=== PATIENT | male | born 1960 | race Caucasian/White ===

== ENCOUNTER → 2018-04-29 | Outpatient (CLI) | payer OTHER ==
[2018-04-29 10:00] LABS: ALT 51 U/L (21-72); AST 28 U/L (17-59); Cholesterol 152 mg/dL (<200); HDL Cholesterol 47 mg/dL (40-60); LDL Cholesterol,Calculated 84 mg/dL (0-99); Triglycerides 106 mg/dL (<150)
== END | disposition home or self-care (01) ==
LOC: LABWHC1 09:05
PROVIDERS: ATTEND Internal Medicine Interventional Cardiology
DX: E78.2 Mixed hyperlipidemia (principal)
CPT/HCPCS: 36415; 80061; 84450; 84460

== ENCOUNTER 2018-06-18 09:13 | Observation (INO) | payer OTHER ==
[2018-06-18] MEDS ORDERED: ASPIRIN 81 MG PO STA (09:27)
[2018-06-18] MEDS ORDERED: SODIUM CHLORIDE 0.9% 1,000 ML IV STA (09:27)
[2018-06-18] MEDS ORDERED: KETOROLAC 30 MG/ML 1 ML VIAL IVP STA (09:27)
--- NOTE | 2018-06-18 09:33 | ED ---
General Adult HPI - General Chief complaint: Chest Pain Stated complaint: Abnormal EKG Source: patient, EMS Mode of arrival: EMS Limitations: no limitations - History of Present Illness Initial comments: Dictation was produced using [employer] dictation software. please excuse any grammatical, word or spelling errors. Chief Complaint: 57-year-old male past medical history of coronary artery disease, status post CABG, myocardial infarction presents with EKG changes and URI symptoms. History of Present Illness: That he's been having these symptoms for approximately 3-4 days. Patient has been feeling unwell with symptoms of coughing, intermittent chest pain and diaphoresis. He went into his primary care physician's office today were EKG was performed showing some nonspecific EKG changes. Given that patient has extensive cardiac history he was dispositioned to emergency department for cardiac workup. Patient states he feels unwell. He has episodes of intermittent diaphoresis. He reports having had feeling of chest burning. He does have some pain that started today of the left inferior chest anteriorly. States that his symptoms today do not mind above when he was diagnosed with myocardial infarction. The ROS documented in this emergency department record has been reviewed and confirmed by me. Those systems with pertinent positive or negative responses have been documented in the HPI. All other systems are other negative and/or noncontributory. - Related Data Home Medications Medication Instructions Recorded Confirmed Hydrochlorothiazide [Hydrodiuril] 25 mg PO DAILY 12/15/14 06/18/18 amLODIPine BESYLATE [Norvasc] 5 mg PO DAILY 12/15/14 06/18/18 Aspirin EC [Ecotrin Low Dose] 81 mg PO HS 06/18/18 06/18/18 Cholecalciferol (Vitamin D3) 2,000 unit PO BID 06/18/18 06/18/18 [Vitamin D3] Famotidine [Pepcid AC] 10 mg PO HS 06/18/18 06/18/18 Lisinopril [Zestril] 20 mg PO BID 06/18/18 06/18/18 Loratadine [Claritin] 10 mg PO HS 06/18/18 06/18/18 [place]-3 Fatty Acids/Fish Oil [Fish 1 cap PO HS 06/18/18 06/18/18 Oil 1,000 mg Softgel] Psyllium Husk [Metamucil] 0.4 mg PO BID 06/18/18 06/18/18 Valerian Root 530mg 1 - 4 tab PO HS PRN 06/18/18 06/18/18 Vitamin K-2 100mg 100 mg PO DAILY 06/18/18 06/18/18 diphenhydrAMINE [Benadryl] 50 mg PO HS PRN 06/18/18 06/18/18 Previous Rx's Medication Instructions Recorded Atorvastatin [Lipitor] 40 mg PO HS #30 tablet 05/28/14 Metoprolol Tartrate [Lopressor] 25 mg PO BID #60 tab 05/28/14 Allergies Allergy/AdvReac Type Severity Reaction Status Date / Time adhesive Allergy Rash/Hives Verified 06/18/18 09:41 Review of Systems ROS Statement: Those systems with pertinent positive or pertinent negative responses have been documented in the HPI. ROS Other: All systems not noted in ROS Statement are negative. Past Medical History Past Medical History: Chest Pain / Angina, GERD/Reflux, Hyperlipidemia, Hypertension, Myocardial Infarction ([place]) Additional Past Medical History / Comment(s): arrthymia, palpitations, occ chest pain Last Myocardial Infarction Date:: 2007 History of Any Multi-Drug Resistant Organisms: None Reported Past Surgical History: Appendectomy, Coronary Bypass/CABG, Heart Catheterization , Heart Catheterization With Stent Additional Past Surgical History / Comment(s): surgeries on both legs from trauma age 6, heart cath 05-19-14 Past Anesthesia/Blood Transfusion Reactions: No Reported Reaction Date of Last Stent Placement:: 03/2008 Past Psychological History: No Psychological Hx Reported Smoking Status: Former smoker Past Alcohol Use History: Occasional Past Drug Use History: None Reported - Past Family History Mother Family Medical History: Cancer General Exam - General Exam Comments Initial Comments: PHYSICAL EXAM: General Impression: Alert and oriented x3, not in acute distress HEENT: Normocephalic atraumatic, extra-ocular movements intact, pupils equal and reactive to light bilaterally, mucous membranes moist. Cardiovascular: Heart regular rate and rhythm, S1&S2 audible, no murmurs, rubs or gallops Chest: Mild lung crackling at the left posterior lung base Abdomen: Bowel sounds present, abdomen soft, non-tender, non-distended, no organomegaly Musculoskeletal: Pulses present and equal in all extremities, no peripheral edema Motor: Power 5/5 bilaterally, no focal deficits noted Neurological: CN II-XII grossly intact, no focal motor or sensory deficits noted Skin: Intact with no visualized rashes Psych: Normal affect and mood Limitations: no limitations Course Vital Signs 06/18/18 06/18/18 06/18/18 09:15 09:35 10:10 Temperature 97.8 F Pulse Rate 76 79 72 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 Vital signs upon arrival are within acceptable limits. Physical examination is suspicious for left lower lobe findings. EKG performed at our institution and showed no signs to suggest ischemia or ID. EKG reviewed from primary care physician's office showing nonspecific T-wave inversion in aVL. Clinical picture is more consistent with pulmonary infection however given cardiac history we'll perform cardiac workup. Second EKG showed some narrowing changes however not persistent. There was one beat that showed ST segment elevation with concerning ST morphology in V 4 through V6. 3rd EKG performed 15 minutes after the second EKG showed no dynamic changes however did show persistent T-wave inversion in aVL discussed patient case in detail with Dr. Sevilla who will review EKG. High Scaler on-call states that he believes he is not concerned about this EKG at this time. Given that patient has history of diaphoresis, chest pain and cardiac history we will treat patient has unstable angina. Laboratory evaluation obtained. CBC is unremarkable. Coag panel is negative. Chem panel shows glucose of 118. First troponin is negative at 0.012. Chest x- ray shows no acute processes. Patient started on heparin. We have have patient admitted for serial troponins and cardiology consult. Patient understandable and agreeable to this plan. We gave him one tablet of aspirin. Patient was evaluated at bedside by cardiologists. Cardiology recommends serial troponins and admission to observation for medical monitoring. Did not recommend heparin at this time. EKG Interpretation: A 12 lead EKG was obtained. It was interpreted by myself and attending physician. There is a P wave before every QRS complex. Rate is 80. Rhythm is normal sinus rhythm, IN interval 180, QRS 106, QTC 412. QT is not prolonged. No ST segment depression or elevation. . Overall, this EKG is unremarkable - Lab Data Result diagrams: 06/18/18 09:26 06/18/18 09:26 Lab Results 06/18/18 06/18/18 06/18/18 Range/Units 09:26 09:26 09:26 WBC 10.4 (3.8-10.6) k/uL RBC 5.43 (4.30-5.90) m/uL Hgb 16.8 (13.0-17.5) gm/dL Hct 48.6 (39.0-53.0) % MCV 89.5 (80.0-100.0) fL MCH 31.0 (25.0-35.0) pg MCHC 34.7 (31.0-37.0) g/dL RDW 12.6 (11.5-15.5) % Plt Count 240 (150-450) k/uL Neutrophils % 71 % Lymphocytes % 19 % Monocytes % 6 % Eosinophils % 2 % Basophils % 1 % Neutrophils # 7.4 (1.3-7.7) k/uL Lymphocytes # 2.0 (1.0-4.8) k/uL Monocytes # 0.6 (0-1.0) k/uL Eosinophils # 0.2 (0-0.7) k/uL Basophils # 0.1 (0-0.2) k/uL PT (9.0-12.0) sec INR (<1.2) APTT (22.0-30.0) sec Sodium 141 (137-145) mmol/L Potassium 4.2 (3.5-5.1) mmol/L Chloride 105 (98-107) mmol/L Carbon Dioxide 25 (22-30) mmol/L Anion Gap 11 mmol/L BUN 12 (9-20) mg/dL Creatinine 0.70 (0.66-1.25) mg/dL Est GFR (CKD-EPI)AfAm >90 (>60 ml/min/1.73 sqM) Est GFR (CKD-EPI)NonAf >90 (>60 ml/min/1.73 sqM) Glucose 118 H (74-99) mg/dL Calcium 9.9 (8.4-10.2) mg/dL Magnesium 2.0 (1.6-2.3) mg/dL Total Bilirubin 0.7 (0.2-1.3) mg/dL AST 32 (17-59) U/L ALT 46 (21-72) U/L Alkaline Phosphatase 66 (38-126) U/L Total Creatine Kinase 78 (55-170) U/L CK-MB (CK-2) 0.6 (0.0-2.4) ng/mL CK-MB (CK-2) Rel Index 0.8 Troponin I <0.012 (0.000-0.034) ng/mL Total Protein 7.6 (6.3-8.2) g/dL Albumin 4.6 (3.5-5.0) g/dL Lipase 248 (23-300) U/L 06/18/18 Range/Units 09:26 WBC (3.8-10.6) k/uL RBC (4.30-5.90) m/uL Hgb (13.0-17.5) gm/dL Hct (39.0-53.0) % MCV (80.0-100.0) fL MCH (25.0-35.0) pg MCHC (31.0-37.0) g/dL RDW (11.5-15.5) % Plt Count (150-450) k/uL Neutrophils % % Lymphocytes % % Monocytes % % Eosinophils % % Basophils % % Neutrophils # (1.3-7.7) k/uL Lymphocytes # (1.0-4.8) k/uL Monocytes # (0-1.0) k/uL Eosinophils # (0-0.7) k/uL Basophils # (0-0.2) k/uL PT 9.8 (9.0-12.0) sec INR 1.0 (<1.2) APTT 22.0 (22.0-30.0) sec Sodium (137-145) mmol/L Potassium (3.5-5.1) mmol/L Chloride (98-107) mmol/L Carbon Dioxide (22-30) mmol/L Anion Gap mmol/L BUN (9-20) mg/dL Creatinine (0.66-1.25) mg/dL Est GFR (CKD-EPI)AfAm (>60 ml/min/1.73 sqM) Est GFR (CKD-EPI)NonAf (>60 ml/min/1.73 sqM) Glucose (74-99) mg/dL Calcium (8.4-10.2) mg/dL Magnesium (1.6-2.3) mg/dL Total Bilirubin (0.2-1.3) mg/dL AST (17-59) U/L ALT (21-72) U/L Alkaline Phosphatase (38-126) U/L Total Creatine Kinase (55-170) U/L CK-MB (CK-2) (0.0-2.4) ng/mL CK-MB (CK-2) Rel Index Troponin I (0.000-0.034) ng/mL Total Protein (6.3-8.2) g/dL Albumin (3.5-5.0) g/dL Lipase (23-300) U/L Disposition Clinical Impression: Chest pain Disposition: ADMITTED IP TO THIS HOSP Referrals: Musa Rosales MD [Primary Care Provider] - 1-2 days Decision Time: 11:08
[2018-06-18 09:52] LABS: Basophils # (A) 0.1 k/uL (0-0.2); Basophils % (A) 1 %; Eosinophils # (A) 0.2 k/uL (0-0.7); Eosinophils % (A) 2 %; HCT 48.6 % (39.0-53.0); HGB 16.8 gm/dL (13.0-17.5); Lymphocytes % (A) 19 %; MCHC 34.7 g/dL (31.0-37.0); MCV 89.5 fL (80.0-100.0); Mean Platelet Volume 7.8; Monocytes # (A) 0.6 k/uL (0-1.0); Monocytes % (A) 6 %; Neutrophils # (A) 7.4 k/uL (1.3-7.7); Neutrophils % (A) 71 %; Platelet Count 240 k/uL (150-450); RBC 5.43 m/uL (4.30-5.90); RDW 12.6 % (11.5-15.5); WBC 10.4 k/uL (3.8-10.6)
[2018-06-18 10:00] LABS: ALT 46 U/L (21-72); AST 32 U/L (17-59); Albumin 4.6 g/dL (3.5-5.0); Alkaline Phosphatase 66 U/L (38-126); Anion Gap 11 mmol/L; Blood Urea Nitrogen 12 mg/dL (9-20); Calcium 9.9 mg/dL (8.4-10.2); Carbon Dioxide 25 mmol/L (22-30); Chloride 105 mmol/L (98-107); Glucose 118 mg/dL (74-99); Lipase 248 U/L (23-300); Potassium 4.2 mmol/L (3.5-5.1); Sodium 141 mmol/L (137-145); Total Bilirubin 0.7 mg/dL (0.2-1.3); Total Protein 7.6 g/dL (6.3-8.2)
[2018-06-18 10:11] LABS: Prothrombin Time 9.8 sec (9.0-12.0)
[2018-06-18 10:17] LABS: Creatine Kinase 78 U/L (55-170)
--- NOTE | 2018-06-18 10:22 | XR ---
EXAMINATION TYPE: XR chest 2V DATE OF EXAM: 06/18/2018 COMPARISON: May 28, 2014 HISTORY: Shortness of breath TECHNIQUE: Frontal and lateral views of the chest are obtained. FINDINGS: Scattered senescent parenchymal changes noted. Hyperinflation compatible with COPD. No evidence for infiltrate. No evidence for atelectasis. Heart size is stable. Mediastinal structures are stable and grossly unremarkable. No evidence for hilar prominence. Degenerative changes dorsal spine. IMPRESSION: 1. No evidence for acute pulmonary disease.
[2018-06-18 10:28] LABS: Creatine Kinase MB 0.6 ng/mL (0.0-2.4); Troponin I <0.012 ng/mL (0.000-0.034)
[2018-06-18] MEDS ORDERED: HEPARIN SODIUM,PORCINE 5,000 UNIT/ML 1 ML VIAL IV PRN (10:30)
[2018-06-18] MEDS ORDERED: HEPARIN SODIUM,PORCINE 5,000 UNIT/ML 1 ML VIAL IV ONE (10:30)
[2018-06-18] MEDS ORDERED: HEPARIN SOD,PORK IN 0.45% NACL 25,000 UNIT in 0.45% NACL 1 500ML.BAG IV SCH (10:30)
--- NOTE | 2018-06-18 11:03 | P.CRDCN ---
History of Present Illness Consult date: 06/18/18 History of present illness: This is a 57-year-old gentleman with history of hypertension and hypercholesterolemia with history of a previous bypass surgery was been suffering from cold like symptoms and cough for the last week. As symptoms are not resolving. Patient went to see his primary care physician. Apparently was complaining of some atypical chest pain in the left side. His blood pressure was high. Dr. Rosales did an EKG in his office which showed some nonspecific T- wave changes. Patient was sent to the emergency room for further evaluation. EKGs done here showed nonspecific T-wave inversions in aVL without any other significant ST-T changes. Patient's pain in the left side is increased with coughing. Doesn't complain of any significant shortness of breath. His first troponin is normal. His symptoms are mostly related to his pulmonary infection. Patient was seen by Dr. Carrasco recently. Apparently had a stress test which was normal. He had a OROZCO graft to the LAD, vein graft to the OM 2 and vein graft to diagonal. The surgery was done in 2013. At this point his symptoms are noncardiac. EKGs are not suggestive of an acute event. His cardiac enzymes studies will be followed. If that is negative no further cardiac workup is necessary Review of Systems As per HPI Past Medical History Past Medical History: Chest Pain / Angina, GERD/Reflux, Hyperlipidemia, Hypertension, Myocardial Infarction ([place]) Additional Past Medical History / Comment(s): arrthymia, palpitations, occ chest pain Last Myocardial Infarction Date:: 2007 History of Any Multi-Drug Resistant Organisms: None Reported Past Surgical History: Appendectomy, Coronary Bypass/CABG, Heart Catheterization , Heart Catheterization With Stent Additional Past Surgical History / Comment(s): surgeries on both legs from trauma age 6, heart cath 05-19-14 Past Anesthesia/Blood Transfusion Reactions: No Reported Reaction Date of Last Stent Placement:: 03/2008 Past Psychological History: No Psychological Hx Reported Smoking Status: Former smoker Past Alcohol Use History: Occasional Past Drug Use History: None Reported - Past Family History Mother Family Medical History: Cancer Medications and Allergies Home Medications Medication Instructions Recorded Confirmed Type Atorvastatin [Lipitor] 40 mg PO HS #30 tablet 05/28/14 06/18/18 Rx Metoprolol Tartrate [Lopressor] 25 mg PO BID #60 tab 05/28/14 06/18/18 Rx Hydrochlorothiazide [Hydrodiuril] 25 mg PO DAILY 12/15/14 06/18/18 History amLODIPine BESYLATE [Norvasc] 5 mg PO DAILY 12/15/14 06/18/18 History Aspirin EC [Ecotrin Low Dose] 81 mg PO HS 06/18/18 06/18/18 History Cholecalciferol (Vitamin D3) 2,000 unit PO BID 06/18/18 06/18/18 History [Vitamin D3] Famotidine [Pepcid AC] 10 mg PO HS 06/18/18 06/18/18 History Lisinopril [Zestril] 20 mg PO BID 06/18/18 06/18/18 History Loratadine [Claritin] 10 mg PO HS 06/18/18 06/18/18 History [place]-3 Fatty Acids/Fish Oil [Fish 1 cap PO HS 06/18/18 06/18/18 History Oil 1,000 mg Softgel] Psyllium Husk [Metamucil] 0.4 mg PO BID 06/18/18 06/18/18 History Valerian Root 530mg 1 - 4 tab PO HS PRN 06/18/18 06/18/18 History Vitamin K-2 100mg 100 mg PO DAILY 06/18/18 06/18/18 History diphenhydrAMINE [Benadryl] 50 mg PO HS PRN 06/18/18 06/18/18 History Allergies Allergy/AdvReac Type Severity Reaction Status Date / Time adhesive Allergy Rash/Hives Verified 06/18/18 09:41 Physical Exam Vitals: Vital Signs Temp Pulse Pulse Resp BP Pulse Ox 06/18/18 10:49 74 18 139/86 97 06/18/18 10:10 72 18 143/89 97 06/18/18 09:35 79 79 18 98 06/18/18 09:15 97.8 F 76 18 179/101 97 Intake and Output 06/17/18 06/18/18 06/18/18 22:59 06:59 14:59 Other: Weight 104.326 kg GENERAL EXAM: Patient is alert and oriented and doesn't appear to be in any acute distress HEENT: Normocephalic. Normal reaction of pupils, equal size, normal range of extraocular motion. No erythema or exudates in the throat. NECK: No masses, no nuchal rigidity. CHEST: No chest wall deformity. LUNGS: Equal air entry with no crackles or wheeze. HEART: S1 and S2 normal with no audible mumurs or gallops. Regular rhythm, femorals equal on both sides.. ABDOMEN: No hepatosplenomegaly, normal bowel sounds, no guarding or rigidity. SKIN: No rashes CENTRAL NERVOUS SYSTEM: No focal deficits. EXTREMITIES: No cyanosis, clubbing or edema. Results 06/18/18 09:26 06/18/18 09:26 Cardiac Enzymes 06/18/18 06/18/18 Range/Units 09:26 09:26 AST 32 (17-59) U/L CK-MB (CK-2) 0.6 (0.0-2.4) ng/mL Troponin I <0.012 (0.000-0.034) ng/mL Coagulation 06/18/18 Range/Units 09:26 PT 9.8 (9.0-12.0) sec APTT 22.0 (22.0-30.0) sec CBC 06/18/18 Range/Units 09:26 WBC 10.4 (3.8-10.6) k/uL RBC 5.43 (4.30-5.90) m/uL Hgb 16.8 (13.0-17.5) gm/dL Hct 48.6 (39.0-53.0) % Plt Count 240 (150-450) k/uL Comprehensive Metabolic Panel 06/18/18 Range/Units 09:26 Sodium 141 (137-145) mmol/L Potassium 4.2 (3.5-5.1) mmol/L Chloride 105 (98-107) mmol/L Carbon Dioxide 25 (22-30) mmol/L BUN 12 (9-20) mg/dL Creatinine 0.70 (0.66-1.25) mg/dL Glucose 118 H (74-99) mg/dL Calcium 9.9 (8.4-10.2) mg/dL AST 32 (17-59) U/L ALT 46 (21-72) U/L Alkaline Phosphatase 66 (38-126) U/L Total Protein 7.6 (6.3-8.2) g/dL Albumin 4.6 (3.5-5.0) g/dL Current Medications Generic Name Dose Route Start Last Admin Trade Name Freq PRN Reason Stop Dose Admin Heparin Sodium (Porcine) 0 unit 06/18/18 10:30 Heparin IV PER PROTOCOL PRN Low PTT Protocol Heparin Sodium/Sodium Chloride 500 mls @ 20 mls/hr 06/18/18 10:30 06/18/18 10 :44 25,000 unit/ Sodium Chloride IV 9.59 units/kg/hr .Q24H SILVANO 20 mls/hr Administration Protocol 9.59 UNITS/KG/HR Intake and Output 06/17/18 06/18/18 06/18/18 22:59 06:59 14:59 Other: Weight 104.326 kg Patient Weight 06/19/18 06:59 Weight 104.326 kg 06/18/18 09:26 06/18/18 09:26 EKG Interpretations (text) Sinus rhythm with nonspecific T-wave changes in aVL Assessment and Plan (1) Upper respiratory infection Current Visit: Yes Status: Acute Code(s): J06.9 - ACUTE UPPER RESPIRATORY INFECTION, UNSPECIFIED SNOMED Code(s): 27129109 (2) Hyperlipemia Current Visit: No Status: Acute Code(s): E78.5 - HYPERLIPIDEMIA, UNSPECIFIED SNOMED Code(s): 38246661 (3) S/P CABG x 1 Current Visit: No Status: Acute Code(s): Z95.1 - PRESENCE OF AORTOCORONARY BYPASS GRAFT SNOMED Code(s): 205220523 (4) CAD (coronary artery disease), [place] coronary artery Current Visit: No Status: Chronic Code(s): I25.10 - ATHSCL HEART DISEASE OF [place] CORONARY ARTERY W/O ANG PCTRS SNOMED Code(s): 9926155930401 (5) Chest pain Current Visit: Yes Status: Acute Code(s): R07.9 - CHEST PAIN, UNSPECIFIED SNOMED Code(s): 76870887 Plan: Patient's chest pains are atypical. EKG changes are nonspecific. Patient does have history of ischemic heart disease with previous bypass surgery. We'll follow his cardiac enzymes. We'll continue medication for blood pressure control. He may be treated for upper respiratory infection. Further recommendation will depend upon the clinical course
[2018-06-18] MEDS ORDERED: NITROGLYCERIN SL TABS 0.4 MG TAB SUBLINGUAL PRN (11:05)
--- NOTE | 2018-06-18 13:36 | P.HPIM ---
History of Present Illness Patient is a pleasant 57-year-old gentleman came in with the chest pain on the left side nonpruritic in nature not associated with food was having cough for about a week about 5 stress 10 in severity nonradiating and he believes because of his coughing has this chest pain. EKG did not show any acute ST-T wave changes had did show some nonspecific T-wave inversions in the inferior leads. Patient does have pharyngitis improved. She appears to be secondary to ALLERGIES patient was also comparing of chest congestion coughing bringing up clear phlegm. Patient was already evaluated by cardiology. Chest x-ray did not show any pneumonic process. Review of Systems REVIEW OF SYSTEMS: CONSTITUTIONAL: No fever, no malaise, no fatigue. HEENT: No recent visual problems or hearing problems. Denied any sore throat. CARDIOVASCULAR: No orthopnea, PND, no palpitations, no syncope. PULMONARY: No shortness of breath, no cough, no hemoptysis. GASTROINTESTINAL: No diarrhea, no nausea, no vomiting, no abdominal pain. Normoactive bowel sounds. NEUROLOGICAL: No headaches, no weakness, no numbness. HEMATOLOGICAL: Denies any bleeding or petechiae. GENITOURINARY: Denies any burning micturition, frequency, or urgency. MUSCULOSKELETAL/RHEUMATOLOGICAL: Denies any joint pain, swelling, or any muscle pain. ENDOCRINE: Denies any polyuria or polydipsia. The rest of the 14-point review of systems is negative. Past Medical History Past Medical History: Coronary Artery Disease (CAD), Chest Pain / Angina, GERD/ Reflux, Hyperlipidemia, Hypertension, Myocardial Infarction ([place]), Pneumonia Additional Past Medical History / Comment(s): Recent palpitations, past bronchitis, bilateral leg injury as a 6 yr old child with multiple surgeries. Last Myocardial Infarction Date:: 2007 History of Any Multi-Drug Resistant Organisms: None Reported Past Surgical History: Appendectomy, Coronary Bypass/CABG, Heart Catheterization , Heart Catheterization With Stent Additional Past Surgical History / Comment(s): 2007 PCI with stent, 2013 cardiac cath, 2013 CABG 3 vessel, multiple surgeries on both legs from trauma age 6yrs, L knee ACL repair. Past Anesthesia/Blood Transfusion Reactions: No Reported Reaction Additional Past Anesthesia/Blood Transfusion Reaction / Comment(s): Pt is unsure if he has ever received blood. Date of Last Stent Placement:: 03/2008 Smoking Status: Former smoker - Past Family History Mother Family Medical History: Cancer Additional Family Medical History / Comment(s): Mother is 76yrs old. She had breast cancer and palpitations. There was alot of CAD on her side of the family. Father Family Medical History: Myocardial Infarction ([place]) Additional Family Medical History / Comment(s): Father of a MD in his 60' s. CAD runs strongley in father's side of family. Medications and Allergies Home Medications Medication Instructions Recorded Confirmed Type Atorvastatin [Lipitor] 40 mg PO HS #30 tablet 05/28/14 06/18/18 Rx Metoprolol Tartrate [Lopressor] 25 mg PO BID #60 tab 05/28/14 06/18/18 Rx Hydrochlorothiazide [Hydrodiuril] 25 mg PO DAILY 12/15/14 06/18/18 History amLODIPine BESYLATE [Norvasc] 5 mg PO DAILY 12/15/14 06/18/18 History Aspirin EC [Ecotrin Low Dose] 81 mg PO HS 06/18/18 06/18/18 History Cholecalciferol (Vitamin D3) 2,000 unit PO BID 06/18/18 06/18/18 History [Vitamin D3] Famotidine [Pepcid AC] 10 mg PO HS 06/18/18 06/18/18 History Lisinopril [Zestril] 20 mg PO BID 06/18/18 06/18/18 History Loratadine [Claritin] 10 mg PO HS 06/18/18 06/18/18 History [place]-3 Fatty Acids/Fish Oil [Fish 1 cap PO HS 06/18/18 06/18/18 History Oil 1,000 mg Softgel] Psyllium Husk [Metamucil] 0.4 mg PO BID 06/18/18 06/18/18 History Valerian Root 530mg 1 - 4 tab PO HS PRN 06/18/18 06/18/18 History Vitamin K-2 100mg 100 mg PO DAILY 06/18/18 06/18/18 History diphenhydrAMINE [Benadryl] 50 mg PO HS PRN 06/18/18 06/18/18 History Allergies Allergy/AdvReac Type Severity Reaction Status Date / Time adhesive Allergy Rash/Hives Verified 06/18/18 09:41 Physical Exam Vitals: Vital Signs Temp Pulse Pulse Pulse Resp BP BP 06/18/18 11:40 98.0 F 75 18 134/78 06/18/18 11:27 98.2 F 06/18/18 10:49 74 18 139/86 06/18/18 10:10 72 18 143/89 06/18/18 09:35 79 79 18 06/18/18 09:15 97.8 F 76 18 179/101 Pulse Ox 06/18/18 11:40 96 06/18/18 11:27 06/18/18 10:49 97 06/18/18 10:10 97 06/18/18 09:35 98 06/18/18 09:15 97 Intake and Output 06/17/18 06/18/18 06/18/18 22:59 06:59 14:59 Other: Weight 105.8 kg PHYSICAL EXAMINATION: GENERAL: The patient is alert and oriented x3, not in any acute distress. Well developed, well nourished. HEENT: Pupils are round and equally reacting to light. EOMI. No scleral icterus. No conjunctival pallor. Normocephalic, atraumatic. Patient does have minimal pharyngeal erythema. No thyromegaly. CARDIOVASCULAR: S1 and S2 present. No murmurs, rubs, or gallops. PULMONARY: Chest is clear to auscultation, no wheezing or crackles. ABDOMEN: Soft, nontender, nondistended, normoactive bowel sounds. No palpable organomegaly. MUSCULOSKELETAL: No joint swelling or deformity. EXTREMITIES: No cyanosis, clubbing, or pedal edema. NEUROLOGICAL: Gross neurological examination did not reveal any focal deficits. SKIN: No rashes. Results CBC & Chem 7: 06/18/18 09:26 06/18/18 09:26 Labs: Abnormal Lab Results - Last 24 Hours (Table) 06/18/18 Range/Units 09:26 Glucose 118 H (74-99) mg/dL Thrombosis Risk Factor Assmnt - Choose All That Apply Any of the Below Risk Factors Present?: Yes Each Factor Represents 1 point: Age 41-60 years, Obesity (BMI >25) Other Risk Factors: No Other congenital or acquired thrombophilia - If yes, enter type in comment: No Thrombosis Risk Factor Assessment Total Risk Factor Score: 2 Thrombosis Risk Factor Assessment Level: Low Risk Assessment and Plan Plan: Chest pain: Musculoskeletal nature secondary to coughing from ALLERGIC bronchitis and ALLERGIC pharyngitis. Plan is to rule out acute coronary syndromes, IVD further recommendations regarding further cardiac workup from cardiology. -Pharyngitis: ALLERGIC in nature will not require any antibiotics -Hyperlipidemia -Coronary artery disease history of stents in the past.
[2018-06-18 15:57] LABS: Creatine Kinase 56 U/L (55-170)
[2018-06-18 16:09] LABS: Creatine Kinase MB 0.3 ng/mL (0.0-2.4); Troponin I <0.012 ng/mL (0.000-0.034)
[2018-06-18] MEDS: CHOLECALCIFEROL 1,000 UNIT TAB PO SCH (19:46)
[2018-06-18] MEDS: LORATADINE 10 MG TAB PO SCH ×2 (19:46→19:49)
[2018-06-18] MEDS: METOPROLOL TARTRATE 25 MG TAB PO SCH (19:46)
[2018-06-18] MEDS: LISINOPRIL 20 MG TAB PO SCH (19:46)
[2018-06-18] MEDS: FAMOTIDINE 20 MG TAB PO SCH ×2 (19:46→19:48)
[2018-06-18] MEDS ORDERED: NON-FORMULARY DRUG (Omega-3 Fatty Acids/Fish Oil [Fish Oil 1,000 Mg Softgel] 1 CAP) PO SCH (21:00)
[2018-06-18] MEDS ORDERED: ATORVASTATIN 40 MG TAB PO SCH (21:00)
[2018-06-18] MEDS ORDERED: ASPIRIN 81 MG PO SCH (21:00)
[2018-06-18 21:52] LABS: Creatine Kinase 50 U/L (55-170)
[2018-06-18 21:56] LABS: Cholesterol 143 mg/dL (<200); HDL Cholesterol 43 mg/dL (40-60); LDL Cholesterol,Calculated 76 mg/dL (0-99); Triglycerides 119 mg/dL (<150)
[2018-06-18 22:05] LABS: Creatine Kinase MB 0.3 ng/mL (0.0-2.4); Troponin I <0.012 ng/mL (0.000-0.034)
[2018-06-19 04:30] VITALS: RESP 16
[2018-06-19] MEDS ORDERED: HYDROCHLOROTHIAZIDE 25 MG TAB PO SCH (09:00)
[2018-06-19] MEDS ORDERED: ASPIRIN 325 MG TAB PO SCH (09:00)
[2018-06-19] MEDS ORDERED: amLODIPine 5 MG TAB PO SCH (09:00)
[2018-06-19] MEDS: CHOLECALCIFEROL 1,000 UNIT TAB PO SCH (11:42)
[2018-06-19] MEDS: METOPROLOL TARTRATE 25 MG TAB PO SCH (11:42)
[2018-06-19] MEDS: LISINOPRIL 20 MG TAB PO SCH (11:42)
[2018-06-19 12:14] VITALS: BP 137/83; TEMP 97.5
[2018-06-19 13:06] VITALS: PULSE 79
--- NOTE | 2018-06-19 15:39 | P.DS ---
Providers Date of admission: 06/18/18 11:05 Attending physician: Daryl Garcia Consults: 06/18/18 11:05 Consult Physician Urgent Consulting Provider: Grant Sevilla Consult Reason/Comments: chest pain Do you want consulting provider notified?: Already Contacted Primary care physician: [facility] Course: 57-year-old the male admitted for chest pain rule out acute consent was cleared by cardiology patient chest pain is musculoskeletal in nature. Patient is being discharged today. Please refer to my dictation of H&P from yesterday for further details. No changes in medications are being made at this time. Patient appears to have ALLERGIC upper respiratory illness. PHYSICAL EXAMINATION: GENERAL: The patient is alert and oriented x3, not in any acute distress. Well developed, well nourished. HEENT: Pupils are round and equally reacting to light. EOMI. No scleral icterus. No conjunctival pallor. Normocephalic, atraumatic. No pharyngeal erythema. No thyromegaly. CARDIOVASCULAR: S1 and S2 present. No murmurs, rubs, or gallops. PULMONARY: Chest is clear to auscultation, no wheezing or crackles. ABDOMEN: Soft, nontender, nondistended, normoactive bowel sounds. No palpable organomegaly. MUSCULOSKELETAL: No joint swelling or deformity. EXTREMITIES: No cyanosis, clubbing, or pedal edema. NEUROLOGICAL: Gross neurological examination did not reveal any focal deficits. SKIN: No rashes. Plan - Discharge Summary Discharge Rx Participant: No New Discharge Prescriptions: No Action Atorvastatin [Lipitor] 40 mg PO HS #30 tablet Metoprolol Tartrate [Lopressor] 25 mg PO BID #60 tab amLODIPine BESYLATE [Norvasc] 5 mg PO DAILY Hydrochlorothiazide [Hydrodiuril] 25 mg PO DAILY Vitamin K-2 100mg 100 mg PO DAILY Psyllium Husk [Metamucil] 0.4 mg PO BID Lisinopril [Zestril] 20 mg PO BID diphenhydrAMINE [Benadryl] 50 mg PO HS PRN PRN Reason: Insomnia Valerian Root 530mg 1 - 4 tab PO HS PRN PRN Reason: Insomnia [place]-3 Fatty Acids/Fish Oil [Fish Oil 1,000 mg Softgel] 1 cap PO HS Loratadine [Claritin] 10 mg PO HS Famotidine [Pepcid AC] 10 mg PO HS Cholecalciferol (Vitamin D3) [Vitamin D3] 2,000 unit PO BID Aspirin EC [Ecotrin Low Dose] 81 mg PO HS Discharge Medication List Atorvastatin [Lipitor] 40 mg PO HS #30 tablet 05/28/14 [Rx] Metoprolol Tartrate [Lopressor] 25 mg PO BID #60 tab 05/28/14 [Rx] Hydrochlorothiazide [Hydrodiuril] 25 mg PO DAILY 12/15/14 [History] amLODIPine BESYLATE [Norvasc] 5 mg PO DAILY 12/15/14 [History] Aspirin EC [Ecotrin Low Dose] 81 mg PO HS 06/18/18 [History] Cholecalciferol (Vitamin D3) [Vitamin D3] 2,000 unit PO BID 06/18/18 [History] Famotidine [Pepcid AC] 10 mg PO HS 06/18/18 [History] Lisinopril [Zestril] 20 mg PO BID 06/18/18 [History] Loratadine [Claritin] 10 mg PO HS 06/18/18 [History] [place]-3 Fatty Acids/Fish Oil [Fish Oil 1,000 mg Softgel] 1 cap PO HS 06/18/18 [ History] Psyllium Husk [Metamucil] 0.4 mg PO BID 06/18/18 [History] Valerian Root 530mg 1 - 4 tab PO HS PRN 06/18/18 [History] Vitamin K-2 100mg 100 mg PO DAILY 06/18/18 [History] diphenhydrAMINE [Benadryl] 50 mg PO HS PRN 06/18/18 [History] Follow up Appointment(s)/Referral(s): Musa Rosales MD [Primary Care Provider] - 3 Days Discharge Disposition: HOME SELF-CARE
== END 2018-06-19 15:41 | disposition home or self-care (01) ==
LOC: EC 09:13 → 3OBS 11:05
PROVIDERS: ADMIT Internal Medicine; ATTEND Internal Medicine
DX: R07.89 Other chest pain (principal); J45.909 Unspecified asthma, uncomplicated; J02.9 Acute pharyngitis, unspecified; J06.9 Acute upper respiratory infection, unspecified; I25.10 Atherosclerotic heart disease of native coronary artery without angina pectoris; Z95.1 Presence of aortocoronary bypass graft; R94.31 Abnormal electrocardiogram [ECG] [EKG]; I25.2 Old myocardial infarction; R61 Generalized hyperhidrosis; I10 Essential (primary) hypertension; Z79.899 Other long term (current) drug therapy; Z79.82 Long term (current) use of aspirin; Z91.048 Other nonmedicinal substance allergy status; K21.9 Gastro-esophageal reflux disease without esophagitis; E78.5 Hyperlipidemia, unspecified; R00.2 Palpitations; I49.9 Cardiac arrhythmia, unspecified; Z95.5 Presence of coronary angioplasty implant and graft; Z87.891 Personal history of nicotine dependence; Z80.9 Family history of malignant neoplasm, unspecified; Z80.3 Family history of malignant neoplasm of breast; E66.9 Obesity, unspecified; Z68.33 Body mass index [BMI] 33.0-33.9, adult
CPT/HCPCS: 36415; 71046; 80053; 80061; 82550; 82553; 83690; 83735; 84484; 85025; 85610; 85730; 93005; 96361; 96365; 96375; 96376; 99285

== ENCOUNTER 2018-10-11 04:51 | Inpatient (IN) | payer OTHER ==
[2018-10-11 05:16] LABS: Basophils # (A) 0.1 k/uL (0-0.2); Basophils % (A) 1 %; Eosinophils # (A) 0.3 k/uL (0-0.7); Eosinophils % (A) 3 %; HCT 51.4 % (39.0-53.0); HGB 17.1 gm/dL (13.0-17.5); Lymphocytes # (A) 2.2 k/uL (1.0-4.8); Lymphocytes % (A) 24 %; MCH 30.3 pg (25.0-35.0); MCHC 33.4 g/dL (31.0-37.0); MCV 90.8 fL (80.0-100.0); Monocytes # (A) 0.7 k/uL (0-1.0); Monocytes % (A) 7 %; Neutrophils # (A) 5.6 k/uL (1.3-7.7); Neutrophils % (A) 61 %; Platelet Count 233 k/uL (150-450); RBC 5.66 m/uL (4.30-5.90); RDW 12.8 % (11.5-15.5); WBC 9.3 k/uL (3.8-10.6)
--- NOTE | 2018-10-11 05:16 | ED ---
Chest Pain HPI - General Stated Complaint: Chest Pain Time Seen by Provider: 10/11/18 04:57 Source: patient Mode of arrival: ambulatory Limitations: no limitations - History of Present Illness Initial Comments: This patient is a 58-year-old man with history of previous LA (approx 2007), and then CABG in 2013, who states that he was awakened from sleep around 3 AM with feeling of chest tightness and substernal area. He states he also felt like he was having a hard time catching his breath. The symptoms not resolve filters be evaluated here. MD Complaint: chest pain Onset/Timin -: hour(s) Onset: during rest Pain Location: substernal Pain Radiation: none Severity: moderate Quality: tightness Consistency: constant Improves With: nothing Worsens With: nothing Anginal Symptoms: dyspnea Treatments Prior to Arrival: none - Related Data Home Medications Medication Instructions Recorded Confirmed Hydrochlorothiazide [Hydrodiuril] 25 mg PO DAILY 12/15/14 10/11/18 amLODIPine BESYLATE [Norvasc] 5 mg PO DAILY 12/15/14 10/11/18 Aspirin EC [Ecotrin Low Dose] 81 mg PO HS 06/18/18 10/11/18 Cholecalciferol (Vitamin D3) 2,000 unit PO BID 06/18/18 10/11/18 [Vitamin D3] Famotidine [Pepcid AC] 10 mg PO HS 06/18/18 10/11/18 Loratadine [Claritin] 10 mg PO HS 06/18/18 10/11/18 [place]-3 Fatty Acids/Fish Oil [Fish 1 cap PO HS 06/18/18 10/11/18 Oil 1,000 mg Softgel] Psyllium Husk [Metamucil] 0.4 mg PO BID 06/18/18 10/11/18 Valerian Root 530mg 1 - 4 tab PO HS PRN 06/18/18 10/11/18 Vitamin K-2 100mg 100 mg PO DAILY 06/18/18 10/11/18 diphenhydrAMINE [Benadryl] 50 mg PO HS PRN 06/18/18 10/11/18 Glucosam/López-Msm1/C/Alcon/Bosw 1 tab PO BID 10/11/18 10/11/18 [Glucosamine-Chondroitin Tablet] Losartan Potassium [Cozaar] 100 mg PO DAILY 10/11/18 10/11/18 Ubidecarenone [Co Q-10] 100 mg PO DAILY 10/11/18 10/11/18 Vitamin B Complex 1 cap PO DAILY 10/11/18 10/11/18 Previous Rx's Medication Instructions Recorded Atorvastatin [Lipitor] 40 mg PO HS #30 tablet 05/28/14 Metoprolol Tartrate [Lopressor] 25 mg PO BID #60 tab 05/28/14 Allergies Allergy/AdvReac Type Severity Reaction Status Date / Time adhesive Allergy Rash/Hives Verified 10/11/18 09:04 Review of Systems ROS Statement: Those systems with pertinent positive or pertinent negative responses have been documented in the HPI. ROS Other: All systems not noted in ROS Statement are negative. Constitutional: Denies: fever, chills Respiratory: Reports: as per HPI, dyspnea. Denies: cough Cardiovascular: Reports: as per HPI, chest pain. Denies: palpitations, orthopnea, edema, syncope Gastrointestinal: Denies: abdominal pain, nausea, vomiting, melena, hematochezia Genitourinary: Denies: dysuria, hematuria Musculoskeletal: Denies: back pain Skin: Denies: rash Neurological: Denies: headache, weakness, numbness EKG Findings - EKG Results: EKG: interpreted by ERMD, sinus rhythm (With occasional PVCs, rate 96 bpm) - Blocks, [place], Hypertrophy, ST Abn: AV and intraventricular conduction: right bundle branch block (fixed/ intermittent, complete/incomplete) (Incomplete right bundle branch block) QRS axis and voltage: right axis deviation (+90 to +180) (Rates. [place]) Past Medical History Past Medical History: Coronary Artery Disease (CAD), Chest Pain / Angina, GERD/ Reflux, Hyperlipidemia, Hypertension, Myocardial Infarction (LA), Pneumonia Additional Past Medical History / Comment(s): Recent palpitations, past bronchitis, bilateral leg injury as a 6 yr old child with multiple surgeries. Last Myocardial Infarction Date:: 2007 History of Any Multi-Drug Resistant Organisms: None Reported Past Surgical History: Appendectomy, Coronary Bypass/CABG, Heart Catheterization , Heart Catheterization With Stent Additional Past Surgical History / Comment(s): 2007 PCI with stent, 2013 cardiac cath, 2013 CABG 3 vessel, multiple surgeries on both legs from trauma age 6yrs, L knee ACL repair. Past Anesthesia/Blood Transfusion Reactions: No Reported Reaction Additional Past Anesthesia/Blood Transfusion Reaction / Comment(s): Pt is unsure if he has ever received blood. Date of Last Stent Placement:: 03/2008 Past Psychological History: No Psychological Hx Reported Smoking Status: Former smoker - Past Family History Mother Family Medical History: Cancer Additional Family Medical History / Comment(s): Mother is 76yrs old. She had breast cancer and palpitations. There was alot of CAD on her side of the family. Father Family Medical History: Myocardial Infarction (LA) Additional Family Medical History / Comment(s): Father of a LA in his 60' s. CAD runs strongley in father's side of family. General Exam Limitations: no limitations General appearance: alert Eye exam: Present: normal appearance. Absent: scleral icterus, conjunctival injection ENT exam: Present: normal oropharynx Neck exam: Present: normal inspection, full ROM Respiratory exam: Present: normal lung sounds bilaterally. Absent: respiratory distress, wheezes, rales, rhonchi, stridor Cardiovascular Exam: Present: regular rate, normal rhythm, normal heart sounds. Absent: systolic murmur, diastolic murmur, rubs, gallop GI/Abdominal exam: Present: soft, pulsatile mass. Absent: distended, tenderness , guarding, rebound, rigid, mass Extremities exam: Present: normal inspection, normal capillary refill. Absent: pedal edema, calf tenderness Back exam: Present: normal inspection. Absent: CVA tenderness (R), CVA tenderness (L) Neurological exam: Present: alert Skin exam: Present: warm, dry, intact, normal color. Absent: rash Course Vital Signs 10/11/18 10/11/18 10/11/18 04:58 05:10 05:40 Temperature 98.1 F Pulse Rate 84 85 76 Respiratory 20 18 13 Rate Blood Pressure 183/110 168/99 141/95 O2 Sat by Pulse 99 100 95 Oximetry 10/11/18 08:00 Temperature 98.3 F Pulse Rate 85 Respiratory 18 Rate Blood Pressure 111/77 O2 Sat by Pulse 96 Oximetry Chest Pain MDM - [facility] Patient's 58-year-old man with history of previous coronary artery disease, status post LA and status post CABG. The symptoms are concerning for acute coronary syndrome. Patient started on medical management and I also discussed case with the admitting physician and with the ore bridge operator on-call and he was seen by cardiology. Critical Care Time Critical Care Time: Yes (40 minutes) Disposition Clinical Impression: Acute coronary syndrome Disposition: ADMITTED IP TO THIS HOSP Condition: Good
--- NOTE | 2018-10-11 05:19 | XR ---
EXAMINATION TYPE: XR chest 1V portable DATE OF EXAM: 10/11/2018 COMPARISON: 06/18/2018 HISTORY: Chest pain TECHNIQUE: Single frontal view of the chest is obtained. FINDINGS: Heart is normal. Lungs are clear of consolidation. There are sternal wires. There are ches t leads. Bony thorax appears intact. IMPRESSION: No active cardiopulmonary disease. No change.
[2018-10-11 05:20] LABS: Albumin 4.9 g/dL (3.5-5.0); Calcium 9.9 mg/dL (8.4-10.2); Magnesium 1.8 mg/dL (1.6-2.3); Potassium 3.9 mmol/L (3.5-5.1); Total Bilirubin 0.6 mg/dL (0.2-1.3); Total Protein 8.2 g/dL (6.3-8.2)
[2018-10-11 05:23] LABS: D-Dimer 0.35 mg/L FEU (<0.60); INR 0.9 (<1.2); Partial Thromboplastin Time 22.6 sec (22.0-30.0)
[2018-10-11 05:29] LABS: Creatine Kinase 64 U/L (55-170)
[2018-10-11 05:43] LABS: Creatine Kinase MB 0.7 ng/mL (0.0-2.4); Troponin I <0.012 ng/mL (0.000-0.034)
[2018-10-11] MEDS ORDERED: MORPHINE SULFATE 4 MG/ML SYRINGE IV STA (05:50)
[2018-10-11] MEDS ORDERED: NITROGLYCERIN SL TABS 0.4 MG TAB SUBLINGUAL STA (05:50)
[2018-10-11] MEDS ORDERED: ASPIRIN 81 MG PO STA (05:51)
[2018-10-11] MEDS ORDERED: HEPARIN SODIUM,PORCINE 5,000 UNIT/ML 1 ML VIAL IV PRN (06:15)
[2018-10-11] MEDS ORDERED: HEPARIN SOD,PORK IN 0.45% NACL 25,000 UNIT in 0.45% NACL 1 250ML.BAG IV SCH (06:15)
[2018-10-11] MEDS ORDERED: HEPARIN SODIUM,PORCINE 5,000 UNIT/ML 1 ML VIAL IV ONE (06:15)
[2018-10-11] MEDS ORDERED: NITROGLYCERIN-D5W PMX 50 MG in DEXTROSE/WATER 1 250ML.BAG IV ONE ×2 (06:51→10:15)
[2018-10-11] MEDS ORDERED: NITROGLYCERIN SL TABS 0.4 MG TAB SUBLINGUAL PRN (06:53)
[2018-10-11] MEDS ORDERED: SODIUM CHLORIDE 0.9% 1,000 ML IV SCH (07:00)
--- NOTE | 2018-10-11 08:16 | CONS ---
CONSULTATION This is a 58-year-old gentleman with a known history of hypertension, CAD, previous PCI and bypass surgery that was performed in 2013. He has history of hypertension, hyperlipidemia, and seems to be very compliant with medications. Patient tells me that in March or so of this year he had a stress test that was negative, details unavailable. However, he woke up at 3:00 this morning with heavy pressure in the chest, radiation to both upper extremities, felt short of breath and broke into a sweat and came into the hospital. After arrival he still had chest pain, was given nitroglycerin, morphine with this he showed some improvement. EKG does not reveal acute changes. He is resting comfortably at the time of my evaluation and indicates to me that he just started feeling better after receiving some nitroglycerin drip as well as sublingual nitroglycerin. He is hemodynamically stable. PAST MEDICAL HISTORY: CAD with possibly prior myocardial infarction. He underwent stenting sometime 8 to 10 years ago, but about 4 years ago he had aortocoronary bypass surgery performed with a OROZCO to LAD, vein graft to the diagonal branch and also to the obtuse marginal branch of circumflex. MEDICATIONS: Medications at home include: Amlodipine 5 mg daily, metoprolol tartrate 25 mg b.i.d., Zestril 20 mg b.i.d., atorvastatin 40 mg daily, aspirin 81 mg daily, and vitamin supplements. ALLERGIES: No known drug allergies. PHYSICAL EXAMINATION: On examination, blood pressure is 140/70, pulse rate is 70 per minute HEENT: Unremarkable. Fundus was not examined by me. Neck is supple. There is no JVD. I do not hear a carotid bruit. Heart exam reveals S1, S2 heard normally. No significant murmurs. Lungs are clear. Abdomen is soft, nontender. Lower extremities reveal normal pulses. No edema. Central nervous system is normal. EKG revealed a sinus mechanism with isolated PVC. No acute changes. There is a leftward axis noted, cannot exclude old inferior CO. No acute changes noted. Laboratory data revealed that his initial troponin was normal. Renal function is normal. D-dimer is normal. IMPRESSION: 1. Unstable angina. 2. History of coronary artery disease with prior bypass surgery with OROZCO to LAD, vein grafts to the obtuse marginal branch of circumflex and diagonal branch of LAD. The patient also had a significant lesion in the PLV branch of RCA that was not grafted because it was presumably small. Ejection fraction on catheterization at that time was 40% to 45% with evidence of some anteroapical hypokinesia. 3. Hypertension. 4. Hyperlipidemia. RECOMMENDATION: I am recommending that we will continue IV heparin, nitroglycerin, proceed with cardiac catheterization later today, but also obtain additional troponin levels as well. Apparently in 2007, this gentleman had stenting performed following a myocardial infarction possibly of the obtuse marginal branch of circumflex. He also had a PLV branch of the dominant RCA that had a lesion that was not grafted. However, stress test apparently was unremarkable per patient. I have not verified this. I will review additional troponin report. Continue IV heparin and nitroglycerin and proceed with coronary angiography. Rationale, risks, benefits, options were explained to the patient. He understands all details and wishes to proceed with the procedure. It will be performed around 9:30 or so today. MMSYED / BRYANN: [id number] /
[2018-10-11] MEDS ORDERED: fentaNYL (PF) 50 MCG/ML 2 ML AMP ONE (09:45)
[2018-10-11] MEDS ORDERED: LIDOCAINE 1% INJ 10MG/ML (20 ML MDV) ONE (09:51)
[2018-10-11] MEDS ORDERED: IV FLUID CONTINUATION 1,000 ML IV ONE (10:15)
[2018-10-11] MEDS ORDERED: HEPARIN SOD,PORK IN 0.45% NACL 25,000 UNIT in 0.45% NACL 1 250ML.BAG IV ONE (10:15)
[2018-10-11] MEDS ORDERED: MIDAZOLAM 2 MG/2 ML VIAL IVP ONE ×2 (10:22→10:28)
[2018-10-11] MEDS ORDERED: LIDOCAINE 1% INJ 10MG/ML (20 ML MDV) SQ ONE (10:28)
[2018-10-11] MEDS ORDERED: fentaNYL (PF) 50 MCG/ML 2 ML AMP IVP ONE (10:30)
[2018-10-11] MEDS ORDERED: IOPAMIDOL-370 100ML BTL INJ ONE ×2 (10:43→10:47)
[2018-10-11] MEDS ORDERED: MORPHINE SULFATE 4 MG/ML SYRINGE ONE (10:50)
[2018-10-11] MEDS ORDERED: MORPHINE SULFATE 4 MG/ML SYRINGE IV ONE (10:53)
[2018-10-11 11:21] LABS: Creatine Kinase 38 U/L (55-170)
[2018-10-11 11:34] LABS: Creatine Kinase MB 0.3 ng/mL (0.0-2.4); Troponin I <0.012 ng/mL (0.000-0.034)
[2018-10-11 11:37] LABS: Glucose,Whole Blood 108 mg/dL (75-99)
[2018-10-11] MEDS ORDERED: RX INFO: IV CONTRAST WAS GIVEN 1 EACH MISC MISCELLANE PRN (11:47)
[2018-10-11] MEDS: SODIUM CHLORIDE 0.9% 1,000 ML IV SCH (12:17)
--- NOTE | 2018-10-11 12:58 | CC ---
CARDIAC CATHETERIZATION REPORT DATE OF SERVICE: 10/11/2018 PROCEDURE: Left heart catheterization, coronary angiography, selective injection of bypass grafts and left ventriculography. PERFORMED BY: Dr. Renetta Malhotra. Moderate conscious sedation time was 31 minutes. The patient received Versed, fentanyl and his oxygen saturation, hemodynamics and EKG were monitored closely. CLINICAL INFORMATION: Mr. Aguilar Vail is a 58-year-old gentleman with a history of hypertension, hyperlipidemia and CAD. He had stenting of circumflex marginal in 2007 and in 2013 had a triple-vessel bypass with OROZCO to LAD and 2 separate vein grafts to the diagonal branch of LAD and obtuse marginal branch of circumflex. RCA/PDA branch of RCA was diseased but was too small and was not grafted. He came into the hospital with waking up at 3 a.m. with chest heaviness, pressure, shortness of breath and some diaphoresis. Pain was relieved after giving him some morphine and nitroglycerin. At the time of my evaluation, he was comfortable. EKG did not reveal any acute changes and his initial troponin level was normal. Given his presentation and known CAD, I recommended coronary angiography. Risks, benefits, options, rationale were explained and he was brought for the procedure to the labor relations consultant. PROCEDURE NOTE: Under local anesthesia and strict aseptic precautions, a 6-Bengali introducer was placed in the right femoral artery. Using a standard left Denae catheter I performed selective coronary angiography of the left coronary artery. A Arsalan catheter was used to perform selective coronary angiography of his RCA, 2 vein grafts, and also the OROZCO injection. LV gram was performed using a pigtail catheter. The sheath was taken out and a Perclose device used to secure hemostasis, but the suture did not hold with a Perclose and therefore FemoStop was applied. Good hemostasis was secured and he was sent to the room in a stable condition. Findings, results, recommendations were discussed with the patient and family. CARDIAC CATHETERIZATION FINDINGS: The left ventricular end-diastolic pressure was 18 mmHg without any gradient across the aortic valve. CORONARY ANGIOGRAPHY FINDINGS: LEFT MAIN CORONARY ARTERY: This is a short patent vessel free of significant disease that bifurcates into LAD and circumflex. Left main itself is free of significant disease. LEFT ANTERIOR DESCENDING CORONARY ARTERY: This is a good caliber vessel that has about a 50% to 60% proximal LAD lesion and there is another 60% tandem lesion after which there are 2 septal branches and then there is a total occlusion with competitive flow in the LAD. LAD therefore is totally occluded in the mid portion with diffuse disease in the proximal one third. LEFT POSTERIOR CIRCUMFLEX CORONARY ARTERY: Technically nondominant vessel. There are probably at least 2 obtuse marginals that were seen on the previous images that are now occluded. The vessel runs in the AV groove and supplies the distal posterolateral branch. The 2 OMs are occluded. Very limited antegrade flow is noted in the OM distribution, but the distal PLV branch has minor diffuse disease but is not a large branch. RIGHT CORONARY ARTERY: This is a large dominant vessel, has no significant disease in the proximal and distal portion. It bifurcates into PDA and PLV. PLV is larger, has minor diffuse disease has no critical lesions. PDA has about a 50% to 55% ostial lesion eccentric in nature and then there is diffuse disease within the body of the PDA. There is mild progression of disease in the PDA in the body of the vessel, but the ostial disease is unchanged compared to 2014. RCA is a dominant vessel therefore with PDA having some diffuse disease in it as well as ostial 50% to 55% lesion. PLV is larger. No significant disease. Minor diffuse irregularities. SAPHENOUS VEIN GRAFT TO THE OBTUSE MARGINAL BRANCH OF CIRCUMFLEX: This graft is totally occluded, seen as a stump and appears to have been occluded while ago. Does not seem like a fresh occlusion. SAPHENOUS VEIN GRAFT TO THE DIAGONAL BRANCH OF LAD: This graft is widely patent at its origin, course, insertion site and opacified diagonal has 2 branches. No significant disease noted. LEFT INTERNAL MAMMARY ARTERY GRAFT TO LAD: This graft is widely patent at its origin, course, insertion site, very tortuous. No significant disease. Supplies a sizable amount of myocardium. LAD has minor irregularities. The OROZCO graft is free of significant disease. LEFT VENTRICULOGRAM: This was performed in 30-degree MERINO projection revealed the left ventricle is of normal size with ejection fraction of 50%. There is mild mitral regurgitation. There is a mild mid anterior wall hypokinetic segment noted. Ejection fraction is 50%. FINAL IMPRESSION: This patient has a total occlusion of one of the vein grafts to the obtuse marginal. The vein graft to the diagonal and OROZCO to LAD are patent. The [place] RCA is dominant, has a PDA lesion diffusely in the body as well as ostial lesion of 50%. The filling pressures are elevated. There was no gradient across aortic valve. Ejection fraction is 50%. RECOMMENDATION: Patient probably has anginal symptom because of the obtuse marginal branch occlusion, which I do not think is a fresh occlusion. Findings were discussed with the patient and family. I am recommending medical therapy optimization. No intervention is necessary. We will place him on an increased dose of beta eliud and also add nitrates and see how he does. Patient will hopefully be discharged tomorrow if he remains stable. MMODL / IJN: [id number] /
[2018-10-11] MEDS ORDERED: FAMOTIDINE 20 MG TAB PO SCH (21:00)
[2018-10-11] MEDS ORDERED: ASPIRIN 81 MG PO SCH (21:00)
[2018-10-11] MEDS ORDERED: NON-FORMULARY DRUG (Glucosam/Chon-Msm1/C/Mang/Bosw [Glucosamine-Chondroitin Tablet] 1 TAB) PO SCH (21:00)
[2018-10-11] MEDS ORDERED: ATORVASTATIN 80 MG TAB PO SCH (21:00)
--- NOTE | 2018-10-11 22:02 | HP ---
HISTORY AND PHYSICAL DATE OF SERVICE: 10/11/2018. DATE OF SERVICE: 10/11/2018. PRESENTING COMPLAINT: Chest pain. HISTORY OF PRESENTING COMPLAINT: This is a pleasant 58-year-old patient of Dr. Rosales. Chronic stable medical conditions include GERD, hyperlipidemia, hypertension. The patient has known coronary artery disease with stent in 2007 and three-vessel coronary artery bypass in 2013. The patient around 3 o'clock, woke up with chest tightness and pressure going across, became more short of breath, lasted for a good 1 hour. Afterwards, started going down the left arm. That is when he decided to come in. There was no dizziness or perspiration or shortness of breath. The patient's EKG showed nonspecific findings and given his presentation, the patient was decided to be taken to the cardiac labeling machine operator. REVIEW OF SYSTEMS: CONSTITUTIONAL: Tired. HEENT: None. CARDIOVASCULAR: As above. GASTROINTESTINAL: Heartburn. GENITOURINARY: None. MUSCULOSKELETAL: None. DERMATOLOGICAL, HEMATOLOGIC, LYMPHATIC: none. PSYCHIATRY: None. NEUROLOGICAL: None. PAST MEDICAL HISTORY: Coronary artery disease, GERD, hyperlipidemia, hypertension, bronchitis, bilateral leg injury as a 6-year-old with multiple surgeries. PAST SURGICAL HISTORY: Appendectomy, coronary artery bypass, cardiac cath with stent, angioplasty in 2007 to a full cardiac catheterization in 2013, three vessel bypass, multiple surgeries both legs from age 6 years, left knee ACL repair. FAMILY HISTORY: Mother has breast cancer and has also coronary artery disease. SOCIAL HISTORY: Lives alone. Works at [employer]. 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 Does not smoke. Alcohol occasionally. PHYSICAL EXAMINATION: VITAL SIGNS: Vital signs on presentation, temperature 98.1, pulse 84, respiration 20, blood pressure 182/110, pulse ox 99% on room air. Repeat blood pressure was 141/95. GENERAL APPEARANCE: Well built. BMI 33. Propped up in bed awake. EYES : Pupils equal. Conjunctivae normal. HEENT: External appearance of nose and ears normal. Oral cavity normal. NECK: JVD not raised. Mass not palpable. RESPIRATORY: Effort normal. LUNGS: Decreased breath sounds. CARDIOVASCULAR: 1st and 2nd sounds normal. No edema. ABDOMEN: Soft, nontender. Liver and spleen not palpable. LYMPHATICS: No lymph nodes palpable in the neck and axilla. PSYCHIATRY: Alert and oriented x3. Mood and affect normal. NEUROLOGICAL: Pupils equal. Cranial nerves grossly intact. Power and sensation grossly intact. INVESTIGATIONS: White count 9.3, hemoglobin 17.1, potassium 3.9. Troponin less than 0.012 x 2. EKG normal sinus rhythm with PVCs. EKG tracing personally reviewed by me. Chest x-ray film personally reviewed by me shows no obvious venous prominence. ASSESSMENT: 1. Unstable angina in a patient with known coronary artery disease with other cardiac sounding presentation did undergo cardiac cath. More details in Dr. Renetta Malhotra's note. Not for any intervention. Medical management: Patient will be added nitrates per Cardiology. 2. Coronary artery disease with prior bypass. 3. Gastroesophageal reflux disease. 4. Essential hypertension. 5. Hyperlipidemia. 6. Obesity BMI 33. PLAN: Patient initially was put on heparin. Patient also on aspirin. Home medications will be resumed. Imdur will be added. If patient does well, the patient possibly even could be discharged tomorrow. We will see how he does. Copy to Dr. Musa Rosales. LUIGI / RONNELL: [id number] /
[2018-10-11] MEDS: PSYLLIUM HUSK 100% 6 GM PACKET PO SCH (23:36)
[2018-10-11] MEDS: CHOLECALCIFEROL 1,000 UNIT TAB PO SCH (23:37)
[2018-10-11] MEDS: METOPROLOL TARTRATE 50 MG TAB PO SCH (23:38)
[2018-10-11] MEDS: HEPARIN SODIUM,PORCINE 5,000 UNIT/ML 1 ML VIAL SQ SCH (23:39)
[2018-10-12] MEDS: SODIUM CHLORIDE 0.9% 1,000 ML IV SCH (01:20)
[2018-10-12 03:55] VITALS: RESP 16
[2018-10-12 06:51] LABS: Basophils % (A) 1 %; Eosinophils # (A) 0.2 k/uL (0-0.7); Eosinophils % (A) 3 %; HCT 44.2 % (39.0-53.0); HGB 14.3 gm/dL (13.0-17.5); Lymphocytes # (A) 1.5 k/uL (1.0-4.8); Lymphocytes % (A) 21 %; MCH 30.2 pg (25.0-35.0); MCHC 32.4 g/dL (31.0-37.0); MCV 93.2 fL (80.0-100.0); Mean Platelet Volume 7.8; Monocytes # (A) 0.5 k/uL (0-1.0); Monocytes % (A) 7 %; Neutrophils # (A) 4.4 k/uL (1.3-7.7); Neutrophils % (A) 65 %; Platelet Count 181 k/uL (150-450); RBC 4.74 m/uL (4.30-5.90); RDW 12.9 % (11.5-15.5); WBC 6.9 k/uL (3.8-10.6)
[2018-10-12 07:16] LABS: Anion Gap 4 mmol/L; Blood Urea Nitrogen 11 mg/dL (9-20); Calcium 9.1 mg/dL (8.4-10.2); Carbon Dioxide 28 mmol/L (22-30); Chloride 109 mmol/L (98-107); Cholesterol 128 mg/dL (<200); Glucose 99 mg/dL (74-99); HDL Cholesterol 37 mg/dL (40-60); LDL Cholesterol,Calculated 53 mg/dL (0-99); Potassium 4.7 mmol/L (3.5-5.1); Sodium 141 mmol/L (137-145); Triglycerides 192 mg/dL (<150)
[2018-10-12] MEDS: CHOLECALCIFEROL 1,000 UNIT TAB PO SCH (08:32)
[2018-10-12] MEDS: HEPARIN SODIUM,PORCINE 5,000 UNIT/ML 1 ML VIAL SQ SCH (08:32)
[2018-10-12] MEDS: PSYLLIUM HUSK 100% 6 GM PACKET PO SCH (08:32)
[2018-10-12] MEDS: METOPROLOL TARTRATE 50 MG TAB PO SCH (08:32)
[2018-10-12 08:46] VITALS: BP 131/85; PULSE 74; TEMP 97.7
[2018-10-12] MEDS ORDERED: ISOSORBIDE MONONITRATE ER 30 MG TAB.ER.24H PO SCH (09:00)
[2018-10-12] MEDS ORDERED: LOSARTAN 50 MG TAB PO SCH (09:00)
[2018-10-12] MEDS ORDERED: HYDROCHLOROTHIAZIDE 25 MG TAB PO SCH (09:00)
[2018-10-12] MEDS ORDERED: amLODIPine 5 MG TAB PO SCH (09:00)
[2018-10-12] MEDS ORDERED: ASPIRIN 325 MG TAB PO SCH (09:00)
[2018-10-12] MEDS ORDERED: ASPIRIN 81 MG PO SCH (09:00)
--- NOTE | 2018-10-12 12:57 | P.PN ---
Subjective Progress Note Date: 10/12/18 This 58-year-old gentleman with history of previous bypass surgery was admitted with a diagnosis of unstable angina. His cardiac enzymes came back normal. Patient had a cardiac catheterization by Dr. ALBERT Malhotra. No significant new lesions were found. One graft was noted to be totally occluded. Patient was advised maximum medical therapy. Patient seemed to be stable. Denies any chest pain or shortness of breath. His puncture site is soft without any hematoma. He didn't pulses are preserved. Patient is being discharged home. Follow-up with the Dr. Carrasco in one week Objective - Vital Signs Vital signs: Vital Signs Temp 97.7 F 10/12/18 08:00 Pulse 74 10/12/18 08:00 Resp 16 10/12/18 08:00 BP 131/85 10/12/18 08:00 Pulse Ox 97 10/12/18 08:00 Intake & Output 10/11/18 10/12/18 10/12/18 18:59 06:59 18:59 Intake Total 755.15 725 480 Output Total 875 850 Balance -119.85 -125 480 Weight 106.2 kg Intake: IV 750 75 Sodium Chloride 0.9% 1, 450 75 000 ml @ 75 mls/hr IV . [id number] [facility] Rx#:[id number] Intake, IV Titration 5.15 450 Amount Nitroglycerin-D5w Pmx 50 5.15 mg In Dextrose/Water 1 250ml.bag @ 10 MCG/MIN 3 mls/hr IV .Q24H ONE Rx#: [id number] Sodium Chloride 0.9% 1, 450 000 ml @ 75 mls/hr IV . [id number] [facility] Rx#:[id number] Oral 200 480 Output: Urine 875 850 Other: Voiding Method Urinal Urinal # Voids 2 - Exam GENERAL EXAM: Patient is alert and oriented and doesn't appear to be in any acute distress HEENT: Normocephalic. Normal reaction of pupils, equal size, normal range of extraocular motion. No erythema or exudates in the throat. NECK: No masses, no nuchal rigidity. CHEST: No chest wall deformity. LUNGS: Equal air entry with no crackles or wheeze. HEART: S1 and S2 normal with no audible mumurs or gallops. Regular rhythm, femorals equal on both sides.. ABDOMEN: No hepatosplenomegaly, normal bowel sounds, no guarding or rigidity. SKIN: No rashes CENTRAL NERVOUS SYSTEM: No focal deficits. EXTREMITIES: No cyanosis, clubbing or edema. Puncture site: Soft without any hematoma. Preserved pulse - Labs CBC & Chem 7: 10/12/18 06:17 10/12/18 06:17 Labs: Abnormal Lab Results - Last 24 Hours (Table) 10/12/18 Range/Units 06:17 Chloride 109 H (98-107) mmol/L Triglycerides 192 H (<150) mg/dL HDL Cholesterol 37 L (40-60) mg/dL Assessment and Plan (1) Acute coronary syndrome Current Visit: Yes Status: Acute Code(s): I24.9 - ACUTE ISCHEMIC HEART DISEASE, UNSPECIFIED SNOMED Code(s): 969169103 (2) Hyperlipemia Current Visit: No Status: Acute Code(s): E78.5 - HYPERLIPIDEMIA, UNSPECIFIED SNOMED Code(s): 28457255 (3) S/P CABG x 1 Current Visit: No Status: Acute Code(s): Z95.1 - PRESENCE OF AORTOCORONARY BYPASS GRAFT SNOMED Code(s): 046407135 (4) CAD (coronary artery disease), [place] coronary artery Current Visit: No Status: Chronic Code(s): I25.10 - ATHSCL HEART DISEASE OF [place] CORONARY ARTERY W/O ANG PCTRS SNOMED Code(s): 7045724084780 Plan: Patient is remaining stable. No recurrence of chest pain. Puncture site looks healing well. Patient is being discharged home. Follow-up in the office
--- NOTE | 2018-10-13 08:51 | DS ---
DISCHARGE SUMMARY DATE OF ADMISSION: 10/11/2018. DATE OF DISCHARGE: 10/12/2018 FINAL DIAGNOSES: 1. Unstable angina. 2. Coronary artery disease, prior history of coronary bypass. 3. Gastroesophageal reflux disease. 4. Essential hypertension. 5. Hyperlipidemia. 6. Obesity; body mass index 33. PROCEDURE: Cardiac catheterization. CONSULTATION: Dr. Renetta Malhotra. HOSPITAL COURSE: This patient presented with cardiac sounding presentation. Troponins were negative. Did have a cardiac cath that showed chronic changes. Nitrates and beta eliud were adjusted because of the symptoms. Today, patient has been up and about, no further cardiac symptoms. On examination, temperature 97.7 pulse 74, respiration 16, blood pressure 130/85, pulse ox 97% on room air. LUNGS: Fair entry. CARDIOVASCULAR: First and second sounds normal. Patient's LDL came back at 53. Patient is okayed by Dr. Renetta Malhotra to be discharged. DISCHARGE MEDICATIONS: 1. Norvasc 5 mg a day. 2. Vitamin D3 two thousand units p.o. b.i.d. 3. Pepcid 10 mg q.h.s. 4. Fish oil. 5. Metamucil 0.4 mg p.o. b.i.d. 6. Cozaar 100 mg a day. 7. Vitamin B complex 1 capsule p.o. daily. 8. Aspirin 81 mg b.i.d. 9. Lipitor 80 mg q.h.s. 10.Imdur ER 30 mg a day. 11.Melatonin 3 mg p.o. q.h.s. 12.Lopressor 50 mg p.o. b.i.d. 13.Nitrostat 0.4 sublingual q.5 p.r.n. 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 Follow up with Dr. Musa Rosales in 3 days. MMODL / IJN: [id number] /
== END 2018-10-12 12:55 | disposition home or self-care (01) | DRG 287 ==
LOC: EC 04:51 → 2SICU 06:58 → 3SCARD 21:36
PROVIDERS: ADMIT Hospitalist; ATTEND Hospitalist
PROC: B2131ZZ Fluoroscopy of Multiple Coronary Artery Bypass Grafts using Low Osmolar Contrast (ICD-10-PCS; 2018-10-11)
PROC: B2181ZZ Fluoroscopy of Left Internal Mammary Bypass Graft using Low Osmolar Contrast (ICD-10-PCS; 2018-10-11)
PROC: B2111ZZ Fluoroscopy of Multiple Coronary Arteries using Low Osmolar Contrast (ICD-10-PCS; 2018-10-11)
PROC: B2151ZZ Fluoroscopy of Left Heart using Low Osmolar Contrast (ICD-10-PCS; 2018-10-11)
PROC: 4A023N7 Measurement of Cardiac Sampling and Pressure, Left Heart, Percutaneous Approach (ICD-10-PCS; principal; 2018-10-11 10:00)
DX: I25.110 Atherosclerotic heart disease of native coronary artery with unstable angina pectoris (principal); I25.82 Chronic total occlusion of coronary artery; I45.10 Unspecified right bundle-branch block; I10 Essential (primary) hypertension; K21.9 Gastro-esophageal reflux disease without esophagitis; E78.5 Hyperlipidemia, unspecified; I25.2 Old myocardial infarction; E66.9 Obesity, unspecified; Z68.33 Body mass index [BMI] 33.0-33.9, adult; Z71.3 Dietary counseling and surveillance; Z79.82 Long term (current) use of aspirin; Z79.899 Other long term (current) drug therapy; Z87.01 Personal history of pneumonia (recurrent); Z95.1 Presence of aortocoronary bypass graft; Z95.5 Presence of coronary angioplasty implant and graft; Z90.49 Acquired absence of other specified parts of digestive tract; Z91.048 Other nonmedicinal substance allergy status; Z87.891 Personal history of nicotine dependence; Z80.3 Family history of malignant neoplasm of breast; Z82.49 Family history of ischemic heart disease and other diseases of the circulatory system
CPT/HCPCS: 36415; 71045; 80048; 80053; 80061; 82550; 82553; 83735; 84484; 85025; 85379; 85610; 85730; 93005; 93459; 96365; 96366; 96368; 96375; 96376; 99291

== ENCOUNTER → 2018-10-21 | Outpatient (CLI) | payer OTHER | END | disposition home or self-care (01) | LOC: LABWHC1 06:44 | PROVIDERS: ATTEND Nurse Practitioner Adult Health | DX: E78.2 Mixed hyperlipidemia (principal) | CPT/HCPCS: 36415; 80061; 84450; 84460 ==

== ENCOUNTER → 2018-12-10 | Outpatient (CLI) | payer OTHER ==
[2018-12-10 11:44] LABS: Anion Gap 8.6 mmol/L (4.00-12.00); Calcium 9.6 mg/dL (8.7-10.3); Carbon Dioxide 27.4 mmol/L (21.6-31.8); Potassium 4.1 mmol/L (3.5-5.5)
== END | disposition home or self-care (01) ==
LOC: LABWHC1 06:50
PROVIDERS: ATTEND Internal Medicine Interventional Cardiology
DX: I10 Essential (primary) hypertension (principal)
CPT/HCPCS: 36415; 80048

== ENCOUNTER → 2019-03-01 | Outpatient (CLI) | payer OTHER ==
[2019-03-01 08:52] LABS: Basophils # (A) 0.1 k/uL (0-0.2); Basophils % (A) 1 %; Eosinophils # (A) 0.3 k/uL (0-0.7); Eosinophils % (A) 5 %; HGB 15.8 gm/dL (13.0-17.5); Lymphocytes # (A) 1.8 k/uL (1.0-4.8); Lymphocytes % (A) 29 %; MCH 31.3 pg (25.0-35.0); MCHC 34.3 g/dL (31.0-37.0); MCV 91.1 fL (80.0-100.0); Mean Platelet Volume 8.4; Monocytes # (A) 0.4 k/uL (0-1.0); Monocytes % (A) 6 %; Neutrophils # (A) 3.5 k/uL (1.3-7.7); Neutrophils % (A) 57 %; Platelet Count 194 k/uL (150-450); RBC 5.05 m/uL (4.30-5.90); WBC 6.2 k/uL (3.8-10.6)
[2019-03-01 18:54] LABS: Albumin 4.5 g/dL (3.80-4.90); Albumin/Globulin Ratio 2.14 (1.60-3.17); Anion Gap 9.2 mmol/L (4.00-12.00); Calcium 9.5 mg/dL (8.7-10.3); Carbon Dioxide 26.8 mmol/L (21.6-31.8); Globulin 2.1 g/dL (1.6-3.3); LDL Cholesterol,Calculated 64.8 mg/dL (0.0-131.0); Potassium 3.6 mmol/L (3.5-5.5); Total Protein 6.6 g/dL (6.2-8.2); VLDL Calculation 26.2 mg/dL (5.00-40.00)
== END | disposition home or self-care (01) ==
LOC: LABWHC1 08:01
PROVIDERS: ATTEND Internal Medicine
DX: I10 Essential (primary) hypertension (principal); E78.2 Mixed hyperlipidemia; Z12.5 Encounter for screening for malignant neoplasm of prostate
CPT/HCPCS: 36415; 80053; 80061; 84153; 85025

== ENCOUNTER → 2019-09-29 | Outpatient (CLI) | payer OTHER ==
[2019-09-29 15:39] LABS: Chol/HDL Ratio 3.11; LDL Cholesterol,Calculated 60.4 mg/dL (0.0-131.0); VLDL Calculation 34.6 mg/dL (5.00-40.00)
== END | disposition home or self-care (01) ==
LOC: LABWHC1 06:56
PROVIDERS: ATTEND Nurse Practitioner Adult Health
DX: E78.2 Mixed hyperlipidemia (principal)
CPT/HCPCS: 36415; 80061; 84450; 84460

== ENCOUNTER → 2020-05-10 | Outpatient (CLI) | payer BC ==
[2020-05-10 17:11] LABS: African American GFR (CKD) 108.7 (60.0-200.0); Albumin 4.7 g/dL (3.80-4.90); Albumin/Globulin Ratio 2.04 (1.60-3.17); Anion Gap 10.9 mmol/L (4.00-12.00); BUN/Creat Ratio 17.78 Ratio (12.00-20.00); Calcium 9.9 mg/dL (8.7-10.3); Carbon Dioxide 26.1 mmol/L (21.6-31.8); Chol/HDL Ratio 3.29; Globulin 2.3 g/dL (1.6-3.3); LDL Cholesterol,Calculated 57.8 mg/dL (0.0-131.0); Non-African American GFR(CKD) 93.8 (60.0-200.0); Total Bilirubin 1.2 mg/dL (0.2-1.2); VLDL Calculation 29.2 mg/dL (5.00-40.00)
== END | disposition home or self-care (01) ==
LOC: LABWHC1 07:04
PROVIDERS: ATTEND Internal Medicine Interventional Cardiology
DX: E78.2 Mixed hyperlipidemia (principal)
CPT/HCPCS: 36415; 80053; 80061

== ENCOUNTER → 2020-07-31 | Outpatient (CLI) | payer BC ==
--- NOTE | 2020-07-31 07:42 | XR ---
EXAMINATION TYPE: XR Hip Complete RT DATE OF EXAM: 07/31/2020 CLINICAL HISTORY: pain TECHNIQUE: AP and frogleg views of the right hip are obtained. COMPARISON: None. FINDINGS: There is no acute fracture/dislocation evident. The joint space appears within normal li mits. The overlying soft tissue appears unremarkable. IMPRESSION: 1. There is no acute fracture or dislocation. ICD 10 NO FRACTURE, INITIAL EVALUATION
[2020-07-31 07:46] LABS: Basophils % (A) 0 %; Eosinophils # (A) 0.2 k/uL (0-0.7); Eosinophils % (A) 4 %; HCT 46.1 % (39.0-53.0); HGB 16.1 gm/dL (13.0-17.5); Lymphocytes # (A) 2.1 k/uL (1.0-4.8); Lymphocytes % (A) 33 %; MCH 32.5 pg (25.0-35.0); MCV 92.8 fL (80.0-100.0); Mean Platelet Volume 8.6; Monocytes # (A) 0.4 k/uL (0-1.0); Monocytes % (A) 7 %; Neutrophils # (A) 3.5 k/uL (1.3-7.7); Neutrophils % (A) 55 %; Platelet Count 198 k/uL (150-450); RBC 4.97 m/uL (4.30-5.90); RDW 12.2 % (11.5-15.5); WBC 6.4 k/uL (3.8-10.6)
[2020-07-31 08:14] LABS: Appearance,Urine Clear (Clear); Bilirubin,Urine Negative (Negative); Blood,Urine Negative (Negative); Color,Urine Yellow; Glucose,Urine (UA) Negative (Negative); Ketones,Urine Negative (Negative); Leukocyte Esterase,Urine Negative (Negative); Nitrite,Urine Negative (Negative); PH, Urine 6.5 (5.0-8.0); Protein,Urine Negative (Negative); Specific Gravity,Urine 1.019 (1.001-1.035); Urobilinogen,Urine <2.0 mg/dL (<2.0)
[2020-07-31 11:11] LABS: Chol/HDL Ratio 3.68; LDL Cholesterol,Calculated 50.8 mg/dL (0.0-131.0); VLDL Calculation 40.2 mg/dL (5.00-40.00)
[2020-07-31 11:19] LABS: PSA Annual Screen 0.7 ng/mL (0.0-4.0)
== END | disposition home or self-care (01) ==
LOC: LABWHC1 07:11
PROVIDERS: ATTEND Internal Medicine
DX: M25.551 Pain in right hip (principal); I10 Essential (primary) hypertension; E55.9 Vitamin D deficiency, unspecified; Z12.5 Encounter for screening for malignant neoplasm of prostate
CPT/HCPCS: 80061; 85025; 81003; 82306; 73502; 36415; G0103

== ENCOUNTER → 2020-11-09 | Outpatient (CLI) | payer BC ==
[2020-11-09 11:15] LABS: Chol/HDL Ratio 3.49; LDL Cholesterol,Calculated 66.6 mg/dL (0.0-131.0); VLDL Calculation 30.4 mg/dL (5.00-40.00)
== END | disposition home or self-care (01) ==
LOC: LABWHC1 07:09
PROVIDERS: ATTEND Nurse Practitioner Adult Health
DX: E78.2 Mixed hyperlipidemia (principal)
CPT/HCPCS: 36415; 80061; 84450; 84460

== ENCOUNTER → 2021-04-19 | Outpatient (CLI) | payer OTHER ==
--- NOTE | 2021-04-19 12:28 | XR ---
EXAMINATION TYPE: XR ankle complete RT, XR foot complete RT DATE OF EXAM: 04/19/2021 CLINICAL HISTORY: Right ankle pain from twisting TECHNIQUE: Frontal, lateral and oblique images of the right ankle are obtained. COMPARISON: None. FINDINGS: Right ankle There is a tiny fractured osteophyte or a corticated ossicle at the Achilles tendon inser tion of the calcaneus. Ankle mortise is intact. The distal tibia and fibula are in alignment. Os trig onum is seen. The ankle mortise is intact. Soft tissues are unremarkable. Right foot: No additional findings of the right foot. The tarsals, metatarsals and phalanges appear i n alignment. Soft tissues are unremarkable. IMPRESSION: 1. Right ankle Tiny fractured osteophyte or corticated ossicle at the Achilles tendon insertion of th e calcaneus. Clinical correlation with pain in this region is recommended.
== END | disposition home or self-care (01) ==
LOC: RADXRMAIN 11:23
PROVIDERS: ATTEND Emergency Medicine
DX: S93.401A Sprain of unspecified ligament of right ankle, initial encounter (principal); S93.601A Unspecified sprain of right foot, initial encounter; X58.XXXA Exposure to other specified factors, initial encounter

== ENCOUNTER → 2021-08-08 | Outpatient (CLI) | payer BC ==
[2021-08-08 16:07] LABS: African American GFR (CKD) 104.1 (60.0-200.0); Albumin 4.6 g/dL (3.8-4.9); Albumin/Globulin Ratio 2.07 (1.60-3.17); BUN/Creat Ratio 17.24 Ratio (12.00-20.00); Calcium 9.3 mg/dL (8.7-10.3); Carbon Dioxide 24.7 mmol/L (21.6-31.8); Chol/HDL Ratio 3.35 Ratio; Globulin 2.2 g/dL (1.6-3.3); LDL Cholesterol,Calculated 78.8 mg/dL (0.0-131.0); Non-African American GFR(CKD) 89.8 (60.0-200.0); Potassium 3.8 mmol/L (3.5-5.5); Total Bilirubin 0.7 mg/dL (0.30-1.20); Total Protein 6.8 g/dL (6.2-8.2); VLDL Calculation 22.2 mg/dL (5.00-40.00)
== END | disposition home or self-care (01) ==
LOC: LABWHC1 07:18
PROVIDERS: ATTEND Internal Medicine Interventional Cardiology
DX: E78.2 Mixed hyperlipidemia (principal)
CPT/HCPCS: 36415; 80053; 80061

== ENCOUNTER → 2022-02-27 | Outpatient (CLI) | payer BC ==
[2022-02-27 10:43] LABS: ALT 30 U/L (10-49); AST 28 U/L (14-35); African American GFR (CKD) 108.6 (60.0-200.0); Albumin 4.3 g/dL (3.8-4.9); Albumin/Globulin Ratio 1.68 (1.60-3.17); Alkaline Phosphatase 75 U/L (41-126); BUN/Creat Ratio 16.27 Ratio (12.00-20.00); Blood Urea Nitrogen 14.2 mg/dL (9.0-27.0); Calcium 9.2 mg/dL (8.7-10.3); Carbon Dioxide 25.4 mmol/L (20.0-27.5); Chloride 103 mmol/L (96-109); Chol/HDL Ratio 3.62 Ratio; Globulin 2.6 g/dL (1.6-3.3); Glucose 101 mg/dL (70-110); LDL Cholesterol,Calculated 66.9 mg/dL (0.0-131.0); Non-African American GFR(CKD) 93.7 (60.0-200.0); Potassium 4.1 mmol/L (3.5-5.5); Sodium 141 mmol/L (135-145); Total Protein 6.9 g/dL (6.2-8.2)
== END | disposition home or self-care (01) ==
LOC: LABWHC1 07:21
PROVIDERS: ATTEND Nurse Practitioner Adult Health
DX: I10 Essential (primary) hypertension (principal); E78.2 Mixed hyperlipidemia
CPT/HCPCS: 36415; 80053; 80061

== ENCOUNTER → 2022-03-18 | Outpatient (CLI) | payer BC ==
--- NOTE | 2022-03-18 08:05 | CT ---
EXAMINATION TYPE: CT lower extremity LT wo con DATE OF EXAM: 03/18/2022 COMPARISON: None. HISTORY: Left knee pain and osteoarthritis. CT DLP: 409.5 mGycm Automated exposure control for dose reduction was used. FINDINGS: Localizer shows asymmetric positioning of the bilateral knees suggesting leg length discrepancy or po ssible shortened femur on the left. Correlate clinically. There is moderate narrowing and spurring lateral tibiofemoral compartment left knee. There is more mi ld narrowing and spurring medial tibiofemoral compartment. 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 Mild to moderate narrowing with mild spurring is seen at this level. There is s mall to moderate-sized suprapatellar joint effusion. Distal quadriceps tendon is intact. Patellar ten don is intact. Mild to moderate posterior arterial vascular calcification is present. No popliteal cyst is seen. The MCL is thought intact. IMPRESSION: As above.
== END | disposition home or self-care (01) ==
LOC: RADCTMAIN 06:54
PROVIDERS: ATTEND Orthopaedic Surgery
DX: M17.12 Unilateral primary osteoarthritis, left knee (principal)

== ENCOUNTER → 2022-06-25 | Outpatient (CLI) | payer BC ==
[2022-06-25 10:39] LABS: INR 0.9 (<1.2); Partial Thromboplastin Time 22.1 sec (22.0-30.0); Prothrombin Time 10.1 sec (9.0-12.0)
[2022-06-25 14:22] LABS: HCT 47.3 % (39.6-50.0); HGB 16.5 g/dL (13.0-17.0); MCH 31.4 pg (27.0-32.0); MCHC 34.9 g/dL (32.0-37.0); MCV 89.9 fL (80.0-97.0); Mean Platelet Volume 11.2 fL (9.5-12.2); NRBC Per 100 WBC 0 /100 WBCS (0.0-0.0); Platelet Count 234 X 10*3/uL (140-440); RBC 5.26 X 10*6/uL (4.40-5.60); RDW 12.3 % (11.5-14.5); WBC 6.65 X 10*3/uL (4.50-10.00)
[2022-06-25 14:25] LABS: African American GFR (CKD) 109.9 (60.0-200.0); Albumin 4.7 g/dL (3.8-4.9); Albumin/Globulin Ratio 1.74 (1.60-3.17); Anion Gap 11.1 mmol/L (10.00-18.00); BUN/Creat Ratio 16.53 Ratio (12.00-20.00); Calcium 9.7 mg/dL (8.7-10.3); Globulin 2.7 g/dL (1.6-3.3); Non-African American GFR(CKD) 94.8 (60.0-200.0); Potassium 3.7 mmol/L (3.5-5.5); Total Bilirubin 0.4 mg/dL (0.30-1.20); Total Protein 7.4 g/dL (6.2-8.2)
[2022-06-25 19:12] LABS: Appearance,Urine Clear (Clear); Bilirubin,Urine Negative (Negative); Blood,Urine Negative (Negative); Color,Urine Yellow (Yellow); Ketones,Urine Negative (Negative); Nitrite,Urine Negative (Negative); PH, Urine 5.5 (5.0-8.0); Specific Gravity,Urine 1.015 (1.001-1.030); Urobilinogen,Urine 0.2 (0.2,1.0)
== END | disposition home or self-care (01) ==
LOC: LABPAT 08:30
PROVIDERS: ATTEND Orthopaedic Surgery
DX: Z01.812 Encounter for preprocedural laboratory examination (principal); Z01.818 Encounter for other preprocedural examination; M17.12 Unilateral primary osteoarthritis, left knee
CPT/HCPCS: 80053; 81003; 85027; 85610; 85730; 87070; 93005

== ENCOUNTER → 2022-07-18 | Outpatient (CLI) | payer BC, OTHER ==
--- NOTE | 2022-06-27 09:50 | CT ---
EXAMINATION TYPE: CT left knee - [facility] Protocol DATE OF EXAM: 06/25/2022 COMPARISON: None. HISTORY: Left knee pain and primary osteoarthritis. CT DLP: 688 mGycm Automated exposure control for dose reduction was used. CONTRAST: Perform CT left lower extremity without contrast. FINDINGS: Exam is for surgical planning and not for diagnostic purposes. There is mild to moderate narrowing an d spurring in the left hip joint. No suspicious incidental finding. Left knee joint shows zbby-qw-vohzfkfv tricompartment joint space loss and spurring with findings gre atest medial tibiofemoral and patellofemoral compartments. There is lateral subluxation of the patell a and underlying trochlear dysplasia noted. Surgical clip in the soft tissue at level of the distal tibial metadiaphysis otherwise unremarkable i mages of the ankle. IMPRESSION: As above.
--- NOTE | 2022-07-18 13:56 | CT ---
EXAMINATION TYPE: CT left knee - [facility] Protocol DATE OF EXAM: 07/18/2022 COMPARISON: Prior CT June 25, 2022 HISTORY: yazmin knee presurgical. CT DLP: 859 mGycm. Automated Exposure Control for Dose Reduction was Utilized. TECHNIQUE: CT scan of the left lower extremity is performed without IV contrast. FINDINGS: Exam is for surgical planning and not for diagnostic purposes. There is moderate narrowing and mild t o moderate spurring in the left hip joint. No suspicious incidental finding. Left knee joint shows amai-pb-ksbomcbw tricompartment joint space loss and spurring with findings gre atest medial tibiofemoral and patellofemoral compartments. There is lateral subluxation of the patell a and underlying trochlear dysplasia noted. Unremarkable images of the ankles. IMPRESSION: As above.
== END | disposition home or self-care (01) ==
LOC: RADCTMAIN 06-25 08:03
PROVIDERS: ATTEND Orthopaedic Surgery
DX: M17.12 Unilateral primary osteoarthritis, left knee (principal); M25.362 Other instability, left knee

== ENCOUNTER 2022-07-25 08:49 | Observation (INO) | payer BC ==
[2022-07-21 11:08] VITALS: BMI 34.4
[~2022-07-25 08:49] MED LIST: ACETAMINOPHEN TAB 500 MG TAB PO PRN; DEXAMETHASONE SOD PHOSPHATE 10 MG/ML 1 ML VIAL IV PRN; DOCUSATE 100 MG CAP PO PRN; FAMOTIDINE 20 MG/2 ML VIAL IVP PRN; KETOROLAC 15 MG/ML 1 ML VIAL IVP PRN; LIDOCAINE 1% (10MG/ML) FOR IV START INTRADERMA PRN; ONDANSETRON 4 MG/2 ML VIAL IVP PRN; TRANEXAMIC ACID IN NACL,ISO-OS 1,000 MG in SALINE 1 100ML.BAG IVPB PRN; oxyCODONE ER 10 MG TAB.ER.12H PO PRN
[2022-07-25] MEDS: LACTATED RINGERS 1,000 ML IV SCH ×4 (09:11→21:25)
[2022-07-25] MEDS ORDERED: MIDAZOLAM 2 MG/2 ML VIAL IVP ONE (09:49)
--- NOTE | 2022-07-25 10:27 | P.ANPRN ---
Procedure Note - Anesthesia - Nerve Block Performed Left Adductor Canal Single Time Out Performed: Yes Date of Procedure: 07/25/22 Procedure Start Time: 07:48 Procedure Stop Time: 07:54 Location of Patient: PreOp Indication: Acute Post-Operative Pain, Requested by Surgeon Sedation Type: Sedate with meaningful contact maintained Preparation: Sterile Prep Position: Supine Catheter: None Needle Types: Facet Needle Gauge: 20 Ultrasound used to visualize needle placement: Yes Ultrasound used to observe medication spread: Yes Injectate: 0.5% Ropivacaine (see comment for volume) (20 ml + decadron 4 mg) Blood Aspirated: No Pain Paresthesia on Injection Noted: No Resistance on Injection: Normal Image Stored and Saved: Yes Events: Uneventful and Well Tolerated Left iPack Single Time Out Performed: Yes Date of Procedure: 07/25/22 Procedure Start Time: 09:55 Procedure Stop Time: 10:02 Location of Patient: PreOp Indication: Acute Post-Operative Pain, Requested by Surgeon Sedation Type: Sedate with meaningful contact maintained Preparation: Sterile Prep Position: Right Lateral Catheter: None Needle Types: Facet Needle Gauge: 20 Ultrasound used to visualize needle placement: Yes Ultrasound used to observe medication spread: Yes Injectate: 0.5% Ropivacaine (see comment for volume) (20 ml + decadron 4 mg) Blood Aspirated: No Pain Paresthesia on Injection Noted: No Resistance on Injection: Normal Image Stored and Saved: Yes Events: Uneventful and Well Tolerated
[2022-07-25] MEDS ORDERED: ROPIVACAINE 5 MG/ML 30 ML VIAL ONE (10:48)
[2022-07-25] MEDS ORDERED: MIDAZOLAM 2 MG/2 ML VIAL ONE (10:48)
[2022-07-25] MEDS ORDERED: GLYCOPYRROLATE 0.2 MG/ML 2 ML VIAL ONE (10:48)
[2022-07-25] MEDS ORDERED: ROCURONIUM 10 MG/ML (5 ML VIAL) IV ONE (10:48)
[2022-07-25] MEDS ORDERED: SUCCINYLCHOLINE CHLORIDE 200 MG/10 ML VIAL IV ONE (10:48)
[2022-07-25] MEDS ORDERED: fentaNYL (PF) 50 MCG/ML 2 ML AMP ONE (10:48)
[2022-07-25] MEDS ORDERED: LIDOCAINE 2% INJ 20 MG/ML (2 ML VIAL) ONE (10:48)
[2022-07-25] MEDS ORDERED: PROPOFOL 10 MG/ML 20 ML VIAL IV ONE (10:48)
[2022-07-25] MEDS ORDERED: TRANEXAMIC ACID IN NACL,ISO-OS 1,000 MG/100 ML BAG ONE (10:48)
[2022-07-25] MEDS ORDERED: DEXAMETHASONE SOD PHOSPHATE 4 MG/ML 1 ML VIAL ONE (10:48)
[2022-07-25] MEDS ORDERED: ePHEDrine 50 MG/ML 1 ML VIAL ONE (10:48)
[2022-07-25] MEDS ORDERED: HYDROmorphone (PF) 1 MG/ML ONE (10:48)
[2022-07-25] MEDS ORDERED: PHENYLEPHRINE-0.9% NACL SYG 1,000 MCG/10 ML SYRINGE ONE (10:48)
[2022-07-25] MEDS ORDERED: NEOSTIGMINE 1 MG/ML 10 ML VIAL ONE (10:48)
[2022-07-25] MEDS ORDERED: ROPIVACAINE/EPI/CLONIDINE/KET 50 ML SYRINGE MISCELLANE PRN (11:00)
[2022-07-25] MEDS ORDERED: LACTATED RINGERS 1,000 ML IV ONE ×2 (12:27→16:34)
[2022-07-25] MEDS ORDERED: NALOXONE 0.4 MG/ML 1 ML VIAL IV PRN (14:19)
[2022-07-25] MEDS ORDERED: HYDROmorphone 1 MG/ML 1 ML SYRINGE IVP PRN (14:20)
[2022-07-25] MEDS ORDERED: hydrOXYzine pamoate 25 MG CAP PO PRN (14:20)
[2022-07-25] MEDS ORDERED: HYDROmorphone 0.5 MG/0.5 ML SYRINGE IVP PRN ×2 (14:20)
[2022-07-25] MEDS ORDERED: ONDANSETRON 4 MG/2 ML VIAL IVP PRN (14:20)
[2022-07-25] MEDS ORDERED: HYDROcodone/APAP 5-325MG 1 EACH TAB PO PRN ×2 (14:20)
[2022-07-25] MEDS: HYDROmorphone 0.5 MG/0.5 ML SYRINGE IVP PRN ×2 (14:43→15:01)
--- NOTE | 2022-07-25 14:43 | XR ---
EXAMINATION TYPE: XR knee limited LT DATE OF EXAM: 07/25/2022 COMPARISON: None HISTORY: Postop TECHNIQUE: 2 view left knee FINDINGS: Tibial and femoral components have been placed. No acute fractures or dislocations are evid ent. No joint effusion is evident. Postsurgical changes within the soft tissues. Drainage catheter is present. IMPRESSION: 1. No acute fracture is evident post left knee replacement.
--- NOTE | 2022-07-25 17:56 | P.OP ---
Date of Procedure: 07/25/22 Preoperative Diagnosis: 1. 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 Chronic left patellar dislocation 3. Posttraumatic deformity, left knee 4. 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 Coronary artery disease status post stenting Postoperative Diagnosis: Same Procedure(s) Performed: Left total knee replacement Implants: 1. [place] [employer] PS Femur Size #6 2. [place] [employer] Castaner Tibial Base Size #5 with 12x50 stem 3. [place] [employer] TS poly Size #5, 11-mm 4. [place] [employer] all poly patella, Size #29 Anesthesia: GETA, regional Surgeon: James Anders Resp Ther #1: Ruben Garcia Estimated Blood Loss (ml): 100 IV fluids (ml): 1,200 Pathology: none sent (Routine histopathologic evaluation is not indicated based on my evaluation intraoperatively) Condition: stable Disposition: PACU Indications for Procedure: The patient is a very pleasant 61-year-old male with a medical history significant for coronary artery disease who has had a long-standing history of problems with his left leg. Briefly the patient sustained a traumatic injury to his leg as a child resulting in growth arrest and deformity of the leg. He went on to develop severe arthritis and a chronically dislocated patella. He had had multiple surgeries on his leg. He failed nonoperative treatment and requested going forward with surgery. He had both pain from arthritis and instability of the knee. Clinically he did have quadriceps function preoperatively and was able to straighten his leg when the patella was manually reduced. We discussed knee replacement as well as different levels of constraint that may be required including more constrained polyethylene liners and even a hinge. He understands that this is not a straightforward knee replacement. He also understands that a knee replacement is for pain relief from arthritis and he may have issues with weakness and his leg length discrepancy which are both pre-existing and will not be addressed with this surgery. He has realistic expectations and I think an elective total knee replacement will help him. We discussed the risks specific to his procedure including patellar maltracking and chronic patellar dislo cation. I met with the patient preoperatively in the office setting and discussed treatment of their symptomatic knee arthritis. They failed a long course of nonsurgical treatment and elected to proceed with an elective total knee replacement. I discussed the potential risks and complications at length and gave them ample time to ask questions. Risks discussed included: risks from anesthesia, superficial site surgical infection, acute and/or chronic periprosthetic joint infection, delayed wound healing, drainage, wound necrosis, instability, stiffness, stiffness requiring manipulation and/or revision surgery, damage to local blood vessels or nerves, aseptic loosening of the implants, extensor mechanism issues including disruption, patellar maltracking, avascular necrosis etc., continued or worsened knee pain, generalized dissatisfaction with surgical outcome, need for revision surgery, an inability to regain preinjury level of function, DVT, PE, other medical complications, and possibly loss of life or limb. The patient voiced their understanding that while these are the most common complications other less common complications are possible. They provided both their verbal and written consent to go forward with surgery. Operative Findings: The collateral ligaments were intact. The quadriceps muscle appeared significantly atrophied and it was difficult identifying the standard medial parapatellar approach due to scarring from prior surgery and atrophy of the musculature Description of Procedure: The patient was identified in preoperative holding and the correct operative extremity was verified and marked with a marker. I reviewed the consent form with the patient at length. All of their questions were answered. The patient was given a block by anesthesia. They were then brought back to the operating room. They were transferred onto the operating room table where a general anesthetic, preoperative antibiotics, and tranexamic acid were administered by anesthesia. A tourniquet was applied to the proximal aspect of the operative extremity. With the patient under anesthesia I evaluated his left leg. There are multiple scars over the knee. There was an anteromedial scar that I felt could be incorporated into his incision. The knee was stable to varus and valgus stress at 30 of knee flexion. The contralateral extremity was padded under the heel and secured to the operating room table with a nonsterile blue towel and tape. The ipsilateral arm was carefully draped across the patient's chest and secured with a pillow and foam. A post was applied over the lateral aspect of the ipsilateral thigh and a bolster was placed under the ipsilateral foot. I verified that the operative extremity was stable and the knee was flexed to 90. The operative extremity was then placed in a leg gutierres, nonsterile drapes were applied, and the extremity was prepped and draped sterilely in the standard sterile fashion. Prior to starting surgery timeout was performed identifying the correct patient, operative extremity, and procedure. The leg was then elevated, exsanguinated with an Esmarch bandage, a nd the tourniquet was inflated. An anterior midline incision was made sharply with a scalpel using the prior anteromedial scar over the knee and extending the incision both proximally and distally. Once I had dissected deep to the superficial fascial layer medial and lateral flaps were elevated. There was significantly altered anatomy due to scarring from prior surgery and atrophy of the quadriceps muscle. A medial parapatellar arthrotomy was created using the patella as a reference due to altered anatomy. Upon opening the knee joint there were diffuse arthritic changes in all 3 compartments. The anterior horn of the medial meniscus were sharply released and a medial release was performed around the posterior medial corner of the knee to facilitate retractor placement. The fat pad was excised with electrocautery. The patella was found to be severely arthritic and a provisional cut was made with a sagittal saw to facilitate mobilization of the extensor mechanism during the procedure. Remnants of the ACL and PCL were then excised from the notch. 4 mm pins were then placed within the incision in the medial distal femur and proximal tibia. Arrays were applied to the pins and I verified they were completely tightened. The knee was then registered with the Agendia robot and manipulations in implant position were made to balance the knee and opitmize implant position. Using the Babak robotic saw all cuts were made in accordance with our plan. After all bony fragments had been removed the cuts were verified with the planar probe. The tibia was then subluxed forward and s ized. The knee was brought into flexion and a lamina material flow analyst was placed to allow removal of the meniscal remnants both medially and laterally as well as posterior osteophytes. Local anesthetic was then infiltrated around the joint capsule. Trial implants were then placed within the knee. Range of motion and collateral ligament tension was then evaluated. Adjustments in implant size and position were then made accordingly. Once the knee was felt to be appropriately balanced the Babak pins were removed. The patella was then recut, sized, and punched. A trial patellar button was then placed. With the trial components in place, the patella tracked midline, but as the knee was further flexed there is subluxation of the patella. The femur was then drilled and the trial component removed. I elected to use a posterior stabilized implant so the guide for the box was pinned into place and the box was created using a reciprocating saw and osteotome. The trial tibial component was then appropriately rotated, pinned, and prepared for the keel. All trial components were then removed from the knee. The knee was thoroughly irrigated with pulsatile lavage. Cement was prepared via vacuum mixing in a bowl on the back table. I then hand pressurized cement into the femur and tibia and placed the implants beginning with the tibial base tray and trial poly liner, femoral component, and finally the patellar button. All extruded cement was removed including from the pin sites. Once the cement had hardened the knee was evaluated one final time with the trial polyethylene liner in place. I was happy with the balance and an 11 mm TS polyethylene liner was dispensed and placed verifying that the locking mechanism was engaged The knee had full extension and flexion and felt stable to varus and valgus stress throughout the arc of motion. The tourniquet was released and with the tourniquet down the patella to laterally sublux so a full inside out lateral release was performed. After completing this the patella tracked midline. All bleeders were controlled with electrocautery. The knee was then soaked for 3 minutes with a dilute Betadine soak. The knee was thoroughly irri gated using 3 L of sterile saline and pulsatile lavage. A deep drain was placed. The extensor mechanism was then reapproximated using pop off Vicryl sutures followed by a running barbed suture. The knee was then closed in layers with a 0 strata fix for the deep fascial layer, 2-0 strata fix for the superficial subcutaneous layer and Monocryl and Steri-Strips for the skin. A sterile dressing and drain sponge were applied. I verified that all instrument, sponge, and sharp counts were correct. The patient was then transferred off the operating room table, extubated, and brought to recovery having tolerated the procedure well. Ruben Garcia PA-C was required as a skilled religious assistant due to the complexity of the procedure for patient positioning, draping, retraction, placement of hardware, and closure of wound. PLAN: The patient can weight-bear as tolerated on the operative extremity. DVT prophylaxis with aspirin 81 mg twice a day based on preoperative risk stratification. Follow-up in the office in 2 weeks for wound check and x-rays of the knee including an AP and lateral.
[2022-07-25] MEDS ORDERED: SENNOSIDES-DOCUSATE SODIUM 1 EACH TAB PO SCH (21:00)
[2022-07-25] MEDS: ASPIRIN 81 MG PO SCH (22:00)
[2022-07-26] MEDS: ASPIRIN 81 MG PO SCH (07:40)
[2022-07-26 07:48] VITALS: BP 120/73; PULSE 83; RESP 18; TEMP 97.7
--- NOTE | 2022-07-26 08:11 | P.PN ---
Subjective Patient is doing well. He's had an increase in his pain since the block is worn off but his pain is manageable with pain medications. He has no other complaints this morning. He denies chest pain or shortness of breath. Objective - Vital Signs Vital signs: Vital Signs Temp 97.7 F 07/26/22 07:47 Pulse 83 07/26/22 07:47 Resp 18 07/26/22 07:47 BP 120/73 07/26/22 07:47 Pulse Ox 97 07/26/22 07:47 FiO2 Intake & Output 07/25/22 07/26/22 07/26/22 18:59 06:59 18:59 Intake Total 3530 1000 Output Total 150 Balance 3380 1000 Weight 109.4 kg Intake: IV 3050 Oral 480 1000 Output: Estimated Blood Loss 150 Other: Voiding Method Toilet # Voids 0 2 - Exam The patient is resting comfortably in bed. He is alert and oriented. He is able to answer questions. A focused exam of the left lower extremity was conducted. On inspection is diffuse swelling in the knee and a moderate effusion. The dressing and drain site are clean. The drain was pulled. Dis tally he is able to actively plantarflex and dorsiflex his toes. He is able to actively fire his quadriceps muscle but has weakness which is chronic for him. Distally the foot is warm and well perfused. Assessment and Plan Assessment: Postoperative day #1 status post left total knee arthroplasty, doing well Plan: 1. Weightbearing as tolerated left lower extremity 2. DVT prophylaxis with aspirin 81 mg twice a day 3. Drain pulled this morning 4. Internal medicine consult pending 5. Dispo: The patient can discharge home later today if he is cleared by physical therapy and his pain is controlled
--- NOTE | 2022-07-26 08:13 | P.DS ---
Providers Date of admission: 07/25/22 23:25 Expected date of discharge: 07/26/22 Attending physician: James Anders Consults: 07/25/22 22:34 Consult Physician Routine Consulting Provider: Kaycee Da Silva Consult Reason/Comments: Medical Management (notified Teena Montgomery) Do you want consulting provider notified?: Yes, Notify in am Primary care physician: [facility] Course: The patient is very pleasant 7-year-old male with a long-standing history of problems with his left leg all resulting from a traumatic injury as a child. He underwent an uncomplicated but difficult left primary total knee replacement yesterday. He was admitted under my care. His drain was pulled postoperative day #1. He was transitioned from IV to oral pain medication. A consultation was placed to internal medicine for preoperative medical management. The patient worked with physical therapy. Was ultimately cleared for discharge home. Plan - Discharge Summary Discharge Rx Participant: Yes New Discharge Prescriptions: New HYDROcodone/APAP 5-325MG [[place] 5-325] 1 - 2 tab PO Q6HR PRN 7 Days #32 tab PRN Reason: Pain Aspirin 81 mg PO BID 30 Days #60 tab Docusate [Colace] 100 mg PO BID #60 capsule Omeprazole 40 mg PO DAILY 30 Days #30 cap Diclofenac Sodium [Voltaren] 75 mg PO BID 30 Days #60 tab No Action amLODIPine BESYLATE [Norvasc] 5 mg PO DAILY Psyllium Husk [Metamucil] 0.4 mg PO BID [place]-3 Fatty Acids/Fish Oil [Fish Oil 1,000 mg Softgel] 1 cap PO HS Famotidine [Pepcid AC] 10 mg PO HS Cholecalciferol (Vitamin D3) [Vitamin D3] 2,000 unit PO BID Ubidecarenone [Co Q-10] 100 mg PO DAILY Losartan Potassium [Cozaar] 100 mg PO DAILY Atorvastatin [Lipitor] 80 mg PO HS #30 tab Isosorbide Mononitrate ER [Imdur] 30 mg PO DAILY #30 tab.er.24h Metoprolol Tartrate [Lopressor] 50 mg PO BID #60 tab Aspirin EC [Ecotrin Low Dose] 81 mg PO BID #1 Discharge Medication List amLODIPine BESYLATE [Norvasc] 5 mg PO DAILY 12/15/14 [History] Cholecalciferol (Vitamin D3) [Vitamin D3] 2,000 unit PO BID 06/18/18 [History] Famotidine [Pepcid AC] 10 mg PO HS 06/18/18 [History] [place]-3 Fatty Acids/Fish Oil [Fish Oil 1,000 mg Softgel] 1 cap PO HS 06/18/18 [History] Psyllium Husk [Metamucil] 0.4 mg PO BID 06/18/18 [History] Losartan Potassium [Cozaar] 100 mg PO DAILY 10/11/18 [History] Ubidecarenone [Co Q-10] 100 mg PO DAILY 10/11/18 [History] Aspirin EC [Ecotrin Low Dose] 81 mg PO BID #1 10/12/18 [Rx] Atorvastatin [Lipitor] 80 mg PO HS #30 tab 10/12/18 [Rx] Isosorbide Mononitrate ER [Imdur] 30 mg PO DAILY #30 tab.er.24h 10/12/18 [Rx] Metoprolol Tartrate [Lopressor] 50 mg PO BID #60 tab 10/12/18 [Rx] Aspirin 81 mg PO BID 30 Days #60 tab 07/25/22 [Rx] Diclofenac Sodium [Voltaren] 75 mg PO BID 30 Days #60 tab 07/25/22 [Rx] Docusate [Colace] 100 mg PO BID #60 capsule 07/25/22 [Rx] HYDROcodone/APAP 5-325MG [[place] 5-325] 1 - 2 tab PO Q6HR PRN 7 Days #32 tab 07/25/22 [Rx] Omeprazole 40 mg PO DAILY 30 Days #30 cap 07/25/22 [Rx] Follow up Appointment(s)/Referral(s): [facility] [[facility]] - 1-2 Days ([facility] will call you to schedule your in home physical therapy visits. ) James Anders MD [Medical Doctor] - 2 Weeks Activity/Diet/Wound Care/Special Instructions: Weight bear to tolerance on operative extremity with a walker. Keep operative dressing intact until follow-up appointment in the office. Call the office if dressing becomes saturated or falls off. May shower over dressing. Take pain medications as prescribed. Take aspirin 81mg BID x 4 weeks for blood clot prevention. Follow-up in the office in two weeks with Dr. Anders. Call the office with any questions or concerns,
[2022-07-26 09:09] LABS: Basophils # (A) 0.02 X 10*3/uL (0.00-0.10); Basophils % (A) 0.1 %; Eosinophils # (A) 0 X 10*3/uL (0.04-0.35); Eosinophils % (A) 0 %; HCT 36.9 % (39.6-50.0); Immature Grans, Automated 0.6 %; Lymphocytes % (A) 6.1 %; MCH 31.6 pg (27.0-32.0); MCHC 35.2 g/dL (32.0-37.0); MCV 89.8 fL (80.0-97.0); Mean Platelet Volume 10.9 fL (9.5-12.2); Monocytes % (A) 6.1 %; NRBC Per 100 WBC 0 /100 WBCS (0.0-0.0); Neutrophils # (A) 18.56 X 10*3/uL (1.80-7.70); Neutrophils % (A) 87.1 %; Platelet Count 227 X 10*3/uL (140-440); RBC 4.11 X 10*6/uL (4.40-5.60); RDW 12.3 % (11.5-14.5)
--- NOTE | 2022-07-26 09:28 | P.CONS ---
History of Present Illness - History of Present Illness This is a pleasant 61 years old male with past medical history of Coronary Ar manjeet Disease (CAD), Chest Pain / Angina, GERD/Reflux, Hyperlipidemia, Hypertension, Myocardial Infarction ([place]), Osteoarthritis (OA). He was admitted for left total knee arthroplasty. 2 days' postop day #1. Patient lying in bed comfortable with some little pain in his surgery site but this is controlled. He denies any other complaints. No headache or dizziness or weakness. no Numbness. No chest Pain or dyspnea. He tolerates that well, he has constipation but he declines laxatives. No urinary complaints no dysuria or urgency. Patient states he takes for blood pressure medication at home hydrochlorothiazide, losartan, metoprolol and amlodipine. She states that he took his home dose of amlodipine and metoprolol last night but he did not take any. Also he did not take his hydrochlorothiazide LOSARTAN yesterday. Today patient blood pressure is 120/73, patient is symptomatic and vessel vitals are stable. He has mild leukocytosis of 21.3, most likely reactive from surgery. WBC last month was 6.6. Hemoglobin is 13. Platelet count is normal. Patient already is been discharged by orthopedic team to go home today. Patient is also willing and feels ready to go home today. Patient was instructed about his monitoring blood pressure, taken blood pressure medication and monitored WBC with his PCP. The patient confirms to me he is going to FOLLOW UP WITH PCP DR. HAWK WITHIN ONE WEEK Review of Systems Review of systems CONSTITUTIONAL: No fever, no malaise, no fatigue. HEENT: No recent visual problems or hearing problems. Denied any sore throat. CARDIOVASCULAR: No orthopnea, PND, no palpitations, no syncope. PULMONARY: No shortness of breath, no cough, no hemoptysis. GASTROINTESTINAL: No diarrhea, no nausea, no vomiting, no abdominal pain. Normoactive bowel sounds. NEUROLOGICAL: No headaches, no weakness, no numbness. HEMATOLOGICAL: Denies any bleeding or petechiae. GENITOURINARY: Denies any burning micturition, frequency, or urgency. MUSCULOSKELETAL/RHEUMATOLOGICAL: Denies any joint pain, swelling, or any muscle pain. ENDOCRINE: Denies any polyuria or polydipsia. Past Medical History Past Medical History: Coronary Artery Disease (CAD), Chest Pain / Angina, RICKI D/Reflux, Hyperlipidemia, Hypertension, Myocardial Infarction ([place]), Osteoarthritis (OA) Additional Past Medical History / Comment(s): past bronchitis, bilateral leg injury as a 6 yr old child with multiple surgeries. Last Myocardial Infarction Date:: 2007 History of Any Multi-Drug Resistant Organisms: None Reported Past Surgical History: Appendectomy, Coronary Bypass/CABG, Heart Catheterization, Heart Catheterization With Stent, Orthopedic Surgery Additional Past Surgical History / Comment(s): 2007 PCI with stent, 2013 cardiac cath, 2013 CABG 3 vessel, multiple surgeries on both legs from trauma age 6yrs, L knee ACL repair. Past Anesthesia/Blood Transfusion Reactions: No Reported Reaction Additional Past Anesthesia/Blood Transfusion Reaction / Comm: Pt is unsure if he has ever received blood. Date of Last Stent Placement:: 03/2008 Past Psychological History: No Psychological Hx Reported Additional Psychological History / Comment(s): Pt resides alone. He is independent. 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 He states his job is stressful. Smoking Status: Former smoker Past Alcohol Use History: Occasional Additional Past Alcohol Use History / Comment(s): Pt started smoking in 2003 and quit in 2007. Past Drug Use History: None Reported - Past Family History Mother Family Medical History: Cancer Additional Family Medical History / Comment(s): Mother is 76yrs old. She had breast cancer and palpitations. There was alot of CAD on her side of the family. Father Family Medical History: Myocardial Infarction ([place]) Additional Family Medical History / Comment(s): Father of a [place] in his 60's. CAD runs strongley in father's side of family. Medications and Allergies Home Medications Medication Instructions Recorded Confirmed Type amLODIPine BESYLATE [Norvasc] 5 mg PO DAILY 12/15/14 07/21/22 History Cholecalciferol (Vitamin D3) 2,000 unit PO BID 06/18/18 07/21/22 History [Vitamin D3] Famotidine [Pepcid AC] 10 mg PO HS 06/18/18 07/25/22 History [place]-3 Fatty Acids/Fish Oil [Fish 1 cap PO HS 06/18/18 07/21/22 History Oil 1,000 mg Softgel] Psyllium Husk [Metamucil] 0.4 mg PO BID 06/18/18 07/21/22 History Ubidecarenone [Co Q-10] 100 mg PO DAILY 10/11/18 07/21/22 History Aspirin EC [Ecotrin Low Dose] 81 mg PO BID #1 10/12/18 07/21/22 Rx Atorvastatin [Lipitor] 80 mg PO HS #30 tab 10/12/18 07/25/22 Rx Isosorbide Mononitrate ER [Imdur] 30 mg PO DAILY #30 tab.er.24h 10/12/18 07/25/22 Rx Metoprolol Tartrate [Lopressor] 50 mg PO BID #60 tab 10/12/18 07/25/22 Rx Aspirin 81 mg PO BID 30 Days #60 tab 07/25/22 Rx Diclofenac Sodium [Voltaren] 75 mg PO BID 30 Days #60 tab 07/25/22 Rx Docusate [Colace] 100 mg PO BID #60 capsule 07/25/22 Rx HYDROcodone/APAP 5-325MG [[place] 1 - 2 tab PO Q6HR PRN 7 Days #32 07/25/22 Rx 5-325] tab Omeprazole 40 mg PO DAILY 30 Days #30 cap 07/25/22 Rx Allergies Allergy/AdvReac Type Severity Reaction Status Date / Time adhesive Allergy Rash/Hives Verified 07/25/22 09:22 Physical Exam Vitals: Vital Signs Temp Pulse Resp BP Pulse Ox 07/26/22 07:47 97.7 F 83 18 120/73 97 07/26/22 02:15 98.1 F 76 17 112/69 94 L 07/25/22 19:54 97.5 F L 85 16 106/66 96 07/25/22 17:05 98.6 F 88 14 129/79 94 L 07/25/22 16:16 84 18 138/64 94 L 07/25/22 16:01 87 18 138/68 96 07/25/22 15:46 84 18 152/76 95 07/25/22 15:31 86 18 158/74 94 L 07/25/22 15:16 89 18 143/66 94 L 07/25/22 15:01 90 17 145/78 96 07/25/22 14:46 85 17 136/76 98 07/25/22 14:31 88 17 128/70 96 07/25/22 14:16 96.8 F L 98 16 122/69 98 07/25/22 09:23 98.3 F 72 18 138/73 98 Intake and Output 07/25/22 07/26/22 07/26/22 22:59 06:59 14:59 Intake Total 480 1000 Balance 480 1000 Intake: Oral 480 1000 Other: Voiding Method Toilet # Voids 0 2 Weight 109.4 kg GENERAL: The patient is alert and oriented x3, not in any acute distress. Well developed, well nourished. HEENT: Pupils are round and equally reacting to light. EOMI. No scleral icterus. No conjunctival pallor. Normocephalic, atraumatic. No pharyngeal erythema. No thyromegaly. CARDIOVASCULAR: S1 and S2 present. No murmurs, rubs, or gallops. PULMONARY: Chest is clear to auscultation, no wheezing or crackles. ABDOMEN: Soft, nontender, nondistended, normoactive bowel sounds. No palpable organomegaly. MUSCULOSKELETAL: No joint swelling or deformity. -EXTREMITIES: No cyanosis, clubbing, or pedal edema. Status post left knee arthroplasty. Surgical wound and a dressing, no surrounding cellulitis. There is some swelling at the surgical site. No erythema or rash, no unexpected tenderness. rest of exam is deferred to surgery team NEUROLOGICAL: Gross neurological examination did not reveal any focal deficits. SKIN: No rashes. no petechiae. Results CBC & Chem 7: 07/26/22 06:23 Labs: Abnormal Lab Results - Last 24 Hours (Table) 07/26/22 Range/Units 06:23 WBC 21.30 H (4.50-10.00) X 10*3/uL RBC 4.11 L (4.40-5.60) X 10*6/uL Hct 36.9 L (39.6-50.0) % Immature Gran # 0.12 H (0.00-0.04) X 10*3/uL Neutrophils # 18.56 H (1.80-7.70) X 10*3/uL Monocytes # 1.30 H (0.20-1.00) X 10*3/uL Eosinophils # 0 L (0.04-0.35) X 10*3/uL Assessment and Plan Assessment: -Osteoarthritis status post left total knee arthroplasty. Continue with DVT prophylaxis and pain management as per orthopedic team. Orthopedic team already discharged patient today to go home. -Leukocytosis, most likely reactive: Patient informed and recommended for him to follow-up with PCP to check his WBC and he agrees. No signs of infection. Antibiotics aren't this point has more risks than benefits so was not started -Hypertension, resume metoprolol and Norvasc. Hold losartan and hydrochlorothiazide with close monitoring of blood pressure, patient informed and inspected and he agrees -Hyperlipidemia, continue with statin -Obesity: Follow-up outpatient - History of GERD: Not in active tissue, continue with PPI -History of coronary artery disease and CABG, patient with no chest pain, symptomatic, continue with same treatment and aspirin Patient is medically stable We recommend patient follow up with PCP Dr. Esposito in one week and patient was instructed with the same and he agrees Discussed with the staff Thank you for consulting us
[2022-07-26] MEDS ORDERED: METOPROLOL TARTRATE 50 MG TAB PO SCH (21:00)
[2022-07-27] MEDS ORDERED: amLODIPine 5 MG TAB PO SCH (09:00)
== END 2022-07-26 14:25 | disposition home health service (06) ==
LOC: OR 08:49 → 4SSUR 14:15 → OR 23:25 → 4SSUR 23:25
PROVIDERS: ADMIT Orthopaedic Surgery; ATTEND Orthopaedic Surgery
DX: M17.12 Unilateral primary osteoarthritis, left knee (principal); S83.095A Other dislocation of left patella, initial encounter; W01.0XXA Fall on same level from slipping, tripping and stumbling without subsequent striking against object, initial encounter; M21.70 Unequal limb length (acquired), unspecified site; I11.9 Hypertensive heart disease without heart failure; K59.00 Constipation, unspecified; I25.10 Atherosclerotic heart disease of native coronary artery without angina pectoris; E78.5 Hyperlipidemia, unspecified; R00.2 Palpitations; Z79.899 Other long term (current) drug therapy; Z82.49 Family history of ischemic heart disease and other diseases of the circulatory system; Z87.891 Personal history of nicotine dependence; K21.9 Gastro-esophageal reflux disease without esophagitis; E66.9 Obesity, unspecified; Z68.34 Body mass index [BMI] 34.0-34.9, adult; I25.2 Old myocardial infarction; D72.829 Elevated white blood cell count, unspecified; Z87.09 Personal history of other diseases of the respiratory system; Z95.5 Presence of coronary angioplasty implant and graft; Z90.49 Acquired absence of other specified parts of digestive tract; Z95.1 Presence of aortocoronary bypass graft; Z98.890 Other specified postprocedural states; Z80.3 Family history of malignant neoplasm of breast; Z79.82 Long term (current) use of aspirin; Z91.09 Other allergy status, other than to drugs and biological substances
CPT/HCPCS: 97161; 64447; 64999; 76942; 85025; 73560; 27447; G0378; C1713 ×2; C1776 ×4; J2250; J0330; J1100 ×2; J2710; J0690 ×2; J2405; J3010; J1170 ×2; J2795; J1885; J2370; J2704; J2001

== ENCOUNTER → 2022-09-17 | Day surgery (SDC) | payer BC ==
[~2022-09-17] MED LIST changes: -ACETAMINOPHEN TAB 500 MG TAB PO PRN; -DEXAMETHASONE SOD PHOSPHATE 10 MG/ML 1 ML VIAL IV PRN; +DEXAMETHASONE SOD PHOSPHATE 4 MG/ML 1 ML VIAL IV ONE; -DOCUSATE 100 MG CAP PO PRN; -FAMOTIDINE 20 MG/2 ML VIAL IVP PRN; +HYDROmorphone (PF) 1 MG/ML ONE; +HYDROmorphone 0.5 MG/0.5 ML SYRINGE IVP PRN; +KETAMINE 10 MG/ML 20 ML VIAL ONE; -KETOROLAC 15 MG/ML 1 ML VIAL IVP PRN; +LACTATED RINGERS 1,000 ML IV ONE; +LACTATED RINGERS 1,000 ML IV SCH; +MIDAZOLAM 2 MG/2 ML VIAL ONE; +ONDANSETRON 4 MG/2 ML VIAL IVP ONE; -ONDANSETRON 4 MG/2 ML VIAL IVP PRN; +ONDANSETRON 4 MG/2 ML VIAL ONE; +PROPOFOL 10 MG/ML 20 ML VIAL IV ONE; +Pre Op ABX Message 1 EACH MISC MISCELLANE ONE; +TRANEXAMIC ACID 1,000 MG in SODIUM CHLORIDE 0.9% 100 ML IVPB ONE; -TRANEXAMIC ACID IN NACL,ISO-OS 1,000 MG in SALINE 1 100ML.BAG IVPB PRN; +fentaNYL (PF) 50 MCG/ML 2 ML AMP ONE; -oxyCODONE ER 10 MG TAB.ER.12H PO PRN
[2022-09-17 09:03] VITALS: TEMP 97.2
[2022-09-17 10:52] VITALS: RESP 16
[2022-09-17 11:24] VITALS: BP 145/89; PULSE 62
--- NOTE | 2022-09-17 13:42 | P.OP ---
Date of Procedure: 09/17/22 Preoperative Diagnosis: History of left total knee replacement with arthrofibrosis Postoperative Diagnosis: Same Procedure(s) Performed: Left knee manipulation under anesthesia Anesthesia: MAC Surgeon: James Anders Director Of Mobile Marketing #1: Ruben Garcia Estimated Blood Loss (ml): 0 Pathology: none sent Condition: stable Disposition: PACU Indications for Procedure: The patient is a very pleasant 62-year-old male who underwent a left total knee replacement about 6 weeks ago. He has done very well but unfortunately developed stiffness in his knee. I saw him in the office at his 6 week appointment and he had full extension and flexion of 70. I recommended a manipulation under anesthesia to improve his flexion. We discussed the potential risks and complications of this including the Cerner not limited to recurrent stiffness, fracture, damage the extensor mechanism, continued or worsened pain, need for further surgery, and possibly need of revision. He understands this and provided his consent to go forward with surgery. Description of Procedure: The patient was identified in preoperative holding and the correct left leg was marked with my initials. The patient was then brought to the recovery room. IV access was obtained and the patient was given a propofol sedation. He was also given tranexamic acid. A timeout was performed identifying the correct patient, operative extremity, and procedure. At this point I evaluated his motion while he was under anesthesia. He had full extension and flexion to about 70. Using the proximal third of the tibia a posteriorly directed force was applied over 3- 5 minutes. My tear was placed next to his knee and audible cracking was heard as adhesions were broken up within the knee. I was able to gently manipulate his knee to 110 of flexion. The patient was then awoken from his sedation. Plan: The patient is going to discharge home as an outpatient. He can weight- bear as tolerated. He will start physical therapy today to continue working on motion.
== END | disposition home or self-care (01) ==
LOC: OR 08:27
PROVIDERS: ATTEND Orthopaedic Surgery
DX: Z47.1 Aftercare following joint replacement surgery (principal); I10 Essential (primary) hypertension; E78.5 Hyperlipidemia, unspecified; F17.210 Nicotine dependence, cigarettes, uncomplicated; K21.9 Gastro-esophageal reflux disease without esophagitis; Z82.49 Family history of ischemic heart disease and other diseases of the circulatory system; Z96.652 Presence of left artificial knee joint; Z79.899 Other long term (current) drug therapy; Z97.3 Presence of spectacles and contact lenses
CPT/HCPCS: 27570; J2250; J1100; J2405; J3010; J1170; J2704

== ENCOUNTER 2022-10-19 23:07 | Inpatient (IN) | payer BC ==
[2022-10-19] MEDS ORDERED: SODIUM CHLORIDE 0.9% 1,000 ML IV STA (23:11)
--- NOTE | 2022-10-19 23:11 | ED ---
URI HPI - General Stated Complaint: Upper respiratory issues Time Seen by Provider: 10/19/22 23:10 Source: RN notes reviewed, old records reviewed Limitations: no limitations - History of Present Illness Initial Comments: This is a 62-year-old male to the emergency department for evaluation today. Patient presents today for severe shortness of breath some right-sided chest pain. Positive cough positivepositive congestion. Patient does have a significant history of heart disease history of [place] high blood pressure high cholesterolpatient has had chest pain or shortness of breath for 3 days and demetri arellano currently complaining of shortness of breath with a headache MD Complaint: fever, cough, sore throat, nasal congestion -: hour(s) Severity: moderate Severity scale (1-10): 5 Improves With: nothing Worsens With: nothing Context: sick contacts Associated Symptoms: denies other symptoms, chills, nasal congestion, sore throat, cough, chest pain Treatments Prior to Arrival: none - Related Data Home Medications Medication Instructions Recorded Confirmed amLODIPine BESYLATE [Norvasc] 5 mg PO BID 12/15/14 10/26/22 Famotidine [Pepcid AC] 10 mg PO HS 06/18/18 10/26/22 [place]-3 Fatty Acids/Fish Oil [Fish 1 cap PO HS 06/18/18 10/26/22 Oil 1,000 mg Softgel] Ubidecarenone [Co Q-10] 200 mg PO DAILY 10/11/18 10/26/22 Aspirin EC [Ecotrin Low Dose] 81 mg PO DAILY 09/10/22 10/26/22 Loratadine [Claritin] 10 mg PO DAILY 09/10/22 10/26/22 Losartan Potassium [Cozaar] 100 mg PO DAILY 09/10/22 10/26/22 hydroCHLOROthiazide [Hydrodiuril] 50 mg PO DAILY 09/10/22 10/26/22 polyethylene glycoL 3350 [Miralax] 17 gm PO DAILY 09/10/22 10/26/22 Albuterol Sulfate [Albuterol 2 puff INHALATION RT-Q4H PRN 10/20/22 10/26/22 Sulfate Hfa] Cholecalciferol [Vitamin D3 (25 50 mcg PO BID 10/20/22 10/26/22 Mcg = 1000 Iu)] Previous Rx's Medication Instructions Recorded Atorvastatin [Lipitor] 80 mg PO HS #30 tab 10/12/18 cefUROXime axetiL [Ceftin] 500 mg PO BID 5 Days #10 tab 10/25/22 Allergies Allergy/AdvReac Type Severity Reaction Status Date / Time adhesive Allergy Rash/Hives Verified 10/26/22 14:18 Review of Systems ROS Statement: Those systems with pertinent positive or pertinent negative responses have been documented in the HPI. ROS Other: All systems not noted in ROS Statement are negative. Past Medical History Past Medical History: Coronary Artery Disease (CAD), Chest Pain / Angina, GERD/Reflux, Hyperlipidemia, Hypertension, Myocardial Infarction ([place]), Pneumonia Additional Past Medical History / Comment(s): Recent palpitations, past bronchitis, bilateral leg injury as a 6 yr old child with multiple surgeries Last Myocardial Infarction Date:: 2007 History of Any Multi-Drug Resistant Organisms: None Reported Past Surgical History: Appendectomy, Coronary Bypass/CABG, Heart Catheterization, Heart Catheterization With Stent, Joint Replacement Additional Past Surgical History / Comment(s): 2007 PCI with stent, 2013 cardiac cath, 2013 CABG 3 vessel, multiple surgeries on both legs from trauma age 6yrs, L knee ACL repair. left knee replaced 07-25-22 Past Anesthesia/Blood Transfusion Reactions: No Reported Reaction Additional Past Anesthesia/Blood Transfusion Reaction / Comment(s): Pt is unsure if he has ever received blood. Date of Last Stent Placement:: 03/2008 Smoking Status: Former smoker - Past Family History Mother Family Medical History: Cancer Additional Family Medical History / Comment(s): Mother is 76yrs old. She had breast cancer and palpitations. There was alot of CAD on her side of the family. Father Family Medical History: Myocardial Infarction ([place]) Additional Family Medical History / Comment(s): Father of a [place] in his 60's. CAD runs strongley in father's side of family. General Exam General appearance: alert, in no apparent distress Head exam: Present: atraumatic, normocephalic, normal inspection Eye exam: Present: normal appearance, PERRL, EOMI. Absent: scleral icterus, conjunctival injection, periorbital swelling ENT exam: Present: normal exam, mucous membranes moist Neck exam: Present: normal inspection. Absent: tenderness, meningismus, lymphadenopathy Respiratory exam: Present: normal lung sounds bilaterally. Absent: respiratory distress, wheezes, rales, rhonchi, stridor Cardiovascular Exam: Present: regular rate, normal rhythm, normal heart sounds. Absent: systolic murmur, diastolic murmur, rubs, gallop, clicks GI/Abdominal exam: Present: soft, normal bowel sounds. Absent: distended, tenderness, guarding, rebound, rigid Extremities exam: Present: normal inspection, full ROM, normal capillary refill. Absent: tenderness, pedal edema, joint swelling, calf tenderness Back exam: Present: normal inspection Neurological exam: Present: alert, oriented X3, CN II-XII intact Psychiatric exam: Present: normal affect, normal mood Skin exam: Present: warm, dry, intact, normal color. Absent: rash Course Vital Signs 10/19/22 10/19/22 10/20/22 23:12 23:16 00:31 Temperature 99.1 F Pulse Rate 52 L 53 L Respiratory 20 18 16 Rate Blood Pressure 148/97 O2 Sat by Pulse 96 96 98 Oximetry 10/20/22 10/20/22 10/20/22 01:00 03:00 04:00 Temperature 98.6 F Pulse Rate 49 L 48 L Respiratory 16 16 18 Rate Blood Pressure 136/67 129/70 O2 Sat by Pulse 95 98 98 Oximetry 10/20/22 10/20/22 10/20/22 05:00 06:00 06:23 Temperature 98.8 F Pulse Rate 48 L Respiratory 18 18 18 Rate Blood Pressure 123/54 O2 Sat by Pulse 98 98 Oximetry 10/20/22 10/20/22 10/20/22 08:20 08:31 09:13 Temperature 101.1 F H Pulse Rate 46 L 48 L 50 L Respiratory 18 Rate Blood Pressure 135/76 O2 Sat by Pulse 94 L Oximetry 10/20/22 10/20/22 10/20/22 11:50 11:59 12:05 Temperature Pulse Rate 48 L 46 L 52 L Respiratory Rate Blood Pressure 111/83 O2 Sat by Pulse 96 Oximetry 10/20/22 10/20/22 10/20/22 12:09 14:00 15:00 Temperature 98.3 F Pulse Rate 50 L 51 L 54 L Respiratory 18 18 18 Rate Blood Pressure 119/70 O2 Sat by Pulse 96 98 98 Oximetry 10/20/22 17:00 Temperature 101 F H Pulse Rate 56 L Respiratory 18 Rate Blood Pressure 132/72 O2 Sat by Pulse 96 Oximetry - Reevaluation(s) Reevaluation #1: 10/19/22 Medical records reviewed Reevaluation #2: 10/19/22 Patient still significantly short of breath Reevaluation #3: 10/19/22 Patient informed results and questions answered Reevaluation #4: 10/19/22 23:12 Differential Dyspnea: Coronary syndrome, arrhythmia, tamponade, asthma, COPD, pulmonary embolism, pneumonia, pneumothorax, pulmonary effusion, anaphylaxis, diabetic ketoacidosis, flailed chest, pulmonary contusion, diaphragmatic rupture, anemia, neuromuscular, this is not meant to be an all-inclusive list. Reevaluation #5: 10/19/22 23:12 Was pt. sent in by a medical professional or institution? @ -[by , PA, MEDICAL STAFF CREDENTIALING COORDINATOR, urgent care, hospital, or fdc] Did you speak to anyone other than the patient for history? @ -[EMS, parent, family, police, friend?] Did you review nursing and triage notes? @ -[agree or disagree, why?] Were old charts reviewed? @ -[outside hosp., previous admissions, EMS record, old EKG, old radiological studies, urgent care reports/EKGs, fdc records?] Differential Diagnosis? @ -[chest pain, altered mental status abdominal pain women, abdominal pain men, vaginal bleeding, weakness, fever, dyspnea, syncope, headache, dizziness, GI bleed, back pain, seizure] EKG interpreted by me (3pts min.)? @ -[none] X-rays interpreted by me (1pt min.)? @ -[none] CT interpreted by me (1pt min.)? @ -[none] U/S interpreted by me (1pt. min.)? @ -[none] What testing was considered but not performed? (CT, X-rays, U/S, labs)? Why? @ [CT, X-rays, U/S, labs? Why?] What meds were considered but not given? Why? @ -[none] Did you discuss the management of the patient with other professionals? @ -[professionals i.e. , PA, MEDICAL STAFF CREDENTIALING COORDINATOR, Lab, RT, Psych Nurse, Orchestra Conductor, Senior Software Quality Engineer, Teacher, Manager Of Training, bilingual case manager? Give summary] Did you reconcile home meds? @ -[none] Was smoking cessation discussed for >3mins.? @ -[none] Was critical care preformed (if so, how long)? @ -[none] Were there social determinants of health that impacted care today? How? (Homelessness, low income, unemployed, alcoholism, drug addiction, transportation, low edu. Level, literacy, decrease access to med. care, intermediate, rehab)? @ -[Homelessness, low income, unemployed, alcoholism, drug addiction, transportation, low edu. Level, literacy, decrease access to med. care, intermediate, rehab?] Was there de-escalation of care discussed even if they declined? (Discuss DNR or withdrawal of care, Hospice)? @ -[Discuss DNR or withdrawal of care, Hospice?] What co-morbidities impacted this encounter? (DM, HTN, Smoking, COPD, CAD, Cancer, CVA, Hep., AIDS, mental health diagnosis, sleep apnea, morbid obesity)? @ -[DM, HTN, Smoking, COPD, CAD, Cancer, CVA, Hep., AIDS, mental health di agnosis, sleep apnea, morbid obesity?] Was patient admitted / discharged? @ -[hospital course] Undiagnosed new problem with uncertain prognosis? @ -[none] Drug Therapy requiring intensive monitoring for toxicity (Heparin, Nitro, Insulin, Cardizem)? @ -[none] Were any procedures done? @ -[none] Diagnosis/symptom? @ -[default] Acute, or Chronic, or Acute on Chronic? @ -[default] Uncomplicated (without systemic symptoms) or Complicated (systemic symptoms)? @ -[default] Side effects of treatment? @ -[none] Exacerbation, Progression, or Severe Exacerbation] @ -[no] Poses a threat to life or bodily function? @ -[no] Medical Decision Making - Medical Decision Making 62 male DF for evaluation patient with severe shortness of breath increased cough congestion chest pain headache bodyaches pains does not feel well. This time patient will be admitted for significant symptomatic therapy monitoring of oxygen and respiratory distress - Lab Data Result diagrams: 10/24/22 08:25 10/25/22 06:29 Lab Results 10/19/22 10/19/22 10/19/22 Range/Units 23:22 23:28 23:28 WBC 16.0 H (3.8-10.6) k/uL RBC 3.53 L (4.30-5.90) m/uL Hgb 9.5 L (13.0-17.5) gm/dL Hct 31.3 L (39.0-53.0) % MCV 88.6 (80.0-100.0) fL MCH 27.0 (25.0-35.0) pg MCHC 30.5 L (31.0-37.0) g/dL RDW 22.3 H (11.5-15.5) % Plt Count 487 H (150-450) k/uL MPV 7.6 Neutrophils % 92 % Lymphocytes % 3 % Monocytes % 4 % Eosinophils % 0 % Basophils % 0 % Neutrophils # 14.7 H (1.3-7.7) k/uL Lymphocytes # 0.4 L (1.0-4.8) k/uL Monocytes # 0.7 (0-1.0) k/uL Eosinophils # 0.0 (0-0.7) k/uL Basophils # 0.0 (0-0.2) k/uL Hypochromasia Marked Anisocytosis Moderate Microcytosis Slight PT 9.4 (9.0-12.0) sec INR 0.9 (<1.2) APTT 20.3 L (22.0-30.0) sec Sodium (137-145) mmol/L Potassium (3.5-5.1) mmol/L Chloride (98-107) mmol/L Carbon Dioxide (22-30) mmol/L Anion Gap mmol/L BUN (9-20) mg/dL Creatinine (0.66-1.25) mg/dL Est GFR (CKD-EPI)AfAm (>60 ml/min/1.73 sqM) Est GFR (CKD-EPI)NonAf (>60 ml/min/1.73 sqM) Glucose (74-99) mg/dL Calcium (8.4-10.2) mg/dL Phosphorus (2.5-4.5) mg/dL Magnesium (1.6-2.3) mg/dL Total Bilirubin (0.2-1.3) mg/dL AST (17-59) U/L ALT (4-49) U/L Alkaline Phosphatase (38-126) U/L Troponin I (0.000-0.034) ng/mL NT-Pro-B Natriuret Pep pg/mL Total Protein (6.3-8.2) g/dL Albumin (3.5-5.0) g/dL Influenza Type A (PCR) Not Detected (Not Detectd) Influenza Type B (PCR) Not Detected (Not Detectd) RSV (PCR) Not Detected (Not Detectd) SARS-CoV-2 (PCR) Not Detected (Not Detectd) 10/19/22 10/19/22 10/19/22 Range/Units 23:28 23:28 23:28 WBC (3.8-10.6) k/uL RBC (4.30-5.90) m/uL Hgb (13.0-17.5) gm/dL Hct (39.0-53.0) % MCV (80.0-100.0) fL MCH (25.0-35.0) pg MCHC (31.0-37.0) g/dL RDW (11.5-15.5) % Plt Count (150-450) k/uL MPV Neutrophils % % Lymphocytes % % Monocytes % % Eosinophils % % Basophils % % Neutrophils # (1.3-7.7) k/uL Lymphocytes # (1.0-4.8) k/uL Monocytes # (0-1.0) k/uL Eosinophils # (0-0.7) k/uL Basophils # (0-0.2) k/uL Hypochromasia Anisocytosis Microcytosis PT (9.0-12.0) sec INR (<1.2) APTT (22.0-30.0) sec Sodium 139 (137-145) mmol/L Potassium 4.7 (3.5-5.1) mmol/L Chloride 104 (98-107) mmol/L Carbon Dioxide 27 (22-30) mmol/L Anion Gap 8 mmol/L BUN 25 H (9-20) mg/dL Creatinine 0.71 (0.66-1.25) mg/dL Est GFR (CKD-EPI)AfAm >90 (>60 ml/min/1.73 sqM) Est GFR (CKD-EPI)NonAf >90 (>60 ml/min/1.73 sqM) Glucose 203 H (74-99) mg/dL Calcium 9.1 (8.4-10.2) mg/dL Phosphorus 3.6 (2.5-4.5) mg/dL Magnesium 1.7 (1.6-2.3) mg/dL Total Bilirubin 0.1 L (0.2-1.3) mg/dL AST 36 (17-59) U/L ALT 29 (4-49) U/L Alkaline Phosphatase 82 (38-126) U/L Troponin I <0.012 (0.000-0.034) ng/mL NT-Pro-B Natriuret Pep 409 pg/mL Total Protein 6.8 (6.3-8.2) g/dL Albumin 4.4 (3.5-5.0) g/dL Influenza Type A (PCR) (Not Detectd) Influenza Type B (PCR) (Not Detectd) RSV (PCR) (Not Detectd) SARS-CoV-2 (PCR) (Not Detectd) - EKG Data -: EKG Interpreted by Me (EKG sinus bradycardia 50 QRS 106 QTc 459) - Radiology Data Radiology results: report reviewed (Chest x-rays positive for lower lobe pneumonia), image reviewed Disposition Clinical Impression: Upper respiratory infection, Chest pain, Community acquired pneumonia, Dyspnea Disposition: ADMITTED IP TO THIS HOSP Condition: Fair Is patient prescribed a controlled substance at d/c from ED?: No Time of Disposition: 00:10
--- NOTE | 2022-10-19 23:43 | XR ---
EXAMINATION TYPE: XR chest 1V portable DATE OF EXAM: 10/19/2022 COMPARISON: 10/11/2018 HISTORY: Chest pain TECHNIQUE: FINDINGS: There is some airspace infiltrate medial right lower lobe. The lung caro are fairly clear . There is coarse interstitial density in the lungs. There are sternal wires. No obvious heart failur e. No pleural effusion. IMPRESSION: There is right lower lobe pneumonia which is new compared to the old exam. Mild pulmonary fibrosis
[2022-10-20 00:01] LABS: Anisocytosis Moderate; Basophils % (A) 0 %; Eosinophils % (A) 0 %; HCT 31.3 % (39.0-53.0); HGB 9.5 gm/dL (13.0-17.5); Hypochromasia Marked; Lymphocytes # (A) 0.4 k/uL (1.0-4.8); Lymphocytes % (A) 3 %; MCHC 30.5 g/dL (31.0-37.0); MCV 88.6 fL (80.0-100.0); Mean Platelet Volume 7.6; Microcytosis Slight; Monocytes # (A) 0.7 k/uL (0-1.0); Monocytes % (A) 4 %; Neutrophils # (A) 14.7 k/uL (1.3-7.7); Neutrophils % (A) 92 %; Platelet Count 487 k/uL (150-450); RBC 3.53 m/uL (4.30-5.90); RDW 22.3 % (11.5-15.5)
[2022-10-20] MEDS ORDERED: AZITHROMYCIN 500 MG in SODIUM CHLORIDE 0.9% 250 ML IVPB STA (00:04)
[2022-10-20] MEDS ORDERED: PNEUMONIA PROTOCOL UTILIZED 1 EACH MISC PO PRN (00:04)
[2022-10-20 00:18] LABS: INR 0.9 (<1.2); Partial Thromboplastin Time 20.3 sec (22.0-30.0); Prothrombin Time 9.4 sec (9.0-12.0)
[2022-10-20 00:20] LABS: ALT 29 U/L (4-49); AST 36 U/L (17-59); African American GFR (CKD) >90 (>60 ml/min/1.73 sqM); Albumin 4.4 g/dL (3.5-5.0); Alkaline Phosphatase 82 U/L (38-126); Anion Gap 8 mmol/L; Blood Urea Nitrogen 25 mg/dL (9-20); Calcium 9.1 mg/dL (8.4-10.2); Carbon Dioxide 27 mmol/L (22-30); Chloride 104 mmol/L (98-107); Glucose 203 mg/dL (74-99); Magnesium 1.7 mg/dL (1.6-2.3); Non-African American GFR(CKD) >90 (>60 ml/min/1.73 sqM); Phosphorus 3.6 mg/dL (2.5-4.5); Potassium 4.7 mmol/L (3.5-5.1); Sodium 139 mmol/L (137-145); Total Bilirubin 0.1 mg/dL (0.2-1.3); Total Protein 6.8 g/dL (6.3-8.2)
[2022-10-20] MEDS: SODIUM CHLORIDE 0.9% 1,000 ML IV SCH ×2 (00:23→09:58)
[2022-10-20] MEDS: ACETAMINOPHEN TAB 325 MG TAB PO PRN ×4 (01:33→22:05)
[2022-10-20] MEDS: IPRATROPIUM-ALBUTEROL 3 ML NEB INHALATION PRN (08:18)
[2022-10-20] MEDS: IPRATROPIUM-ALBUTEROL 3 ML NEB INHALATION SCH ×2 (11:48→21:51)
[2022-10-20] MEDS: LORATADINE 10 MG TAB PO SCH (12:15)
[2022-10-20] MEDS: amLODIPine 5 MG TAB PO SCH ×2 (12:15→20:40)
[2022-10-20] MEDS: LOSARTAN 50 MG TAB PO SCH (12:15)
[2022-10-20] MEDS: ASPIRIN 81 MG PO SCH (12:15)
--- NOTE | 2022-10-20 13:56 | HP ---
HISTORY AND PHYSICAL CHIEF COMPLAINT: Fever, cough, shortness of breath, and nasal congestion. HISTORY OF PRESENT ILLNESS: This is a 62-year-old gentleman with a past medical history of CAD, GERD, hypertension, and hyperlipidemia, being followed by Dr. Delcid in the outpatient, complains of multiple symptomatology, mostly of respiratory, fever, cough, and also nasal congestion. The patient came to [facility]. COVID-19, RSV, and influenza were negative. The patient was found to have right lower lobe pneumonia. The patient was admitted for further evaluation and treatment. There is no history of any fever, rigors, or chills. PAST MEDICAL HISTORY: History of CAD, CABG, and GERD. Rest of the history and rest of the chart are also reviewed. HOME MEDICATIONS: Reviewed include MiraLAX. Doses and rest of the medications are reviewed. ALLERGIES: Adhesives. FAMILY HISTORY: History of cancer in the family. SOCIAL HISTORY: Previous history of smoking. REVIEW OF SYSTEMS: Fourteen-point review is negative except as mentioned earlier. PHYSICAL EXAMINATION: VITAL SIGNS: Pulse is 50, blood pressure ntd, respirations 18. HEENT: Conjunctivae are normal. NECK: No jugular venous distention. CARDIOVASCULAR: S1 and S2 muffled. RESPIRATORY: A few scattered rhonchi and crackles. ABDOMEN: Soft and nontender. NERVOUS SYSTEM: No focal deficits. LABORATORY DATA: Reviewed. ASSESSMENT: 1. Right lower lobe pneumonia, possibly community-acquired with fever. 2. Increased white blood cell count. 3. History of coronary artery disease, coronary artery bypass grafting and stent. 4. Hypertension. 5. Hyperlipidemia. 6. Multiple medical issues. RECOMMENDATIONS AND DISCUSSION: This is a 62-year-old gentleman, who presented with multiple complex medical issues. We will monitor the patient closely. Continue the current medications and symptomatic treatment. Resume the home medications and empiric antibiotics. We will check Mycoplasma and Legionella antigen also. Otherwise, cultures. Prognosis is guarded. Pulmonary and Infectious Disease evaluation. Further recommendations to follow. MMODL / IJN: [id number] / MTDD
--- NOTE | 2022-10-20 15:14 | P.CNPUL ---
History of Present Illness Consult date: 10/20/22 Requesting physician: Rahat Delcid Reason for consult: dyspnea, cough, pneumonia, abnormal CXR/CT Chief complaint: Fever, shortness of breath, flulike illness. History of present illness: Pulmonary consult dated 10/20/2022. 62-year-old male who presents to the emergency department, with illness, getting Thursday, which she thought was possibly the flu. The patient states that he started having chest pressure, fever, and shortness of breath. He was not coughing, and was not bringing up any phlegm. He does have a previous episode of pneumonia. In addition, he has a history of CAD, with a previous bypass grafting in 2013. He also has a history of recent total knee replacement, and coronavirus infection. He seen in the emergency room, room #4. He's on 2 L of oxygen. He is getting saline at KVO. The patient had a chest x-ray which revealed bibasilar infiltrates. White count is 16, hemoglobin 9.5, hematocrit 31.3, and platelet count 487,000. PTT is 20.3. Electrolytes look normal. BUN 25 with a creatinine of 0.71. Glucose 203. N-terminal proBNP is normal. Troponin is negative. The patient tested negative for influenza, respiratory syncytial virus, and coronavirus infection. Chest x-ray reveals a right lower lobe infiltrate. Review of Systems REVIEW OF SYSTEMS: CONSTITUTIONAL: Fever. NEUROLOGIC: [ Negative.] HEENT: [ Negative.] CARDIAC: [Negative.] PULMONARY: Shortness of breath, chest pain, but no cough or phlegm production. GI: [Negative.] : [Negative.] RHEUMATOLOGIC: [ Negative.] IMMUNOLOGIC: [ Negative.] ENDOCRINE: [Negative. ] DERMATOLOGIC: [Negative.] Past Medical History Past Medical History: Coronary Artery Disease (CAD), Chest Pain / Angina, GERD/Reflux, Hyperlipidemia, Hypertension, Myocardial Infarction ([place]), Pneumonia Additional Past Medical History / Comment(s): Recent palpitations, past bronchitis, bilateral leg injury as a 6 yr old child with multiple surgeries Last Myocardial Infarction Date:: 2007 History of Any Multi-Drug Resistant Organisms: None Reported Past Surgical History: Appendectomy, Coronary Bypass/CABG, Heart Catheterization, Heart Catheterization With Stent, Joint Replacement Additional Past Surgical History / Comment(s): 2007 PCI with stent, 2013 cardiac cath, 2013 CABG 3 vessel, multiple surgeries on both legs from trauma age 6yrs, L knee ACL repair. left knee replaced 07-25-22 Past Anesthesia/Blood Transfusion Reactions: No Reported Reaction Additional Past Anesthesia/Blood Transfusion Reaction / Comment(s): Pt is unsure if he has ever received blood. Date of Last Stent Placement:: 03/2008 Smoking Status: Former smoker - Past Family History Mother Family Medical History: Cancer Additional Family Medical History / Comment(s): Mother is 76yrs old. She had breast cancer and palpitations. There was alot of CAD on her side of the family. Father Family Medical History: Myocardial Infarction ([place]) Additional Family Medical History / Comment(s): Father of a [place] in his 60's. CAD runs strongley in father's side of family. Medications and Allergies Home Medications Medication Instructions Recorded Confirmed Type amLODIPine BESYLATE [Norvasc] 5 mg PO BID 12/15/14 10/20/22 History Famotidine [Pepcid AC] 10 mg PO HS 06/18/18 10/20/22 History [place]-3 Fatty Acids/Fish Oil [Fish 1 cap PO HS 06/18/18 10/20/22 History Oil 1,000 mg Softgel] Ubidecarenone [Co Q-10] 200 mg PO DAILY 10/11/18 10/20/22 History Atorvastatin [Lipitor] 80 mg PO HS #30 tab 10/12/18 10/20/22 Rx Metoprolol Tartrate [Lopressor] 50 mg PO BID #60 tab 10/12/18 10/20/22 Rx Aspirin EC [Ecotrin Low Dose] 81 mg PO DAILY 09/10/22 10/20/22 History Loratadine [Claritin] 10 mg PO DAILY 09/10/22 10/20/22 History Losartan Potassium [Cozaar] 100 mg PO DAILY 09/10/22 10/20/22 History hydroCHLOROthiazide [Hydrodiuril] 50 mg PO DAILY 09/10/22 10/20/22 History polyethylene glycoL 3350 [Miralax] 17 gm PO DAILY 09/10/22 10/20/22 History Albuterol Sulfate [Albuterol 2 puff INHALATION RT-Q4H PRN 10/20/22 10/20/22 History Sulfate Hfa] Cholecalciferol [Vitamin D3 (25 50 mcg PO BID 10/20/22 10/20/22 History Mcg = 1000 Iu)] Allergies Allergy/AdvReac Type Severity Reaction Status Date / Time adhesive Allergy Rash/Hives Verified 10/20/22 07:23 Physical Exam Osteopathic Statement: *. No significant issues noted on an osteopathic stru ctural exam other than those noted in the History and Physical/Consult. Vitals: Vital Signs Temp Pulse Resp BP Pulse Ox 10/20/22 14:00 51 L 18 98 10/20/22 12:09 98.3 F 50 L 18 119/70 96 10/20/22 12:05 52 L 111/83 96 10/20/22 11:59 46 L 10/20/22 11:50 48 L 10/20/22 09:13 101.1 F H 50 L 18 135/76 94 L 10/20/22 08:31 48 L 10/20/22 08:20 46 L 10/20/22 06:23 98.8 F 48 L 18 123/54 98 10/20/22 06:00 18 10/20/22 05:00 18 98 10/20/22 04:00 98.6 F 48 L 18 129/70 98 10/20/22 03:00 16 98 10/20/22 01:00 49 L 16 136/67 95 10/20/22 00:31 53 L 16 98 10/19/22 23:16 18 96 10/19/22 23:12 99.1 F 52 L 20 148/97 96 Intake and Output 10/20/22 10/20/22 10/20/22 06:59 14:59 22:59 Other: Weight 108.862 kg No acute distress, oriented 3. Currently on 2 L of oxygen. No use of acc essory muscles or conversational dyspnea. HEENT examination is grossly unremarkable. Neck supple. Full range of motion. No adenopathy thyromegaly or neck vein distention. Cardiovascular examination reveals regular rhythm rate. S1-S2 normal. No S3 or S4. No discernible murmur noted. Heart rate 51 bpm. Lungs reveal bibasilar crackles. Right greater than left. No wheezes. No rhonchi. Abdomen soft bowel sounds are heard. No masses or tenderness. Extremities are intact. No cyanosis clubbing or edema. Skin is without rash or lesion. Neurologic examination is brief but nonfocal. Results - Laboratory Findings CBC and BMP: 10/19/22 23:28 10/19/22 23:28 PT/INR, D-dimer PT 9.4 sec (9.0-12.0) 10/19/22 23:28 INR 0.9 (<1.2) 10/19/22 23:28 Abnormal lab findings: Abnormal Labs 10/19/22 10/19/22 10/19/22 23:28 23:28 23:28 WBC 16.0 H RBC 3.53 L Hgb 9.5 L Hct 31.3 L MCHC 30.5 L RDW 22.3 H Plt Count 487 H Neutrophils # 14.7 H Lymphocytes # 0.4 L APTT 20.3 L BUN 25 H Glucose 203 H Total Bilirubin 0.1 L - Diagnostic Findings Chest x-ray: image reviewed Assessment and Plan Assessment: Right lower lobe pneumonia. History of CAD, with previous bypass grafting, 2013. History of myocardial infarction. Prior history of pneumonia. History of hypertension. History of hyperlipidemia. History of GERD. Multiple other medical problems and comorbidities. Plan: Plan dated 10/20/2021. The patient was given azithromycin and Rocephin. He's also given updraft treatments. He is on oxygen therapy. We will continue to follow the patient and make recommendations along the way. Prognosis is thought to be good. He was a former smoker in the past. He denies any prior history of any lung issues or lung problems. He did have a previous history of pneumonia. Time with Patient: Greater than 30
[2022-10-20] MEDS: METOPROLOL TARTRATE 50 MG TAB PO SCH (20:38)
[2022-10-20] MEDS: ATORVASTATIN 80 MG TAB PO SCH (20:40)
[2022-10-20] MEDS: FAMOTIDINE 20 MG TAB PO SCH (20:40)
[2022-10-20] MEDS: CHOLECALCIFEROL 25 MCG (1000 IU) TABLET PO SCH (20:41)
[2022-10-20] MEDS: HEPARIN SODIUM,PORCINE/PF 5,000 UNIT/0.5 ML SYRINGE SQ SCH (20:41)
[2022-10-20] MEDS ORDERED: NON FORMULARY DRUG (Omega-3 Fatty Acids/Fish Oil [Fish Oil 1,000 Mg Softgel] 1 EACH Capsul PO SCH (21:00)
--- NOTE | 2022-10-20 21:52 | P.CONS ---
History of Present Illness - Reason for Consult Consult date: 10/20/22 Right lower lobe pneumonia Requesting physician: Kaycee Da Silva - Chief Complaint Increasing shortness of breath x few days - History of Present Illness Patient is a 62-year-old male with a past medical history significant for coronary artery disease angina reflux hypertension hyperlipidemia and pneumonia presenting to the ER last evening for evaluation of chest pain shortness of breath and weakness symptom has been going on for about a day or 2 before presentation to the hospital patient pain has been mostly on the left lower chest area describing to be more of a sharp in nature and hurts when he lies on that side patient also complaining of feeling dry heaves but no vomiting no abdominal pain or any diarrhea intensity of the pain was mostly 6-7 out of 10 and no radiation patient on presentation to the hospital was afebrile he did spike a fever this morning over 101.1 F patient is currently on a delusional cannula did have a white count of 16,000 with a left shift kidney function has been normal it was over the normal influenza RSV was negative patient did have a chest x-ray right lower lobe pneumonia patient was started on Rocephin and Zithromax admitted to the hospital infectious disease was consulted for further management of antibiotic therapy Review of Systems Positive point has been mentioned in the HPI rest of the systems are negative Past Medical History Past Medical History: Coronary Artery Disease (CAD), Chest Pain / Angina, GERD/Reflux, Hyperlipidemia, Hypertension, Myocardial Infarction (NM), Pneumonia Additional Past Medical History / Comment(s): Recent palpitations, past bronchitis, bilateral leg injury as a 6 yr old child with multiple surgeries Last Myocardial Infarction Date:: 2007 History of Any Multi-Drug Resistant Organisms: None Reported Past Surgical History: Appendectomy, Coronary Bypass/CABG, Heart Catheterization, Heart Catheterization With Stent, Joint Replacement Additional Past Surgical History / Comment(s): 2007 PCI with stent, 2013 cardiac cath, 2013 CABG 3 vessel, multiple surgeries on both legs from trauma age 6yrs, L knee ACL repair. left knee replaced 07-25-22 Past Anesthesia/Blood Transfusion Reactions: No Reported Reaction Additional Past Anesthesia/Blood Transfusion Reaction / Comm: Pt is unsure if he has ever received blood. Date of Last Stent Placement:: 03/2008 Smoking Status: Former smoker - Past Family History Mother Family Medical History: Cancer Additional Family Medical History / Comment(s): Mother is 76yrs old. She had breast cancer and palpitations. There was alot of CAD on her side of the fami ly. Father Family Medical History: Myocardial Infarction (NM) Additional Family Medical History / Comment(s): Father of a NM in his 60's. CAD runs strongley in father's side of family. Medications and Allergies Home Medications Medication Instructions Recorded Confirmed Type amLODIPine BESYLATE [Norvasc] 5 mg PO BID 12/15/14 10/20/22 History Famotidine [Pepcid AC] 10 mg PO HS 06/18/18 10/20/22 History [place]-3 Fatty Acids/Fish Oil [Fish 1 cap PO HS 06/18/18 10/20/22 History Oil 1,000 mg Softgel] Ubidecarenone [Co Q-10] 200 mg PO DAILY 10/11/18 10/20/22 History Atorvastatin [Lipitor] 80 mg PO HS #30 tab 10/12/18 10/20/22 Rx Metoprolol Tartrate [Lopressor] 50 mg PO BID #60 tab 10/12/18 10/20/22 Rx Aspirin EC [Ecotrin Low Dose] 81 mg PO DAILY 09/10/22 10/20/22 History Loratadine [Claritin] 10 mg PO DAILY 09/10/22 10/20/22 History Losartan Potassium [Cozaar] 100 mg PO DAILY 09/10/22 10/20/22 History hydroCHLOROthiazide [Hydrodiuril] 50 mg PO DAILY 09/10/22 10/20/22 History polyethylene glycoL 3350 [Miralax] 17 gm PO DAILY 09/10/22 10/20/22 History Albuterol Sulfate [Albuterol 2 puff INHALATION RT-Q4H PRN 10/20/22 10/20/22 History Sulfate Hfa] Cholecalciferol [Vitamin D3 (25 50 mcg PO BID 10/20/22 10/20/22 History Mcg = 1000 Iu)] Allergies Allergy/AdvReac Type Severity Reaction Status Date / Time adhesive Allergy Rash/Hives Verified 10/20/22 07:23 Physical Exam Vitals: Vital Signs Temp Pulse Resp BP Pulse Ox 10/20/22 14:00 51 L 18 98 10/20/22 12:09 98.3 F 50 L 18 119/70 96 10/20/22 12:05 52 L 111/83 96 10/20/22 11:59 46 L 10/20/22 11:50 48 L 10/20/22 09:13 101.1 F H 50 L 18 135/76 94 L 10/20/22 08:31 48 L 10/20/22 08:20 46 L 10/20/22 06:23 98.8 F 48 L 18 123/54 98 10/20/22 06:00 18 10/20/22 05:00 18 98 10/20/22 04:00 98.6 F 48 L 18 129/70 98 10/20/22 03:00 16 98 10/20/22 01:00 49 L 16 136/67 95 10/20/22 00:31 53 L 16 98 10/19/22 23:16 18 96 10/19/22 23:12 99.1 F 52 L 20 148/97 96 Intake and Output 10/19/22 10/20/22 10/20/22 22:59 06:59 14:59 Other: Weight 108.862 kg GENERAL DESCRIPTION: Middle-aged male lying in bed, no distress. No tachypnea or accessory muscle of respiration use. HEENT: Shows Pallor , no scleral icterus. Oral mucous membrane is dry. No pharyngeal erythema or thrush NECK: Trachea central, no thyromegaly. LUNGS: Unlabored breathing. Clear to auscultation anteriorly. No wheeze or crackle. HEART: S1, S2, regular rate and rhythm. No loud murmur ABDOMEN: Soft, no tenderness , guarding or rigidity, no organomegaly EXTREMITIES: No edema of feet. SKIN: No rash, no masses palpable. NEUROLOGICAL: The patient is awake, alert, oriented x3, mood and affect normal. Results CBC & Chem 7: 10/23/22 06:28 10/23/22 06:28 Labs: Abnormal Lab Results - Last 24 Hours (Table) 10/19/22 10/19/22 10/19/22 Range/Units 23:28 23:28 23:28 WBC 16.0 H (3.8-10.6) k/uL RBC 3.53 L (4.30-5.90) m/uL Hgb 9.5 L (13.0-17.5) gm/dL Hct 31.3 L (39.0-53.0) % MCHC 30.5 L (31.0-37.0) g/dL RDW 22.3 H (11.5-15.5) % Plt Count 487 H (150-450) k/uL Neutrophils # 14.7 H (1.3-7.7) k/uL Lymphocytes # 0.4 L (1.0-4.8) k/uL APTT 20.3 L (22.0-30.0) sec BUN 25 H (9-20) mg/dL Glucose 203 H (74-99) mg/dL Total Bilirubin 0.1 L (0.2-1.3) mg/dL Assessment and Plan (1) Community acquired pneumonia Current Visit: Yes Status: Acute Code(s): J18.9 - PNEUMONIA, UNSPECIFIED ORGANISM SNOMED Code(s): 183277330 Plan: 1patient presented to hospital with sepsis in this patient who did have a fever elevated white count with evidence of right lower lobe pneumonia likely the source of his sepsis and likely community-acquired pathogen. 2obtain a sputum for gram stain and culture. 3obtain a CRP and procalcitonin. 4continue the patient on Rocephin and Zithromax while waiting for the culture to finalize. We will follow on clinical condition and cultures to further adjust medication if needed Thank you for this consultation we will follow the patient along with you Time with Patient: Greater than 30
[2022-10-21] MEDS: IPRATROPIUM-ALBUTEROL 3 ML NEB INHALATION SCH ×3 (06:17→21:42)
--- NOTE | 2022-10-21 08:19 | XR ---
EXAMINATION TYPE: XR chest 2V DATE OF EXAM: 10/21/2022 COMPARISON: Prior chest x-ray 2 days earlier HISTORY: Pneumonia. TECHNIQUE: Frontal and lateral views of the chest are obtained. FINDINGS: Persistent increased airspace opacity in the right medial lower lung involving right lower lobe and portion of right middle lobe on lateral view. Left basilar increased opacity redemonstrated . Overlying sternal wires and mediastinal clips again seen. The cardiac silhouette size is stable and mildly enlarged. The osseous structures are intact. IMPRESSION: Persistent bilateral lower lung acute infiltrates and/or atelectasis. No significant shakila nge from most recent x-ray.
[2022-10-21 08:35] LABS: Basophils # (A) 0.05 X 10*3/uL (0.00-0.10); Basophils % (A) 0.4 %; Eosinophils # (A) 0.04 X 10*3/uL (0.04-0.35); Eosinophils % (A) 0.3 %; HCT 38.8 % (39.6-50.0); HGB 13.1 g/dL (13.0-17.0); Immature Grans, Automated 0.5 %; Lymphocytes # (A) 1.37 X 10*3/uL (0.90-5.00); Lymphocytes % (A) 11.1 %; MCH 30.8 pg (27.0-32.0); MCHC 33.8 g/dL (32.0-37.0); MCV 91.1 fL (80.0-97.0); Mean Platelet Volume 12.2 fL (9.5-12.2); Monocytes # (A) 1.09 X 10*3/uL (0.20-1.00); Monocytes % (A) 8.8 %; NRBC Per 100 WBC 0 /100 WBCS (0.0-0.0); Neutrophils # (A) 9.75 X 10*3/uL (1.80-7.70); Neutrophils % (A) 78.9 %; Platelet Count 175 X 10*3/uL (140-440); RBC 4.26 X 10*6/uL (4.40-5.60); RDW 13.7 % (11.5-14.5); WBC 12.36 X 10*3/uL (4.50-10.00)
[2022-10-21] MEDS ORDERED: NON FORMULARY DRUG (Ubidecarenone [Co Q-10] 100 MG Capsule) PO SCH (09:00)
[2022-10-21 09:02] LABS: African American GFR (CKD) 109.7 (60.0-200.0); BUN/Creat Ratio 10.96 Ratio (12.00-20.00); Blood Urea Nitrogen 9.2 mg/dL (9.0-27.0); Calcium 8.8 mg/dL (8.7-10.3); Carbon Dioxide 20.8 mmol/L (20.0-27.5); Non-African American GFR(CKD) 94.6 (60.0-200.0); Potassium 3.3 mmol/L (3.5-5.5)
[2022-10-21] MEDS: HEPARIN SODIUM,PORCINE/PF 5,000 UNIT/0.5 ML SYRINGE SQ SCH ×2 (10:01→21:12)
[2022-10-21] MEDS: LOSARTAN 50 MG TAB PO SCH (10:01)
[2022-10-21] MEDS: CHOLECALCIFEROL 25 MCG (1000 IU) TABLET PO SCH ×2 (10:01→21:13)
[2022-10-21] MEDS: LORATADINE 10 MG TAB PO SCH (10:01)
[2022-10-21] MEDS: METOPROLOL TARTRATE 50 MG TAB PO SCH ×2 (10:02→21:13)
[2022-10-21] MEDS: polyethylene glycoL 3350 17 GM POWD.PACK PO SCH (10:02)
[2022-10-21] MEDS: AZITHROMYCIN 500 MG TAB PO SCH (10:02)
[2022-10-21] MEDS: ASPIRIN 81 MG PO SCH (10:02)
[2022-10-21] MEDS: amLODIPine 5 MG TAB PO SCH ×2 (10:02→21:13)
--- NOTE | 2022-10-21 14:22 | P.PN ---
Subjective Progress Note Date: 10/21/22 Principal diagnosis: pneumonia 62-year-old male who presents to the emergency department, with illness, getting Thursday, which she thought was possibly the flu. The patient states that he started having chest pressure, fever, and shortness of breath. He was not coughing, and was not bringing up any phlegm. He does have a previous episode of pneumonia. In addition, he has a history of CAD, with a previous bypass grafting in 2013. He also has a history of recent total knee replacement, and coronavirus infection. He seen in the emergency room, room #4. He's on 2 L of oxygen. He is getting saline at KVO. The patient had a chest x-ray which revealed bibasilar infiltrates. White count is 16, hemoglobin 9.5, hematocrit 31.3, and platelet count 487,000. PTT is 20.3. Electrolytes look normal. BUN 25 with a creatinine of 0.71. Glucose 203. N-terminal proBNP is normal. Troponin is negative. The patient tested negative for influenza, respiratory syncytial virus, and coronavirus infection. Chest x-ray reveals a right lower lobe infiltrate. I'm evaluating this patient today on 10/21/2022 in follow-up on a general medical floor. Patient reports that he feels better, is resting up in bed, in no acute distress, on 4 L nasal cannula. Lungs sounds have coarse rhonchi throughout. Denies fever overnight. Chest X-ray today shows persistent bilateral lower lung acute infiltrate and/or atelectasis that does seem to be slightly worse from previous x-ray. Blood cultures continued to show no growth at 24 hours. CBC from today shows improved leukocytosis with a WBC count of 12.3, hemoglobin 13, hematocrit 38.8, platelets 175,000. BMP from today shows a sodium of 144 1, potassium 3.3, chloride 105, serum CO2 21, BUN 9.2, creatinine 0.8, glucose 131. Procalcitonin was negative at 0.06. He continues to receive Zithromax and Rocephin for empiric antibiotic therapy. He also continues to receive DuoNeb inhalation. Heparin is ordered for DVT prophylaxis and Pepcid for GI prophylaxis. Patient has normal saline infusing at 50 mL per hour. Vital signs remain stable. Objective - Vital Signs Vital signs: Vital Signs Temp 98.9 F 10/21/22 08:01 Pulse 56 L 10/21/22 10:58 Resp 19 10/21/22 08:01 BP 126/71 10/21/22 08:01 Pulse Ox 93 L 10/21/22 08:01 FiO2 Intake & Output 10/20/22 10/21/22 10/21/22 18:59 06:59 18:59 Intake Total 50 296 Balance 50 296 Weight 108.862 kg Intake: Oral 50 296 - Exam alert, in no acute distress, oriented 3. HEENT examination is grossly unremarkable. Neck supple. Full range of motion. No adenopathy thyromegaly or neck vein distention. Cardiovascular examination reveals regular rhythm rate. S1-S2 normal. No S3 or S4. No discernible murmur noted. Heart rate 52 bpm. Lungs reveal coarse rhonchi throughout. No wheezes or crackles appreciated. No use of accessory muscles or conversational dyspnea. currently on 4 L nasal cannula.. Abdomen soft bowel sounds are heard. No masses or tenderness. Extremities are intact. No cyanosis clubbing or edema. Skin is without rash or lesion. Neurologic examination is brief but nonfocal - Labs CBC & Chem 7: 10/21/22 04:30 10/21/22 04:30 Labs: Abnormal Lab Results - Last 24 Hours (Table) 10/21/22 10/21/22 Range/Units 04:30 04:30 WBC 12.36 H (4.50-10.00) X 10*3/uL RBC 4.26 L (4.40-5.60) X 10*6/uL Hct 38.8 L (39.6-50.0) % Immature Gran # 0.06 H (0.00-0.04) X 10*3/uL Neutrophils # 9.75 H (1.80-7.70) X 10*3/uL Monocytes # 1.09 H (0.20-1.00) X 10*3/uL Potassium 3.3 L (3.5-5.5) mmol/L BUN/Creatinine Ratio 10.96 L (12.00-20.00) Ratio Glucose 131 H (70-110) mg/dL C-Reactive Protein 14.00 H (0.00-0.80) mg/dL Microbiology - Last 24 Hours (Table) 10/20/22 00:20 Blood Culture - Preliminary Blood No Growth after 24 hours 10/20/22 00:05 Blood Culture - Preliminary Blood No Growth after 24 hours Assessment and Plan Assessment: Right lower lobe pneumonia. History of CAD, with previous bypass grafting, 2013. History of myocardial infarction. Prior history of pneumonia. History of hypertension. History of hyperlipidemia. History of GERD. Multiple other medical problems and comorbidities. Plan: medications, Labs, chest x-ray reviewed Continue empiric therapy with azithromycin and Rocephin Continue supplemental oxygen to maintain oxygen saturation of 92% or greater Continue DuoNeb inhalations We will continue to follow I have personally seen and examined the patient, performed the documentation and the assessment and plan as written. Number of minutes spent on the visit: 10.
[2022-10-21] MEDS: IPRATROPIUM-ALBUTEROL 3 ML NEB INHALATION PRN (15:51)
[2022-10-21] MEDS: SODIUM CHLORIDE 0.9% 1,000 ML IV SCH (16:05)
[2022-10-21] MEDS: ACETAMINOPHEN TAB 325 MG TAB PO PRN (21:11)
[2022-10-21] MEDS: FAMOTIDINE 20 MG TAB PO SCH (21:12)
[2022-10-21] MEDS: ATORVASTATIN 80 MG TAB PO SCH (21:13)
--- NOTE | 2022-10-21 21:57 | PN ---
PROGRESS NOTE DATE OF SERVICE: 10/21/2022 SUBJECTIVE: This is a 62-year-old gentleman, who was admitted with right lower lobe pneumonia, possibly community-acquired with fever, is being closely monitored. No chest pain. No palpitations. OBJECTIVE: VITAL SIGNS: Pulse is 53, blood pressure 111/60, respirations 17. CHEST: A few scattered rhonchi. ABDOMEN: Soft. NERVOUS SYSTEM: Nonfocal. LABORATORY DATA: Reviewed. ASSESSMENT: 1. Right lower lobe pneumonia, possibly community-acquired, with fever. 2. Increased WBC. 3. History of coronary artery disease, coronary artery bypass grafting and stent. 4. Hypertension. 5. Hyperlipidemia. 6. Multiple medical issues. RECOMMENDATIONS AND DISCUSSION: Recommend to continue current medications, continue symptomatic treatment. Continue with antibiotics, otherwise repeat labs. Closely follow with Pulmonary. Legionella mycoplasma evaluation. Further recommendations to follow. MMODL / IJN: [id number] /
[2022-10-22] MEDS ORDERED: SODIUM CHLORIDE 0.65% NASAL SPRAY 44 ML BTL NASAL PRN (02:30)
[2022-10-22] MEDS: ZOLPIDEM 5 MG TAB PO PRN ×2 (02:42→22:36)
[2022-10-22] MEDS: FLUTICASONE 50MCG/SPRAY NASAL 16GM EA NOSTRIL SCH ×2 (02:52→22:36)
[2022-10-22] MEDS: SODIUM CHLORIDE 0.9% 1,000 ML IV SCH (05:11)
[2022-10-22 05:21] LABS: Mycoplasma IgG Antibody (EIA) 2.49 INDEX (<=0.90); Mycoplasma IgM Antibody 0.19 INDEX (<=0.90)
[2022-10-22] MEDS: ASPIRIN 81 MG PO SCH (08:00)
[2022-10-22] MEDS: amLODIPine 5 MG TAB PO SCH ×2 (08:00→22:35)
[2022-10-22] MEDS: METOPROLOL TARTRATE 50 MG TAB PO SCH ×2 (08:01→22:36)
[2022-10-22] MEDS: LOSARTAN 50 MG TAB PO SCH (08:01)
[2022-10-22] MEDS: LORATADINE 10 MG TAB PO SCH (08:01)
[2022-10-22] MEDS: AZITHROMYCIN 500 MG TAB PO SCH (08:01)
[2022-10-22] MEDS: CHOLECALCIFEROL 25 MCG (1000 IU) TABLET PO SCH ×2 (08:01→22:36)
[2022-10-22] MEDS: HEPARIN SODIUM,PORCINE/PF 5,000 UNIT/0.5 ML SYRINGE SQ SCH ×2 (08:01→22:35)
[2022-10-22] MEDS: polyethylene glycoL 3350 17 GM POWD.PACK PO SCH (08:02)
[2022-10-22] MEDS: IPRATROPIUM-ALBUTEROL 3 ML NEB INHALATION SCH ×3 (08:17→21:29)
[2022-10-22 08:45] LABS: Basophils # (A) 0.05 X 10*3/uL (0.00-0.10); Basophils % (A) 0.5 %; Eosinophils # (A) 0.17 X 10*3/uL (0.04-0.35); Eosinophils % (A) 1.6 %; HCT 35.3 % (39.6-50.0); HGB 12.5 g/dL (13.0-17.0); Immature Grans, Automated 0.6 %; Lymphocytes # (A) 1.66 X 10*3/uL (0.90-5.00); Lymphocytes % (A) 15.5 %; MCH 30.6 pg (27.0-32.0); MCHC 35.4 g/dL (32.0-37.0); MCV 86.5 fL (80.0-97.0); Monocytes # (A) 0.89 X 10*3/uL (0.20-1.00); Monocytes % (A) 8.3 %; NRBC Per 100 WBC 0 /100 WBCS (0.0-0.0); Neutrophils % (A) 73.5 %; Platelet Count 200 X 10*3/uL (140-440); RBC 4.08 X 10*6/uL (4.40-5.60); RDW 13.7 % (11.5-14.5); WBC 10.73 X 10*3/uL (4.50-10.00)
[2022-10-22 08:53] LABS: African American GFR (CKD) 111.7 (60.0-200.0); Anion Gap 13.4 mmol/L (10.00-18.00); BUN/Creat Ratio 14.25 Ratio (12.00-20.00); Blood Urea Nitrogen 11.4 mg/dL (9.0-27.0); Carbon Dioxide 22.6 mmol/L (20.0-27.5); Non-African American GFR(CKD) 96.4 (60.0-200.0); Potassium 3.1 mmol/L (3.5-5.5)
[2022-10-22] MEDS ORDERED: Potassium Replacement Protocol 1 EACH MISC MISCELLANE PRN ×2 (09:39→15:08)
[2022-10-22] MEDS: POTASSIUM CHLORIDE ER 20 MEQ TAB.ER PO SCH ×3 (10:51→14:59)
[2022-10-22] MEDS ORDERED: RX INFO: IV CONTRAST WAS GIVEN 1 EACH MISC MISCELLANE PRN (12:25)
--- NOTE | 2022-10-22 12:27 | P.PN ---
Subjective Progress Note Date: 10/22/22 62-year-old male who presents to the emergency department, with illness, getting Thursday, which she thought was possibly the flu. The patient states that he started having chest pressure, fever, and shortness of breath. He was not coughing, and was not bringing up any phlegm. He does have a previous episode of pneumonia. In addition, he has a history of CAD, with a previous bypass grafting in 2013. He also has a history of recent total knee replacement, and coronavirus infection. He seen in the emergency room, room #4. He's on 2 L of oxygen. He is getting saline at KVO. The patient had a chest x-ray which revealed bibasilar infiltrates. White count is 16, hemoglobin 9.5, hematocrit 31.3, and platelet count 487,000. PTT is 20.3. Electrolytes look normal. BUN 25 with a creatinine of 0.71. Glucose 203. N-terminal proBNP is normal. Troponin is negative. The patient tested negative for influenza, respiratory syncytial virus, and coronavirus infection. Chest x-ray reveals a right lower lobe infiltrate. I'm evaluating this patient today on 10/21/2022 in follow-up on a general medical floor. Patient reports that he feels better, is resting up in bed, in no acute distress, on 4 L nasal cannula. Lungs sounds have coarse rhonchi throughout. Denies fever overnight. Chest X-ray today shows persistent bilateral lower lung acute infiltrate and/or atelectasis that does seem to be slightly worse from previous x-ray. Blood cultures continued to show no growth at 24 hours. CBC from today shows improved leukocytosis with a WBC count of 12.3, hemoglobin 13, hematocrit 38.8, platelets 175,000. BMP from today shows a sodium of 144 1, potassium 3.3, chloride 105, serum CO2 21, BUN 9.2, creatinine 0.8, glucose 131. Procalcitonin was negative at 0.06. He continues to receive Zithromax and Rocephin for empiric antibiotic therapy. He also continues to receive DuoNeb inhalation. Heparin is ordered for DVT prophylaxis and Pepcid for GI prophylaxis. Patient has normal saline infusing at 50 mL per hour. Vital signs remain stable. 10/22/2022, the patient reports partial mild improvement in his recovery is not adequate at this point in time as the patient is being treated for a pneumonia. All of the viral screens came back negative. The patient has a chest x-ray showed diffuse bilateral pulmonary infiltrates which has not changed since the time of admission. The pro-calcitonin level was low. He remains on accommodation of Rocephin and Zithromax. He is on DuoNeb neb blotchiness on the clock. He remains on oxygen at 1 L nasal cannula. He is an ex-smoker. He is known to have previous coronary artery disease and bypass surgery. Objective - Vital Signs Vital signs: Vital Signs Temp 98.7 F 10/22/22 07:05 Pulse 52 L 10/22/22 11:51 Resp 19 10/22/22 07:05 BP 136/76 10/22/22 07:05 Pulse Ox 92 L 10/22/22 07:05 FiO2 Intake & Output 10/21/22 10/22/22 10/22/22 18:59 06:59 18:59 Intake Total 296 650 Balance 296 650 Intake: Intake, IV Titration 650 Amount Sodium Chloride 0.9% 1, 600 000 ml @ 50 mls/hr IV . Q20H SILVANO Rx#:[id number] cefTRIAXone 2 gm In 50 Sodium Chloride 0.9% 50 ml @ 100 mls/hr IVPB Q24H SILVANO Rx#:[id number] Oral 296 Other: # Voids 1 1 - Exam alert, in no acute distress, oriented 3. HEENT examination is grossly unremarkable. Neck supple. Full range of motion. No adenopathy thyromegaly or neck vein distention. Cardiovascular examination reveals regular rhythm rate. S1-S2 normal. No S3 or S4. No discernible murmur noted. Heart rate 52 bpm. Lungs reveal coarse rhonchi throughout. No wheezes or crackles appreciated. No use of accessory muscles or conversational dyspnea. currently on 4 L nasal cannula.. Abdomen soft bowel sounds are heard. No masses or tenderness. Extremities are intact. No cyanosis clubbing or edema. Skin is without rash or lesion. Neurologic examination is brief but nonfocal - Labs CBC & Chem 7: 10/22/22 05:00 10/22/22 05:00 Labs: Abnormal Lab Results - Last 24 Hours (Table) 10/21/22 10/22/22 10/22/22 Range/Units 04:30 05:00 05:00 WBC 10.73 H (4.50-10.00) X 10*3/uL RBC 4.08 L (4.40-5.60) X 10*6/uL Hgb 12.5 L (13.0-17.0) g/dL Hct 35.3 L (39.6-50.0) % Immature Gran # 0.06 H (0.00-0.04) X 10*3/uL Neutrophils # 7.90 H (1.80-7.70) X 10*3/uL Potassium 3.1 L (3.5-5.5) mmol/L Glucose 116 H (70-110) mg/dL Mycoplasma pneumon IgG 2.49 H (<=0.90) INDEX Microbiology - Last 24 Hours (Table) 10/20/22 00:20 Blood Culture - Preliminary Blood No Growth after 48 hours 10/20/22 00:05 Blood Culture - Preliminary Blood No Growth after 48 hours Assessment and Plan Plan: bilateral pneumonia with secondary shortness of breath and hypoxic respiratory failure History of CAD, with previous bypass grafting, 2013. History of myocardial infarction. Prior history of pneumonia. History of hypertension. History of hyperlipidemia. History of GERD. Multiple other medical problems and comorbidities. Plan: CAT scan of the chest with contrast Pro calcitonin level has been low and the rest of the viral screen came back negative Continue empiric therapy with azithromycin and Rocephin Continue supplemental oxygen to maintain oxygen saturation of 92% or greater Continue DuoNeb inhalations We will continue to follow
--- NOTE | 2022-10-22 12:29 | P.PN ---
Subjective Progress Note Date: 10/21/22 Principal diagnosis: Right lower lobe pneumonia Patient is a 62-year-old male with a past medical history significant for coronary artery disease angina reflux hypertension hyperlipidemia and pneumonia presenting to the ER last evening for evaluation of chest pain short ness of breath and weakness symptom has been going on for about a day or 2 before presentation to the hospital, patient did have fever and elevated white count considered for right lower lobe pneumonia on today's evaluation that is 10/21/2022, the patient remains to be afebrile the patient is currently breathing comfortably on 3 L nasal cannula patient denies having any chest pains to complain of weakness no significant cough or sputum production no abdominal pain no diarrhea Objective - Vital Signs Vital signs: Vital Signs Temp 98.9 F 10/21/22 08:01 Pulse 56 L 10/21/22 10:58 Resp 19 10/21/22 08:01 BP 126/71 10/21/22 08:01 Pulse Ox 93 L 10/21/22 08:01 FiO2 Intake & Output 10/20/22 10/21/22 10/21/22 18:59 06:59 18:59 Intake Total 50 Balance 50 Weight 108.862 kg Intake: Oral 50 - Exam GENERAL DESCRIPTION: Middle-age male up in the chair in no distress RESPIRATORY SYSTEM: Unlabored breathing , decreased breath sounds at bases HEART: S1 S2 regular rate and rhythm , ABDOMEN: Soft , no tenderness EXTREMITIES: No edema feet - Labs CBC & Chem 7: 10/22/22 05:00 10/22/22 05:00 Labs: Abnormal Lab Results - Last 24 Hours (Table) 10/21/22 10/21/22 Range/Units 04:30 04:30 WBC 12.36 H (4.50-10.00) X 10*3/uL RBC 4.26 L (4.40-5.60) X 10*6/uL Hct 38.8 L (39.6-50.0) % Immature Gran # 0.06 H (0.00-0.04) X 10*3/uL Neutrophils # 9.75 H (1.80-7.70) X 10*3/uL Monocytes # 1.09 H (0.20-1.00) X 10*3/uL Potassium 3.3 L (3.5-5.5) mmol/L BUN/Creatinine Ratio 10.96 L (12.00-20.00) Ratio Glucose 131 H (70-110) mg/dL C-Reactive Protein 14.00 H (0.00-0.80) mg/dL Microbiology - Last 24 Hours (Table) 10/20/22 00:20 Blood Culture - Preliminary Blood No Growth after 24 hours 10/20/22 00:05 Blood Culture - Preliminary Blood No Growth after 24 hours Assessment and Plan (1) Community acquired pneumonia Current Visit: Yes Status: Acute Code(s): J18.9 - PNEUMONIA, UNSPECIFIED ORGANISM SNOMED Code(s): 326968943 Plan: 1patient presented to hospital with sepsis in this patient who did have a fever elevated white count with evidence of right lower lobe pneumonia likely the source of his sepsis and likely community-acquired pathogen. 2obtain a sputum for gram stain and culture. 3patient did have elevated CRP however interestingly procalcitonin is normal. Patient did have a negative urine for Legionella antigen mycoplasma IgM normal IgG was positive 4patient to continue with Rocephin and Zithromax , will try to obtain sputum for Gram stain and culture and monitor clinical course closely Time with Patient: Less than 30
--- NOTE | 2022-10-22 12:34 | P.PN ---
Subjective Progress Note Date: 10/22/22 Principal diagnosis: Right lower lobe pneumonia Patient is a 62-year-old male with a past medical history significant for coronary artery disease angina reflux hypertension hyperlipidemia and pneumonia presenting to the ER last evening for evaluation of chest pain short ness of breath and weakness symptom has been going on for about a day or 2 before presentation to the hospital, patient did have fever and elevated white count considered for right lower lobe pneumonia on today's evaluation that is 10/22/2022, the patient continues to be afebrile the patient is breathing comfortably on 1 and is down to L nasal cannula oxygen, patient denies having any chest pains , the patient may symptom remains to be weakness minimal cough but no sputum production no abdominal pain no diarrhea Objective - Vital Signs Vital signs: Vital Signs Temp 98.7 F 10/22/22 07:05 Pulse 52 L 10/22/22 11:51 Resp 19 10/22/22 07:05 BP 136/76 10/22/22 07:05 Pulse Ox 92 L 10/22/22 07:05 FiO2 Intake & Output 10/21/22 10/22/22 10/22/22 18:59 06:59 18:59 Intake Total 296 650 Balance 296 650 Intake: Intake, IV Titration 650 Amount Sodium Chloride 0.9% 1, 600 000 ml @ 50 mls/hr IV . Q20H SILVANO Rx#:[id number] cefTRIAXone 2 gm In 50 Sodium Chloride 0.9% 50 ml @ 100 mls/hr IVPB Q24H SILVANO Rx#:[id number] Oral 296 Other: # Voids 1 1 - Exam GENERAL DESCRIPTION: Middle-age male up in the chair in no distress RESPIRATORY SYSTEM: Unlabored breathing , decreased breath sounds at bases HEART: S1 S2 regular rate and rhythm , ABDOMEN: Soft , no tenderness EXTREMITIES: No edema feet - Labs CBC & Chem 7: 10/22/22 05:00 10/22/22 05:00 Labs: Abnormal Lab Results - Last 24 Hours (Table) 10/21/22 10/22/22 10/22/22 Range/Units 04:30 05:00 05:00 WBC 10.73 H (4.50-10.00) X 10*3/uL RBC 4.08 L (4.40-5.60) X 10*6/uL Hgb 12.5 L (13.0-17.0) g/dL Hct 35.3 L (39.6-50.0) % Immature Gran # 0.06 H (0.00-0.04) X 10*3/uL Neutrophils # 7.90 H (1.80-7.70) X 10*3/uL Potassium 3.1 L (3.5-5.5) mmol/L Glucose 116 H (70-110) mg/dL Mycoplasma pneumon IgG 2.49 H (<=0.90) INDEX Microbiology - Last 24 Hours (Table) 10/20/22 00:20 Blood Culture - Preliminary Blood No Growth after 48 hours 10/20/22 00:05 Blood Culture - Preliminary Blood No Growth after 48 hours Assessment and Plan (1) Community acquired pneumonia Current Visit: Yes Status: Acute Code(s): J18.9 - PNEUMONIA, UNSPECIFIED ORGANISM SNOMED Code(s): 509070152 Plan: 1patient presented to hospital with sepsis in this patient who did have a fever elevated white count with evidence of right lower lobe pneumonia likely the source of his sepsis and likely community-acquired pathogen. 2obtain a sputum for gram stain and culture. 3patient did have elevated CRP however interestingly procalcitonin is normal. Patient did have a negative urine for Legionella antigen mycoplasma IgM normal IgG was positive 4patient currently waiting for a CT of the chest we will continue with the Rocephin and Zithromax in view of clinical response and the white count is trending down and monitor clinical course closely Time with Patient: Less than 30
--- NOTE | 2022-10-22 14:26 | CT ---
EXAMINATION TYPE: CT chest w con DATE OF EXAM: 10/22/2022 COMPARISON: Chest x-ray 10/21/2022 HISTORY: Persistent SOB, pneumonia CT DLP: 653.4 mGycm Automated exposure control for dose reduction was used. TECHNIQUE: CT scan of the chest is performed with IV Contrast, patient injected with 100 mL of Isovue 300. MIP Images are created on CT scanner and reviewed. 3D reconstructed images are created on an independent workstation and reviewed. FINDINGS: LUNGS: There is postsurgical changes with bilateral small pleural effusions greater on the right. The re are perihilar groundglass changes noted greater on the right. There are 2 nodules seen within the anterior segment right upper lobe the larger measuring 6.5 mm. Axial image 25. No pneumothorax. MEDIASTINUM: There are no greater than 1 cm hilar or mediastinal lymph nodes. No pericardial effusi on is seen. Shotty adenopathy in the mediastinum and hilum. Coronary artery calcifications seen. Hea rt enlarged. Sternotomy wires and clips are seen. Cardiomegaly seen. OTHER: Hypertrophic and degenerative changes of the spine. Minimal thickening anterior limb right ad renal gland. IMPRESSION: 1. Bilateral pleural effusion with interstitial pattern and perihilar groundglass changes. Pulmonary edema is felt to be the most likely etiology. If CHF does not match the clinical presentation and the differential diagnosis would also include a pneumonitis including atypical, viral or opportunistic i nfections. 2. Coronary artery calcification. 3. Pulmonary nodules anterior segment right upper lobe as discussed above largest measuring 6.5 cm sh ould be followed on a 6 month basis and are too small to characterize. 4. Nonspecific shotty hilar and mediastinal lymphadenopathy
[2022-10-22] MEDS ORDERED: FUROSEMIDE 10 MG/ML 4 ML VIAL IV STA (15:07)
[2022-10-22] MEDS ORDERED: POTASSIUM CHLORIDE ER 20 MEQ TAB.ER PO STA (15:07)
[2022-10-22] MEDS ORDERED: Magnesium Replacement Protocol 1 EACH MISC MISCELLANE PRN (15:08)
--- NOTE | 2022-10-22 15:22 | CDI ---
Documentation Clarification Form Date: 10/22/2022 2:48:48 PM From: Seema Borden RN, CCDS Admit Date: 10/20/2022 12:05:00 AM Patient Name: Aguilar Vail Visit Number: [id number] Discharge Date: ATTENTION: The Clinical Documentation Specialists (CDI) and [facility] Coding Staff appreciate your assistance in clarifying documentation. Please respond to the clarification below the line at the bottom and electronically sign. The CDI & [facility] Coding staff will review the response and follow-up if needed. Please note: Queries are made part of the Legal Health Record. If you have any questions, please contact the author of this message via ITS. Dr. Kaycee Da Silva The patient presented with the following clinical indicators. Fever, elevated white count with evidence of right lower lobe pneumonia. Additional clarification regarding the etiology/cause of the clinical indicators is requested 10/20 ID Consult: Present to hospital with sepsis in this patient who did have a fever elevated white count with evidence of right lower lobe pneumonia likely the source of his sepsis and likely community -acquired pathogen. History/Risk Factors: Coronary artery disease, Angina, Hyperlipidemia, Hypertension Pneumonia Clinical Indicators: 62-year-old male present to ER with shortness of breath and weakness dry heaves. He did spike a fever on 10/20/21 of 101.1 1 Vital signs 135/76 50 18 101.1 94 % RA 10/19 WBC: 16,000 with left shift 1/3 C-Reactive Protein 14.00, Mycoplasma Pneumon IgG 2.49 10/20 Blood cultures: Pending, No growth after 48 hours Treatment: Rocephin 2 GM IVPB Q 24 HRS 10/20-10/22 Zithromax 250 MG IVPB Once 2 then 500MG PO Daily IV .9 ns @130 mls/hr 10/20-10/20 In your professional opinion, please clarify if these findings signify one of the following conditions: [ ] Sepsis secondary to Pneumonia POA [ ] Sepsis ruled out [ ] Other, please specify [ ] Unable to determine SIRS Criteria: 2 or more of the following may indicate SIRS -Temperature < 96.8F (36C) or > 101.0F (38.3C) -Heart Rate > 90 bpm -Respiratory Rate > 20 breaths/min or PaCO2 < 32 mmHg -White Blood Cell Count > 12,000 or < 4,000 cells/mm3 or > 10% bands (Template Last Reviewed: November 2020) Unable to determine MTDD
[2022-10-22] MEDS: ATORVASTATIN 80 MG TAB PO SCH (22:35)
[2022-10-22] MEDS: FAMOTIDINE 20 MG TAB PO SCH (22:36)
--- NOTE | 2022-10-22 23:16 | PN ---
PROGRESS NOTE DATE OF SERVICE: 10/22/2022 SUBJECTIVE: This 62-year-old gentleman, who was admitted with right lower lobe pneumonia, was complaining of more shortness of breath at this time. The patient is on antibiotic. D- dimer is elevated at 1.02. CT angio chest was ordered, which showed bilateral pleural effusion, interstitial pattern and ground-glass changes, atypical pneumonia is also a consideration. No fever. No cough. OBJECTIVE: VITAL SIGNS: Pulse is 52, blood pressure 130/76, respirations 19. HEENT: Conjunctivae normal. NECK: No JVD. CARDIOVASCULAR: S1, S2. RESPIRATIONS: Breath sounds diminished at the bases. A few scattered rhonchi. ABDOMEN: Soft. LABORATORY DATA: Reviewed. ASSESSMENT: 1. Right lower lobe pneumonia, possibly community-acquired, with fever. 2. Rule out congestive heart failure. 3. Increased WBC. 4. History of coronary artery disease, coronary artery bypass grafting and stent. 5. Hypertension. 6. Hyperlipidemia. 7. History of multiple medical issues. RECOMMENDATIONS AND DISCUSSION: I recommend to continue current medications and symptomatic treatment. I recommend a dose of Lasix, 2D echo, BNP. Closely monitor with Pulmonary. Further recommendations to follow. Cut down the IV fluids. Mycoplasma Legionella negative. MMODL / IJN: [id number] /
--- NOTE | 2022-10-23 07:57 | XR ---
EXAMINATION TYPE: XR chest 1V portable DATE OF EXAM: 10/23/2022 Comparison: 10/21/2022 Clinical History: 62-year-old male follow-up CHF Findings: Median sternotomy wires are present with post-CABG clips the mediastinum. Heart remains borderline to mildly enlarged. Perihilar and interstitial opacities persist. These may be slightly more confluent in the right suprahilar region. No sizable pleural effusion. Impression: Similar to slight worsening mild interstitial pulmonary edema.
[2022-10-23] MEDS: LOSARTAN 50 MG TAB PO SCH (08:24)
[2022-10-23] MEDS: METOPROLOL TARTRATE 50 MG TAB PO SCH ×2 (08:24→20:34)
[2022-10-23] MEDS: ASPIRIN 81 MG PO SCH (08:24)
[2022-10-23] MEDS: HEPARIN SODIUM,PORCINE/PF 5,000 UNIT/0.5 ML SYRINGE SQ SCH ×2 (08:24→20:34)
[2022-10-23] MEDS: LORATADINE 10 MG TAB PO SCH (08:24)
[2022-10-23] MEDS: amLODIPine 5 MG TAB PO SCH ×2 (08:24→20:33)
[2022-10-23] MEDS: FLUTICASONE 50MCG/SPRAY NASAL 16GM EA NOSTRIL SCH ×2 (08:24→20:34)
[2022-10-23] MEDS: CHOLECALCIFEROL 25 MCG (1000 IU) TABLET PO SCH ×2 (08:24→20:33)
[2022-10-23] MEDS: polyethylene glycoL 3350 17 GM POWD.PACK PO SCH (08:25)
[2022-10-23] MEDS: IPRATROPIUM-ALBUTEROL 3 ML NEB INHALATION SCH ×3 (08:36→20:49)
[2022-10-23 09:54] LABS: Basophils # (A) 0.07 X 10*3/uL (0.00-0.10); Basophils % (A) 0.8 %; Eosinophils # (A) 0.46 X 10*3/uL (0.04-0.35); Eosinophils % (A) 5.5 %; HCT 37.4 % (39.6-50.0); HGB 12.6 g/dL (13.0-17.0); Immature Grans, Automated 0.6 %; Lymphocytes # (A) 1.72 X 10*3/uL (0.90-5.00); Lymphocytes % (A) 20.6 %; MCH 30.1 pg (27.0-32.0); MCHC 33.7 g/dL (32.0-37.0); MCV 89.5 fL (80.0-97.0); Monocytes # (A) 0.89 X 10*3/uL (0.20-1.00); Monocytes % (A) 10.7 %; NRBC Per 100 WBC 0 /100 WBCS (0.0-0.0); Neutrophils # (A) 5.16 X 10*3/uL (1.80-7.70); Neutrophils % (A) 61.8 %; Platelet Count 219 X 10*3/uL (140-440); RBC 4.18 X 10*6/uL (4.40-5.60); RDW 13.6 % (11.5-14.5); WBC 8.35 X 10*3/uL (4.50-10.00)
--- NOTE | 2022-10-23 10:58 | P.PN ---
Subjective Progress Note Date: 10/23/22 62-year-old male who presents to the emergency department, with illness, getting Thursday, which she thought was possibly the flu. The patient states that he started having chest pressure, fever, and shortness of breath. He was not coughing, and was not bringing up any phlegm. He does have a previous episode of pneumonia. In addition, he has a history of CAD, with a previous bypass grafting in 2013. He also has a history of recent total knee replacement, and coronavirus infection. He seen in the emergency room, room #4. He's on 2 L of oxygen. He is getting saline at KVO. The patient had a chest x-ray which revealed bibasilar infiltrates. White count is 16, hemoglobin 9.5, hematocrit 31.3, and platelet count 487,000. PTT is 20.3. Electrolytes look normal. BUN 25 with a creatinine of 0.71. Glucose 203. N-terminal proBNP is normal. Troponin is negative. The patient tested negative for influenza, respiratory syncytial virus, and coronavirus infection. Chest x-ray reveals a right lower lobe infiltrate. I'm evaluating this patient today on 10/21/2022 in follow-up on a general medical floor. Patient reports that he feels better, is resting up in bed, in no acute distress, on 4 L nasal cannula. Lungs sounds have coarse rhonchi throughout. Denies fever overnight. Chest X-ray today shows persistent bilateral lower lung acute infiltrate and/or atelectasis that does seem to be slightly worse from previous x-ray. Blood cultures continued to show no growth at 24 hours. CBC from today shows improved leukocytosis with a WBC count of 12.3, hemoglobin 13, hematocrit 38.8, platelets 175,000. BMP from today shows a sodium of 144 1, potassium 3.3, chloride 105, serum CO2 21, BUN 9.2, creatinine 0.8, glucose 131. Procalcitonin was negative at 0.06. He continues to receive Zithromax and Rocephin for empiric antibiotic therapy. He also continues to receive DuoNeb inhalation. Heparin is ordered for DVT prophylaxis and Pepcid for GI prophylaxis. Patient has normal saline infusing at 50 mL per hour. Vital signs remain stable. 10/22/2022, the patient reports partial mild improvement in his recovery is not adequate at this point in time as the patient is being treated for a pneumonia. All of the viral screens came back negative. The patient has a chest x-ray showed diffuse bilateral pulmonary infiltrates which has not changed since the time of admission. The pro-calcitonin level was low. He remains on accommodation of Rocephin and Zithromax. He is on DuoNeb neb blotchiness on the clock. He remains on oxygen at 1 L nasal cannula. He is an ex-smoker. He is known to have previous coronary artery disease and bypass surgery. 10/23/2022, the patient is feeling better. The patient is feeling less short of breath and currently is on room air oxygen. He did have bilateral pulmonary infiltrates that were not changing. Based on that, a CAT scan of the chest was obtained yesterdayOf the chest was done on 10/22/2019 20 showed some interstitial infiltrates bilaterally and perihilar and this raised the suspicion for interstitial pneumonia/atypical versus CHF. The chest x-ray from today is still showing bilateral pulmonary interstitial infiltrates along with post CABGchanges. Despite those findings, clinically the patient is feeling much better. He remains on IV Rocephin. He is on DuoNeb nebulized treatments [id number]. Is currently on room air oxygen. The patient was given a dose of Lasix yesterday with excellent diuresis. Noted the CAT scan of the chest also showed bilateral pleural effusions which may indicate a component of CHF in addition to interstitial pneumonia. Please of improved significantly with this patient. Objective - Vital Signs Vital signs: Vital Signs Temp 98.6 F 10/23/22 07:42 Pulse 44 L 10/23/22 07:42 Resp 16 10/23/22 07:42 BP 131/70 10/23/22 07:42 Pulse Ox 95 10/23/22 07:42 FiO2 Intake & Output 10/22/22 10/23/22 10/23/22 18:59 06:59 18:59 Other: # Voids 2 3 - Exam alert, in no acute distress, oriented 3. Currently on room air oxygen HEENT examination is grossly unremarkable. Neck supple. Full range of motion. No adenopathy thyromegaly or neck vein distention. Cardiovascular examination reveals regular rhythm rate. S1-S2 normal. No S3 or S4. No discernible murmur noted. Lungs reveal coarse rhonchi throughout. No wheezes or crackles appreciated. No use of accessory muscles or conversational dyspnea. Abdomen soft bowel sounds are heard. No masses or tenderness. Extremities are intact. No cyanosis clubbing or edema. Skin is without rash or lesion. Neurologic examination is brief but nonfocal - Labs CBC & Chem 7: 10/23/22 06:28 10/22/22 05:00 Labs: Abnormal Lab Results - Last 24 Hours (Table) 10/22/22 10/23/22 Range/Units 14:32 06:28 RBC 4.18 L (4.40-5.60) X 10*6/uL Hgb 12.6 L (13.0-17.0) g/dL Hct 37.4 L (39.6-50.0) % Immature Gran # 0.05 H (0.00-0.04) X 10*3/uL Eosinophils # 0.46 H (0.04-0.35) X 10*3/uL D-Dimer 1.02 H (<0.60) mg/L FEU Microbiology - Last 24 Hours (Table) 10/22/22 21:00 Gram Stain - Preliminary Sputum Sputum Culture - Preliminary 10/20/22 00:20 Blood Culture - Preliminary Blood No Growth after 72 hours 10/20/22 00:05 Blood Culture - Preliminary Blood No Growth after 72 hours Assessment and Plan Plan: Acute hypoxic respiratory failure secondary to interstitial bilateral pneumonia with secondary shortness of breath and hypoxic respiratory failure. In addition, the patient a CAT scan of the chest that showed interstitial bilateral perihilar infiltrates which could be interstitial edema and bilateral pleural effusion. A component of CHF cannot be completely excluded especially the patient responded nicely to diuretics. History of CAD, with previous bypass grafting, 2013. History of myocardial infarction. Prior history of pneumonia. History of hypertension. History of hyperlipidemia. History of GERD. Multiple other medical problems and comorbidities. Plan: We'll give today's additional doses of diuretics Lasix 40 mg IV 2 CAT scan of the chest with contrast was noted Pro calcitonin level has been low and the rest of the viral screen came back negative Continue empiric therapy with azithromycin and Rocephin Continue supplemental oxygen to maintain oxygen saturation of 92% or greater Continue DuoNeb inhalations We will continue to follow, possible discharge in the next 24 hours
[2022-10-23 11:26] LABS: African American GFR (CKD) 106.5 (60.0-200.0); Albumin 3.6 g/dL (3.8-4.9); Albumin/Globulin Ratio 1.71 (1.60-3.17); Anion Gap 12.2 mmol/L (10.00-18.00); BUN/Creat Ratio 16.78 Ratio (12.00-20.00); Blood Urea Nitrogen 15.1 mg/dL (9.0-27.0); Calcium 8.9 mg/dL (8.7-10.3); Carbon Dioxide 24.8 mmol/L (20.0-27.5); Globulin 2.1 g/dL (1.6-3.3); Magnesium 1.9 mg/dL (1.5-2.4); Non-African American GFR(CKD) 91.9 (60.0-200.0); Potassium 3.6 mmol/L (3.5-5.5); Total Bilirubin 0.6 mg/dL (0.30-1.20); Total Protein 5.7 g/dL (6.2-8.2)
[2022-10-23] MEDS: FUROSEMIDE 10 MG/ML 4 ML VIAL IV SCH ×2 (11:45→21:00)
--- NOTE | 2022-10-23 14:57 | P.PN ---
Subjective Progress Note Date: 10/23/22 Principal diagnosis: Right lower lobe pneumonia Patient is a 62-year-old male with a past medical history significant for coronary artery disease angina reflux hypertension hyperlipidemia and pneumonia presenting to the ER last evening for evaluation of chest pain short ness of breath and weakness symptom has been going on for about a day or 2 before presentation to the hospital, patient did have fever and elevated white count considered for right lower lobe pneumonia on today's evaluation that is 10/23/2022, the patient remains to be afebrile the patient is breathing comfortably on room air currently satting 95%, patient denies having any chest pains , the patient denies cough or sputum production no nausea no vomiting no abdominal pain or diarrhea Objective - Vital Signs Vital signs: Vital Signs Temp 98.6 F 10/23/22 07:42 Pulse 44 L 10/23/22 07:42 Resp 16 10/23/22 07:42 BP 131/70 10/23/22 07:42 Pulse Ox 95 10/23/22 07:42 FiO2 Intake & Output 10/22/22 10/23/22 10/23/22 18:59 06:59 18:59 Other: # Voids 2 3 - Exam GENERAL DESCRIPTION: Middle-age male up in the chair in no distress RESPIRATORY SYSTEM: Unlabored breathing , decreased breath sounds at bases HEART: S1 S2 regular rate and rhythm , ABDOMEN: Soft , no tenderness EXTREMITIES: No edema feet - Labs CBC & Chem 7: 10/23/22 06:28 10/23/22 06:28 Labs: Abnormal Lab Results - Last 24 Hours (Table) 10/22/22 10/23/22 10/23/22 Range/Units 14:32 06:28 06:28 RBC 4.18 L (4.40-5.60) X 10*6/uL Hgb 12.6 L (13.0-17.0) g/dL Hct 37.4 L (39.6-50.0) % Immature Gran # 0.05 H (0.00-0.04) X 10*3/uL Eosinophils # 0.46 H (0.04-0.35) X 10*3/uL D-Dimer 1.02 H (<0.60) mg/L FEU AST 49 H (14-35) U/L ALT 83 H (10-49) U/L Total Protein 5.7 L (6.2-8.2) g/dL Albumin 3.6 L (3.8-4.9) g/dL Microbiology - Last 24 Hours (Table) 10/22/22 21:00 Gram Stain - Preliminary Sputum Sputum Culture - Preliminary 10/20/22 00:20 Blood Culture - Preliminary Blood No Growth after 72 hours 10/20/22 00:05 Blood Culture - Preliminary Blood No Growth after 72 hours Assessment and Plan (1) Community acquired pneumonia Current Visit: Yes Status: Acute Code(s): J18.9 - PNEUMONIA, UNSPECIFIED ORGANISM SNOMED Code(s): 742425249 Plan: 1patient presented to hospital with sepsis in this patient who did have a fever elevated white count with evidence of right lower lobe pneumonia likely the source of his sepsis and likely community-acquired pathogen. 2obtain a sputum for gram stain and culture. 3patient did have elevated CRP however interestingly procalcitonin is normal. Patient did have a negative urine for Legionella antigen mycoplasma IgM normal IgG was positive 4patient did have CT of the chest with mostly interstitial infiltrate and lymphadenopathy some nodules, patient seen for clinical improvement and will continue with the Rocephin and Zithromax and monitor clinical course closely Time with Patient: Less than 30
[2022-10-23] MEDS: ATORVASTATIN 80 MG TAB PO SCH (20:33)
[2022-10-23] MEDS: FAMOTIDINE 20 MG TAB PO SCH (20:33)
--- NOTE | 2022-10-23 22:50 | PN ---
PROGRESS NOTE DATE OF SERVICE: 10/23/2022 SUBJECTIVE: This 62-year-old gentleman, who was admitted with right lower lobe pneumonia, is also being evaluated to rule out the possibility of CHF. The patient is feeling much better after Lasix. The BNP was elevated at 2330. There is no history any fever, rigors, or chills at this time. PHYSICAL EXAMINATION: VITAL SIGNS: Pulse is 44, blood pressure , respirations 16. HEENT: Conjunctivae normal. NECK: No JVD. CARDIOVASCULAR: S1, S2. RESPIRATION: Few scattered rhonchi and crackles. ABDOMEN: Soft. NERVOUS SYSTEM: Nonfocal. LABORATORY DATA: Reviewed. ASSESSMENT: 1. Right lower lobe pneumonia, possibly community-acquired, with fever. 2. Rule out congestive heart failure. 3. Increased WBC. 4. History of coronary artery disease, coronary artery bypass grafting and stent. 5. Hypertension. 6. Hyperlipidemia. 7. History of multiple medical issues. RECOMMENDATIONS: I recommend to continue current management and symptomatic treatment, otherwise I would recommend to continue with Lasix, and 2D echo with Doppler, and Cardiology consultation. Guarded prognosis. Further recommendations to follow. MMODL / IJN: [id number] /
--- NOTE | 2022-10-24 07:26 | XR ---
EXAMINATION TYPE: XR chest 1V portable DATE OF EXAM: 10/24/2022 7:20 AM COMPARISON: Chest radiographs from 10/23/2022 TECHNIQUE: XR chest 1V portable Portable AP radiograph of the chest. CLINICAL INDICATION:Male, 62 years old with history of shortness of breath; FINDINGS: Lungs/Pleura: No pneumothorax. Interval improvement of right perihilar airspace and interstitial opac ities. Blunting of the right costophrenic angle. Heart/mediastinum: Cardiomediastinal silhouette is enlarged and stable. Post CABG changes. Musculoskeletal: No acute osseous pathology. Midline sternotomy wires are noted and stable. IMPRESSION: Improvement in right perihilar and interstitial opacities. Small right pleural effusion.
[2022-10-24] MEDS: polyethylene glycoL 3350 17 GM POWD.PACK PO SCH (07:45)
[2022-10-24] MEDS: CHOLECALCIFEROL 25 MCG (1000 IU) TABLET PO SCH ×2 (07:50→20:40)
[2022-10-24] MEDS: ASPIRIN 81 MG PO SCH (07:50)
[2022-10-24] MEDS: LORATADINE 10 MG TAB PO SCH (07:50)
[2022-10-24] MEDS: HEPARIN SODIUM,PORCINE/PF 5,000 UNIT/0.5 ML SYRINGE SQ SCH ×2 (07:50→20:41)
[2022-10-24] MEDS: METOPROLOL TARTRATE 50 MG TAB PO SCH (07:50)
[2022-10-24] MEDS: LOSARTAN 50 MG TAB PO SCH (07:50)
[2022-10-24] MEDS: amLODIPine 5 MG TAB PO SCH ×2 (07:50→20:40)
[2022-10-24] MEDS: FLUTICASONE 50MCG/SPRAY NASAL 16GM EA NOSTRIL SCH ×2 (07:52→20:41)
[2022-10-24] MEDS: IPRATROPIUM-ALBUTEROL 3 ML NEB INHALATION SCH ×3 (08:47→20:43)
[2022-10-24 08:54] LABS: Basophils # (A) 0.1 k/uL (0-0.2); Basophils % (A) 1 %; Eosinophils # (A) 0.5 k/uL (0-0.7); Eosinophils % (A) 8 %; HCT 40.2 % (39.0-53.0); Lymphocytes # (A) 1.3 k/uL (1.0-4.8); Lymphocytes % (A) 20 %; MCH 30.9 pg (25.0-35.0); MCHC 34.8 g/dL (31.0-37.0); MCV 88.6 fL (80.0-100.0); Mean Platelet Volume 9.2; Monocytes # (A) 0.4 k/uL (0-1.0); Monocytes % (A) 6 %; Neutrophils # (A) 4.3 k/uL (1.3-7.7); Neutrophils % (A) 65 %; Platelet Count 281 k/uL (150-450); RBC 4.54 m/uL (4.30-5.90); RDW 13.6 % (11.5-15.5); WBC 6.7 k/uL (3.8-10.6)
[2022-10-24 09:03] LABS: African American GFR (CKD) 83 (>60 ml/min/1.73 sqM); Anion Gap 9 mmol/L; Blood Urea Nitrogen 24 mg/dL (9-20); Carbon Dioxide 30 mmol/L (22-30); Chloride 102 mmol/L (98-107); Glucose 151 mg/dL (74-99); Non-African American GFR(CKD) 72 (>60 ml/min/1.73 sqM); Potassium 3.5 mmol/L (3.5-5.1); Sodium 141 mmol/L (137-145)
--- NOTE | 2022-10-24 10:37 | P.CRDCN ---
History of Present Illness Consult date: 10/24/22 History of present illness: HISTORY OF PRESENT ILLNESS: This is a 62-year-old male with a past medical history significant for coronary artery disease with previous three-vessel CABG in 2014 (LIMALAD, VGOM1, VGD1), hypertension, and hyperlipidemia. Patient follows in the office with Dr. Carrasco. We have been asked to see the patient in consultation for congestive heart failure. Patient examined at the bedside. Patient states on Thursday he b juan having a cough, shortness of breath, chest discomfort, and a headache. He initially thought he had the flu. He was treating himself with [id number] medications which were not helping. He states on Thursday he walked from his bathroom to his bedroom and became very short of breath which prompted him to come to the emergency room. He was found to have pneumonia. He was receiving IV fluids for the first few days of admission which have since been discontinued. He received 3 doses of IV Lasix yesterday. He denies a history of CHF. He states his shortness of breath has improved. He denies any chest pain or pressure. He states that his chest is sore from coughing. EKG on admission reveals AV disassociation. Patient denies any venous or lightheadedness. There has been no repeat EKG performed her the patient is also not on telemetry monitoring. * EKG reveals AV disassociation * Chest xray improvement in right perihilar and interstitial opacities. Small right pleural effusion. * Laboratory data: WBC 6.7. Hemoglobin 14.0. Platelet count 281. Sodium 141. Potassium 3.5. BUN 24. Creatinine 1.10. ProBNP 2330. * Current home cardiac medications include aspirin 81 mg daily, Lipitor 80 mg at night, losartan 100 mg daily, metoprolol titrate 50 mg twice a day, amlodipine 5 mg twice a day, and hydrochlorothiazide 50 mg daily * Most recent echocardiogram obtained in December 2020 revealed normal ejection fraction, mild TR, [id number] MR REVIEW OF SYSTEMS: At the time of my exam: CONSTITUTIONAL: Denies fever or chills. HEENT: Denies blurred vision, vision changes, or eye pain. Denies hemoptysis CARDIOVASCULAR: Denies chest pain. Denies orthopnea. Denies PND. Denies palpitations RESPIRATORY: Denies shortness of breath. GASTROINTESTINAL: Denies abdominal pain. Denies nausea or vomiting. HEMATOLOGIC: Denies bleeding disorders. GENITOURINARY: Denies any blood in urine. SKIN: Denies pruitis. Denies rash. PHYSICAL EXAM: VITAL SIGNS: Reviewed. GENERAL: Well-developed in no acute distress. HEENT: Head is normocephalic. Pupils are equal, round. Sclerae anicteric. Mucous membranes of the mouth are moist. Neck supple. No JVD or thyromegaly LUNGS: Respirations even and unlabored. Lungs essentially clear to auscultation bilaterally. HEART: Regular rate and rhythm. S1 and S2 heard. Systolic murmur noted. ABDOMEN: Soft. Nondistended. Nontender. EXTREMITIES: Normal range of motion. No clubbing or cyanosis. Peripheral pulses intact. No lower extremity edema NEUROLOGIC: Awake and alert. Oriented x 3. ASSESSMENT: Pneumonia Acute heart failure, type unknown, suspect with preserved ejection fraction, echo pending AV disassociation on EKG on admission Coronary artery disease with previous three-vessel CABG, 2013 Hypertension Hyperlipidemia PLAN: 2-D echo has been ordered. Await results. Patient received 3 doses of IV Lasix. His shortness of breath has resolved. He may continue on his home dose of hydrochlorothiazide Repeat EKG and begin telemetry monitoring to assess for any heart block Continue additional cardiac medications Further recommendations pending patient's course Nurse practitioner note has been reviewed by physician. Signing provider agrees with the documented findings, assessment, and plan of care. Past Medical History Past Medical History: Coronary Artery Disease (CAD), Chest Pain / Angina, GERD/Reflux, Hyperlipidemia, Hypertension, Myocardial Infarction ([place]), Pneumonia Additional Past Medical History / Comment(s): Recent palpitations, past bronchitis, bilateral leg injury as a 6 yr old child with multiple surgeries Last Myocardial Infarction Date:: 2007 History of Any Multi-Drug Resistant Organisms: None Reported Past Surgical History: Appendectomy, Coronary Bypass/CABG, Heart Catheterization, Heart Catheterization With Stent, Joint Replacement Additional Past Surgical History / Comment(s): 2007 PCI with stent, 2013 cardiac cath, 2013 CABG 3 vessel, multiple surgeries on both legs from trauma age 6yrs, L knee ACL repair. left knee replaced 07-25-22 Past Anesthesia/Blood Transfusion Reactions: No Reported Reaction Additional Past Anesthesia/Blood Transfusion Reaction / Comment(s): Pt is unsure if he has ever received blood. Date of Last Stent Placement:: 03/2008 Smoking Status: Former smoker - Past Family History Mother Family Medical History: Cancer Additional Family Medical History / Comment(s): Mother is 76yrs old. She had breast cancer and palpitations. There was alot of CAD on her side of the family. Father Family Medical History: Myocardial Infarction ([place]) Additional Family Medical History / Comment(s): Father of a [place] in his 60's. CAD runs strongley in father's side of family. Medications and Allergies Home Medications Medication Instructions Recorded Confirmed Type amLODIPine BESYLATE [Norvasc] 5 mg PO BID 12/15/14 10/20/22 History Famotidine [Pepcid AC] 10 mg PO HS 06/18/18 10/20/22 History Ramona-3 Fatty Acids/Fish Oil [Fish 1 cap PO HS 06/18/18 10/20/22 History Oil 1,000 mg Softgel] Ubidecarenone [Co Q-10] 200 mg PO DAILY 10/11/18 10/20/22 History Atorvastatin [Lipitor] 80 mg PO HS #30 tab 10/12/18 10/20/22 Rx Metoprolol Tartrate [Lopressor] 50 mg PO BID #60 tab 10/12/18 10/20/22 Rx Aspirin EC [Ecotrin Low Dose] 81 mg PO DAILY 09/10/22 10/20/22 History Loratadine [Claritin] 10 mg PO DAILY 09/10/22 10/20/22 History Losartan Potassium [Cozaar] 100 mg PO DAILY 09/10/22 10/20/22 History hydroCHLOROthiazide [Hydrodiuril] 50 mg PO DAILY 09/10/22 10/20/22 History polyethylene glycoL 3350 [Miralax] 17 gm PO DAILY 09/10/22 10/20/22 History Albuterol Sulfate [Albuterol 2 puff INHALATION RT-Q4H PRN 10/20/22 10/20/22 History Sulfate Hfa] Cholecalciferol [Vitamin D3 (25 50 mcg PO BID 10/20/22 10/20/22 History Mcg = 1000 Iu)] Allergies Allergy/AdvReac Type Severity Reaction Status Date / Time adhesive Allergy Rash/Hives Verified 10/20/22 07:23 Physical Exam Vitals: Vital Signs Temp Pulse Pulse Resp BP Pulse Ox 10/24/22 07:18 98.0 F 45 L 18 124/76 94 L 10/24/22 01:15 98.0 F 41 L 16 119/71 95 10/23/22 19:10 98.1 F 44 L 18 122/68 96 10/23/22 13:47 98.8 F 44 L 16 123/66 95 Intake and Output 10/23/22 10/24/22 10/24/22 22:59 06:59 14:59 Other: # Voids 1 Results 10/24/22 08:25 10/24/22 08:25 Cardiac Enzymes 10/23/22 10/23/22 10/24/22 Range/Units 06:28 11:11 08:25 AST 49 H (14-35) U/L Troponin I 0.023 0.021 (0.000-0.034) ng/mL CBC 10/23/22 10/24/22 Range/Units 06:28 08:25 WBC 8.35 6.7 (4.50-10.00) X 10*3/uL RBC 4.18 L 4.54 (4.40-5.60) X 10*6/uL Hgb 12.6 L 14.0 D (13.0-17.0) g/dL Hct 37.4 L 40.2 (39.6-50.0) % Plt Count 219 281 (140-440) X 10*3/uL Comprehensive Metabolic Panel 10/23/22 10/24/22 Range/Units 06:28 08:25 Sodium 141 141 (135-145) mmol/L Potassium 3.6 3.5 (3.5-5.5) mmol/L Chloride 104 102 (96-109) mmol/L Carbon Dioxide 24.8 30 (20.0-27.5) mmol/L BUN 15.1 24 H (9.0-27.0) mg/dL Creatinine 0.9 1.10 (0.6-1.5) mg/dL Glucose 105 151 H (70-110) mg/dL Calcium 8.9 9.0 (8.7-10.3) mg/dL AST 49 H (14-35) U/L ALT 83 H (10-49) U/L Alkaline Phosphatase 74 (41-126) U/L Total Protein 5.7 L (6.2-8.2) g/dL Albumin 3.6 L (3.8-4.9) g/dL Current Medications Generic Name Dose Route Start Last Admin Trade Name Freq PRN Reason Stop Dose Admin Acetaminophen 650 mg 10/20/22 01:24 10/21/22 21:11 Acetaminophen Tab 325 Mg Tab PO 650 mg Q6HR PRN Administration Fever and/ or Pain Albuterol/Ipratropium 3 ml 10/20/22 00:04 10/21/22 15:51 Ipratropium-Albuterol 3 Ml Neb INHALATION 3 ml RT-Q4H PRN Administration shortness of breath Albuterol/Ipratropium 3 ml 10/20/22 13:00 10/24/22 08:47 Ipratropium-Albuterol 3 Ml Neb INHALATION Not Given RT-TID SILVANO Amlodipine Besylate 5 mg 10/20/22 11:30 10/24/22 07:50 Amlodipine 5 Mg Tab PO 5 mg BID SILVANO Administration Aspirin 81 mg 10/20/22 11:30 10/24/22 07:50 Aspirin 81 Mg PO 81 mg DAILY SILVANO Administration Atorvastatin Calcium 80 mg 10/20/22 21:00 10/23/22 20:33 Atorvastatin 80 Mg Tab PO 80 mg HS SILVANO Administration Cholecalciferol 50 mcg 10/20/22 21:00 10/24/22 07:50 Cholecalciferol 25 Mcg (1000 Iu) Tablet PO 50 mcg BID SILVANO Administration Famotidine 10 mg 10/20/22 21:00 10/23/22 20:33 Famotidine 20 Mg Tab PO 10 mg HS SILVANO Administration Fluticasone Propionate 2 spray 10/22/22 09:00 10/24/22 07:52 Fluticasone 50mcg/Alva Nasal 16gm EA NOSTRIL Not Given BID SILVANO Heparin Sodium (Porcine) 5,000 unit 10/20/22 21:00 10/24/22 07:50 Heparin Sodium,Porcine/Pf 5,000 Unit/0.5 Ml Syringe SQ 5,000 unit Q12HR SILVANO Administration Hydrochlorothiazide 50 mg 10/20/22 11:30 10/24/22 07:50 Hydrochlorothiazide 50 Mg Tab PO 50 mg DAILY SILVANO Administration Loratadine 10 mg 10/20/22 11:30 10/24/22 07:50 Loratadine 10 Mg Tab PO 10 mg DAILY SILVANO Administration Losartan Potassium 100 mg 10/20/22 11:30 10/24/22 07:50 Losartan 50 Mg Tab PO 100 mg DAILY SILVANO Administration Metoprolol Tartrate 50 mg 10/20/22 21:00 10/24/22 07:50 Metoprolol Tartrate 50 Mg Tab PO 50 mg BID SILVANO Administration Miscellaneous Information 1 each 10/20/22 00:04 Pneumonia Protocol Utilized 1 Each Misc PO ONCE PRN Per Protocol Miscellaneous Information 1 each 10/22/22 09:39 Potassium Replacement Protocol 1 Each Misc MISCELLANE DAILY PRN Per Protocol Protocol Miscellaneous Information 1 each 10/22/22 12:25 Rx Info: Iv Contrast Was Given 1 Each Misc MISCELLANE 10/24/22 12:26 DAILY PRN Per Protocol Miscellaneous Information 1 each 10/22/22 15:08 Magnesium Replacement Protocol 1 Each Misc MISCELLANE DAILY PRN Per Protocol Protocol Miscellaneous Information 1 each 10/22/22 15:08 Potassium Replacement Protocol 1 Each Misc MISCELLANE DAILY PRN Per Protocol Protocol Polyethylene Glycol 17 gm 10/21/22 09:00 10/24/22 07:45 Polyethylene Glycol 3350 17 Gm Powd.Pack PO Not Given DAILY SILVANO Sodium Chloride 2 spray 10/22/22 02:30 10/22/22 02:52 Sodium Chloride 0.65% Nasal Alva 44 Ml Btl NASAL 2 spray QID PRN Administration Dry Nasal Passages Zolpidem Tartrate 5 mg 10/22/22 02:23 10/22/22 22:36 Zolpidem 5 Mg Tab PO 5 mg HS PRN Administration Insomnia Intake and Output 10/23/22 10/24/22 10/24/22 22:59 06:59 14:59 Other: # Voids 1 10/24/22 08:25 10/24/22 08:25
--- NOTE | 2022-10-24 12:31 | P.PN ---
Subjective Progress Note Date: 10/24/22 62-year-old male who presents to the emergency department, with illness, getting Thursday, which she thought was possibly the flu. The patient states that he started having chest pressure, fever, and shortness of breath. He was not coughing, and was not bringing up any phlegm. He does have a previous episode of pneumonia. In addition, he has a history of CAD, with a previous bypass grafting in 2013. He also has a history of recent total knee replacement, and coronavirus infection. He seen in the emergency room, room #4. He's on 2 L of oxygen. He is getting saline at KVO. The patient had a chest x-ray which revealed bibasilar infiltrates. White count is 16, hemoglobin 9.5, hematocrit 31.3, and platelet count 487,000. PTT is 20.3. Electrolytes look normal. BUN 25 with a creatinine of 0.71. Glucose 203. N-terminal proBNP is normal. Troponin is negative. The patient tested negative for influenza, respiratory syncytial virus, and coronavirus infection. Chest x-ray reveals a right lower lobe infiltrate. I'm evaluating this patient today on 10/21/2022 in follow-up on a general medical floor. Patient reports that he feels better, is resting up in bed, in no acute distress, on 4 L nasal cannula. Lungs sounds have coarse rhonchi throughout. Denies fever overnight. Chest X-ray today shows persistent bilateral lower lung acute infiltrate and/or atelectasis that does seem to be slightly worse from previous x-ray. Blood cultures continued to show no growth at 24 hours. CBC from today shows improved leukocytosis with a WBC count of 12.3, hemoglobin 13, hematocrit 38.8, platelets 175,000. BMP from today shows a sodium of 144 1, potassium 3.3, chloride 105, serum CO2 21, BUN 9.2, creatinine 0.8, glucose 131. Procalcitonin was negative at 0.06. He continues to receive Zithromax and Rocephin for empiric antibiotic therapy. He also continues to receive DuoNeb inhalation. Heparin is ordered for DVT prophylaxis and Pepcid for GI prophylaxis. Patient has normal saline infusing at 50 mL per hour. Vital signs remain stable. 10/22/2022, the patient reports partial mild improvement in his recovery is not adequate at this point in time as the patient is being treated for a pneumonia. All of the viral screens came back negative. The patient has a chest x-ray showed diffuse bilateral pulmonary infiltrates which has not changed since the time of admission. The pro-calcitonin level was low. He remains on accommodation of Rocephin and Zithromax. He is on DuoNeb neb blotchiness on the clock. He remains on oxygen at 1 L nasal cannula. He is an ex-smoker. He is known to have previous coronary artery disease and bypass surgery. 10/23/2022, the patient is feeling better. The patient is feeling less short of breath and currently is on room air oxygen. He did have bilateral pulmonary infiltrates that were not changing. Based on that, a CAT scan of the chest was obtained yesterdayOf the chest was done on 10/22/2019 20 showed some interstitial infiltrates bilaterally and perihilar and this raised the suspicion for interstitial pneumonia/atypical versus CHF. The chest x-ray from today is still showing bilateral pulmonary interstitial infiltrates along with post CABGchanges. Despite those findings, clinically the patient is feeling much better. He remains on IV Rocephin. He is on DuoNeb nebulized treatments [id number]. Is currently on room air oxygen. The patient was given a dose of Lasix yesterday with excellent diuresis. Noted the CAT scan of the chest also showed bilateral pleural effusions which may indicate a component of CHF in addition to interstitial pneumonia. Please of improved significantly with this patient. 10/24/2022, the patient is much improved. He received a total of 3 doses of Lasix and the shortness of breath is resolved and the chest x-ray is also improving with resolution of the perihilar pulmonary infiltrates and a small pleural effusion. Cardiology saw the patient regarding the possibility of CHF. Echocardiogram is still pending. EKG showed some A-V dissociation and based on that the patient was placed on a patient monitor. Further recommendations are to follow. Meanwhile, the labs from today is showing a the white cell count of 6.7 with a hemoglobin of 14 and a platelet count of 281. Sodium is at 141, BUN is 24 with a creatinine of 1.1. Troponins are negative. ProBNP level was 2330. Currently, the patient is on DuoNeb nebulized treatments [id number], the patient remains on no antibiotics. Hydrochlorothiazide was added. He is in negative fluid balance. Awaiting echocardiogram. Objective - Vital Signs Vital signs: Vital Signs Temp 98.0 F 10/24/22 07:18 Pulse 45 L 10/24/22 07:18 Resp 18 10/24/22 07:18 BP 124/76 10/24/22 07:18 Pulse Ox 94 L 10/24/22 07:18 FiO2 Intake & Output 10/23/22 10/24/22 10/24/22 18:59 06:59 18:59 Other: # Voids 1 - Exam alert, in no acute distress, oriented 3. Currently on room air oxygen HEENT examination is grossly unremarkable. Neck supple. Full range of motion. No adenopathy thyromegaly or neck vein distention. Cardiovascular examination reveals regular rhythm rate. S1-S2 normal. No S3 or S4. No discernible murmur noted. Lungs reveal coarse rhonchi throughout. No wheezes or crackles appreciated. No use of accessory muscles or conversational dyspnea. Abdomen soft bowel sounds are heard. No masses or tenderness. Extremities are intact. No cyanosis clubbing or edema. Skin is without rash or lesion. Neurologic examination is brief but nonfocal - Labs CBC & Chem 7: 10/24/22 08:25 10/24/22 08:25 Labs: Abnormal Lab Results - Last 24 Hours (Table) 10/24/22 Range/Units 08:25 BUN 24 H (9-20) mg/dL Glucose 151 H (74-99) mg/dL Microbiology - Last 24 Hours (Table) 10/20/22 00:20 Blood Culture - Preliminary Blood No Growth after 96 hours 10/20/22 00:05 Blood Culture - Preliminary Blood No Growth after 96 hours 10/22/22 21:00 Gram Stain - Preliminary Sputum Sputum Culture - Preliminary Assessment and Plan Plan: Acute hypoxic respiratory failure secondary to interstitial bilateral pneumonia with secondary shortness of breath and hypoxic respiratory failure. In addition, the patient a CAT scan of the chest that showed interstitial bilateral perihilar infiltrates which could be interstitial edema and bilateral pleural effusion. A component of CHF cannot be completely excluded especially the patient responded nicely to diuretics. She is currently on room air oxygen. The patient has is a total of 3 doses of Lasix. Awaiting echocardiogram. History of CAD, with previous bypass grafting, 2013. History of myocardial infarction. Prior history of pneumonia. History of hypertension. History of hyperlipidemia. History of GERD. Multiple other medical problems and comorbidities. Plan: No need for any further diuretics at this point in time. Awaiting echocardiogram Pro calcitonin level has been low and the rest of the viral screen came back negative Continue empiric therapy with azithromycin and Rocephin Continue supplemental oxygen to maintain oxygen saturation of 92% or greater Continue DuoNeb inhalations We will continue to follow, possible discharge in the next 24 hours
--- NOTE | 2022-10-24 15:20 | P.PN ---
Subjective Progress Note Date: 10/24/22 This is a pleasant 62-year-old male who was recently admitted with increasing shortness of breath and found to have right lower lobe pneumonia and also the concerns for possible CHF. Patient has received a few doses of IV Lasix and troponins were obtained along with BMP and BNP is elevated and cardiology was consulted. EKG showing an undetermined rhythm of 46 bpm with incomplete left bundle branch block with prolonged QT and cardiology recommending continue telemetry monitoring with repeat EKG in the a.m. 2-D echo was ordered and pending report at this time. Pulmonary following as well along with infectious disease and patient is maintained on empiric Zithromax and Rocephin and will continue. Continue DuoNeb treatments and continued increase activity as tolerated. Chest x-ray today shows improvement in the right perihilar and interstitial opacification is with a small right pleural effusion. Patient is currently afebrile up and walking the halls denying any worsening shortness of breath and asking when he can go home. Patient denies chest pain or palpitations and denies nausea or vomiting. Other labs reviewed and within normal limits. Patient did have an elevated d-dimer and underwent CTA which was negative for PE. Review of systems: Constitutional: No reports of fatigue, fever, or chills Cardiovascular: No reports of chest pain or palpitations Respiratory: No reports of worsening shortness of breath GI: no reports of nausea, no reports of of vomiting, or diarrhea : No reports of dysuria or retention Neurovascular: No reports of generalized weakness All medications have been reviewed Active Medications Acetaminophen (Acetaminophen Tab 325 Mg Tab) 650 mg PO Q6HR PRN PRN Reason: Fever and/ or Pain Last Admin: 10/21/22 21:11 Dose: 650 mg Albuterol/Ipratropium (Ipratropium-Albuterol 3 Ml Neb) 3 ml INHALATION RT-Q4H PRN PRN Reason: shortness of breath Last Admin: 10/21/22 15:51 Dose: 3 ml Albuterol/Ipratropium (Ipratropium-Albuterol 3 Ml Neb) 3 ml INHALATION RT-TID [facility] Last Admin: 10/24/22 11:09 Dose: Not Given Amlodipine Besylate (Amlodipine 5 Mg Tab) 5 mg PO BID [facility] Last Admin: 10/24/22 07:50 Dose: 5 mg Aspirin (Aspirin 81 Mg) 81 mg PO DAILY [facility] Last Admin: 10/24/22 07:50 Dose: 81 mg Atorvastatin Calcium (Atorvastatin 80 Mg Tab) 80 mg PO HS [facility] Last Admin: 10/23/22 20:33 Dose: 80 mg Cholecalciferol (Cholecalciferol 25 Mcg (1000 Iu) Tablet) 50 mcg PO BID [facility] Last Admin: 10/24/22 07:50 Dose: 50 mcg Famotidine (Famotidine 20 Mg Tab) 10 mg PO HS [facility] Last Admin: 10/23/22 20:33 Dose: 10 mg Fluticasone Propionate (Fluticasone 50mcg/[place] Nasal 16gm) 2 spray EA NOSTRIL BID [facility] Last Admin: 10/24/22 07:52 Dose: Not Given Heparin Sodium (Porcine) (Heparin Sodium,Porcine/Pf 5,000 Unit/0.5 Ml Syringe) 5,000 unit SQ Q12HR [facility] Last Admin: 10/24/22 07:50 Dose: 5,000 unit Hydrochlorothiazide (Hydrochlorothiazide 50 Mg Tab) 50 mg PO DAILY [facility] Last Admin: 10/24/22 07:50 Dose: 50 mg Loratadine (Loratadine 10 Mg Tab) 10 mg PO DAILY [facility] Last Admin: 10/24/22 07:50 Dose: 10 mg Losartan Potassium (Losartan 50 Mg Tab) 100 mg PO DAILY [facility] Last Admin: 10/24/22 07:50 Dose: 100 mg Miscellaneous Information (Pneumonia Protocol Utilized 1 Each Mis) 1 each PO ONCE PRN PRN Reason: Per Protocol Miscellaneous Information (Potassium Replacement Protocol 1 Each [facility] [place] 1 each MISCELLANE DAILY PRN; Protocol PRN Reason: Per Protocol Miscellaneous Information (Magnesium Replacement Protocol 1 Each Misc) 1 each MISCELLANE DAILY PRN; Protocol PRN Reason: Per Protocol Miscellaneous Information (Potassium Replacement Protocol 1 Each [facility] [place] [facility] [place] 1 each MISCELLANE DAILY PRN; Protocol PRN Reason: Per Protocol Polyethylene Glycol (Polyethylene Glycol 3350 17 Gm Powd.Pack) 17 gm PO DAILY [facility] Last Admin: 10/24/22 07:45 Dose: Not Given Sodium Chloride (Sodium Chloride 0.65% Nasal [place] 44 Ml Btl) 2 spray NASAL QID PRN PRN Reason: Dry Nasal Passages Last Admin: 10/22/22 02:52 Dose: 2 spray Zolpidem Tartrate (Zolpidem 5 Mg Tab) 5 mg PO HS PRN PRN Reason: Insomnia Last Admin: 10/22/22 22:36 Dose: 5 mg PHYSICAL EXAMINATION: GENERAL: The patient is alert and oriented x4, Well developed, well nourished. Obese. HEENT: Pupils are round and equally reacting to light. EOMI. no scleral icterus. No conjunctival pallor. Normocephalic, atraumatic. No pharyngeal erythema. No thyromegaly. CARDIOVASCULAR: S1 and S2 muffled PULMONARY: diminished breath sounds bilaterally with no wheezing or rhonchi noted. ABDOMEN: soft. Nontender on exam. obese. non-distended, normoactive bowel sounds. No palpable organomegaly. MUSCULOSKELETAL: No joint swelling or deformity. EXTREMITIES: No cyanosis, clubbing, or pedal edema. NEUROLOGICAL: Gross neurological examination did not reveal any focal deficits. SKIN: No rashes. Assessment: Right lower lobe pneumonia, most likely community-acquired with fever, sepsis, present on admission Acute hypoxic respiratory failure secondary to interstitial bilateral pneumonia and possible component of CHF exacerbation Acute congestive heart failure, EF unknown and type unknown with echo pending Leukocytosis History of coronary disease with CABG and stenting Ecru hypertension Hyperlipidemia GI prophylaxis DVT prophylaxis Full code Plan: Recommend to continue with current medications and management with cardiology, pulmonary, infectious disease following. Patient had an EKG showing a heart block and cardiology recommending continue telemetry monitoring and repeat EKG in the a.m. Echo was done and report is pending at this time Patient is continued on empiric antibiotics in the form of ceftriaxone and Zithromax and will continue Encouraged to increase activity as tolerated Recommend repeat labs and we'll continue to wait echo report Patient to be evaluated by DR. Velasquez in the a.m. Due to multiple complex medical issues, prognosis is guarded. The impression and plan of care has been dictated by Teena Montgomery, nurse practitioner as directed. Dr. Jose MD I have performed a history and examination and MDM of this patient, discussed the same with the dictator, and agree with the dictator's assessment and plan as written ,documented as a scribe. Based on total visit time, I have performed more than 50% of the visit. Any additional findings or plans will be noted. Objective - Vital Signs Vital signs: Vital Signs Temp 98.0 F 10/24/22 14:00 Pulse 42 L 10/24/22 14:00 Resp 18 10/24/22 14:00 BP 97/59 10/24/22 14:00 Pulse Ox 96 10/24/22 14:00 FiO2 Intake & Output 10/23/22 10/24/22 10/24/22 18:59 06:59 18:59 Other: # Voids 1 - Labs CBC & Chem 7: 10/24/22 08:25 10/24/22 08:25 Labs: Abnormal Lab Results - Last 24 Hours (Table) 10/24/22 Range/Units 08:25 BUN 24 H (9-20) mg/dL Glucose 151 H (74-99) mg/dL Microbiology - Last 24 Hours (Table) 10/20/22 00:20 Blood Culture - Preliminary Blood No Growth after 96 hours 10/20/22 00:05 Blood Culture - Preliminary Blood No Growth after 96 hours
--- NOTE | 2022-10-24 17:42 | CA ---
Transthoracic Echo Report Name: Aguilar Vail Age: 62 Gender: M : 1960 Exam Date: 10/24/2022 10:46 Exam Location: [facility] Ht (in): 70 Wt (lb): 240 Ordering Physician: Teena Montgomery Attending/Referring Phys: Electric Distribution Checker Kiarra Lee RDCS Procedure CPT: Indications: SHORTNESS OF BREATH Cardiac Hx: Technical Quality: Fair Contrast 1: Total Dose (mL): Contrast 2: Total Dose (mL): MEASUREMENTS (Male / Female) Normal Values 2D ECHO LV Diastolic Diameter PLAX 5.0 cm 4.2 - 5.9 / 3.9 - 5.3 cm LV Systolic Diameter PLAX 3.7 cm IVS Diastolic Thickness 1.6 cm 0.6 - 1.0 / 0.6 - 0.9 cm LVPW Diastolic Thickness 1.7 cm 0.6 - 1.0 / 0.6 - 0.9 cm LV Relative Wall Thickness 0.7 RV Internal Dim ED PLAX 4.1 cm LA Volume 114.9 cm??? 18 - 58 / 22 - 52 cm??? M-MODE Aortic Root Diameter MM 2.6 cm LA Systolic Diameter MM 5.6 cm LA Ao Ratio MM 2.2 AV Cusp Separation MM 2.1 cm DOPPLER AV Peak Velocity 142.7 cm/s AV Peak Gradient 8.1 mmHg AV Mean Velocity 105.2 cm/s AV Mean Gradient 4.8 mmHg AV Velocity Time Integral 32.8 cm LVOT Peak Velocity 107.0 cm/s LVOT Peak Gradient 4.6 mmHg MV Area PHT 5.1 cm??? Mitral E Point Velocity 104.4 cm/s Mitral A Point Velocity 78.0 cm/s Mitral E to A Ratio 1.3 MV Deceleration Time 148.0 ms MV E' Velocity 9.9 cm/s Mitral E to MV E' Ratio 10.5 TR Peak Velocity 308.6 cm/s TR Peak Gradient 38.1 mmHg Right Atrial Pressure 15.0 mmHg Pulmonary Artery Systolic Pressu 53.1 mmHg Right Ventricular Systolic Press 53.1 mmHg FINDINGS Left Ventricle Moderately increased left ventricular wall thickness. No obvious regional wall motion abnormalities. Left ventricular ejection fraction is estimated at 55 %. Right Ventricle Mild right ventricular dilatation. Moderate to severe pulmonary hypertension. Right Atrium Normal right atrial size. Left Atrium Severely increased left atrial volume. Moderately increased left atrial area. Mitral Valve Mitral valve thickened. Moderate mitral annular calcification. Moderate mitral regurgitation. Aortic Valve Trileaflet aortic valve. No aortic valve stenosis or regurgitation. Tricuspid Valve Structurally normal tricuspid valve. Moderate tricuspid regurgitation. Pulmonic Valve Mild pulmonic regurgitation. Pericardium No pericardial effusion. Aorta Normal size aortic root and proximal ascending aorta. CONCLUSIONS Left ventricular ejection fraction 55% Moderately increased left ventricular wall thickness RVSP 53 Mild right ventricular dilation Moderate to severely dilated left atrium Moderate mitral regurgitation Moderate tricuspid regurgitation Previewed by: Dr. Mik Covarrubias DO (Electronically Signed) Final Date: 24 October 2022 17:41
[2022-10-24] MEDS: FAMOTIDINE 20 MG TAB PO SCH (20:40)
[2022-10-24] MEDS: ATORVASTATIN 80 MG TAB PO SCH (20:41)
--- NOTE | 2022-10-24 21:39 | P.PN ---
Subjective Progress Note Date: 10/24/22 Principal diagnosis: Right lower lobe pneumonia Patient is a 62-year-old male with a past medical history significant for coronary artery disease angina reflux hypertension hyperlipidemia and pneumonia presenting to the ER last evening for evaluation of chest pain short ness of breath and weakness symptom has been going on for about a day or 2 before presentation to the hospital, patient did have fever and elevated white count considered for right lower lobe pneumonia on today's evaluation that is 10/24/2022, the patient continues to be afebrile the patient is breathing comfortably on room air, patient denies having any chest pains , the patient did have occasional dry cough no nausea no vomiting no abdominal pain or diarrhea Objective - Vital Signs Vital signs: Vital Signs Temp 98.0 F 10/24/22 07:18 Pulse 45 L 10/24/22 07:18 Resp 18 10/24/22 07:18 BP 124/76 10/24/22 07:18 Pulse Ox 94 L 10/24/22 07:18 FiO2 Intake & Output 10/23/22 10/24/22 10/24/22 18:59 06:59 18:59 Other: # Voids 1 - Exam GENERAL DESCRIPTION: Middle-age male up in the chair in no distress RESPIRATORY SYSTEM: Unlabored breathing , decreased breath sounds at bases HEART: S1 S2 regular rate and rhythm , ABDOMEN: Soft , no tenderness EXTREMITIES: No edema feet - Labs CBC & Chem 7: 10/24/22 08:25 10/24/22 08:25 Labs: Abnormal Lab Results - Last 24 Hours (Table) 10/24/22 Range/Units 08:25 BUN 24 H (9-20) mg/dL Glucose 151 H (74-99) mg/dL Microbiology - Last 24 Hours (Table) 10/20/22 00:20 Blood Culture - Preliminary Blood No Growth after 96 hours 10/20/22 00:05 Blood Culture - Preliminary Blood No Growth after 96 hours 10/22/22 21:00 Gram Stain - Preliminary Sputum Sputum Culture - Preliminary Assessment and Plan (1) Community acquired pneumonia Current Visit: Yes Status: Acute Code(s): J18.9 - PNEUMONIA, UNSPECIFIED ORGANISM SNOMED Code(s): 401659789 Plan: 1patient presented to hospital with sepsis in this patient who did have a fever elevated white count with evidence of right lower lobe pneumonia likely the source of his sepsis and likely community-acquired pathogen. 2obtain a sputum for gram stain and culture. 3patient did have elevated CRP however interestingly procalcitonin is normal. Patient did have a negative urine for Legionella antigen mycoplasma IgM normal IgG was positive 4patient did have CT of the chest with mostly interstitial infiltrate and lymphadenopathy some nodules, patient seen for clinical improvement with resolution of his fever and patient white count has normalized and we will continue the patient on Rocephin and monitor clinical course closely Time with Patient: Less than 30
[2022-10-25] MEDS: ZOLPIDEM 5 MG TAB PO PRN (00:24)
[2022-10-25 03:25] VITALS: RESP 16
[2022-10-25 07:47] VITALS: TEMP 97.9
[2022-10-25] MEDS: HEPARIN SODIUM,PORCINE/PF 5,000 UNIT/0.5 ML SYRINGE SQ SCH (08:35)
[2022-10-25] MEDS: LORATADINE 10 MG TAB PO SCH (08:35)
[2022-10-25] MEDS: LOSARTAN 50 MG TAB PO SCH (08:35)
[2022-10-25] MEDS: ASPIRIN 81 MG PO SCH (08:35)
[2022-10-25] MEDS: amLODIPine 5 MG TAB PO SCH (08:35)
[2022-10-25] MEDS: CHOLECALCIFEROL 25 MCG (1000 IU) TABLET PO SCH (08:35)
[2022-10-25] MEDS: polyethylene glycoL 3350 17 GM POWD.PACK PO SCH (08:38)
[2022-10-25] MEDS: FLUTICASONE 50MCG/SPRAY NASAL 16GM EA NOSTRIL SCH (08:38)
[2022-10-25] MEDS: IPRATROPIUM-ALBUTEROL 3 ML NEB INHALATION SCH ×2 (08:48→12:00)
[2022-10-25 09:21] LABS: African American GFR (CKD) 75.2 (60.0-200.0); Anion Gap 10.4 mmol/L (10.00-18.00); BUN/Creat Ratio 19.42 Ratio (12.00-20.00); Blood Urea Nitrogen 23.3 mg/dL (9.0-27.0); Calcium 9.7 mg/dL (8.7-10.3); Carbon Dioxide 28.6 mmol/L (20.0-27.5); Non-African American GFR(CKD) 64.9 (60.0-200.0); Potassium 3.8 mmol/L (3.5-5.5)
--- NOTE | 2022-10-25 13:20 | P.PN ---
Subjective Progress Note Date: 10/25/22 62-year-old male who presents to the emergency department, with illness, getting Thursday, which she thought was possibly the flu. The patient states that he started having chest pressure, fever, and shortness of breath. He was not coughing, and was not bringing up any phlegm. He does have a previous episode of pneumonia. In addition, he has a history of CAD, with a previous bypass grafting in 2013. He also has a history of recent total knee replacement, and coronavirus infection. He seen in the emergency room, room #4. He's on 2 L of oxygen. He is getting saline at KVO. The patient had a chest x-ray which revealed bibasilar infiltrates. White count is 16, hemoglobin 9.5, hematocrit 31.3, and platelet count 487,000. PTT is 20.3. Electrolytes look normal. BUN 25 with a creatinine of 0.71. Glucose 203. N-terminal proBNP is normal. Troponin is negative. The patient tested negative for influenza, respiratory syncytial virus, and coronavirus infection. Chest x-ray reveals a right lower lobe infiltrate. I'm evaluating this patient today on 10/21/2022 in follow-up on a general medical floor. Patient reports that he feels better, is resting up in bed, in no acute distress, on 4 L nasal cannula. Lungs sounds have coarse rhonchi throughout. Denies fever overnight. Chest X-ray today shows persistent bilateral lower lung acute infiltrate and/or atelectasis that does seem to be slightly worse from previous x-ray. Blood cultures continued to show no growth at 24 hours. CBC from today shows improved leukocytosis with a WBC count of 12.3, hemoglobin 13, hematocrit 38.8, platelets 175,000. BMP from today shows a sodium of 144 1, potassium 3.3, chloride 105, serum CO2 21, BUN 9.2, creatinine 0.8, glucose 131. Procalcitonin was negative at 0.06. He continues to receive Zithromax and Rocephin for empiric antibiotic therapy. He also continues to receive DuoNeb inhalation. Heparin is ordered for DVT prophylaxis and Pepcid for GI prophylaxis. Patient has normal saline infusing at 50 mL per hour. Vital signs remain stable. 10/22/2022, the patient reports partial mild improvement in his recovery is not adequate at this point in time as the patient is being treated for a pneumonia. All of the viral screens came back negative. The patient has a chest x-ray showed diffuse bilateral pulmonary infiltrates which has not changed since the time of admission. The pro-calcitonin level was low. He remains on accommodation of Rocephin and Zithromax. He is on DuoNeb neb blotchiness on the clock. He remains on oxygen at 1 L nasal cannula. He is an ex-smoker. He is known to have previous coronary artery disease and bypass surgery. 10/23/2022, the patient is feeling better. The patient is feeling less short of breath and currently is on room air oxygen. He did have bilateral pulmonary infiltrates that were not changing. Based on that, a CAT scan of the chest was obtained yesterdayOf the chest was done on 10/22/2019 20 showed some interstitial infiltrates bilaterally and perihilar and this raised the suspicion for interstitial pneumonia/atypical versus CHF. The chest x-ray from today is still showing bilateral pulmonary interstitial infiltrates along with post CABGchanges. Despite those findings, clinically the patient is feeling much better. He remains on IV Rocephin. He is on DuoNeb nebulized treatments [id number]. Is currently on room air oxygen. The patient was given a dose of Lasix yesterday with excellent diuresis. Noted the CAT scan of the chest also showed bilateral pleural effusions which may indicate a component of CHF in addition to interstitial pneumonia. Please of improved significantly with this patient. 10/24/2022, the patient is much improved. He received a total of 3 doses of Lasix and the shortness of breath is resolved and the chest x-ray is also improving with resolution of the perihilar pulmonary infiltrates and a small pleural effusion. Cardiology saw the patient regarding the possibility of CHF. Echocardiogram is still pending. EKG showed some A-V dissociation and based on that the patient was placed on a cardiac monitor technician. Further recommendations are to follow. Meanwhile, the labs from today is showing a the white cell count of 6.7 with a hemoglobin of 14 and a platelet count of 281. Sodium is at 141, BUN is 24 with a creatinine of 1.1. Troponins are negative. ProBNP level was 2330. Currently, the patient is on DuoNeb nebulized treatments [id number], the patient remains on no antibiotics. Hydrochlorothiazide was added. He is in negative fluid balance. Awaiting echocardiogram. 10/25/2022, the patient is feeling much better. Echocardiogram was done and LV function is normal. No respiratory difficulties. No cough sputum production or chest tightness or wheezing. We are awaiting cardiology clearance regarding his discharge. He is doing well otherwise clear no fever. No chills.The patient's blood work shows a sodium level CXL, BUN is 23 with a creatinine of 1.2. Troponins are 0.02 respectively 2. Rest of the labs are all normal. Echo of the heart showed an ejection fraction of 55%, mild RV dilatation, mother did reveal pulmonary hypertension, right ventricular systolic pressure was estimated to be 53. Moderate mitral regurgitation. The patient is having a second-degree AV block, Wenckebach type I. He is asymptomatic and he is not having any dizziness or syncope. His heart rate is currently at 45 Objective - Vital Signs Vital signs: Vital Signs Temp 97.9 F 10/25/22 07:08 Pulse 42 L 10/25/22 07:08 Resp 16 10/25/22 07:08 BP 121/71 10/25/22 07:08 Pulse Ox 96 10/25/22 08:49 FiO2 Intake & Output 10/24/22 10/25/22 10/25/22 18:59 06:59 18:59 Intake Total 240 Balance 240 Intake: Oral 240 Other: # Voids 3 1 - Exam alert, in no acute distress, oriented 3. Currently on room air oxygen HEENT examination is grossly unremarkable. Neck supple. Full range of motion. No adenopathy thyromegaly or neck vein distention. Cardiovascular examination reveals regular rhythm rate. S1-S2 normal. No S3 or S4. No discernible murmur noted. Lungs reveal coarse rhonchi throughout. No wheezes or crackles appreciated. No use of accessory muscles or conversational dyspnea. Abdomen soft bowel sounds are heard. No masses or tenderness. Extremities are intact. No cyanosis clubbing or edema. Skin is without rash or lesion. Neurologic examination is brief but nonfocal - Labs CBC & Chem 7: 10/24/22 08:25 10/25/22 06:29 Labs: Abnormal Lab Results - Last 24 Hours (Table) 10/25/22 Range/Units 06:29 Carbon Dioxide 28.6 H (20.0-27.5) mmol/L Microbiology - Last 24 Hours (Table) 10/22/22 21:00 Gram Stain - Final Sputum Sputum Culture - Final 10/20/22 00:20 Blood Culture - Preliminary Blood No Growth after 120 hours 10/20/22 00:05 Blood Culture - Preliminary Blood No Growth after 120 hours Assessment and Plan Plan: Acute hypoxic respiratory failure secondary to interstitial bilateral pneumonia with secondary shortness of breath and hypoxic respiratory failure. In addition, the patient a CAT scan of the chest that showed interstitial bilateral perihilar infiltrates which could be interstitial edema and bilateral pleural effusion. A component of CHF cannot be completely excluded especially the patient responded nicely to diuretics. She is currently on room air oxygen. The patient has is a total of 3 doses of Lasix. Echocardiogram showed a preserved LV function moderate MR and secondary pulmonary hypertension. 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 History of myocardial infarction. Prior history of pneumonia. History of hypertension. History of hyperlipidemia. History of GERD. Multiple other medical problems and comorbidities. Plan: Echo of the heart was noted and the patient has an LV function that is normal and the patient has moderate MR I looked into his rhythm strips. The patient is a first-degree AV block and at times he is going also to second-degree AV block Wenckebach 1. We are awaiting final recommendations from cardiology. From my standpoint, he is very much stable and the kidney discharged home on a course of Ceftin. Pro calcitonin level has been low and the rest of the viral screen came back negative Continue supplemental oxygen to maintain oxygen saturation of 92% or greater Continue DuoNeb inhalations We will continue to follow, possible discharge if cleared by cardiology.
--- NOTE | 2022-10-25 14:50 | P.PN ---
Subjective Progress Note Date: 10/25/22 Principal diagnosis: Right lower lobe pneumonia Patient is a 62-year-old male with a past medical history significant for coronary artery disease angina reflux hypertension hyperlipidemia and pneumonia presenting to the ER last evening for evaluation of chest pain short ness of breath and weakness symptom has been going on for about a day or 2 before presentation to the hospital, patient did have fever and elevated white count considered for right lower lobe pneumonia on today's evaluation that is 10/25/2022, the patient remains to be afebrile the patient is breathing comfortably on room air, patient denies having any chest pains , the patient denies any cough or sputum production no nausea no vomiting no abdominal pain no diarrhea feeling better wants to go home Objective - Vital Signs Vital signs: Vital Signs Temp 97.9 F 10/25/22 07:08 Pulse 42 L 10/25/22 07:08 Resp 16 10/25/22 07:08 BP 121/71 10/25/22 07:08 Pulse Ox 96 10/25/22 08:49 FiO2 Intake & Output 10/24/22 10/25/22 10/25/22 18:59 06:59 18:59 Intake Total 240 Balance 240 Intake: Oral 240 Other: # Voids 3 1 - Exam GENERAL DESCRIPTION: Middle-age male up in the chair in no distress RESPIRATORY SYSTEM: Unlabored breathing , decreased breath sounds at bases HEART: S1 S2 regular rate and rhythm , ABDOMEN: Soft , no tenderness EXTREMITIES: No edema feet - Labs CBC & Chem 7: 10/24/22 08:25 10/25/22 06:29 Labs: Abnormal Lab Results - Last 24 Hours (Table) 10/25/22 Range/Units 06:29 Carbon Dioxide 28.6 H (20.0-27.5) mmol/L Microbiology - Last 24 Hours (Table) 10/22/22 21:00 Gram Stain - Final Sputum Sputum Culture - Final 10/20/22 00:20 Blood Culture - Preliminary Blood No Growth after 120 hours 10/20/22 00:05 Blood Culture - Preliminary Blood No Growth after 120 hours Assessment and Plan (1) Community acquired pneumonia Current Visit: Yes Status: Acute Code(s): J18.9 - PNEUMONIA, UNSPECIFIED ORGANISM SNOMED Code(s): 736935004 Plan: 1patient presented to hospital with sepsis in this patient who did have a feve r elevated white count with evidence of right lower lobe pneumonia likely the source of his sepsis and likely community-acquired pathogen. 2obtain a sputum for gram stain and culture. 3patient did have elevated CRP however interestingly procalcitonin is normal. Patient did have a negative urine for Legionella antigen mycoplasma IgM normal IgG was positive 4patient did have CT of the chest with mostly interstitial infiltrate and lymphadenopathy some nodules, patient seen for clinical improvement with resolution of his fever and patient white count has normalized and, patient to continue Rocephin while inpatient and switched to short course of Ceftin on discharge Time with Patient: Less than 30
[2022-10-25 15:02] VITALS: BP 146/80; PULSE 48
--- NOTE | 2022-10-25 19:18 | P.PN ---
Progress Note - Text This is Dr. Velasquez dictating a follow-up note on this patient The patient was interviewed and examined IMPRESSION / ASSESSMENT: Third degree heart block with narrow QRS heart rate 46 beats a minute Known CAD status post coronary artery bypass grafting in 2013 Hypertension Dyslipidemia Over infection, mild in early September Presented this time with pneumonitis and is being treated for it with IV antibiotics Elevated white count during this admission mildly abnormal chest x-ray and computed tomography scan of the chest On my evaluation of this time stable Heart rates stable with exercise around 50 beats a minute no dizziness or lightheadedness with exercise PLAN: Elective biventricular pacemaker after 7-10 days, after completion of oral antibiotics and resolution of pneumonitis He is complete heart block and with standard pacing U Jesús the right ventricle 100% of the time Detailed discussion with patient regarding pacemaker implantation and easily with the plan Discontinue performed electively after 7-10 days, after completion of antibiotics HPI Patient presents to the hospital with shortness of breath cough which is dry He was diagnosed with pneumonitis and was treated as such with IV antibiotics. His white count was elevated His heart rates were in the 40s and 50s and the dip down to the 30s at night I reviewed his twelve-lead EKGs and they show third degree heart block with junctional escape rhythm, narrow QRS between 45-50 beats a minute I reviewed all his EKGs from before in prior admissions The EKGs from June and July 2022 He had a first-degree AV block at that time and there was no evidence for advanced heart block then EXAMINATION: Heart rate in the 40s afebrile 97.9F Blood pressure 120/71, normal respirations normal pulse ox Breath sounds equal bilaterally Heart sounds are regular no murmurs REVIEW OF LABS, ECG & MEDICAL DATA labs yesterday showed a normal white count, normal hemoglobin Normal electrolytes Normal potassium THROUGH this admission Normal renal function Normal troponins
--- NOTE | 2022-10-27 02:46 | P.DS ---
Providers Date of admission: 10/20/22 00:05 Expected date of discharge: 10/25/22 Attending physician: Kaycee Da Silva Consults: 10/20/22 11:28 Consult Physician Routine Consulting Provider: Kenneth Berg Consult Reason/Comments: rt ll pneumonia Do you want consulting provider notified?: Yes Consult Physician Routine Consulting Provider: Tammy Garza Consult Reason/Comments: rt ll pneumonia Do you want consulting provider notified?: Yes 10/23/22 13:30 Consult Physician Urgent Consulting Provider: Kadeem Manuel Consult Reason/Comments: elevated bnp, shortness of breath Do you want consulting provider notified?: Yes Primary care physician: [facility] Course: Discharge diagnosis Right lower lobe pneumonia, most likely community-acquired with fever, sepsis, present on admission Acute hypoxic respiratory failure secondary to interstitial bilateral pneumonia and possible component of CHF exacerbation Acute congestive heart failure. preserved ER moderate MR moderate to severely dilated left atrium and moderate TR. Leukocytosis improved History of coronary disease with CABG and stenting [place] hypertension Hyperlipidemia GI prophylaxis DVT prophylaxis Full code Hospital course This is a pleasant 62-year-old male who was recently admitted with increasing shortness of breath and found to have right lower lobe pneumonia and also the concerns for possible CHF. Patient has received a few doses of IV Lasix and troponins were obtained along with BMP and BNP is elevated and cardiology was consulted. EKG showing an undetermined rhythm of 46 bpm with incomplete left bundle branch block with prolonged QT and cardiology recommending continue telemetry monitoring with repeat EKG in the a.m. 2-D echo was ordered Pulmonary following as well along with infectious disease and patient is maintained on empiric Zithromax and Rocephin and will continue. Continue DuoNeb treatments and continued increase activity as tolerated. Chest x-ray today shows improvement in the right perihilar and interstitial opacification is with a small right pleural effusion. Patient is currently afebrile up and walking the halls denying any worsening shortness of breath and asking when he can go home. Patient denies chest pain or palpitations and denies nausea or vomiting. Other labs reviewed and within normal limits. Patient did have an elevated d- dimer and underwent CTA which was negative for PE 10/25/2021 Patient is currently sitting in the chair comfortably. Awake alert and oriented x3. No complaints of chest pain or shortness of breath. Patient denies any nausea vomiting abdominal pain or diarrhea. No fever no chills. No cough or sputum production. Patient received IV Lasix x3 doses. Patient will be continued on hydrochlorothiazide as per his home regimen. EKG showed second-degree AV block type I. Cardiology recommends to discontinue metoprolol.Patient denies any complaints of dizziness or lightheadedness. Able to ambulate without any symptoms. Patient was seen by cardiology and noted to have third-degree block with narrow complex.Plan for biventricular pacemaker placement after 7 to 10 days after completion of oral antibiotic therapy. Today echocardiogram showed preserved ejection fraction and, moderate MR and secondary pulmonary hypertension. Patient will be continued Ceftin for the r next 5 days to complete the course. Cleared from pulmonary, cardiology and ID standpoint. 2D echocardiogram showed left ventricular ejection fraction 55% and moderately increased left ventricular wall thickness and RVSP 53 moderate MR moderate to severely dilated left atrium and moderate TR. PHYSICAL EXAMINATION: GENERAL: The patient is alert and oriented x4, Well developed, well nourished. Obese. HEENT: Pupils are round and equally reacting to light. EOMI. no scleral icterus. No conjunctival pallor. Normocephalic, atraumatic. No pharyngeal erythema. No thyromegaly. CARDIOVASCULAR: S1 and S2 muffled PULMONARY: diminished breath sounds bilaterally with no wheezing or rhonchi noted. ABDOMEN: soft. Nontender on exam. obese. non-distended, normoactive bowel sounds. No palpable organomegaly. MUSCULOSKELETAL: No joint swelling or deformity. EXTREMITIES: No cyanosis, clubbing, or pedal edema. NEUROLOGICAL: Gross neurological examination did not reveal any focal deficits. SKIN: No rashes. Vital signs: Vital Signs Temp 97.9 F 10/25/22 07:08 Pulse 42 L 10/25/22 07:08 Resp 16 10/25/22 07:08 BP 121/71 10/25/22 07:08 Pulse Ox 96 10/25/22 08:49 FiO2 Intake & Output 10/24/22 10/25/22 10/25/22 18:59 06:59 18:59 Intake Total 240 Balance 240 Intake: Oral 240 Other: # Voids 3 1 Patient Condition at Discharge: Fair Plan - Discharge Summary Discharge Rx Participant: Yes New Discharge Prescriptions: New cefUROXime axetiL [Ceftin] 500 mg PO BID 5 Days #10 tab Continue amLODIPine BESYLATE [Norvasc] 5 mg PO BID Grafton-3 Fatty Acids/Fish Oil [Fish Oil 1,000 mg Softgel] 1 cap PO HS Famotidine [Pepcid AC] 10 mg PO HS Ubidecarenone [Co Q-10] 200 mg PO DAILY Atorvastatin [Lipitor] 80 mg PO HS #30 tab Aspirin EC [Ecotrin Low Dose] 81 mg PO DAILY polyethylene glycoL 3350 [Miralax] 17 gm PO DAILY Losartan Potassium [Cozaar] 100 mg PO DAILY Cholecalciferol [Vitamin D3 (25 Mcg = 1000 Iu)] 50 mcg PO BID hydroCHLOROthiazide [Hydrodiuril] 50 mg PO DAILY Loratadine [Claritin] 10 mg PO DAILY Albuterol Sulfate [Albuterol Sulfate Hfa] 2 puff INHALATION RT-Q4H PRN PRN Reason: Shortness Of Breath Discontinued Metoprolol Tartrate [Lopressor] 50 mg PO BID #60 tab Discharge Medication List amLODIPine BESYLATE [Norvasc] 5 mg PO BID 12/15/14 [History] Famotidine [Pepcid AC] 10 mg PO HS 06/18/18 [History] Grafton-3 Fatty Acids/Fish Oil [Fish Oil 1,000 mg Softgel] 1 cap PO HS 06/18/18 [History] Ubidecarenone [Co Q-10] 200 mg PO DAILY 10/11/18 [History] Atorvastatin [Lipitor] 80 mg PO HS #30 tab 10/12/18 [Rx] Aspirin EC [Ecotrin Low Dose] 81 mg PO DAILY 09/10/22 [History] Loratadine [Claritin] 10 mg PO DAILY 09/10/22 [History] Losartan Potassium [Cozaar] 100 mg PO DAILY 09/10/22 [History] hydroCHLOROthiazide [Hydrodiuril] 50 mg PO DAILY 09/10/22 [History] polyethylene glycoL 3350 [Miralax] 17 gm PO DAILY 09/10/22 [History] Albuterol Sulfate [Albuterol Sulfate Hfa] 2 puff INHALATION RT-Q4H PRN 10/20/22 [History] Cholecalciferol [Vitamin D3 (25 Mcg = 1000 Iu)] 50 mcg PO BID 10/20/22 [History] cefUROXime axetiL [Ceftin] 500 mg PO BID 5 Days #10 tab 10/25/22 [Rx] Follow up Appointment(s)/Referral(s): Rahat Delcid MD [Primary Care Provider] - 1-2 days Patient Instructions/Handouts: Heart Block (DC), Community Acquired Pneumonia (DC) Activity/Diet/Wound Care/Special Instructions: lopressor dcd. come back to ER with any dizziness or chest pain. 5 days before pace maker insertion take baths with CHG with focus on axillary and groin areas. Discharge Disposition: HOME SELF-CARE
== END 2022-10-25 18:44 | disposition home or self-care (01) | DRG 871 ==
LOC: EC 23:07 → 4SSUR 10-20 00:05
PROVIDERS: ADMIT Hospitalist; ATTEND Hospitalist
DX: A41.9 Sepsis, unspecified organism (principal); I50.31 Acute diastolic (congestive) heart failure; J18.9 Pneumonia, unspecified organism; J96.01 Acute respiratory failure with hypoxia; I44.2 Atrioventricular block, complete; I45.89 Other specified conduction disorders; E78.5 Hyperlipidemia, unspecified; I11.0 Hypertensive heart disease with heart failure; K21.9 Gastro-esophageal reflux disease without esophagitis; I08.1 Rheumatic disorders of both mitral and tricuspid valves; R79.1 Abnormal coagulation profile; I25.10 Atherosclerotic heart disease of native coronary artery without angina pectoris; I25.2 Old myocardial infarction; I27.29 Other secondary pulmonary hypertension; I44.7 Left bundle-branch block, unspecified; Z79.82 Long term (current) use of aspirin; Z79.899 Other long term (current) drug therapy; Z87.01 Personal history of pneumonia (recurrent); Z87.891 Personal history of nicotine dependence; Z95.1 Presence of aortocoronary bypass graft; Z95.5 Presence of coronary angioplasty implant and graft; Z96.659 Presence of unspecified artificial knee joint; Z96.652 Presence of left artificial knee joint; Z86.16 Personal history of COVID-19; Z20.822 Contact with and (suspected) exposure to COVID-19; Z82.49 Family history of ischemic heart disease and other diseases of the circulatory system
CPT/HCPCS: 36415; 71045; 71046; 71260; 80048; 80053; 83735; 83880; 84100; 84145; 84484; 85025; 85379; 85610; 85730; 86140; 86738; 87040; 87070; 87205; 87449; 87636; 93005; 93306; 94640; 94760

== ENCOUNTER 2022-10-26 12:56 | Inpatient (IN) | payer BC ==
[~2022-10-26 12:56] MED LIST changes: -DEXAMETHASONE SOD PHOSPHATE 4 MG/ML 1 ML VIAL IV ONE; -HYDROmorphone (PF) 1 MG/ML ONE; -HYDROmorphone 0.5 MG/0.5 ML SYRINGE IVP PRN; +IV FLUID CONTINUATION 1,000 ML IV ONE; -KETAMINE 10 MG/ML 20 ML VIAL ONE; -LACTATED RINGERS 1,000 ML IV ONE; -LACTATED RINGERS 1,000 ML IV SCH; -LIDOCAINE 1% (10MG/ML) FOR IV START INTRADERMA PRN; -MIDAZOLAM 2 MG/2 ML VIAL ONE; -ONDANSETRON 4 MG/2 ML VIAL IVP ONE; -ONDANSETRON 4 MG/2 ML VIAL ONE; -PROPOFOL 10 MG/ML 20 ML VIAL IV ONE; -Pre Op ABX Message 1 EACH MISC MISCELLANE ONE; -TRANEXAMIC ACID 1,000 MG in SODIUM CHLORIDE 0.9% 100 ML IVPB ONE; -fentaNYL (PF) 50 MCG/ML 2 ML AMP ONE
[2022-10-26] MEDS ORDERED: NITROGLYCERIN SL TABS 0.4 MG TAB SUBLINGUAL STA (13:00)
[2022-10-26] MEDS ORDERED: SODIUM CHLORIDE 0.9% 1,000 ML IV STA (13:23)
--- NOTE | 2022-10-26 13:25 | ED ---
Chest Pain HPI - General Chief Complaint: Chest Pain Stated Complaint: chest pain Time Seen by Provider: 10/26/22 12:56 Source: patient, EMS Mode of arrival: EMS Limitations: no limitations - History of Present Illness Initial Comments: 62-year-old male was just discharged yesterday after being in the hospital for a week with pneumonia also diagnosed with a third-degree heart block and is likely going to get a pacemaker in the future states he was feeling well when he was discharged yesterday this feeling well this morning but after getting a shower he felt indigestion-like midsternal chest pain nonradiating 5-6/10 severity with shortness of breath exertional dyspnea. He states it was somewhat intermittent. He was brought in by EMS he was given 324 of aspirin to nitroglycerin is no IV was established at that time. He still having the chest discomfort. MD Complaint: chest pain, other - Related Data Home Medications Medication Instructions Recorded Confirmed amLODIPine BESYLATE [Norvasc] 5 mg PO BID 12/15/14 10/20/22 Famotidine [Pepcid AC] 10 mg PO HS 06/18/18 10/20/22 [place]-3 Fatty Acids/Fish Oil [Fish 1 cap PO HS 06/18/18 10/20/22 Oil 1,000 mg Softgel] Ubidecarenone [Co Q-10] 200 mg PO DAILY 10/11/18 10/20/22 Aspirin EC [Ecotrin Low Dose] 81 mg PO DAILY 09/10/22 10/20/22 Loratadine [Claritin] 10 mg PO DAILY 09/10/22 10/20/22 Losartan Potassium [Cozaar] 100 mg PO DAILY 09/10/22 10/20/22 hydroCHLOROthiazide [Hydrodiuril] 50 mg PO DAILY 09/10/22 10/20/22 polyethylene glycoL 3350 [Miralax] 17 gm PO DAILY 09/10/22 10/20/22 Albuterol Sulfate [Albuterol 2 puff INHALATION RT-Q4H PRN 10/20/22 10/20/22 Sulfate Hfa] Cholecalciferol [Vitamin D3 (25 50 mcg PO BID 10/20/22 10/20/22 Mcg = 1000 Iu)] Previous Rx's Medication Instructions Recorded Atorvastatin [Lipitor] 80 mg PO HS #30 tab 10/12/18 cefUROXime axetiL [Ceftin] 500 mg PO BID 5 Days #10 tab 10/25/22 Allergies Allergy/AdvReac Type Severity Reaction Status Date / Time adhesive Allergy Rash/Hives Verified 10/26/22 14:18 Review of Systems ROS Statement: Those systems with pertinent positive or pertinent negative responses have been documented in the HPI. ROS Other: All systems not noted in ROS Statement are negative. EKG Findings - EKG Results: EKG: interpreted by ERMD (Initial EKG showed a likely third-degree heart block with a ventricular rate of 50 QRS duration 120 daily since QTC 5 way/[address] configuration leads 1 and aVL with evidence of inferior T-wave inversion in lead 3 this is compared to an EKG dated 10/24/22 which did show change from this EKG.) Past Medical History Past Medical History: Coronary Artery Disease (CAD), Chest Pain / Angina, GERD/Reflux, Hyperlipidemia, Hypertension, Myocardial Infarction (DC), Pneumonia Additional Past Medical History / Comment(s): Recent palpitations, past bronchitis, bilateral leg injury as a 6 yr old child with multiple surgeries Last Myocardial Infarction Date:: 2007 History of Any Multi-Drug Resistant Organisms: None Reported Past Surgical History: Appendectomy, Coronary Bypass/CABG, Heart Catheterization, Heart Catheterization With Stent, Joint Replacement Additional Past Surgical History / Comment(s): 2007 PCI with stent, 2013 cardiac cath, 2013 CABG 3 vessel, multiple surgeries on both legs from trauma age 6yrs, L knee ACL repair. left knee replaced 07-25-22 Past Anesthesia/Blood Transfusion Reactions: No Reported Reaction Additional Past Anesthesia/Blood Transfusion Reaction / Comment(s): Pt is unsure if he has ever received blood. Date of Last Stent Placement:: 03/2008 Past Psychological History: No Psychological Hx Reported Smoking Status: Former smoker - Past Family History Mother Family Medical History: Cancer Additional Family Medical History / Comment(s): Mother is 76yrs old. She had breast cancer and palpitations. There was alot of CAD on her side of the family. Father Family Medical History: Myocardial Infarction (DC) Additional Family Medical History / Comment(s): Father of a DC in his 60's. CAD runs strongley in father's side of family. General Exam - General Exam Comments Initial Comments: This is a well-developed well-nourished awake alert oriented 4 male Limitations: no limitations General appearance: alert, anxious Head exam: Present: atraumatic, normocephalic, normal inspection Eye exam: Present: normal appearance, PERRL, EOMI. Absent: scleral icterus, conjunctival injection, periorbital swelling ENT exam: Present: normal exam, mucous membranes moist Neck exam: Present: normal inspection, full ROM, other (No stridor JVD or bruits). Absent: tenderness, meningismus, lymphadenopathy Respiratory exam: Present: normal lung sounds bilaterally. Absent: respiratory distress, wheezes, rales, rhonchi, stridor Cardiovascular Exam: Present: normal rhythm, bradycardia, normal heart sounds. Absent: systolic murmur, diastolic murmur, rubs, gallop, clicks GI/Abdominal exam: Present: soft, normal bowel sounds. Absent: distended, tenderness, guarding, rebound, rigid, bruit, pulsatile mass Extremities exam: Present: normal inspection, full ROM, normal capillary refill. Absent: tenderness, pedal edema, joint swelling, calf tenderness Back exam: Present: normal inspection Neurological exam: Present: alert, oriented X3, CN II-XII intact Psychiatric exam: Present: normal affect, normal mood Skin exam: Present: warm, dry, intact, normal color. 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 Repeat EKG sec 1 department did show evidence of ST elevation in a inferior lateral likely posterior aspect of the heart. The patient went into a ventricular fibrillation arrest witnessed. CPR was immediately begun. Patient had a rhythm that appeared to be ventricular fibrillation with torsades. Patient was defibrillated twice with return of a bradycardic rhythm. Blood pressure was restored. Patient became awake and alert.. Patient was given IV magnesium during the recessive efforts as well as amiodarone. 4000 mg of heparin. The total CPR recessive time was about 6 minutes. See the complete report. Dr. Velasquez did come the emergency department the cath team was called and as well as Dr. Carrasco. I did discuss the case also with Dr. Pierre Reevaluation #2: 10/26/22 14:20 Repeat EKG was done after the patient reported continued chest pain or no resolution after medications given showed a evidence of high-grade AV block likely third-degree rate 43 QRS 104 QT since QTC 491/436 with anterior fascicular block evidence of ST elevation in leads [address] depression in leads 3 and aVF Reevaluation #3: 10/26/22 14:22 Post bronchoscopy EKG shows a high-grade AV block rate 44 QRS duration 109 QT since QTC 48/440 rate ventricular conduction delay evidence of inferior infarct ST elevation in leads 1 and aVL with T-wave depression ST depression in leads 3 and aVF some improvement from the prior EKG. Procedures - Procedures Initial comment: A Collin protocol was begun with recessive efforts went to ventricular fibrillation arrest patient was defibrillated 2 with return of spontaneous circulation receive a nursingand did respond well to treatment. Chest Pain MDM - MDM The patient was awake and alert with return of spontaneous circulation with adequate vital signs. Dr. Velasquez was at the bedside with the patient patient did go to the Nutrition Professor definitive care. Patient does have an elevated d-dimer which was reported to Dr. Velasquez. Was pt. sent in by a medical professional or institution (, PA, [employer], urgent care, hospital, or assisted...) When possible be specific @ -[No] Did you speak to anyone other than the patient for history (EMS, parent, family, police, friend...)? What history was obtained from this source @ Yes EMS personnel-[No] Did you review nursing and triage notes (agree or disagree)? Why? @ Yes I agree-[I reviewed and agree with nursing and triage notes] Were old charts reviewed (outside hosp., previous admission, EMS record, old EKG, old radiological studies, urgent care reports/EKG's, assisted records)? Report findings @ Oh charts were reviewed-[No old charts were reviewed] Differential Diagnosis (chest pain, altered mental status, abdominal pain women, abdominal pain men, vaginal bleeding, weakness, fever, dyspnea, syncope, headache, dizziness, GI bleed, back pain, seizure, CVA, palpatations, mental health)? @ Chest pain secondary to acute coronary syndrome, pulmonary embolism, pneumonia with pneumonitis-[not applicable] EKG interpreted by me (3pts min.). @ EKGs were interpreted by me is 1 was nonspecific repeat showed evidence of a inferior lateral DC with likely a posterior component-[As above] X-rays interpreted by me (1pt min.). @ X-ray interpreted by me no acute process-[None done] CT interpreted by me (1pt min.). @ -[None done] U/S interpreted by me (1pt. min.). @ -[None done] What testing was considered but not performed or refused? (CT, X-rays, U/S, labs)? Why? @ -[None] What meds were considered but not given or refused? Why? @ -[None] Did you discuss the management of the patient with other professionals (professionals i.e. , PA, [employer], lab, RT, psych nurse, social scientist, inside contractor sales, teacher, employee service officer, casework specialist)? Give summary @ Dr. Velasquez from cardiology, as well as Dr. Pierre from internal medicine-[No] Was smoking cessation discussed for >3mins.? @ -[No] Was critical care preformed (if so, how long)? @ Yes 45 minutes-[No] Were there social determinants of health that impacted care today? How? (Homelessness, low income, unemployed, alcoholism, drug addiction, transportation, low edu. Level, literacy, decrease access to med. care, assisted, rehab)? @ -[No] Was there de-escalation of care discussed even if they declined (Discuss DNR or withdrawal of care, Hospice)? DNR status @ -[No] What co-morbidities impacted this encounter? (DM, HTN, Smoking, COPD, CAD, Cancer, CVA, ARF, Chemo, Hep., AIDS, mental health diagnosis, sleep apnea, morbid obesity)? @ -[None] Was patient admitted / discharged? Hospital course, mention meds given and route, prescriptions, significant lab abnormalities, going to OR and other pertinent info. @ -[hospital course] Undiagnosed new problem with uncertain prognosis? @ ST elevation myocardial infarction [No] Drug Therapy requiring intensive monitoring for toxicity (Heparin, Nitro, Insulin, Cardizem)? @ -He has nitroglycerin, amiodarone, heparin [No] Were any procedures done? @ ACLS protocol with defibrillation-[No] Diagnosis/symptom? @ Acute ST elevation myocardial infarction, return of spontaneous circulation, ventricular fibrillation arrest, history of recent pneumonia, third-degree heart block-[default] Acute, or Chronic, or Acute on Chronic? @ Acute-[default] Uncomplicated (without systemic symptoms) or Complicated (systemic symptoms)? @ -[default] Side effects of treatment? @ -[No] Exacerbation, Progression, or Severe Exacerbation? @ -[No] Poses a threat to life or bodily function? How? (Chest pain, [place], DC, pneumonia, PE, COPD, DKA, ARF, appy, cholecystitis, CVA, Diverticulitis, Homicidal, Suicidal, threat to staff... and all critical care pts) @ This is not treated, the ST elevation myocardial infarction, ventricular fibrillation arrest-[No] Critical Care Time Critical Care Time: Yes Total Critical Care Time: 45 Critical Care Time: Included initial presentation with history physical labs x-rays discussed with paramedics upon arrival review of old charting that was available this also didn't include any resuscitative time from the ventricular fibrillation. Discussion with cardiology with internal medicine admission orders documentation the above Disposition Clinical Impression: ST elevation myocardial infarction (STEMI), Chest pain, Elevated d-dimer, Cardiac arrest with ventricular fibrillation, Dyspnea, Third degree heart block, History of recent pneumonia Disposition: ADMITTED IP TO THIS [facility] Condition: Critical Decision Date: 10/26/22 Decision Time: 14:00
[2022-10-26] MEDS ORDERED: MORPHINE SULFATE 4 MG/ML SYRINGE IVP STA (13:29)
--- NOTE | 2022-10-26 13:35 | XR ---
EXAMINATION TYPE: XR chest 2V DATE OF EXAM: 10/26/2022 1:27 PM COMPARISON: Chest radiographs from 10/24/2022 TECHNIQUE: XR chest 2V Frontal and lateral views of the chest. CLINICAL INDICATION:Male, 62 years old with history of Chest Pain; FINDINGS: Lungs/Pleura: There is no evidence of pleural effusion, focal consolidation, or pneumothorax. Opacit ies are seen projecting over the spine on lateral view. Pulmonary vascularity: Unremarkable. Heart/mediastinum: Cardiomediastinal silhouette is unremarkable. Musculoskeletal: No acute osseous pathology. IMPRESSION: Lower lung airspace opacity seen on lateral view only. Similar findings on 10/21/2022.
[2022-10-26 13:38] LABS: Basophils # (A) 0.1 k/uL (0-0.2); Basophils % (A) 1 %; Eosinophils # (A) 0.4 k/uL (0-0.7); Eosinophils % (A) 5 %; HCT 43.4 % (39.0-53.0); HGB 15.4 gm/dL (13.0-17.5); Lymphocytes # (A) 2.6 k/uL (1.0-4.8); Lymphocytes % (A) 32 %; MCH 30.7 pg (25.0-35.0); MCHC 35.6 g/dL (31.0-37.0); MCV 86.4 fL (80.0-100.0); Mean Platelet Volume 8.9; Monocytes # (A) 0.6 k/uL (0-1.0); Monocytes % (A) 7 %; Neutrophils # (A) 4.4 k/uL (1.3-7.7); Neutrophils % (A) 52 %; Platelet Count 355 k/uL (150-450); RBC 5.02 m/uL (4.30-5.90); RDW 13.4 % (11.5-15.5); WBC 8.4 k/uL (3.8-10.6)
[2022-10-26] MEDS ORDERED: DEXTROSE 5% IN WATER 50 ML BAG ONE (13:45)
[2022-10-26] MEDS ORDERED: MAGNESIUM SULFATE SYG 4.06 MEQ/ML SYRINGE ONE (13:45)
[2022-10-26] MEDS ORDERED: AMIODARONE 50 MG/ML 3 ML VIAL IV ONE (13:45)
[2022-10-26 13:48] LABS: Albumin 4.3 g/dL (3.5-5.0); Calcium 9.6 mg/dL (8.4-10.2); Magnesium 1.9 mg/dL (1.6-2.3); Potassium 3.7 mmol/L (3.5-5.1); Total Bilirubin 0.8 mg/dL (0.2-1.3); Total Protein 7.3 g/dL (6.3-8.2)
[2022-10-26 13:49] LABS: Partial Thromboplastin Time 22.3 sec (22.0-30.0); Prothrombin Time 10.3 sec (9.0-12.0)
[2022-10-26] MEDS ORDERED: SODIUM CHLORIDE 0.9% 1,000 ML IV ONE (14:00)
--- NOTE | 2022-10-26 14:19 | P.CRDCN ---
History of Present Illness History of present illness: This is Dr. Velasquez dictating a consult on this patient The patient was interviewed and examined IMPRESSION / ASSESSMENT: Acute posterior lateral ST elevation [place], presenting with sudden onset of chest pains morning Recent pneumonitis on antibiotics Stable third-degree AV block with an escape rhythm between 43-50 beats a minute, narrow QRS Patient has been on aspirin antihypertensive therapy with losartan and amlodipine and statins 80 mg by mouth daily Past history of coronary artery bypass grafting 2013 PLAN: Discussed with ER staff and patient as well as Dr. Carrasco Proceed with urgent coronary angiography and revascularization as clinically indicated HPI Patient was admitted to the hospital last week with pneumonitis and was treated for this with IV antibiotics While in the hospital he was noted to have AV node disease and a diagnosis third degree heart block was made His heart rates were stable between 40-50 beats a minute narrow QRS I evaluated him last night prior to his discharge line he was stable I made him ambulate up and down the hallway while on telemetry and watching telemetry to make sure there was no further worsening of bradycardia with exercise No shortness of breath and exertion at that time This morning he got up he is doing well and early this afternoon he started experiencing chest discomfort He did not express any dizziness or syncope When he came to the hospital he was found to have an ST elevation in the high lateral leads and ST depression in V1 consistent with the posterior lateral AZ Subsequently in the ER he went into ventricular fibrillation and was resuscitated with 2 defibrillation shocks When I examined him he was alert awake and he recounted the entire incident and stated that his symptom was sudden onset of chest pain ROS: No fever chills or rigors, no cough, phlegm or expectoration, no nausea, vomiting or diarrhea, no hematuria, dysuria, no musculoskeletal complaints, no strokes or seizures, no skin lesions. EXAMINATION: Pulse rate between 44-50 beats a minute, blood pressure 132/62 mmHg upon admission Heart sounds S1 and S2 are soft no murmurs to gallop Breath sounds are clear REVIEW OF LABS, ECG & MEDICAL DATA First 12-lead EKG shows sinus rhythm complete heart block with an escape rhythm at 43 beats a minute with ST elevation in leads [address] depression in V1 and lead 3 and aVF consistent with inferior posterior lateral acute AZ, ST elevation Past Medical History Past Medical History: Coronary Artery Disease (CAD), Chest Pain / Angina, GERD/Reflux, Hyperlipidemia, Hypertension, Myocardial Infarction (AZ), Pneumonia Additional Past Medical History / Comment(s): Recent palpitations, past bronchitis, bilateral leg injury as a 6 yr old child with multiple surgeries Last Myocardial Infarction Date:: 2007 History of Any Multi-Drug Resistant Organisms: None Reported Past Surgical History: Appendectomy, Coronary Bypass/CABG, Heart Catheterization, Heart Catheterization With Stent, Joint Replacement Additional Past Surgical History / Comment(s): 2007 PCI with stent, 2013 cardiac cath, 2013 CABG 3 vessel, multiple surgeries on both legs from trauma age 6yrs, L knee ACL repair. left knee replaced 07-25-22 Past Anesthesia/Blood Transfusion Reactions: No Reported Reaction Additional Past Anesthesia/Blood Transfusion Reaction / Comment(s): Pt is unsure if he has ever received blood. Date of Last Stent Placement:: 03/2008 Past Psychological History: No Psychological Hx Reported Smoking Status: Former smoker - Past Family History Mother Family Medical History: Cancer Additional Family Medical History / Comment(s): Mother is 76yrs old. She had breast cancer and palpitations. There was alot of CAD on her side of the family. Father Family Medical History: Myocardial Infarction (AZ) Additional Family Medical History / Comment(s): Father of a [place] in his 60's. CAD runs strongley in father's side of family. Medications and Allergies Home Medications Medication Instructions Recorded Confirmed Type amLODIPine BESYLATE [Norvasc] 5 mg PO BID 12/15/14 10/20/22 History Famotidine [Pepcid AC] 10 mg PO HS 06/18/18 10/20/22 History Sage-3 Fatty Acids/Fish Oil [Fish 1 cap PO HS 06/18/18 10/20/22 History Oil 1,000 mg Softgel] Ubidecarenone [Co Q-10] 200 mg PO DAILY 10/11/18 10/20/22 History Atorvastatin [Lipitor] 80 mg PO HS #30 tab 10/12/18 10/20/22 Rx Aspirin EC [Ecotrin Low Dose] 81 mg PO DAILY 09/10/22 10/20/22 History Loratadine [Claritin] 10 mg PO DAILY 09/10/22 10/20/22 History Losartan Potassium [Cozaar] 100 mg PO DAILY 09/10/22 10/20/22 History hydroCHLOROthiazide [Hydrodiuril] 50 mg PO DAILY 09/10/22 10/20/22 History polyethylene glycoL 3350 [Miralax] 17 gm PO DAILY 09/10/22 10/20/22 History Albuterol Sulfate [Albuterol 2 puff INHALATION RT-Q4H PRN 10/20/22 10/20/22 History Sulfate Hfa] Cholecalciferol [Vitamin D3 (25 50 mcg PO BID 10/20/22 10/20/22 History Mcg = 1000 Iu)] cefUROXime axetiL [Ceftin] 500 mg PO BID 5 Days #10 tab 10/25/22 Rx Allergies Allergy/AdvReac Type Severity Reaction Status Date / Time adhesive Allergy Rash/Hives Verified 10/26/22 13:05 Physical Exam Vitals: Vital Signs Temp Pulse Pulse Resp BP Pulse Ox 10/26/22 13:44 44 L 22 93/69 99 10/26/22 13:22 89/55 10/26/22 13:19 50 L 20 100 10/26/22 13:10 49 L 10/26/22 13:02 98.3 F 49 L 24 132/60 100 Intake and Output 10/25/22 10/26/22 10/26/22 22:59 06:59 14:59 Other: Weight 106.594 kg Results 10/26/22 13:17 10/26/22 13:17 Cardiac Enzymes 10/26/22 10/26/22 Range/Units 13:17 13:17 AST 47 (17-59) U/L Troponin I 0.021 (0.000-0.034) ng/mL Coagulation 10/26/22 Range/Units 13:17 PT 10.3 (9.0-12.0) sec APTT 22.3 (22.0-30.0) sec CBC 10/26/22 Range/Units 13:17 WBC 8.4 (3.8-10.6) k/uL RBC 5.02 (4.30-5.90) m/uL Hgb 15.4 (13.0-17.5) gm/dL Hct 43.4 (39.0-53.0) % Plt Count 355 (150-450) k/uL Comprehensive Metabolic Panel 10/26/22 Range/Units 13:17 Sodium 137 (137-145) mmol/L Potassium 3.7 (3.5-5.1) mmol/L Chloride 102 (98-107) mmol/L Carbon Dioxide 25 (22-30) mmol/L BUN 21 H (9-20) mg/dL Creatinine 1.32 H (0.66-1.25) mg/dL Glucose 108 H (74-99) mg/dL Calcium 9.6 (8.4-10.2) mg/dL AST 47 (17-59) U/L ALT 113 H (4-49) U/L Alkaline Phosphatase 108 (38-126) U/L Total Protein 7.3 (6.3-8.2) g/dL Albumin 4.3 (3.5-5.0) g/dL Current Medications Generic Name Dose Route Start Last Admin Trade Name Freq PRN Reason Stop Dose Admin Sodium Chloride 1,000 mls @ 999 mls/hr 10/26/22 13:23 10/26/22 13:27 Saline 0.9% IV 10/26/22 14:23 999 mls/hr .Q1H1M STA Administration Intake and Output 10/25/22 10/26/22 10/26/22 22:59 06:59 14:59 Other: Weight 106.594 kg Patient Weight 10/27/22 06:59 Weight 106.594 kg 10/26/22 13:17 10/26/22 13:17
[2022-10-26] MEDS ORDERED: ATROPINE SULFATE 0.1 MG/ML 10ML SYRINGE IV ONE (14:25)
[2022-10-26] MEDS ORDERED: fentaNYL (PF) 50 MCG/ML 2 ML AMP ONE ×2 (14:29→19:50)
[2022-10-26] MEDS ORDERED: LIDOCAINE 1% INJ 10MG/ML (30 ML VIAL-PF) SQ ONE ×3 (14:29→19:41)
[2022-10-26] MEDS ORDERED: fentaNYL (PF) 50 MCG/ML 2 ML AMP IV ONE ×2 (14:30→19:55)
[2022-10-26] MEDS ORDERED: HEPARIN SODIUM 1,000 UN/ML (10ML VL) ONE (14:48)
[2022-10-26] MEDS ORDERED: PRASUGREL 10 MG TAB ONE (14:50)
[2022-10-26] MEDS: HEPARIN SODIUM 1,000 UN/ML (10ML VL) IV ONE ×5 (14:50→16:10)
[2022-10-26] MEDS ORDERED: PRASUGREL 10 MG TAB PO ONE (14:51)
[2022-10-26] MEDS ORDERED: IOPAMIDOL-370 125ML BTL INJ ONE (15:11)
[2022-10-26] MEDS ORDERED: IV FLUID CONTINUATION 1,000 ML IV ONE (15:12)
[2022-10-26] MEDS ORDERED: NITROGLYCERIN 1000MCG/10ML SYRINGE INTRACORON ONE (15:31)
[2022-10-26] MEDS ORDERED: IOPAMIDOL-370 100ML BTL INJ ONE ×2 (15:39→16:40)
[2022-10-26] MEDS ORDERED: RX INFO: IV CONTRAST WAS GIVEN 1 EACH MISC MISCELLANE PRN (16:39)
[2022-10-26] MEDS ORDERED: ATROPINE SULFATE 0.1 MG/ML 10ML SYRINGE IV PRN (16:39)
[2022-10-26] MEDS ORDERED: MAG HYDROX/AL HYDROX/SIMETH 30 ML CUP PO PRN (16:39)
[2022-10-26] MEDS ORDERED: NITROGLYCERIN SL TABS 0.4 MG TAB SUBLINGUAL PRN (16:39)
[2022-10-26] MEDS ORDERED: ZOLPIDEM 5 MG TAB PO PRN (16:39)
[2022-10-26] MEDS ORDERED: SODIUM CHLORIDE 0.9% 1,000 ML in EMPTY BAG 1 BAG IV SCH (16:45)
--- NOTE | 2022-10-26 17:06 | P.CARDCATH ---
Date of Procedure: 10/26/22 Description of Procedure: Cardiac Catheterization: The patient is a 62-year-old male with a known history of CAD, status post stenting in 2007 , CABG in 2013 who was just discharged from the hospital yesterday with pneumonia and had at that time stable complete heart block who presented with acute chest discomfort, ST elevation in the high precordial leads, had a ventricular tachycardia, was cardioverted. He was evaluated by Dr. Velasquez. Recommendations were made regarding cardiac catheterization, the risks and the complications were discussed with the patient who is in full understanding and agreement. Procedure Description: Patient was brought to labor economist in fasting semi-sedated state after receiving Fentanyl and Benadryl achieiving moderate conscious sedated state. Using Xylocaine Anesthesia and Seldinger technique, a 6-Hungarian sheath was introduced in the right femoral l artery . Subsequently using a micropuncture catheter a 6-Hungarian sheath was introduced in the right femoral vein, temporary pacemaker was advanced, positioned with good pacing parameters. Subsequently, selective coronary angiography was performed using a 5-Chmsfx-Lljkac 4 bend bend Denae catheter. Multiple views of the coronary artery including hemiaxial views were obtained. Subsequently angioplasty and stenting was performed, subsequently 6-Hungarian PRASHANTH catheter was introduced and images of the OROZCO graft were obtained. The 6-Hungarian pigatail catheter was used to cross the aortic valve and LVEDP was calculated. After obtaining the images of the standing rock coronaries a 6-Hungarian left coronary bypass guide catheter was introduced and the saphenous vein graft to the diagonal branch was cannulated. A 0.014 BMW J-wire was positioned distally subsequently a Penumbra catheter was introduced and multiple runs were done with removal of some thrombotic material. Subsequently an export catheter was advanced and thrombectomy was performed. After removing the catheter is 3.0 x 15 mm Treck was advanced and multiple inflations were done at 8 yeison. The export catheter was reintroduced and one run was performed. After removing the catheter a 4.0 x 12 mm Treck was advanced and inflation at 10 yeison. After removing the 4.0X38 millimeter Xience vanessa point stent was deployed at 14 yeison, after removing the balloon 5.0 x 12 mm Xience vanessa point was positioned proximal to the first one and dilated at 12 yeison. After removing the balloon 5.0 x 20 mm NC Treck balloon was advanced and multiple inflations at a maximum of 10 yeison were done. After the last inflation and after removing the wire images were obtained and reveal stable successful stenting. Following that, catheter and sheath were removed. Hemostasis was obtained with deployment of Angio-Seal. The temporary pacemaker sheath was sutured in place. There was no immediate complication. Patient was returned to room in stable condition. Of note, [place] [id number] units of intravenous heparin as well as intra- arterial verapamil. His ACT was followed and he received an oral loading dose of Effient. His chest discomfort improved at the end of the procedure. He continued to be pacer dependent. Findings: Left main: This is a large size vessel, bifurcating into LAD and left circumflex, the left main has 20% plaque distally. LAD: This vessel is totally occluded proximally with no significant antegrade. Left circumflex: This is a nondominant vessel gives rise to a very proximal obtuse marginal branch that is small in caliber and has no high-grade stenosis, the second obtuse marginal branch is subtotally occluded with no significant antegrade flow. Distally there is no evidence of high-grade stenosis. RCA: This is a large dominant vessel, bifurcating into PDA and PLV, the PLV appears to be totally occluded in the midsegment with no significant antegrade flow. OROZCO to the LAD: The distal anastomotic site is patent the flow into the LAD is brisk there is collaterals from the distal LAD toward the right PLV Saphenous vein graft to the diagonal branch: The proximal and distal anastomotic sites are patent the graft has a long area suggestive of thrombotic material with slow flow distally. Collaterals: There is collaterals from the right to the third obtuse marginal branch. Left Ventriculogram: Not performed Hemodynamics: There was no gradient across the aortic valve, LVEDP was 8-10 mmHg Conclusion: 1. Subtotally occluded saphenous vein graft to the diagonal branch are large amount of thrombotic material 2. Chronically occluded LAD 3. Chronically occluded second and third obtuse marginal branch 4. Chronically occluded right PLV 5. Successful stenting of the saphenous vein graft to diagonal branch with reduction in stenosis from 99% to less than 5% with LORENA-3 flow 6. Placement of temporary pacemaker Recommendations: I have recommended to continue with aspirin and Effient for 1 year without any i nterruption. The patient will be evaluated to undergo permanent pacemaker implantation. Depending on his blood pressure and heart rate beta eliud and RAFAEL inhibitor will be initiated The findings and the recommendations were discussed with the patient and the family and they were in full understanding and agreement. Duration of sedation is 121 minutes.
[2022-10-26 17:49] LABS: Glucose,Whole Blood 128 mg/dL (70-110)
[2022-10-26] MEDS ORDERED: ACETAMINOPHEN TAB 500 MG TAB PO STA (18:01)
[2022-10-26] MEDS ORDERED: Potassium Replacement Protocol 1 EACH MISC MISCELLANE PRN (19:03)
[2022-10-26] MEDS ORDERED: IOPAMIDOL-370 50ML BTL INJ ONE (19:22)
[2022-10-26] MEDS ORDERED: MIDAZOLAM 2 MG/2 ML VIAL IV ONE ×2 (19:55→19:57)
[2022-10-26] MEDS ORDERED: ACETAMINOPHEN TAB 325 MG TAB PO PRN (20:30)
[2022-10-26] MEDS ORDERED: ACETAMINOPHEN IV (For NPO) 1,000 MG in EMPTY BAG 1 BAG IVPB ONE (20:30)
--- NOTE | 2022-10-26 20:30 | P.EPPROC ---
- EP Procedure Note Electrophysiology Procedure Note: Planned Procedure Externalized pacemaker via the right axillary vein Indication for procedure Underlying complete heart block high thresholds and instability of the TVP placed via the right femoral vein Final procedures performed Right upper extremity venogram Single pacemaker lead in the RV apex Conscious sedation External defibrillation for ventricular tachycardia External defibrillation for ventricular fibrillation Removal of TVP and placement of vascular closure device, right femoral vein Details Patient was brought to the EP lab in a fasting state. Written informed consent was obtained prior to the procedure High output pacing was performed while the template pacemaker paced via the right femoral vein, 20 mA The right pectoral area was prepped and draped as a protocol IV antibiotics infused 50 mL every dye injection to the right arm Right upper extremity venogram performed Patent subclavian vein and axillary vein noted Local anesthesia applied. Conscious sedation given Right axillary vein access obtained Sheath placed [employer] medical screw-in lead placed in the RV apex Threshold less than 1 V at 0.5 ms Leads secured to the skin Appropriately dressed under sterile precautions Connected to her single-chamber pacemaker, [employer] medical ASSURITY pacemaker Pacemaker programmed to VVI 60 beats a minute Pacemaker secured to the pectoralis muscle and the area dressed and sealed TVP removed under fluoroscopy from the right femoral vein Vascade closure device applied and hemostasis achieved Patient underwent EP procedure under conscious sedation/moderate sedation, monitoring of the level of consciousness and physiologic parameters including but not limited to vital signs and oxygenation. Patient tolerated the procedure well without any acute complications. Start time: 1933 Stop time: 2019 During the procedure after placement of the new RV lead, the patient went into ventricular tachycardia, likely mechanical stimulation This degenerated into ventricular fibrillation At 200 J shock was used to defibrillate him to sinus rhythm After about 5 minutes he went into ventricular tachycardia once again, monomorphic Externally defibrillated successfully Plan 2-D echo and Doppler study tomorrow IV antibiotics Beta blockers Consideration for a LifeVest Prior to permanent pacemaker implantation, biventricular device I performed the study to check for inducibility for VT If he is inducible for VT then a biventricular ICD will be placed in the future
[2022-10-26 20:59] LABS: Glucose,Whole Blood 128 mg/dL (70-110)
[2022-10-26] MEDS: METOPROLOL TARTRATE 12.5 MG TAB PO SCH (21:16)
[2022-10-26] MEDS: ATORVASTATIN 80 MG TAB PO SCH (21:16)
--- NOTE | 2022-10-26 21:30 | XR ---
EXAMINATION TYPE: XR chest 1V portable DATE OF EXAM: 10/26/2022 9:21 PM COMPARISON: Earlier chest x-ray 10/26/2022, chest x-ray 10/24/2022 TECHNIQUE: XR chest 1V portable . CLINICAL INDICATION:Male, 62 years old with history of Lead placement check, UPRIGHT; FINDINGS: Lungs/Pleura: Bibasilar atelectasis. No focal airspace consolidation, pneumothorax or pleural effusio n. Pulmonary vascularity: Unremarkable. Heart/mediastinum: Cardiomediastinal silhouette is unremarkable. Single-lead cardiac conduction devic e overlying the right hemithorax with lead projecting over the right ventricle. Musculoskeletal: No acute osseous pathology. Midline sternotomy wires and surgical clips project over the mediastinum. IMPRESSION: 1. Interval placement of right single lead cardiac conduction device. Lead appears in the appropriate position without evidence for pneumothorax. 2. Bibasilar atelectasis.
[2022-10-26] MEDS ORDERED: POTASSIUM CHLORIDE ER 20 MEQ TAB.ER PO SCH (22:00)
--- NOTE | 2022-10-27 03:01 | P.HPIM ---
History of Present Illness H&P Date: 10/26/22 Chief Complaint: Chest pain Patient is a 62-year-old male with a known history of coronary status post stent placement in 2007, CABG in 2013 and recent admission to the hospital due to pneumonia and was discharged yesterday presents to ER with complaints of chest discomfort. Patient was found to have ST elevation in the high precordial leads and was found to posterolateral [place]. Patient had ventricular tachycardia in the ER and is status post cardioversion and 1 dose of epi. With successful cardiopulmonary resuscitation patient was taken to cardiac catheterization.Pat ient was found to have third-degree AV block with narrow complex but was asymptomatic. Patient was discharged home with a plan to place permanent pacemaker in the next 7 to 10 days with completion of antibiotic course for pneumonia. Chest x-ray showed lower lung opacity seen on the lateral view only. Findings similar to 10/21/[address] elevation in the high lateral leads and ST depression in V1 consistent with posterior lateral [place]. Laboratory data showed D-dimer 2.98, sodium 137 potassium 3.7 chloride 102 bicarbonate 25 BUN 21 creatinine 1.32 and blood sugar is 108 and lipase level is 386. Review of Systems Constitutional: Patient denies any fever or chills . no Generalized weakness. Abdomen: Patient denied any nausea or vomiting or abd. pain Cardiovascular: Patient did complain of chest pain and shortness of breath. No palpitations no leg swelling.. Respiratory: patient denied any cough . no sputum production. shortness of breath Neurologic: Patient denied any numbness or tingling headache. Musculoskeletal: Patient denies any complaints of joint swelling or deformity. Complete review of systems could not be obtained from the patient at this time. Past Medical History Past Medical History: Coronary Artery Disease (CAD), Chest Pain / Angina, GERD/Reflux, Hyperlipidemia, Hypertension, Myocardial Infarction ([place]), Pneumonia Additional Past Medical History / Comment(s): Recent palpitations, past bronchitis, bilateral leg injury as a 6 yr old child with multiple surgeries Last Myocardial Infarction Date:: 2007 History of Any Multi-Drug Resistant Organisms: None Reported Past Surgical History: Appendectomy, Coronary Bypass/CABG, Heart Catheterization, Heart Catheterization With Stent, Joint Replacement Additional Past Surgical History / Comment(s): 2007 PCI with stent, 2013 cardiac cath, 2013 CABG 3 vessel, multiple surgeries on both legs from trauma age 6yrs, L knee ACL repair. left knee replaced 10-7-22 Past Anesthesia/Blood Transfusion Reactions: No Reported Reaction Additional Past Anesthesia/Blood Transfusion Reaction / Comment(s): Pt is unsure if he has ever received blood. Date of Last Stent Placement:: 03/2008 Past Psychological History: No Psychological Hx Reported Smoking Status: Former smoker - Past Family History Mother Family Medical History: Cancer Additional Family Medical History / Comment(s): Mother is 76yrs old. She had breast cancer and palpitations. There was alot of CAD on her side of the family. Father Family Medical History: Myocardial Infarction ([place]) Additional Family Medical History / Comment(s): Father of a [place] in his 60's. CAD runs strongley in father's side of family. Medications and Allergies Home Medications Medication Instructions Recorded Confirmed Type amLODIPine BESYLATE [Norvasc] 5 mg PO BID 12/15/14 10/26/22 History Famotidine [Pepcid AC] 10 mg PO HS 06/18/18 10/26/22 History [place]-3 Fatty Acids/Fish Oil [Fish 1 cap PO HS 06/18/18 10/26/22 History Oil 1,000 mg Softgel] Ubidecarenone [Co Q-10] 200 mg PO DAILY 10/11/18 10/26/22 History Atorvastatin [Lipitor] 80 mg PO HS #30 tab 10/12/18 10/26/22 Rx Aspirin EC [Ecotrin Low Dose] 81 mg PO DAILY 09/10/22 10/26/22 History Loratadine [Claritin] 10 mg PO DAILY 09/10/22 10/26/22 History Losartan Potassium [Cozaar] 100 mg PO DAILY 09/10/22 10/26/22 History hydroCHLOROthiazide [Hydrodiuril] 50 mg PO DAILY 09/10/22 10/26/22 History polyethylene glycoL 3350 [Miralax] 17 gm PO DAILY 09/10/22 10/26/22 History Albuterol Sulfate [Albuterol 2 puff INHALATION RT-Q4H PRN 10/20/22 10/26/22 History Sulfate Hfa] Cholecalciferol [Vitamin D3 (25 50 mcg PO BID 10/20/22 10/26/22 History Mcg = 1000 Iu)] cefUROXime axetiL [Ceftin] 500 mg PO BID 5 Days #10 tab 10/25/22 10/26/22 Rx Allergies Allergy/AdvReac Type Severity Reaction Status Date / Time adhesive Allergy Rash/Hives Verified 10/26/22 14:18 Physical Exam Vitals: Vital Signs Temp Pulse Pulse Resp BP Pulse Ox 10/26/22 13:44 44 L 22 93/69 99 10/26/22 13:22 89/55 10/26/22 13:19 50 L 20 100 10/26/22 13:10 49 L 10/26/22 13:02 98.3 F 49 L 24 132/60 100 Intake and Output 10/26/22 10/26/22 10/26/22 06:59 14:59 22:59 Other: Weight 106.594 kg PHYSICAL EXAMINATION: Patient is lying in the bed comfortably, no acute distress, awake alert and oriented.. HEENT: Normocephalic. Neck is supple. Pupils reactive. Nostrils clear. Oral cavity is moist. Neck reveals no JVD, carotid bruits, or thyromegaly. CHEST EXAMINATION: Trachea is central. Symmetrical expansion. Basilar diminished sounds.. CARDIAC: Normal S1, S2 with no gallops. No murmurs ABDOMEN: Soft. Bowel sounds present. Nontender. No organomegaly. No abdominal bruits. Extremities: reveal no edema. No clubbing or cyanosis Neurologically awake, alert, oriented. No gross focal neurological deficit. Skin: No rash or skin lesions. Psychiatric: Coperative. Nonsuicidal, Musculoskeletal: No joint swelling or deformity. Results CBC & Chem 7: 10/26/22 13:17 10/26/22 13:17 Labs: Abnormal Lab Results - Last 24 Hours (Table) 10/26/22 10/26/22 Range/Units 13:17 13:17 D-Dimer 2.98 H (<0.60) mg/L FEU BUN 21 H (9-20) mg/dL Creatinine 1.32 H (0.66-1.25) mg/dL Glucose 108 H (74-99) mg/dL ALT 113 H (4-49) U/L Lipase 386 H (23-300) U/L Thrombosis Risk Factor Assmnt - DVT/VTE Prophylaxis DVT/VTE Prophylaxis: Pharmacologic Prophylaxis ordered Assessment and Plan Assessment: Acute cardiac arrest with ventricular tachycardia status post cardioversion in the ER. Acute posterior lateral ST elevation [place]. Status post cardiac catheterization and stent placement to saphenous vein graft to diagonal branch. Third-degree AV block with narrow QRS. Coronary with history of CABG Patient admitted with right lower lobe pneumonia and hypoxic respiratory failure and complaint of CHF. Continue with antibiotic course with Ceftin. Moderate MR moderate to severely dilated left atrium and moderate TR Hyperlipidemia GI and DVT prophylaxis Plan: Patient was taken to cardiac catheterization status post stent placement and temporary pacemaker placement. Patient will be placed on telemetry monitoring. Continue with aspirin, Effient and statins. Patient was also started on metoprolol. Cardiology is on board. Currently on antibiotics upon cefazolin 1 g every 6 hourly. Follow-up repeat CBC BMP and chest x-ray. Prognosis guarded at this time. Time with Patient: Greater than 30
--- NOTE | 2022-10-27 06:12 | XR ---
EXAMINATION TYPE: XR chest 1V DATE OF EXAM: 10/27/2022 CLINICAL HISTORY: Difficulty breathing and CHF progress study. TECHNIQUE: Single AP portable upright view of the chest is obtained. COMPARISON: Chest x-ray from one day earlier FINDINGS: Persistent increased airspace opacity in the lower lungs. Overlying sternal wires and med iastinal clips again seen. The cardiac silhouette size is stable and mildly enlarged with right-sided single lead pacemaker redemonstrated. Underlying scoliotic curvature or positioning on current study . IMPRESSION: Persistent cardiomegaly with bilateral lower lung acute infiltrates and/or atelectasis. No significant change from most recent x-ray.
[2022-10-27 06:39] LABS: HCT 37.4 % (39.0-53.0); HGB 13.1 gm/dL (13.0-17.5); MCH 31.3 pg (25.0-35.0); MCHC 34.9 g/dL (31.0-37.0); MCV 89.5 fL (80.0-100.0); Mean Platelet Volume 8.1; Platelet Count 310 k/uL (150-450); RBC 4.18 m/uL (4.30-5.90); RDW 13.3 % (11.5-15.5); WBC 8.3 k/uL (3.8-10.6)
[2022-10-27 07:56] LABS: African American GFR (CKD) >90 (>60 ml/min/1.73 sqM); Anion Gap 7 mmol/L; Blood Urea Nitrogen 14 mg/dL (9-20); Calcium 8.3 mg/dL (8.4-10.2); Carbon Dioxide 25 mmol/L (22-30); Chloride 104 mmol/L (98-107); Glucose 142 mg/dL (74-99); Non-African American GFR(CKD) >90 (>60 ml/min/1.73 sqM); Potassium 3.6 mmol/L (3.5-5.1); Sodium 136 mmol/L (137-145)
[2022-10-27] MEDS ORDERED: POTASSIUM CHLORIDE ER 20 MEQ TAB.ER PO SCH ×2 (09:00→19:00)
[2022-10-27] MEDS: ASPIRIN 81 MG PO SCH (09:30)
[2022-10-27] MEDS: METOPROLOL TARTRATE 12.5 MG TAB PO SCH ×2 (09:31→20:01)
[2022-10-27] MEDS ORDERED: traMADol 50 MG TAB PO PRN (10:39)
[2022-10-27] MEDS ORDERED: TAMSULOSIN 0.4 MG CAP.ER.24H PO STA (10:39)
[2022-10-27] MEDS: PRASUGREL 10 MG TAB PO SCH (10:41)
[2022-10-27] MEDS: KETOROLAC 15 MG/ML 1 ML VIAL IVP SCH ×3 (10:46→22:59)
[2022-10-27 11:28] VITALS: BMI 33.8
--- NOTE | 2022-10-27 12:28 | PN ---
PROGRESS NOTE SUBJECTIVE: This is a 62-year-old gentleman, who presented to hospital with acute inferolateral myocardial infarction, and underwent emergent cardiac catheterization by Dr. Carrasco. He has known CAD and prior bypass surgery and also had prior angioplasty in 2007. He had a subtotally occluded venous graft to diagonal, chronically occluded LAD, OM, PLV, and underwent angioplasty of the diagonal branch with a temporary pacemaker. He had an external pacemaker done since. I am waiting on the echocardiogram. OBJECTIVE: GENERAL: At the time of my evaluation this morning, he appears comfortable at rest and is free of symptoms. VITAL SIGNS: Heart rate is 60 with blood pressure is 109/50, respiratory rate is 18. CHEST: Reveals diminished air entry at the bases. HEART: Reveals first and second heart sounds. No gallop. No murmur. ABDOMEN: Soft. EXTREMITIES: Did not reveal any edema. Peripheral pulses are felt. LABORATORY DATA: Labs show a hemoglobin of 13.1, platelet count is 310. Potassium is 3.6, creatinine is 0.87. MEDICATIONS: The patient is currently on aspirin, Lipitor, Lopressor, Effient. ASSESSMENT: 1. Acute myocardial infarction, status post angioplasty, venous graft to the diagonal. 2. Complete heart block, status post external pacemaker. PLAN: I will follow the echocardiogram. Continue current medications. MMODL / IJN: [id number] /
--- NOTE | 2022-10-27 14:18 | P.PN ---
Subjective Progress Note Date: 10/27/22 Patient is a 62-year-old male with a known history of coronary status post stent placement in 2007, CABG in 2013 and recent admission to the hospital due to pneumonia and was discharged yesterday presents to ER with complaints of chest discomfort. Patient was found to have ST elevation in the high precordial leads and was found to posterolateral [place]. Patient had ventricular tachycardia in the ER and is status post cardioversion and 1 dose of epi. With successful cardiopulmonary resuscitation patient was taken to cardiac catheterization.Patient was found to have third-degree AV block with narrow com plex but was asymptomatic. Patient was discharged home with a plan to place permanent pacemaker in the next 7 to 10 days with completion of antibiotic course for pneumonia. Chest x-ray showed lower lung opacity seen on the lateral view only. Findings similar to 10/21/[address] elevation in the high lateral leads and ST depression in V1 consistent with posterior lateral [place]. Laboratory data showed D-dimer 2.98, sodium 137 potassium 3.7 chloride 102 bicarbonate 25 BUN 21 creatinine 1.32 and blood sugar is 108 and lipase level is 386. 10/27/2021 Patient evaluated in the ICU. Status post PCI with stent x 2 to the SVG. He had external pacemaker single chamber placed yesterday as well. Chest xray today showing persistent cardiomegaly with bilateral lower lung acute infiltrate and or atelectasis. Stable from prior. Continues on IV cefazolin every 6 hours. He was discharged on oral ceftin 500 mg twice a day for 5 days yesterday, which for now can be held and he will continue on the IV cefazolin while inpatient. Reports his cough has improved. He does have some right sided chest pressure from CPR. IS has been ordered. Creatinine has normalized to 0.87. Review of Systems Constitutional: Denied any fatigue denied any fever. Cardio vascular: Right sided chest pain, musculoskeletal, denies palpitations Gastrointestinal: denied any nausea, vomiting, diarrhea Pulmonary: Denies shortness of breath, reports cough intermittent. Neurologic denied any new focal deficits All inpatient medications were reviewed and appropriate changes in these medications as dictated in the interval history and assessment and plan. PHYSICAL EXAMINATION: GENERAL: The patient is alert and oriented x3, not in any acute distress. Well developed, well nourished. HEENT: Pupils are round and equally reacting to light. EOMI. No scleral icterus. No conjunctival pallor. Normocephalic, atraumatic. No pharyngeal erythema. No thyromegaly. CARDIOVASCULAR: S1 and S2 present. No murmurs, rubs, or gallops. PULMONARY: Chest is clear to auscultation, no wheezing or crackles. ABDOMEN: Soft, nontender, nondistended, normoactive bowel sounds. No palpable organomegaly. MUSCULOSKELETAL: No joint swelling or deformity. EXTREMITIES: No cyanosis, clubbing, or pedal edema. Focal tenderness right chest wall. Pacemaker site in tact. NEUROLOGICAL: Gross neurological examination did not reveal any focal deficits. SKIN: No rashes. Assessment and Plan Assessment Acute cardiac arrest with ventricular tachycardia status post cardioversion in the ER. Acute posterior lateral ST elevation [place]. Status post cardiac catheterization and stent placement to saphenous vein graft to diagonal branch. Third-degree AV block with narrow QRS. Status post single chamber external pacemaker Coronary artery disease with history of CABG Patient recently admitted with right lower lobe pneumonia and hypoxic respirator y failure and component of CHF. Currently on room air. Moderate MR moderate to severely dilated left atrium and moderate TR Hyperlipidemia GI and DVT prophylaxis Full Code Plan Continue monitoring in ICU, possible downgrade today Dual antiplatelet therapy Telemetry monitoring Continue on IV cefazolin for now and hold oral ceftin Incentive spirometer Pain management Add flomax and voiding trial The impression and plan of care has been dictated by Salina Aquino, Nurse Practitioner as directed. Dr. Luis Enrique MD I have performed a history and physical examination and medical decision making of this patient, discussed the same with the dictator, and agree with the dic tators assessment and plan as written, documented as a scribe. Based on total visit time, I have performed more than 50% of this visit. Objective - Vital Signs Vital signs: Vital Signs Temp 98.9 F 10/27/22 08:00 Pulse 60 10/27/22 08:00 Resp 18 10/27/22 08:00 BP 115/62 10/27/22 08:00 Pulse Ox 91 L 10/27/22 08:21 FiO2 Intake & Output 10/26/22 10/27/22 10/27/22 18:59 06:59 18:59 Intake Total 556 1440 20 Output Total 1000 1750 0 Balance -444 -310 20 Weight 106.594 kg 107.1 kg Intake: IV 556 900 20 ACETAMINOPHEN IV (For NPO 100 ) 1,000 mg In Empty Bag 1 bag @ 400 mls/hr IVPB ONCE ONE Rx#:[id number] Sodium Chloride 0.9% 1, 106 650 20 000 ml In Empty Bag 1 bag @ 1 ML/KG/HR 106.594 mls /hr IV .[id number] [facility] Rx#: [id number] ceFAZolin 1,000 mg In 100 Sodium Chloride 0.9% 50 ml @ 100 mls/hr IVPB Q6H [facility] Rx#:[id number] Oral 540 Output: Urine 1000 1750 0 Other: Voiding Method Indwelling Catheter Indwelling Catheter - Labs CBC & Chem 7: 10/27/22 05:51 10/27/22 07:14 Labs: Abnormal Lab Results - Last 24 Hours (Table) 10/26/22 10/26/22 10/26/22 Range/Units 13:17 13:17 17:25 RBC (4.30-5.90) m/uL Hct (39.0-53.0) % D-Dimer 2.98 H (<0.60) mg/L FEU Sodium (137-145) mmol/L BUN 21 H (9-20) mg/dL Creatinine 1.32 H (0.66-1.25) mg/dL Glucose 108 H (74-99) mg/dL POC Glucose (mg/dL) (70-110) mg/dL Calcium (8.4-10.2) mg/dL ALT 113 H (4-49) U/L Troponin I 0.624 H* (0.000-0.034) ng/mL Lipase 386 H (23-300) U/L 10/26/22 10/26/22 10/26/22 Range/Units 17:47 20:47 22:28 RBC (4.30-5.90) m/uL Hct (39.0-53.0) % D-Dimer (<0.60) mg/L FEU Sodium (137-145) mmol/L BUN (9-20) mg/dL Creatinine (0.66-1.25) mg/dL Glucose (74-99) mg/dL POC Glucose (mg/dL) 128 H 128 H (70-110) mg/dL Calcium (8.4-10.2) mg/dL ALT (4-49) U/L Troponin I 1.980 H* (0.000-0.034) ng/mL Lipase (23-300) U/L 10/27/22 10/27/22 Range/Units 05:51 07:14 RBC 4.18 L (4.30-5.90) m/uL Hct 37.4 L (39.0-53.0) % D-Dimer (<0.60) mg/L FEU Sodium 136 L (137-145) mmol/L BUN (9-20) mg/dL Creatinine (0.66-1.25) mg/dL Glucose 142 H (74-99) mg/dL POC Glucose (mg/dL) (70-110) mg/dL Calcium 8.3 L (8.4-10.2) mg/dL ALT (4-49) U/L Troponin I (0.000-0.034) ng/mL Lipase (23-300) U/L Assessment and Plan Time with Patient: Less than 30
[2022-10-27] MEDS: TAMSULOSIN 0.4 MG CAP.ER.24H PO SCH (18:07)
[2022-10-27] MEDS: ATORVASTATIN 80 MG TAB PO SCH (20:01)
[2022-10-27] MEDS: FAMOTIDINE 20 MG TAB PO SCH (20:01)
[2022-10-27 22:04] VITALS: PULSE 60
[2022-10-28] MEDS: KETOROLAC 15 MG/ML 1 ML VIAL IVP SCH ×4 (06:04→23:50)
[2022-10-28 07:32] LABS: HCT 35.1 % (39.0-53.0); HGB 12.2 gm/dL (13.0-17.5); MCH 31.1 pg (25.0-35.0); MCHC 34.7 g/dL (31.0-37.0); MCV 89.4 fL (80.0-100.0); Platelet Count 289 k/uL (150-450); RBC 3.93 m/uL (4.30-5.90); RDW 13.6 % (11.5-15.5); WBC 6.7 k/uL (3.8-10.6)
[2022-10-28 07:44] LABS: African American GFR (CKD) >90 (>60 ml/min/1.73 sqM); Anion Gap 6 mmol/L; Blood Urea Nitrogen 13 mg/dL (9-20); Calcium 8.4 mg/dL (8.4-10.2); Carbon Dioxide 27 mmol/L (22-30); Chloride 105 mmol/L (98-107); Glucose 96 mg/dL (74-99); Non-African American GFR(CKD) >90 (>60 ml/min/1.73 sqM); Sodium 138 mmol/L (137-145)
[2022-10-28] MEDS: METOPROLOL TARTRATE 12.5 MG TAB PO SCH (07:55)
[2022-10-28] MEDS: PRASUGREL 10 MG TAB PO SCH (07:55)
[2022-10-28] MEDS: ASPIRIN 81 MG PO SCH (07:55)
--- NOTE | 2022-10-28 10:15 | CA ---
Transthoracic Echo Report Name: Aguilar Vail Age: 62 Gender: M : 1960 Exam Date: 10/28/2022 07:58 Exam Location: [place] [facility] Ht (in): 70 Wt (lb): 239 Ordering Physician: Emilio Mcnamara MD ([id number]) Attending/Referring Phys: Naima LINDA Clinical Analyst Kiarra Lee RDCS Procedure CPT: Indications: IN Cardiac Hx: Technical Quality: Contrast 1: Total Dose (mL): Contrast 2: Total Dose (mL): MEASUREMENTS (Male / Female) Normal Values 2D ECHO LV Diastolic Diameter PLAX 4.8 cm 4.2 - 5.9 / 3.9 - 5.3 cm LV Systolic Diameter PLAX 3.0 cm IVS Diastolic Thickness 1.6 cm 0.6 - 1.0 / 0.6 - 0.9 cm LVPW Diastolic Thickness 1.5 cm 0.6 - 1.0 / 0.6 - 0.9 cm LV Relative Wall Thickness 0.7 FINDINGS Left Ventricle Limited study. No obvious regional wall motion abnormalities. Left ventricular ejection fraction is estimated at 50-55 %. Right Ventricle Right Atrium Left Atrium Mitral Valve Aortic Valve Tricuspid Valve Pulmonic Valve Pericardium No pericardial effusion. Aorta CONCLUSIONS Limited study preserved LV systolic function asymmetric septal contractility. A fat pad noted but no clearcut pericardial effusion Previewed by: Dr. Rachid Malhotra MD (Electronically Signed) Final Date: 28 October 2022 10:14
--- NOTE | 2022-10-28 13:22 | P.PN ---
Progress Note - Text Final impression Known ischemic heart disease, multivessel coronary disease status post coronary artery bypass grafting in 2013 Developed complete heart block with a junctional escape rhythm between 45-50 beats a minute, minimally symptomatic Subsequently presented with ST elevation [place] and underwent percutaneous revascularization Episodes of ventricular fibrillation in the ER requiring defibrillation Externalize temporary pacemaker placed for severe bradycardia Now has complete heart block and is pacemaker dependent Several hours after revascularization he had to sustained episodes of sustained monomorphic ventricular tachycardia that then degenerated into ventricular fibrillation and required external defibrillation This happened twice Plan Continue externalize permanent pacemaker therapy for the next 3 weeks Diagnostic EP study thereafter to see if he has inducible monomorphic ventricular tachycardia If he does then he will need a biventricular ICD In the interim a LifeVest in addition to externalized pacemaker therapy
--- NOTE | 2022-10-28 13:33 | P.PN ---
Subjective Progress Note Date: 10/28/22 Patient is a 62-year-old male with a known history of coronary status post stent placement in 2007, CABG in 2013 and recent admission to the hospital due to pneumonia and was discharged yesterday presents to ER with complaints of chest discomfort. Patient was found to have ST elevation in the high precordial leads and was found to posterolateral [place]. Patient had ventricular tachycardia in the ER and is status post cardioversion and 1 dose of epi. With successful cardiopulmonary resuscitation patient was taken to cardiac catheterization.Patient was found to have third-degree AV block with narrow com plex but was asymptomatic. Patient was discharged home with a plan to place permanent pacemaker in the next 7 to 10 days with completion of antibiotic course for pneumonia. Chest x-ray showed lower lung opacity seen on the lateral view only. Findings similar to 10/21/[address] elevation in the high lateral leads and ST depression in V1 consistent with posterior lateral [place]. Laboratory data showed D-dimer 2.98, sodium 137 potassium 3.7 chloride 102 bicarbonate 25 BUN 21 creatinine 1.32 and blood sugar is 108 and lipase level is 386. Patient evaluated in the ICU. Status post PCI with stent x 2 to the SVG. He had external pacemaker single chamber placed yesterday as well. Chest xray today showing persistent cardiomegaly with bilateral lower lung acute infiltrate and or atelectasis. Stable from prior. Continues on IV cefazolin every 6 hours. He was discharged on oral ceftin 500 mg twice a day for 5 days yesterday, which for now can be held and he will continue on the IV cefazolin while inpatient. Reports his cough has improved. He does have some right sided chest pressure from CPR. IS has been ordered. Creatinine has normalized to 0.87. 10/28/2022 Patient evaluated in ICU today, sitting up in chair. Reports improved pain to the right chest wall. External pacer site intact. Sling to right upper extremity in place. Repeat echocardiogram today showing EF 50-55%, there is a fat bad with no clearcut pericardial effusion. He has intermittent cough. Lungs are clear. No fever, no white count. Sodium improved to 138. Heart rate is in the 60s, blood pressure 113/79. He is ventricular pacing. Review of Systems Constitutional: Denied any fatigue denied any fever. Cardio vascular: Right sided chest pain, musculoskeletal, denies palpitations Gastrointestinal: denied any nausea, vomiting, diarrhea Pulmonary: Denies shortness of breath, reports cough intermittent. Neurologic denied any new focal deficits All inpatient medications were reviewed and appropriate changes in these medications as dictated in the interval history and assessment and plan. PHYSICAL EXAMINATION: GENERAL: The patient is alert and oriented x3, not in any acute distress. Well developed, well nourished. HEENT: Pupils are round and equally reacting to light. EOMI. No scleral icterus. No conjunctival pallor. Normocephalic, atraumatic. No pharyngeal erythema. No thyromegaly. CARDIOVASCULAR: S1 and S2 present. No murmurs, rubs, or gallops. PULMONARY: Chest is clear to auscultation, no wheezing or crackles. ABDOMEN: Soft, nontender, nondistended, normoactive bowel sounds. No palpable organomegaly. MUSCULOSKELETAL: No joint swelling or deformity. EXTREMITIES: No cyanosis, clubbing, or pedal edema. Focal tenderness right chest wall. Pacemaker site in tact. NEUROLOGICAL: Gross neurological examination did not reveal any focal deficits. SKIN: No rashes. Assessment and Plan Assessment Acute cardiac arrest with ventricular tachycardia status post cardioversion in the ER. Acute posterior lateral ST elevation [place]. Status post cardiac catheterization and stent placement to saphenous vein graft to diagonal branch. Third-degree AV block with narrow QRS. Status post single chamber external pacemaker Coronary artery disease with history of CABG Patient recently admitted with right lower lobe pneumonia and hypoxic respiratory failure and component of CHF. Currently on room air. Moderate MR moderate to severely dilated left atrium and moderate TR Hyperlipidemia GI and DVT prophylaxis Full Code Plan Continue monitoring in ICU, possible downgrade today Dual antiplatelet therapy Telemetry monitoring Continue on IV cefazolin for now and hold oral ceftin Incentive spirometer Continue flomax Plan to discharge with lifevest and external pacemaker and follow up for EP Study in 3 weeks. Possible DC in the next 24 to 48 hours The impression and plan of care has been dictated by Salina Aquino Nurse Practitioner as directed. Dr. Luis Enrique MD I have performed a history and physical examination and medical decision making of this patient, discussed the same with the dictator, and agree with the dictators assessment and plan as written, documented as a scribe. Based on total visit time, I have performed more than 50% of this visit. Objective - Vital Signs Vital signs: Vital Signs Temp 98.6 F 10/28/22 08:00 Pulse 60 10/28/22 10:00 Resp 28 H 10/28/22 10:00 BP 113/79 10/28/22 10:00 Pulse Ox 97 10/28/22 10:00 FiO2 Intake & Output 10/27/22 10/28/22 10/28/22 18:59 06:59 18:59 Intake Total 920 1150 128 Output Total 600 1000 400 Balance 320 150 -272 Weight 107.1 kg 108.7 kg Intake: IV 320 70 10 Invasive Line 2 10 Sodium Chloride 0.9% 1, 220 20 000 ml In Empty Bag 1 bag @ 1 ML/KG/HR 106.594 mls /hr IV .Q9H23M [facility] Rx#: [id number] ceFAZolin 1,000 mg In 100 50 Sodium Chloride 0.9% 50 ml @ 100 mls/hr IVPB Q6H [facility] Rx#:[id number] Oral 600 1080 118 Output: Urine 600 1000 400 Other: Voiding Method Indwelling Catheter Urinal Urinal # Voids 1 # Bowel Movements 1 1 - Labs CBC & Chem 7: 10/28/22 06:47 10/28/22 06:47 Labs: Abnormal Lab Results - Last 24 Hours (Table) 10/28/22 Range/Units 06:47 RBC 3.93 L (4.30-5.90) m/uL Hgb 12.2 L (13.0-17.5) gm/dL Hct 35.1 L (39.0-53.0) % Assessment and Plan Time with Patient: Less than 30
[2022-10-28] MEDS: TAMSULOSIN 0.4 MG CAP.ER.24H PO SCH (18:50)
[2022-10-28] MEDS: ATORVASTATIN 80 MG TAB PO SCH (20:56)
[2022-10-28] MEDS: FAMOTIDINE 20 MG TAB PO SCH (20:56)
[2022-10-28] MEDS: METOPROLOL TARTRATE 25 MG TAB PO SCH (20:56)
--- NOTE | 2022-10-28 22:00 | PN ---
PROGRESS NOTE SUBJECTIVE: Aguilar is a 62-year-old gentleman, who presented to hospital with sustained ventricular tachycardia requiring cardioversion. The ventricular tachycardia lasted more than 30 seconds. He underwent cardiac catheterization and revascularization, was initially in complete heart block and currently has an externalized pacemaker. OBJECTIVE: VITAL SIGNS: Heart rate is 60 beats per minute, blood pressure is 113/79, respiratory rate is 18. CHEST: Reveals diminished air entry at the bases. HEART: Reveals first and second heart sounds. No gallop. No murmur. ABDOMEN: Soft. EXTREMITIES: Did not reveal any edema. LABORATORY DATA: Show a hemoglobin of 12.2, platelet count is 289. Potassium is 4, creatinine is 0.8. ASSESSMENT: 1. Sustained ventricular tachycardia lasting more than 30 seconds requiring defibrillation. 2. Acute myocardial infarction, status post catheterization and angioplasty. 3. Complete heart block, status post externalized pacemaker. PLAN: The patient is doing well. We will continue current medications including aspirin, Lipitor, Lopressor, and Effient. The patient needs a LifeVest. MMODL / IJN: [id number] /
[2022-10-29] MEDS: KETOROLAC 15 MG/ML 1 ML VIAL IVP SCH ×2 (05:55→12:12)
[2022-10-29] MEDS: METOPROLOL TARTRATE 25 MG TAB PO SCH (09:14)
[2022-10-29] MEDS: ASPIRIN 81 MG PO SCH (09:14)
[2022-10-29] MEDS: PRASUGREL 10 MG TAB PO SCH (09:14)
[2022-10-29 12:08] VITALS: BP 128/78; RESP 16; TEMP 98.3
--- NOTE | 2022-10-29 20:40 | PN ---
PROGRESS NOTE HISTORY OF PRESENT ILLNESS: Aguilar is a 62-year-old gentleman who is admitted to the hospital with ventricular tachycardia, underwent emergent cardiac catheterization, angioplasty of venous graft. He is doing well and is free of symptoms and stable for discharge. He has a LifeVest on. As per EP's request, he is currently on aspirin, Lipitor, Lopressor 25 b.i.d., Effient 10 daily. PHYSICAL EXAMINATION: GENERAL: On exam, he is comfortable at rest. VITAL SIGNS: Stable. NECK: There is no jugular venous distention. Carotid upstroke is normal. There is no bruit. CHEST: Reveals good air entry bilaterally. HEART: Reveals first and second heart sounds. No gallop. No murmur. ABDOMEN: Soft. EXTREMITIES: Exam of extremities did not reveal any edema. Peripheral pulses are felt. LABORATORY DATA: Lab shows a hemoglobin of 12.2, potassium is 4, creatinine is 0.8. DIAGNOSTIC DATA: Echocardiogram on this admission revealed normal LV systolic function. ASSESSMENT: 1. Acute myocardial infarction, status post catheterization and angioplasty. 2. Complete heart block, status post externalized pacemaker. PLAN: 1. The patient will be discharged home on LifeVest for ventricular tachycardia. 2. Follow up with Dr. Carrasco, his primary first sampler. MMODL / IJN: [id number] /
--- NOTE | 2022-10-30 16:31 | P.DS ---
Providers Date of admission: 10/26/22 14:02 Attending physician: Cuong Pierre MD Consults: 10/26/22 14:02 Consult Physician Stat Consulting Provider: Pipo Velasquez Consult Reason/Comments: STEMI Do you want consulting provider notified?: Already Contacted 10/26/22 16:39 Consult Physician Routine Consulting Provider: [facility] Consult Reason/Comments: Post Interventional Patient Do you want consulting provider notified?: Already Contacted Primary care physician: Rahat Delcid [facility] Hospital Course: Final Diagnosis Acute cardiac arrest with ventricular tachycardia status post cardioversion in the ER. Acute posterior lateral ST elevation NJ. Status post cardiac catheterization and stent placement to saphenous vein graft to diagonal branch. Third-degree AV block with narrow QRS. Status post single chamber external pacemaker Coronary artery disease with history of three vessel CABG Patient recently admitted with right lower lobe pneumonia and hypoxic respiratory failure and component of CHF. Currently on room air. Moderate MR moderate to severely dilated left atrium and moderate TR Hyperlipidemia History hypertension Recent left total knee arthroplasty History GERD Full Code Discharge Disposition Patient is stable for discharge in overall guarded condition. He will discharge with single chamber external pacemaker in place to right chest wall and will follow up with cardiology on discharge. He has an appointment in the device clinic on 11/06/21 at 4pm. He will follow up with PCP Dr. Delcid on 11/03/[address] Anders on 11/04/22. Patient will continue with external pacemaker for the next [address] Velasquez plans to perform EP procedure at that point to evaluate for possible permanent pacemaker implantation. He will continue on oral ceftin 500 mg po daily for 5 days on discharge. Hospital Course This is a pleasant 62 year old male who follows with Dr. Rahat Delcid, medical history of coronary artery disease with prior three vessel CABG, hyperlipidemia, hypertension. He presents to the hospital this admission with chest pain and cardiac arrest twice in the emergency center. He was found to be in ventricular tachycardia and was cardioverted. Patient was found to have ST elevation in lateral leads and ST depression in V1 consistent with posterior lateral NJ and was taken to the r&d lab technician where he had 2 stents placed to the saphenous vein graft to the diagonal branch. He was monitored postoperatively in the ICU and secondary to known third degree AV block with narrow QRS complex he underwent single chamber external pacemaker implantation with Dr. Velasquez. Patient initially presented to the hospital on October 20 and was found have to have right lower lobe pneumonia which was treated with IV antibiotics. During that admission he was evaluated by cardiology for heart failure and also possible heart block. He had an echocardiogram completed showing EF 55% with moderate mitral regurgitation, moderate tricuspid regurgitation, moderate to severely dilated left atrium, RVSP 53. He was treated with IV lasix. Cardiology recommendations at discharge previous admission had wanted patient to complete oral antibiotics and for resolution of the pneumonitis with plans for elective biventricular pacemaker in 7 to 10 days. He was found to be in third degree heart block with junctional escape rhythm and narrow QRS complex 45 to 40 BPM. He was discharged home. He never picked up his antibiotics. He returned with chest pain, and had troponin elevation and also elevated D-Dimer. Post cath and external pacemaker patient had limited echocardiogram completed showing EF 50 to 55% with asymmetric septal contractility. Blood pressure has remained stable 120/70s. No white count this admission. His chest xray is showing persistent cardiomegaly with bilateral lower lung acute infiltrates and or atelectasis. He is encouarged to continue to use IS on discharge and complete course of antibiotic therapy. He remains off oxygen support this admission, no fever. He reports improvement in his cough and has had no issues with shortness of breath. He was cleared for discharge. 10/29/2022 Patient is evaluated today in the intensive care unit. He is sitting up in chair. Denies shortness of breath. He reports some mild tenderness to chest wall where CPR was completed. He has external pacemaker to right chest wall and site is intact with sling to right arm in place. He reports intermittent dry cough. No fever, no chills. Denies dizziness or lightheadedness. No nausea, vomiting or diarrhea. He is tolerating diet. He is post PCI with 2 stents and continues on dual antiplatelet therapy with aspirin 81 mg daily and effient 10 mg po daily. He has been started on flomax for urinary retention. IDC has been removed and patient is voiding without difficulty. Lungs are clear with equal air entry no wheezing or crackles noted, S1 S2 auscultated patient is in a paced rhythm. Abdomen is soft and nontender. Most recent labs showing white count of 6.7, hgb 12.2, sodium 138, potassium 4.0, BUN 13, creatinine 0.88, glucose 96, calcium 8.4. Temperature of 98.3, heart rate 60, blood pressure 128/78, 99% room air. Please see medication reconciliation for a list of current medication. Thank you for allowing us to participate in the care of this patient. The impression and plan of care has been dictated by Salina Aquino, Nurse Practitioner as directed. Dr. Luis Enrique MD I have performed a history and physical examination and medical decision making of this patient, discussed the same with the dictator, and agree with the di ctators assessment and plan as written, documented as a scribe. Based on total visit time, I have performed more than 50% of this visit. Patient Condition at Discharge: Stable Plan - Discharge Summary Discharge Rx Participant: Yes New Discharge Prescriptions: New Prasugrel [Effient] 10 mg PO DAILY #30 tab Acetaminophen Tab [Tylenol] 650 mg PO Q6HR PRN tab PRN Reason: Mild Pain (Scale 1 To 3) Tamsulosin [Flomax] 0.4 mg PO PC-SUPPER #30 cap Metoprolol Tartrate [Lopressor] 25 mg PO BID #60 tab Continue [place]-3 Fatty Acids/Fish Oil [Fish Oil 1,000 mg Softgel] 1 cap PO HS Famotidine [Pepcid AC] 10 mg PO HS Ubidecarenone [Co Q-10] 200 mg PO DAILY Atorvastatin [Lipitor] 80 mg PO HS #30 tab Aspirin EC [Ecotrin Low Dose] 81 mg PO DAILY polyethylene glycoL 3350 [Miralax] 17 gm PO DAILY Cholecalciferol [Vitamin D3 (25 Mcg = 1000 Iu)] 50 mcg PO BID cefUROXime axetiL [Ceftin] 500 mg PO BID 5 Days #10 tab Loratadine [Claritin] 10 mg PO DAILY Albuterol Sulfate [Albuterol Sulfate Hfa] 2 puff INHALATION RT-Q4H PRN PRN Reason: Shortness Of Breath Discontinued amLODIPine BESYLATE [Norvasc] 5 mg PO BID Losartan Potassium [Cozaar] 100 mg PO DAILY hydroCHLOROthiazide [Hydrodiuril] 50 mg PO DAILY Discharge Medication List Famotidine [Pepcid AC] 10 mg PO HS 06/18/18 [History] [place]-3 Fatty Acids/Fish Oil [Fish Oil 1,000 mg Softgel] 1 cap PO HS 06/18/18 [History] Ubidecarenone [Co Q-10] 200 mg PO DAILY 10/11/18 [History] Atorvastatin [Lipitor] 80 mg PO HS #30 tab 10/12/18 [Rx] Aspirin EC [Ecotrin Low Dose] 81 mg PO DAILY 09/10/22 [History] Loratadine [Claritin] 10 mg PO DAILY 09/10/22 [History] polyethylene glycoL 3350 [Miralax] 17 gm PO DAILY 09/10/22 [History] Albuterol Sulfate [Albuterol Sulfate Hfa] 2 puff INHALATION RT-Q4H PRN 10/20/22 [History] Cholecalciferol [Vitamin D3 (25 Mcg = 1000 Iu)] 50 mcg PO BID 10/20/22 [History] cefUROXime axetiL [Ceftin] 500 mg PO BID 5 Days #10 tab 10/25/22 [Rx] Acetaminophen Tab [Tylenol] 650 mg PO Q6HR PRN tab 10/29/22 [Rx] Metoprolol Tartrate [Lopressor] 25 mg PO BID #60 tab 10/29/22 [Rx] Prasugrel [Effient] 10 mg PO DAILY #30 tab 10/29/22 [Rx] Tamsulosin [Flomax] 0.4 mg PO PC-SUPPER #30 cap 10/29/22 [Rx] Follow up Appointment(s)/Referral(s): Rahat Delcid MD [Primary Care Provider] - 11/03/22 2:30 pm (Appointment with Amina) James Anders MD [Medical Doctor] - 11/04/22 9:45 am Pipo Velasquez MD [STAFF PHYSICIAN] - 2 Weeks (Device Check Nov 06 at 4:00PM. The Office will contact you with time and date of follow up appoinment with Doctor.) Gill Carrasco MD [STAFF PHYSICIAN] - 1 Week (Office will be contacting you with follow up appointment) Activity/Diet/Wound Care/Special Instructions: Follow up with orthopedics as previously recommended Follow up with Dr. Delcid in 1 to 2 days External permanent pacemaker therapy to continue for the next 3 weeks Follow up with your pin ticket machine operator and Dr. Velasquez recommending diagnostic EP study after 3 weeks. Discharge Disposition: HOME SELF-CARE
--- NOTE | 2022-10-30 16:58 | CDI ---
Documentation Clarification Form Date: 10/30/2022 4:39:47 PM From: Yanet Briceno Phone: Admit Date: 10/26/2022 2:02:00 PM Patient Name: Aguilar Vail Visit Number: [id number] Discharge Date: 10/29/2022 2:45:00 PM ATTENTION: The Clinical Documentation Specialists (CDI) and [facility] Coding Staff appreciate your assistance in clarifying documentation. Please respond to the clarification below the line at the bottom and electronically sign. The CDI & [facility] Coding staff will review the response and follow-up if needed. Please note: Queries are made part of the Legal Health Record. If you have any questions, please contact the author of this message via ITS. Dr. Cuong Pierre Your patient has the documented diagnosis of unspecified CHF per H&P and throughout the Progress Notes. Additional information regarding the acuity and type of CHF is requested. History/Risk Factors: 62yo M, CAD sp CABG & stent, STEMI, AHRF, PEA, STEMI, Vfib, V Tach, AV block, HTN, HLD, MR, TR, Hx MD Clinical Indicators: VS/Pulse OX: 100 BNP: 662 Echocardiogram Results: Limitedstudypreserved LV systolic function asymmetric septal contractility. Afat padnoted butnoclear cutpericardial effusion. Chest X Ray: Persistentcardiomegalywith bilateral lower lung acute infiltratesand/oratelectasis. No significant change from most recentx-ray. Treatment: Continuemonitoringin ICU,possibledowngrade today. Dualantiplatelet therapy. Telemetry monitoring. Continue on IV cefazolin for now and hold oral ceftin. Incentive spirometer In your professional opinion, can you please clarify the acuity and type of CHF if known? [ ] Acute Systolic Heart Failure (reduced EF) [ ] Chronic Systolic Heart Failure (reduced EF) [ ] Acute on Chronic Systolic Heart Failure (reduced EF) [ ] Acute Diastolic Heart Failure (preserved EF) [ ] Chronic Diastolic Heart Failure (preserved EF) [ ] Acute on Chronic Diastolic Heart Failure (preserved EF) [ ] Acute Systolic & Diastolic Heart Failure [ ] Chronic Systolic & Diastolic Heart Failure [ ] Acute on Chronic Heart Failure Systolic & Diastolic Heart Failure [ *] Other, please specify_Acute exacerbation CHF with preserved EF [ ] Unable to determine (Template Last Revised: November 2020) MTDD
== END 2022-10-29 14:45 | disposition home or self-care (01) | DRG 273 ==
LOC: SUPCPDRO 12:56 → EC 12:56 → 2SICU 14:02
PROVIDERS: ADMIT Internal Medicine; ATTEND Internal Medicine
PROC: 4A023FZ Measurement of Cardiac Rhythm, Percutaneous Approach (ICD-10-PCS; 2022-10-26)
PROC: 4A0234Z Measurement of Cardiac Electrical Activity, Percutaneous Approach (ICD-10-PCS; 2022-10-26)
PROC: 4A023N7 Measurement of Cardiac Sampling and Pressure, Left Heart, Percutaneous Approach (ICD-10-PCS; 2022-10-26)
PROC: B2131ZZ Fluoroscopy of Multiple Coronary Artery Bypass Grafts using Low Osmolar Contrast (ICD-10-PCS; 2022-10-26)
PROC: B2111ZZ Fluoroscopy of Multiple Coronary Arteries using Low Osmolar Contrast (ICD-10-PCS; principal; 2022-10-26 14:26)
PROC: 5A1223Z Performance of Cardiac Pacing, Continuous (ICD-10-PCS; principal; 2022-10-26 14:26)
PROC: 02HK0JZ Insertion of Pacemaker Lead into Right Ventricle, Open Approach (ICD-10-PCS; 2022-10-26 14:26)
PROC: 027034Z Dilation of Coronary Artery, One Artery with Drug-eluting Intraluminal Device, Percutaneous Approach (ICD-10-PCS; 2022-10-26 14:26)
PROC: 5A2204Z Restoration of Cardiac Rhythm, Single (ICD-10-PCS; 2022-10-26 14:26)
DX: I21.29 ST elevation (STEMI) myocardial infarction involving other sites (principal); I46.2 Cardiac arrest due to underlying cardiac condition; J96.01 Acute respiratory failure with hypoxia; I49.01 Ventricular fibrillation; I50.31 Acute diastolic (congestive) heart failure; I44.2 Atrioventricular block, complete; I47.20 Ventricular tachycardia, unspecified; J44.0 Chronic obstructive pulmonary disease with (acute) lower respiratory infection; I25.709 Atherosclerosis of coronary artery bypass graft(s), unspecified, with unspecified angina pectoris; I11.0 Hypertensive heart disease with heart failure; I08.1 Rheumatic disorders of both mitral and tricuspid valves; I25.119 Atherosclerotic heart disease of native coronary artery with unspecified angina pectoris; E78.5 Hyperlipidemia, unspecified; I45.9 Conduction disorder, unspecified; R33.9 Retention of urine, unspecified; Z96.652 Presence of left artificial knee joint; Y71.1 Therapeutic (nonsurgical) and rehabilitative cardiovascular devices associated with adverse incidents; Z87.01 Personal history of pneumonia (recurrent); Z95.1 Presence of aortocoronary bypass graft; I25.2 Old myocardial infarction; Z95.5 Presence of coronary angioplasty implant and graft; Z87.891 Personal history of nicotine dependence; Z82.49 Family history of ischemic heart disease and other diseases of the circulatory system; Z79.899 Other long term (current) drug therapy; Z79.82 Long term (current) use of aspirin; Z91.048 Other nonmedicinal substance allergy status
CPT/HCPCS: 33210; 36415; 71045; 71046; 80048; 80053; 83690; 83735; 83880; 84132; 84484; 85025; 85027; 85379; 85610; 85730; 92973; 93005; 93306; 93459; 96360; 99291

== ENCOUNTER 2022-11-10 08:50 | Day surgery (SDC) | payer BC ==
[2022-11-05 14:53] VITALS: BMI 34.9
[~2022-11-10 08:50] MED LIST changes: -IV FLUID CONTINUATION 1,000 ML IV ONE; +LIDOCAINE 1% (10MG/ML) FOR IV START INTRADERMA PRN; +VANCOMYCIN 1,750 MG in SODIUM CHLORIDE 0.9% 500 ML 500 ML IVPB ONE; +fentaNYL (PF) 50 MCG/ML 2 ML AMP IV PRN
[2022-11-10] MEDS ORDERED: SODIUM CHLORIDE 0.9% 1,000 ML IV ONE (09:05)
[2022-11-10] MEDS: SODIUM CHLORIDE 0.9% 1,000 ML IV SCH (09:16)
[2022-11-10 10:09] LABS: Basophils # (A) 0.1 k/uL (0-0.2); Basophils % (A) 1 %; Eosinophils # (A) 0.1 k/uL (0-0.7); Eosinophils % (A) 2 %; HCT 42.2 % (39.0-53.0); HGB 14.6 gm/dL (13.0-17.5); Lymphocytes # (A) 1.8 k/uL (1.0-4.8); Lymphocytes % (A) 22 %; MCH 30.6 pg (25.0-35.0); MCHC 34.5 g/dL (31.0-37.0); MCV 88.6 fL (80.0-100.0); Mean Platelet Volume 8.4; Monocytes # (A) 0.6 k/uL (0-1.0); Monocytes % (A) 7 %; Neutrophils # (A) 5.7 k/uL (1.3-7.7); Neutrophils % (A) 67 %; Platelet Count 243 k/uL (150-450); RBC 4.76 m/uL (4.30-5.90); WBC 8.5 k/uL (3.8-10.6)
[2022-11-10] MEDS ORDERED: ceFAZolin 1,000 MG in SODIUM CHLORIDE 0.9% IRRIG BTL 250 ML IRRIGATION ONE (12:36)
[2022-11-10] MEDS ORDERED: fentaNYL (PF) 50 MCG/ML 2 ML AMP ONE (12:42)
[2022-11-10] MEDS ORDERED: MIDAZOLAM 2 MG/2 ML VIAL ONE (12:42)
[2022-11-10] MEDS ORDERED: LIDOCAINE 2% INJ 20 MG/ML (2 ML VIAL) ONE (12:42)
[2022-11-10] MEDS ORDERED: PROPOFOL 10 MG/ML 20 ML VIAL IV ONE (12:42)
[2022-11-10] MEDS ORDERED: LIDOCAINE 1% INJ 10MG/ML (30 ML VIAL-PF) SQ ONE ×3 (13:18→14:25)
[2022-11-10] MEDS ORDERED: LACTATED RINGERS 1,000 ML IV ONE (16:35)
[2022-11-10] MEDS ORDERED: ACETAMINOPHEN IV (For NPO) 1,000 MG in EMPTY BAG 1 BAG IVPB ONE (16:48)
[2022-11-10] MEDS ORDERED: ACETAMINOPHEN TAB 325 MG TAB PO PRN (16:48)
--- NOTE | 2022-11-10 17:18 | P.EPPROC ---
- EP Procedure Note Electrophysiology Procedure Note: Diagnostic EP study 62-year-old male patient who has had sustained monomorphic VT post-MS despite normal LV function This degenerated into ventricular fibrillation He is brought in for device implantation since he is complete heart block Prior to this a diagnostic EP study was performed to look for any inducible monomorphic ventricular tachycardia or ventricular fibrillation Patient brought to the EP lab in a fasting state. Written informed consent was obtained prior to the procedure. IV vancomycin had been administered previously We sheath was placed the right femoral vein via this diagnostic catheters placed in the right heart Ventricular stimulation was performed per protocol up to double extrastimuli with 2 drive trains Ventricular ERP's a 600\280\250 ms and 400/260/310 ms Burst stimulation was performed from 4 ms down to 200 ms No inducible ventricular tachycardia was noted Left upper extremity venogram was performed Patent subclavian axillary vein noted Plan Proceed with dual-chamber biventricular pacemaker since patient is complete heart block and will be 100% paced in the ventricle Successful biventricular pacemaker implanted with left bundle pacing and an ICD lead in place of a pacemaker lead Biventricular pacemaker, [employer] implanted Following that lead extraction of the pacemaker lead from the right subclavian vein performed under sterile precautions The dressing removed The lead sleeve was freed The lead was disconnected from the single chamber pacemaker The lead was unscrewed With manual traction and counterclockwise rotation the lead was successfully extracted Permanent leads were in stable position in the atrium, left bundle area and the RV apex
[2022-11-10] MEDS ORDERED: ACETAMINOPHEN IV (For NPO) 1,000 MG/100 ML VIAL IVPB ONE (17:21)
--- NOTE | 2022-11-10 17:23 | P.EPPROC ---
- EP Procedure Note Electrophysiology Procedure Note: Diagnosis Bradycardia, standard pacemaker will result in RV pacing >40% Complete heart block, dependent Procedure Left bundle/ biventricular pacemaker implantation Details Patient was brought to the EP lab in a fasting state. Written informed consent was obtained prior to the procedure. Conscious sedation provided by anesthesia team IV antibiotics administered. Local anesthesia administered. A 4 cm incision made in the pectoral area. Subfascial pocket made. Venous access obtained Venous sheaths placed. Leads placed in the right heart Atrial lead position the right atrial appendage. Midnight [employer] screw-in lead. P waves 4.7 mV, pacing threshold 1.25 V at 0.5 ms and pacing impedance of 950 ohms RV lead position in the RV apex. [employer] ICD lead implanted, single coil Pacing threshold 0.5 V at 0.5 ms, pacing impedance 660 ohms The defibrillation pain And secured to the pectoralis muscle LB lead positioned in the septum/left bundle area. Pacing impedance 540 ohms. Pacing threshold 0.75 V at 0.5 ms Typical Right bundle branch block pattern, QRS width 155 ms. Stimulus to peak of V6 equals 95 ms Biventricular pacemaker device connected to the leads and placed in the subfascial pocket Patient tolerated the procedure well without acute complications Device programmed to DDD 60-130 Paced AV delay 200 ms preferential left bundle pacing, LB-RV equals 80 ms Unipolar LB pacing
[2022-11-10] MEDS: LACTATED RINGERS 1,000 ML IV SCH (18:16)
[2022-11-10] MEDS: METOPROLOL TARTRATE 25 MG TAB PO SCH (20:04)
[2022-11-10] MEDS ORDERED: ATORVASTATIN 80 MG TAB PO SCH (21:00)
[2022-11-11] MEDS: SODIUM CHLORIDE 0.9% 1,000 ML IV SCH (00:44)
[2022-11-11] MEDS: HYDROcodone/APAP 5-325MG 1 EACH TAB PO PRN ×4 (00:48→12:13)
[2022-11-11] MEDS: LACTATED RINGERS 1,000 ML IV SCH (00:53)
[2022-11-11] MEDS: METOPROLOL TARTRATE 25 MG TAB PO SCH (08:04)
[2022-11-11 08:05] VITALS: BP 147/85; PULSE 64; RESP 16; TEMP 97.6
--- NOTE | 2022-11-11 08:37 | XR ---
EXAMINATION TYPE: XR chest 1V portable DATE OF EXAM: 11/11/2022 Comparison: 10/27/2022 Clinical History: 62-year-old male Lead placement check Findings: Median sternotomy wires are present. No left anterior chest wall ICD generator with right atrial and ventricular leads. A third lead is also present. No lateral view is supplied. This could be a second right ventricular lead versus a short coronary sinus lead. Correlate. Heart borderline enlarged. No f rank consolidation or pleural effusion. Some strandy atelectasis noted at the periphery of the left m id and lower lung. No appreciable pneumothorax. Impression: New left anterior chest wall AICD generator. There are 3 leads. The third lead is either a second rig ht ventricular lead or a short coronary sinus lead. Clinically correlate. We do not have a lateral vi ew. Borderline cardiomegaly. Some opacity at the periphery of the left mid and lower lung probably strand y atelectasis. No pneumothorax.
[2022-11-11] MEDS ORDERED: PRASUGREL 10 MG TAB PO SCH (09:00)
[2022-11-11] MEDS ORDERED: ASPIRIN 81 MG PO SCH (09:00)
--- NOTE | 2022-11-11 15:37 | P.DS ---
Providers Attending physician: Pipo Velasquez Primary care physician: [facility] Course: Patient is doing well from a cardiac [place] He has discomfort in the pacemaker site but his is healing well minimal soakage On examination afebrile Pulse rate in the 60s and 70s Blood pressure 134/81 mmHg Breath sounds are reduced bilaterally but there are no rhonchi no crackles Heart sounds S1 and S2 normal Impression Complete heart block History of VF arrest during ST elevation VT History of monomorphic ventricular tachycardia during TVP placement, this degenerated into ventricular fibrillation He had monomorphic VT on 2 occasions He underwent a diagnostic EP study which did not reveal any inducible ventricular tachycardia He underwent a biventricular pacemaker implantation with left bundle pacing Left bundle lead is in excellent position with excellent thresholds The twelve-lead EKG shows a right bundle branch block pattern, paced He has known coronary artery disease status post coronary artery bypass grafting and recent stenting for recent acute VT Plan Increase metoprolol to 50 mrem twice daily Continue cardiac medications antiplatelet therapy and statins without any changes Follow-up in the device clinic in a week Instructions were given Pain medications for 3 days Plan - Discharge Summary Discharge Rx Participant: No New Discharge Prescriptions: Continue [place]-3 Fatty Acids/Fish Oil [Fish Oil 1,000 mg Softgel] 1 cap PO HS Famotidine [Pepcid AC] 10 mg PO HS Ubidecarenone [Co Q-10] 200 mg PO DAILY Atorvastatin [Lipitor] 80 mg PO HS #30 tab Aspirin EC [Ecotrin Low Dose] 81 mg PO DAILY Cholecalciferol [Vitamin D3 (25 Mcg = 1000 Iu)] 50 mcg PO BID Prasugrel [Effient] 10 mg PO DAILY #30 tab Acetaminophen Tab [Tylenol] 650 mg PO Q6HR PRN tab PRN Reason: Mild Pain (Scale 1 To 3) Cephalexin [Keflex] 500 mg PO BID Loratadine [Claritin] 10 mg PO DAILY Albuterol Sulfate [Albuterol Sulfate Hfa] 2 puff INHALATION Q4H PRN PRN Reason: Shortness Of Breath Tamsulosin [Flomax] 0.4 mg PO PC-SUPPER #30 cap Metoprolol Tartrate [Lopressor] 25 mg PO BID #60 tab Discharge Medication List Famotidine [Pepcid AC] 10 mg PO HS 06/18/18 [History] [place]-3 Fatty Acids/Fish Oil [Fish Oil 1,000 mg Softgel] 1 cap PO HS 06/18/18 [History] Ubidecarenone [Co Q-10] 200 mg PO DAILY 10/11/18 [History] Atorvastatin [Lipitor] 80 mg PO HS #30 tab 10/12/18 [Rx] Aspirin EC [Ecotrin Low Dose] 81 mg PO DAILY 09/10/22 [History] Loratadine [Claritin] 10 mg PO DAILY 09/10/22 [History] Albuterol Sulfate [Albuterol Sulfate Hfa] 2 puff INHALATION Q4H PRN 10/20/22 [History] Cholecalciferol [Vitamin D3 (25 Mcg = 1000 Iu)] 50 mcg PO BID 10/20/22 [History] Acetaminophen Tab [Tylenol] 650 mg PO Q6HR PRN tab 10/29/22 [Rx] Metoprolol Tartrate [Lopressor] 25 mg PO BID #60 tab 10/29/22 [Rx] Prasugrel [Effient] 10 mg PO DAILY #30 tab 10/29/22 [Rx] Tamsulosin [Flomax] 0.4 mg PO PC-SUPPER #30 cap 10/29/22 [Rx] Cephalexin [Keflex] 500 mg PO BID 11/05/22 [History] Follow up Appointment(s)/Referral(s): Pipo Velasquez MD [STAFF PHYSICIAN] - 11/18/22 3:30 pm (Appointment is at the Device Clinic located at [facility] on [address] Carrasco) Gill Carrasco MD [STAFF PHYSICIAN] - 12/01/22 3:15 pm Patient Instructions/Handouts: Pacemaker (DC) Activity/Diet/Wound Care/Special Instructions: PATIENT EDUCATION MATERIAL Instructions following a heart rhythm device implant. 1. Keep dressing DRY for 5 DAYS. You may cover the area with Saran or Cling Wrap, prior to a shower. 2. The dressing will be removed in the Device Clinic at [facility]. Absorbable sutures were used to close the wound. 3. Avoid raising the left arm above the shoulder level. 4 week restriction 4. Avoid arm movements, like backscratching, rubbing the head, or pulling on a cord. 4 weeks restriction 5. Gentle range of motion movements of the shoulder, closest to the incision should be performed to avoid a frozen shoulder. (Pendulum exercises of the shoulder) 6. The opposite arm may be used freely. 7. Avoid driving for 7 days. 8. Avoid activities such as golfing, swimming, weed whacking, lifting more than 10 pounds weight, bowling, gymnastics and weight training/lifting. (6 weeks restriction) 9. Activities such as wood chopping with an axe, pull-ups in the gymnasium, power lifting, arc-welding, being close to home induction cooktops will always be a problem. 10. Arm sling is only a reminder not to raise the arm above the head. You do not need to keep the arm completely immobilized. Your free to move the arm and use it and for normal activities. In case of any problems, please call [facility], [place], @ [phone], Attention: Device Clinic Device clinic follow-up in 5 days Follow-up with primary judge clerk as previously scheduled Discharge Disposition: HOME SELF-CARE
[2022-11-11] MEDS ORDERED: TAMSULOSIN 0.4 MG CAP.ER.24H PO SCH (18:30)
[2022-11-11] MEDS ORDERED: METOPROLOL TARTRATE 50 MG TAB PO SCH (21:00)
== END 2022-11-11 12:50 | disposition home or self-care (01) ==
LOC: CATHEP 08:50 → 6NMEDSUR 15:52 → CATHEP 11-11 12:50
PROVIDERS: ATTEND Internal Medicine Clinical Cardiac Electrophysiology
DX: I44.2 Atrioventricular block, complete (principal); I25.2 Old myocardial infarction; I25.10 Atherosclerotic heart disease of native coronary artery without angina pectoris; I10 Essential (primary) hypertension; F17.210 Nicotine dependence, cigarettes, uncomplicated; E78.2 Mixed hyperlipidemia; E78.5 Hyperlipidemia, unspecified; Z86.79 Personal history of other diseases of the circulatory system; Z95.810 Presence of automatic (implantable) cardiac defibrillator; Z95.1 Presence of aortocoronary bypass graft; Z79.899 Other long term (current) drug therapy; Z79.82 Long term (current) use of aspirin; Z82.49 Family history of ischemic heart disease and other diseases of the circulatory system
CPT/HCPCS: 93620; 33225; 33208; 85025; 71045; C1769 ×5; C1894; C1760; C1887; C1730; C1892; C1898; C2621; C1777; J2250; J3370; J0690 ×3; J2001 ×2; J3010; J0131; J2704

== ENCOUNTER → 2023-02-27 | Outpatient (CLI) | payer BC ==
[2023-02-27 11:10] LABS: ALT 20 U/L (10-49); AST 21 U/L (14-35); African American GFR (CKD) 96.1 (60.0-200.0); Albumin 4.4 g/dL (3.8-4.9); Albumin/Globulin Ratio 1.86 (1.60-3.17); Alkaline Phosphatase 86 U/L (41-126); BUN/Creat Ratio 13.47 Ratio (12.00-20.00); Blood Urea Nitrogen 13.2 mg/dL (9.0-27.0); Calcium 9.6 mg/dL (8.7-10.3); Carbon Dioxide 25.9 mmol/L (20.0-27.5); Chloride 105 mmol/L (96-109); Chol/HDL Ratio 2.29 Ratio; Globulin 2.4 g/dL (1.6-3.3); Glucose 104 mg/dL (70-110); LDL Cholesterol,Calculated 49.9 mg/dL (0.0-131.0); Non-African American GFR(CKD) 82.9 (60.0-200.0); Potassium 4.5 mmol/L (3.5-5.5); Sodium 142 mmol/L (135-145); Total Protein 6.7 g/dL (6.2-8.2); VLDL Calculation 14.44 mg/dL (5.00-40.00)
== END | disposition home or self-care (01) ==
LOC: LABWHC1 07:03
PROVIDERS: ATTEND Nurse Practitioner Adult Health
DX: I10 Essential (primary) hypertension (principal); E78.2 Mixed hyperlipidemia
CPT/HCPCS: 36415; 80053; 80061

== ENCOUNTER → 2023-03-27 | Outpatient (CLI) | payer BC ==
[2023-03-27 15:53] LABS: Blood Urea Nitrogen 15.3 mg/dL (9.0-27.0); Carbon Dioxide 25.3 mmol/L (21.6-31.8); Chloride 102 mmol/L (96-109); Potassium 4.4 mmol/L (3.5-5.5); Sodium 140 mmol/L (135-145)
== END | disposition home or self-care (01) ==
LOC: LABWHC1 07:05
PROVIDERS: ATTEND Internal Medicine Interventional Cardiology
DX: I10 Essential (primary) hypertension (principal)
CPT/HCPCS: 36415; 80051; 82565; 84520

== ENCOUNTER 2023-09-19 08:18 | Inpatient (IN) | payer BC ==
[2023-09-19] MEDS: NITROGLYCERIN SL TABS 0.4 MG TAB SUBLINGUAL STA (08:41)
[2023-09-19] MEDS: ASPIRIN 81 MG PO STA (08:44)
[2023-09-19] MEDS: SODIUM CHLORIDE 0.9% 500 ML 500 ML IV STA (08:44)
--- NOTE | 2023-09-19 08:44 | ED ---
General Adult HPI - General Chief complaint: Chest Pain Stated complaint: Chest pains Time Seen by Provider: 09/19/23 08:30 Source: patient, RN notes reviewed, old records reviewed Mode of arrival: ambulatory Limitations: no limitations - History of Present Illness Initial comments: This is a 63-year-old male with past medical history significant for heart attacks and stent placement. Patient also had a pacemaker placement October. Patient was on eliquis up until about 2 weeks ago and he was told to stop it. Patient came in today because he started having chest pain was in the center of his chest did not radiate anywhere however he took 3 nitroglycerin which are somewhat altered but had no effect so he decided to come to the emergency department. Patient states normally his chest pain goes away with one nitroglycerin. Patient states she's also very short of breath. Patient denies any recent fever chills or cough. Patient states swelling to the legs or calf tenderness. Patient states he did have cardiac arrest earlier in the year. - Related Data Home Medications Medication Instructions Recorded Confirmed Famotidine [Pepcid AC] 10 mg PO HS 06/18/18 11/10/22 [place]-3 Fatty Acids/Fish Oil [Fish 1 cap PO HS 06/18/18 11/10/22 Oil 1,000 mg Softgel] Ubidecarenone [Co Q-10] 200 mg PO DAILY 10/11/18 11/10/22 Aspirin EC [Ecotrin Low Dose] 81 mg PO DAILY 09/10/22 11/10/22 Loratadine [Claritin] 10 mg PO DAILY 09/10/22 11/10/22 Albuterol Sulfate [Albuterol 2 puff INHALATION Q4H PRN 10/20/22 11/05/22 Sulfate Hfa] Cholecalciferol [Vitamin D3 (25 50 mcg PO BID 10/20/22 11/10/22 Mcg = 1000 Iu)] Cephalexin [Keflex] 500 mg PO BID 11/05/22 11/10/22 Previous Rx's Medication Instructions Recorded Atorvastatin [Lipitor] 80 mg PO HS #30 tab 10/12/18 Acetaminophen Tab [Tylenol] 650 mg PO Q6HR PRN tab 10/29/22 Metoprolol Tartrate [Lopressor] 25 mg PO BID #60 tab 10/29/22 Prasugrel [Effient] 10 mg PO DAILY #30 tab 10/29/22 Tamsulosin [Flomax] 0.4 mg PO PC-SUPPER #30 cap 10/29/22 HYDROcodone/APAP 5-325MG [[place] 1 tab PO Q6HR PRN 3 Days #12 tab 07/19/23 5-325] Allergies Allergy/AdvReac Type Severity Reaction Status Date / Time adhesive Allergy Rash/Hives Verified 09/19/23 08:27 Review of Systems ROS Statement: Those systems with pertinent positive or pertinent negative responses have been documented in the HPI. ROS Other: All systems not noted in ROS Statement are negative. Past Medical History Past Medical History: Coronary Artery Disease (CAD), Chest Pain / Angina, GERD/Reflux, Hyperlipidemia, Hypertension, Myocardial Infarction ([place]), Pneumonia Additional Past Medical History / Comment(s): See Cardiology H&P. Recent +ve Covid beginning of September. Recent Pneumonia 10/21/22. Recent cardiac arrest/[place] 10/26/22, with CPR/Cardioversion, heart cath with 2 stents placed. Recent palpitations. Hx MA in 2007. Hx bronchitis. Last Myocardial Infarction Date:: 10/26/22 History of Any Multi-Drug Resistant Organisms: None Reported Past Surgical History: Appendectomy, Coronary Bypass/CABG, Heart Catheterization, Heart Catheterization With Stent, Joint Replacement, Orthopedic Surgery Additional Past Surgical History / Comment(s): 10/26/22 cardioversion/cardiac cath with 2 stents, 2007 PCI with stent, 2013 cardiac cath, 2013 CABG 3 vessel, multiple surgeries on both legs from trauma age 6yrs, left knee ACL repair, left knee replacement. Past Anesthesia/Blood Transfusion Reactions: No Reported Reaction Additional Past Anesthesia/Blood Transfusion Reaction / Comment(s): Pt is unsure if he has ever received blood. Date of Last Stent Placement:: 10/26/22 Past Psychological History: No Psychological Hx Reported Smoking Status: Former smoker Past Alcohol Use History: Occasional Past Drug Use History: None Reported - Past Family History Mother Family Medical History: Cancer Additional Family Medical History / Comment(s): Mother is 76yrs old. She had breast cancer and palpitations. There was a lot of CAD on her side of the family. Father Family Medical History: Myocardial Infarction ([place]) Additional Family Medical History / Comment(s): Father of a MA in his 60's. CAD runs strongly in father's side of family. General Exam - General Exam Comments Initial Comments: GENERAL: Patient is well-developed and well-nourished. Patient is nontoxic and well- hydrated and is in mild distress. ENT: Neck is soft and supple. No significant lymphadenopathy is noted. Oropharynx is clear. Moist mucous membranes. Neck has full range of motion without eliciting any pain. EYES: The sclera were anicteric and conjunctiva were pink and moist. Extraocular movements were intact and pupils were equal round and reactive to light. Eyelids were unremarkable. PULMONARY: Unlabored respirations. Good breath sounds bilaterally. No audible rales rhonchi or wheezing was noted. CARDIOVASCULAR: There is a regular rate and rhythm without any murmurs gallops or rubs. ABDOMEN: Soft and nontender with normal bowel sounds. SKIN: Skin is clear with no lesions or rashes and otherwise unremarkable. NEUROLOGIC: Patient is alert and oriented x3. Cranial nerves II through XII are grossly intact. Motor and sensory are also intact. Normal speech, volume and content. Symmetrical smile. MUSCULOSKELETAL: Normal extremities with adequate strength and full range of motion. LYMPHATICS: No significant lymphadenopathy is noted PSYCHIATRIC: Normal psychiatric evaluation. Limitations: no limitations Course Vital Signs 09/19/23 09/19/23 09/19/23 08:26 08:54 09:15 Temperature 98 F Pulse Rate 81 60 65 Respiratory 18 20 18 Rate Blood Pressure 123/77 80/47 121/74 O2 Sat by Pulse 98 98 100 Oximetry 09/19/23 09:40 Temperature Pulse Rate 87 Respiratory 18 Rate Blood Pressure 139/87 O2 Sat by Pulse 100 Oximetry Medical Decision Making - Medical Decision Making EKG is interpreted by myself. EKG is a paced rhythm at 75 bpm SC interval is 208 QRSs 162 QT interval 429 2 QTC is 477. Patient's EKG does show very slight elevation in V1 and V2 Was done because patient continued to have pain after nitroglycerin. EKG was interpreted by myself shows a paced rhythm at 61 bpm SC interval 296 QRS 162 QT interval is 43 QTC is 46. Patient's EKG does show ST segment elevation in V1 and V2 and V3 at this point. I called a STEMI overhead and spoke with the line supply Dr. Arreguin. EKG was interpreted by myself EKG shows a paced rhythm at 71 bpm SC interval is 2:30 QRS is 149 QT interval 471 QTC is 493 per patient's EKG shows some ST segment elevation in lead V2 Was pt. sent in by a medical professional or institution (, IRENE, TELEPHONE OPERATOR RECEPTIONIST, urgent care, hospital, or fdc...) When possible be specific @ -No Did you speak to anyone other than the patient for history (EMS, parent, family, police, friend...)? What history was obtained from this source @ -No Did you review nursing and triage notes (agree or disagree)? Why? @ -I reviewed and agree with nursing and triage notes Were old charts reviewed (outside hosp., previous admission, EMS record, old EKG, old radiological studies, urgent care reports/EKG's, fdc records)? Report findings @ -Michael prior charts keira prior EKGs in this patient Differential Diagnosis (chest pain, altered mental status, abdominal pain women, abdominal pain men, vaginal bleeding, weakness, fever, dyspnea, syncope, headache, dizziness, GI bleed, back pain, seizure, CVA, palpatations, mental health, musculoskeletal)? @ -Differential Chest Pain: Stable Angina, Unstable Angina, STEMI, NSTEMI Aortic Dissection, Pneumothorax, Musculoskeletal, Esophageal Spasm GERD, Cholecystitis, Pancreatitis, Zoster, this is not meant to be an all-inclusive list. EKG interpreted by me (3pts min.). @ -As above X-rays interpreted by me (1pt min.). @ -Chest x-ray shows no acute abnormality CT interpreted by me (1pt min.). @ -None done U/S interpreted by me (1pt. min.). @ -None done What testing was considered but not performed or refused? (CT, X-rays, U/S, labs)? Why? @ -None What meds were considered but not given or refused? Why? @ -None Did you discuss the management of the patient with other(professionals i.e. , IRENE, TELEPHONE OPERATOR RECEPTIONIST, lab, RT, psych nurse, social sciences professor, insulation foreman, teacher, optics technical officer, case preparer and liner)? Give summary @ -After the second EKG showed ST segment elevation I called a STEMI overhead and I Dr. Arreguin he came in and saw the patient. I also spoke with the hospice agreed to admit the patient admitted the patient wrote admitting orders Was smoking cessation discussed for >3mins.? @ -No Was critical care preformed (if so, how long)? @ -35 minutes Were there social determinants of health that impacted care today? How? (Homelessness, low income, unemployed, alcoholism, drug addiction, transportation, low edu. Level, literacy, decrease access to med. care, custodial, rehab)? @ -No Was there de-escalation of care discussed even if they declined (Discuss DNR or withdrawal of care, Hospice)? DNR status @ -No What co-morbidities impacted this encounter? (DM, HTN, Smoking, COPD, CAD, Cance r, CVA, ARF, Chemo, Hep., AIDS, mental health diagnosis, sleep apnea, morbid obesity)? @ -Coronary Artery disease Was patient admitted / discharged? Hospital course, mention meds given and route, prescriptions, significant lab abnormalities, going to OR and other pertinent info. @ -Patient's second EKG was concerning for ST segment elevation and patient continued to have pain even after nitroglycerin. After a few more minutes whereby patient was having more pain which point time he received nitro. Patient also received heparin bolus as well as heparin drip. Patient also was started on a nitroglycerin drip. Patient also received 2 mg of morphine Undiagnosed new problem with uncertain prognosis? @ -No Drug Therapy requiring intensive monitoring for toxicity (Heparin, Nitro, Insulin, Cardizem)? @ -No Were any procedures done? @ -No Diagnosis/symptom? @ -STEMI Acute, or Chronic, or Acute on Chronic? @ -Acute Uncomplicated (without systemic symptoms) or Complicated (systemic symptoms)? @ -Complicated Side effects of treatment? @ -No Exacerbation, Progression, or Severe Exacerbation? @ -No Poses a threat to life or bodily function? How? (Chest pain, [place], MA, pneumonia, PE, COPD, DKA, ARF, appy, cholecystitis, CVA, Diverticulitis, Homicidal, Suicidal, threat to staff... and all critical care pts) @ -Yes this can lead to cardiac dysfunction and poor end organ perfusion - Lab Data Result diagrams: 09/19/23 08:41 Lab Results 09/19/23 09/19/23 Range/Units 08:41 08:41 WBC 13.2 H (3.8-10.6) k/uL RBC 5.25 (4.30-5.90) m/uL Hgb 16.2 (13.0-17.5) gm/dL Hct 48.7 (39.0-53.0) % MCV 92.8 (80.0-100.0) fL MCH 30.9 (25.0-35.0) pg MCHC 33.3 (31.0-37.0) g/dL RDW 12.9 (11.5-15.5) % Plt Count 188 (150-450) k/uL MPV 8.9 Neutrophils % 75 % Lymphocytes % 17 % Monocytes % 5 % Eosinophils % 2 % Basophils % 0 % Neutrophils # 9.8 H (1.3-7.7) k/uL Lymphocytes # 2.3 (1.0-4.8) k/uL Monocytes # 0.7 (0-1.0) k/uL Eosinophils # 0.2 (0-0.7) k/uL Basophils # 0.0 (0-0.2) k/uL PT 10.4 (10.0-12.5) sec INR 0.9 (<1.2) APTT 22.4 (22.0-30.0) sec Critical Care Time Critical Care Time: Yes Total Critical Care Time: 35 Disposition Clinical Impression: STEMI (ST elevation myocardial infarction) Disposition: ADMITTED IP TO THIS [facility] Time of Disposition: 09:39
[2023-09-19] MEDS: HEPARIN SODIUM 1,000 UN/ML (10ML VL) IV ONE (08:51)
[2023-09-19] MEDS: HEPARIN SOD,PORK IN 0.45% NACL 25,000 UNIT in 0.45% NACL 1 250ML.BAG IV SCH (08:52)
--- NOTE | 2023-09-19 08:55 | XR ---
EXAMINATION TYPE: XR chest 2V DATE OF EXAM: 09/19/2023 COMPARISON: 11/11/2022 INDICATION: Chest pain TECHNIQUE: Frontal and lateral views of the chest are obtained. FINDINGS: The heart size is normal. Pacemaker overlies left chest. Sternotomy wires are present. The pulmonary vasculature is normal. The lungs are clear. IMPRESSION: 1. No acute pulmonary process.
[2023-09-19 09:29] LABS: Basophils % (A) 0 %; Eosinophils # (A) 0.2 k/uL (0-0.7); Eosinophils % (A) 2 %; HCT 48.7 % (39.0-53.0); HGB 16.2 gm/dL (13.0-17.5); Lymphocytes # (A) 2.3 k/uL (1.0-4.8); Lymphocytes % (A) 17 %; MCH 30.9 pg (25.0-35.0); MCHC 33.3 g/dL (31.0-37.0); MCV 92.8 fL (80.0-100.0); Mean Platelet Volume 8.9; Monocytes # (A) 0.7 k/uL (0-1.0); Monocytes % (A) 5 %; Neutrophils # (A) 9.8 k/uL (1.3-7.7); Neutrophils % (A) 75 %; Platelet Count 188 k/uL (150-450); RBC 5.25 m/uL (4.30-5.90); RDW 12.9 % (11.5-15.5); WBC 13.2 k/uL (3.8-10.6)
[2023-09-19] MEDS: MORPHINE SULFATE 2 MG/ML SYRINGE IVP STA (09:30)
[2023-09-19] MEDS: NITROGLYCERIN-D5W PMX 50 MG in DEXTROSE/WATER 1 250ML.BAG IV ONE (09:31)
[2023-09-19] MEDS ORDERED: LIDOCAINE 1% INJ 10MG/ML (20 ML MDV) ONE (09:32)
[2023-09-19] MEDS ORDERED: VERAPAMIL 2.5 MG/ML 2 ML AMP ONE (09:32)
[2023-09-19] MEDS: IV FLUID CONTINUATION 1,000 ML IV ONE (09:33)
[2023-09-19 09:37] LABS: INR 0.9 (<1.2); Partial Thromboplastin Time 22.4 sec (22.0-30.0); Prothrombin Time 10.4 sec (10.0-12.5)
[2023-09-19] MEDS ORDERED: NITROGLYCERIN SL TABS 0.4 MG TAB SUBLINGUAL PRN (09:39)
[2023-09-19] MEDS ORDERED: fentaNYL (PF) 50 MCG/ML 2 ML AMP ONE (09:47)
--- NOTE | 2023-09-19 09:49 | P.CRDCN ---
History of Present Illness Consult date: 09/19/23 History of present illness: HISTORY OF PRESENTING ILLNESS 62-year-old known to Dr. Carrasco prior history of CAD status post CABG in 2007. In 2022 the patient was admitted with pneumonia. During hospitalization he had third-degree AV block for which she got a permanent pacemaker placed. During that hospitalization he also had anterolateral STEMI. He was taken to the cardiac cath Which showed thrombotic occlusion of vein graft to diagonal artery. He got PCI done by Dr. Carrasco at that time. He has been maintained on aspirin and Effient. His Effient was discontinued approximately a month ago as he completed his prescription. It was not renewed. Patient reported that yesterday he had couple of drinks. This morning he woke up with significant abdominal pain and substernal chest heaviness. He was rating his pain 8/10 on admission. This has increased to 10 over 10 without any resolution with sublingual nitroglycerin which she took at home and in the ER. He also received IV morphine which did not relieve his chest pain. I did a bedside echocardiogram which showed EF of around 50% with anterolateral wall hypokinesia. I do not have any prior echocardiographic images to compare it with His ECG showed RV paced rhythm with left bundle-branch block morphology. By ECG criteria is not fitting to STEMI if we follow the scarbossa criteria. Lab was activated because of significant ongoing chest pain and significant prior cardiac vessel history and wall motion abnormality on echocardiogram REVIEW OF SYSTEMS 14 point review of system is negative except what is mentioned above in HPI. PHYSICAL EXAMINATION Vital signs reviewed. Head: Normocephalic. Eyes: Sclerae nonicteric. Neck: Brisk carotid upstroke, no jugular venous distention. Lungs: Clear to auscultation. Heart: Regular rate and rhythm, S1-S2, no S3, no murmur or rub. Abdomen: Soft nontender, positive bowel sounds no organomegaly. Extremities: No edema, intact distal pulses. Neuro: Alert, oritented, no focal deficits ASSESSMENT Unstable angina PCI to vein graft to diagonal artery 2022 Complete heart block status post PPM 2022 Multivessel CAD status post CABG in 2007, OROZCO to LAD, vein graft to OM, PLAN Activated cardiac. Plan for emergent intervention. Further recommendations to follow Patient agreed with the plan. He understands the risks and the benefits of the emergent cardiac cath procedure including and stroke. He wants to proceed with the procedure. Past Medical History Past Medical History: Coronary Artery Disease (CAD), Chest Pain / Angina, GERD/Reflux, Hyperlipidemia, Hypertension, Myocardial Infarction ([place]), Pneumonia Additional Past Medical History / Comment(s): See Cardiology H&P. Recent +ve Covid beginning of September. Recent Pneumonia 10/21/22. Recent cardiac arrest/[place] 10/26/22, with CPR/Cardioversion, heart cath with 2 stents placed. Recent palpitations. Hx [place] in 2007. Hx bronchitis. Last Myocardial Infarction Date:: 10/26/22 History of Any Multi-Drug Resistant Organisms: None Reported Past Surgical History: Appendectomy, Coronary Bypass/CABG, Heart Catheterization, Heart Catheterization With Stent, Joint Replacement, Orthopedic Surgery Additional Past Surgical History / Comment(s): 10/26/22 cardioversion/cardiac cath with 2 stents, 2007 PCI with stent, 2013 cardiac cath, 2013 CABG 3 vessel, multiple surgeries on both legs from trauma age 6yrs, left knee ACL repair, left knee replacement. Past Anesthesia/Blood Transfusion Reactions: No Reported Reaction Additional Past Anesthesia/Blood Transfusion Reaction / Comment(s): Pt is unsure if he has ever received blood. Date of Last Stent Placement:: 10/26/22 Past Psychological History: No Psychological Hx Reported Smoking Status: Former smoker Past Alcohol Use History: Occasional Past Drug Use History: None Reported - Past Family History Mother Family Medical History: Cancer Additional Family Medical History / Comment(s): Mother is 76yrs old. She had breast cancer and palpitations. There was a lot of CAD on her side of the family. Father Family Medical History: Myocardial Infarction ([place]) Additional Family Medical History / Comment(s): Father of a [place] in his 60's. CAD runs strongly in father's side of family. Medications and Allergies Home Medications Medication Instructions Recorded Confirmed Type Famotidine [Pepcid AC] 10 mg PO HS 06/18/18 11/10/22 History [place]-3 Fatty Acids/Fish Oil [Fish 1 cap PO HS 06/18/18 11/10/22 History Oil 1,000 mg Softgel] Ubidecarenone [Co Q-10] 200 mg PO DAILY 10/11/18 11/10/22 History Atorvastatin [Lipitor] 80 mg PO HS #30 tab 10/12/18 11/10/22 Rx Aspirin EC [Ecotrin Low Dose] 81 mg PO DAILY 09/10/22 11/10/22 History Loratadine [Claritin] 10 mg PO DAILY 09/10/22 11/10/22 History Albuterol Sulfate [Albuterol 2 puff INHALATION Q4H PRN 10/20/22 11/05/22 History Sulfate Hfa] Cholecalciferol [Vitamin D3 (25 50 mcg PO BID 10/20/22 11/10/22 History Mcg = 1000 Iu)] Acetaminophen Tab [Tylenol] 650 mg PO Q6HR PRN tab 10/29/22 11/10/22 Rx Metoprolol Tartrate [Lopressor] 25 mg PO BID #60 tab 10/29/22 11/10/22 Rx Prasugrel [Effient] 10 mg PO DAILY #30 tab 10/29/22 11/10/22 Rx Tamsulosin [Flomax] 0.4 mg PO PC-SUPPER #30 cap 10/29/22 11/10/22 Rx Cephalexin [Keflex] 500 mg PO BID 11/05/22 11/10/22 History HYDROcodone/APAP 5-325MG [[place] 1 tab PO Q6HR PRN 3 Days #12 tab 07/19/23 Rx 5-325] Allergies Allergy/AdvReac Type Severity Reaction Status Date / Time adhesive Allergy Rash/Hives Verified 09/19/23 08:27 Physical Exam Vitals: Vital Signs Temp Pulse Resp BP Pulse Ox 09/19/23 09:15 65 18 121/74 100 09/19/23 08:54 60 20 80/47 98 09/19/23 08:26 98 F 81 18 123/77 98 Intake and Output 09/18/23 09/19/23 09/19/23 22:59 06:59 14:59 Other: Weight 99.79 kg Results 09/19/23 08:41 Coagulation 09/19/23 Range/Units 08:41 PT 10.4 (10.0-12.5) sec APTT 22.4 (22.0-30.0) sec CBC 09/19/23 Range/Units 08:41 WBC 13.2 H (3.8-10.6) k/uL RBC 5.25 (4.30-5.90) m/uL Hgb 16.2 (13.0-17.5) gm/dL Hct 48.7 (39.0-53.0) % Plt Count 188 (150-450) k/uL Current Medications Generic Name Dose Route Start Last Admin Trade Name Marilia PRN Reason Stop Dose Admin Aspirin 325 mg 09/20/23 09:00 Aspirin 325 Mg Tab PO DAILY SILVANO Heparin Sodium/Sodium Chloride 250 mls @ 9.999 mls/hr 09/19/23 08:45 09/19/23 08:52 25,000 unit/ Sodium Chloride IV 10.02 units/kg/hr .Q24H SILVANO 9.999 mls/hr Administration Protocol 10.02 UNITS/KG/HR Nitroglycerin/Dextrose 50 mg/ 250 mls @ 1.5 mls/hr 09/19/23 09:25 09/19/23 09:31 IV Solution IV 09/20/23 09:24 5 mcg/min .Q24H ONE 1.5 mls/hr Administration Protocol 5 MCG/MIN Nitroglycerin 0.4 mg 09/19/23 09:39 Nitroglycerin Sl Tabs 0.4 Mg Tab SUBLINGUAL Q5M PRN Chest Pain Intake and Output 09/18/23 09/19/23 09/19/23 22:59 06:59 14:59 Other: Weight 99.79 kg Patient Weight 09/20/23 06:59 Weight 99.79 kg 09/19/23 08:41
[2023-09-19] MEDS: MIDAZOLAM 2 MG/2 ML VIAL IVP ONE ×2 (09:50→10:00)
[2023-09-19] MEDS: fentaNYL (PF) 50 MCG/ML 2 ML AMP IVP ONE (09:50)
[2023-09-19] MEDS: LIDOCAINE 1% INJ 10MG/ML (20 ML MDV) SQ ONE (09:54)
[2023-09-19] MEDS: HEPARIN SODIUM 1,000 UN/ML (10ML VL) IVP ONE ×2 (10:23→10:48)
[2023-09-19] MEDS ORDERED: niCARdipine 25 MG/10 ML VIAL ONE (10:23)
[2023-09-19 10:26] LABS: ALT 31 U/L (4-49); AST 47 U/L (17-59); African American GFR (CKD) >90 (>60 ml/min/1.73 sqM); Albumin 4.4 g/dL (3.5-5.0); Alkaline Phosphatase 74 U/L (38-126); Anion Gap 14 mmol/L; Blood Urea Nitrogen 20 mg/dL (9-20); Carbon Dioxide 21 mmol/L (22-30); Chloride 110 mmol/L (98-107); Glucose 97 mg/dL (74-99); Magnesium 2.1 mg/dL (1.6-2.3); Non-African American GFR(CKD) 89 (>60 ml/min/1.73 sqM); Sodium 145 mmol/L (137-145); Total Bilirubin 0.7 mg/dL (0.2-1.3); Total Protein 7.5 g/dL (6.3-8.2)
[2023-09-19 10:28] LABS: Calcium 9.3 mg/dL (8.4-10.2)
[2023-09-19] MEDS ORDERED: TICAGRELOR 90 MG TAB ONE (10:28)
[2023-09-19] MEDS: TICAGRELOR 90 MG TAB PO ONE (10:30)
[2023-09-19] MEDS: niCARdipine Syringe (1,000 mcg/10 mL) INTRACORON ONE ×2 (10:32→10:40)
[2023-09-19 10:33] LABS: Potassium 4.3 mmol/L (3.5-5.1)
--- NOTE | 2023-09-19 10:36 | P.CARDCATH ---
Date of Procedure: 09/19/23 Description of Procedure: DIAGNOSTIC CORONARY ANGIOGRAPHY and LEFT HEART CATH REPORT PROCEDURES PERFORMED: Left heart catheterization Selective coronary angiography Moderate conscious sedation 34 mins Right common femoral access Right common femoral arteriogram Angioseal Closure INDICATION: Unstable angina 63-year-old prior history of CABG 2007 with OROZCO to LAD, vein graft to diagonal. In Oct 2022 he got PCI to vein graft to diagonal which had 100% occlusion with thrombus. At that time he also complete heart block and cardiac pulmonary pacemaker. This time he presented to the hospital due to substernal chest heaviness which was not getting better with sublingual nitroglycerin. This pain started this morning woke him up from sleep. Patient reported that he stopped taking his Effient 2-3 weeks ago. CONSENT: I have discussed the risks, benefits and alternative therapies for the above-mentioned procedure, sedation/analgesia and necessary blood product administration (if indicated, as they pertain to this patient). The patient has indicated understanding and acceptance of the risks and procedures discussed. Conscious Sedation: Patient's ECG, heart rate, blood pressure, pulse oximetry was monitored throughout the duration of procedure under the direct supervision. 2 mg Versed and 50 mg Fentanyl were used for induction of moderate conscious sedation. Total duration of 34 minutes. PROCEDURE:After the risks, benefits and alternatives of the above mentioned procedure explained in detail with the patient, informed consent was obtained. Patient was taken to the catheterization lab and prepped and draped in usual sterile fashion. Ultrasound was used to identify the right common femoral artery. 1% lidocaine was infiltrated over the right common femoral artery. Using ultrasound arterial access was obtained using micropuncture needle. A 6-Serbian sheath was placed in the right radial artery using modified Seldinger technique. J tipped wire was advanced under fluoroscopic guidance. Over the wire JL4 diagnostic catheter was advanced. Wire was removed, catheter was flushed and manipulated under fluoroscopy to selectively engaged the left coronary ostium. Left coronary angioplasty was performed in different angiographic projections. This catheter was exchanged for a JR4 diagnostic catheter over the wire. The catheter was flushed and manipulated to cross the aortic valve. LV pressures were obtained. Pullback was performed across aortic valve and catheter was manipulated to selectively engage the right coronary ostium under fluoroscopic guidance. Right coronary angiography was performed in different angiographic projections. Catheter was removed over the wire. Femoral sheath was flushed. Angioseal closure device was used to close the arteriotomy site. Appropriate patent hemostasis was achieved. The patient tolerated the procedure well. Patient was transported back to the post catheterization holding area in stable condition. Angiographic images were reviewed in detail. HEMODYNAMICS: Aortic Pressure: 128/74 mmHg. LV pressure: 130/10 mmHg. LVEDP 29 mmHg. SELECTIVE CORONARY ARTERIOGRAPHY: LEFT MAIN: The left main is a large caliber vessel which bifurcates into the LAD and circumflex. Mild 10% disease. LEFT ANTERIOR DESCENDING CORONARY ARTERY: LAD is known to be chronically occluded 100%. LEFT CIRCUMFLEX CORONARY ARTERY: It is nondominant vessel. Ostial LCx has 30- 40% disease. Proximal and mid LCx has 40-50% luminal irregularities. This has got progressed from prior cath in October 2022. The OM branches are known to be occluded 100% on a daily. RIGHT CORONARY ARTERY: Dominant vessel. Proximal mid and distal RCA has mild luminal irregularities. Distally LAD supplies a PDA and PL branch. PLV branch is known to be 100% occluded. PDA has diffuse 70-80% disease. Grafts OROZCO widely patent with good distal runoff supplying the LAD. SVG to Diag 100% stenosis with thrombus. There are faint left to left collaterals filling the diagonal artery in the retrograde fashion IMPRESSION: 100% occlusion of SVG to diagonal in-stent stenosis with thrombus. Faint left to left collaterals to diagonal filling retrogradely. CERAMIC RESTORER 100% LAD CERAMIC RESTORER 100% OM1 and OM2. Right to left collaterals to OM2 30-40% disease in LCx 70-80% diffuse PDA disease PLAN: Due to severe ongoing substernal chest pain, plan is to proceed with PCI and thrombectomy of SVG graft to Diagonal. Admit to ICU Echo DAPT therapy with effient. Need indefinite DAPT therapy or single APA with Anticoag. Performing Physician Willem Sousa MD
[2023-09-19] MEDS: IOPAMIDOL-370 100ML BTL INJ ONE ×2 (10:38→10:41)
[2023-09-19] MEDS: NITROGLYCERIN 1000MCG/10ML SYRINGE INTRACORON ONE (10:40)
[2023-09-19] MEDS ORDERED: ATROPINE SULFATE 0.1 MG/ML 10ML SYRINGE IV PRN (10:47)
[2023-09-19] MEDS ORDERED: RX INFO: IV CONTRAST WAS GIVEN 1 EACH MISC MISCELLANE PRN (10:47)
--- NOTE | 2023-09-19 10:53 | P.PCN ---
Date of Procedure: 09/19/23 Operative Findings: PERCUTANEOUS CORONARY INTERVENTION Performing physician Kadeem Manuel M.D. Procedure Performed: 1. Successful stenting of the SVG to diagonal using 4.0 x 18 mm Xience drug- eluting stent with an excellent angiographic results. 2. Adjunctive use of mechanical thrombectomy using the Pneunupra aspiration catheter Indication: Acute coronary syndrome. The patient is a 61-year-old gentleman with CAD and prior CABG and a year ago stenting of the SVG to diagonal presented to the hospital with a chest discomfort and evidence of LBBB. He was having ongoing chest discomfort. He underwent a heart catheterization and that reviewed occluded SVG to diagonal with large thrombus burden Approach: Right common femoral artery Complications: None Level of Sedation: Moderate with a sedation length of 40 minutes Procedure Discussion: Please refer to diagnosed sick heart catheterization was performed by Dr. Sousa. Anticoagulation was initiated using heparin with continuous ACT monitoring. Engaging the graft was performed using an AL-1 guiding catheter. I did wired using a run-through wire. After that mechanical thrombectomy was performed and subsequently balloon angioplasty using 3.5 mm balloon before I deployed a 4.0 x 18 mm stent at the distal end of the graft/distal anastomosis. Subsequently an angiogram was performed after injection of nicardipine and nitroglycerin showed an excellent angiographic results was LORENA-3 flow. The procedure was completed there was no complication Postprocedure Management: 1. Dual antiplatelet therapy using aspirin and Brilinta for 12 month 2. Probably consider prolonged dual antiplatelet therapy or triple therapy 3. Follow-up with the patient
[2023-09-19 11:15] LABS: Glucose,Whole Blood 110 mg/dL (70-110)
[2023-09-19] MEDS: SODIUM CHLORIDE 0.9% 1,000 ML in EMPTY BAG 1 BAG IV SCH (11:24)
[2023-09-19] MEDS: NITROGLYCERIN SL TABS 0.4 MG TAB SUBLINGUAL PRN (14:16)
[2023-09-19] MEDS: ISOSORBIDE MONONITRATE ER 30 MG TAB.ER.24H PO SCH (14:38)
[2023-09-19] MEDS: traMADol 50 MG TAB PO PRN (14:38)
[2023-09-19] MEDS: HYDROmorphone 1 MG/ML 1 ML SYRINGE IVP STA (17:17)
[2023-09-19] MEDS: MAG HYDROX/AL HYDROX/SIMETH 30 ML CUP PO PRN (17:20)
--- NOTE | 2023-09-19 19:35 | CA ---
Transthoracic Echo Report Name: Aguilar Vail Age: 63 Gender: M : 1960 Exam Date: 09/19/2023 11:31 Exam Location: [facility] Ht (in): 70 Wt (lb): 220 Ordering Physician: Kadeem Manuel MD ([id number]) Attending/Referring Phys: Auto Body Detailer No Huddleston RDCS Procedure CPT: Indications: ACS Cardiac Hx: CABG, Pacemaker Technical Quality: Fair Contrast 1: Total Dose (mL): Contrast 2: Total Dose (mL): MEASUREMENTS (Male / Female) Normal Values 2D ECHO LV Diastolic Diameter PLAX 5.9 cm 4.2 - 5.9 / 3.9 - 5.3 cm LV Systolic Diameter PLAX 4.9 cm IVS Diastolic Thickness 1.6 cm 0.6 - 1.0 / 0.6 - 0.9 cm LVPW Diastolic Thickness 1.5 cm 0.6 - 1.0 / 0.6 - 0.9 cm LV Relative Wall Thickness 0.5 RV Internal Dim ED PLAX 3.6 cm LA Systolic Diameter LX 3.8 cm 3.0 - 4.0 / 2.7 - 3.8 cm LV Diastolic Volume MOD BP 166.3 cm??? 67 - 155 / 56 - 104 cm??? LV Systolic Volume MOD BP 88.2 cm??? - / 19 - 49 cm??? LV Ejection Fraction MOD BP 47.0 % >= 55 % LV Cardiac Index MOD BP 2882.9 cm???/min???m??? LV Diastolic Volume MOD 4C 152.7 cm??? LV Systolic Volume MOD 4C 90.6 cm??? LV Ejection Fraction MOD 4C 40.7 % LV Cardiac Index MOD 4C 2291.1 cm???/min???m??? LV Diastolic Length 4C 8.1 cm LV Systolic Length 4C 7.7 cm LV Diastolic Volume MOD 2C 168.9 cm??? LV Systolic Volume MOD 2C 83.8 cm??? LV Ejection Fraction MOD 2C 50.4 % LV Cardiac Index MOD 2C 3139.7 cm???/min???m??? LV Diastolic Length 2C 8.8 cm LV Systolic Length 2C 7.3 cm LA Volume 104.8 cm??? 18 - 58 / 22 - 52 cm??? LA Volume Index 46.6 cm???/m??? 16 - 28 cm???/m??? M-MODE Aortic Root Diameter MM 3.7 cm MV E Point Septal Separation 1.4 cm AV Cusp Separation MM 2.5 cm DOPPLER AV Peak Velocity 132.7 cm/s AV Peak Gradient 7.0 mmHg MV Area PHT 6.2 cm??? Mitral E Point Velocity 82.1 cm/s Mitral A Point Velocity 101.0 cm/s Mitral E to A Ratio 0.8 MV Deceleration Time 122.8 ms MV E' Velocity 9.1 cm/s Mitral E to MV E' Ratio 9.0 TR Peak Velocity 241.0 cm/s TR Peak Gradient 23.2 mmHg Right Ventricular Systolic Press 28.2 mmHg FINDINGS Left Ventricle Left ventricular ejection fraction is estimated at 40-45 %. Left ventricular cavity size normal uppear limits. Mild concentric left ventricular hypertrophy. Right Ventricle Mild right ventricular dilatation. Right ventricular systolic pressure within normal limits. Right Atrium Normal right atrial size. Left Atrium Mild LA dilatation Mitral Valve Structurally normal mitral valve. Mild mitral regurgitation. Aortic Valve Trileaflet aortic valve. No aortic valve stenosis or regurgitation. Tricuspid Valve Structurally normal tricuspid valve. Mild tricuspid regurgitation. Pulmonic Valve Structurally normal pulmonic valve. Trace to mild pulmonic regurgitation. Pericardium No pericardial effusion. Aorta Normal size aortic root and proximal ascending aorta. CONCLUSIONS Mild LV cavity dilatation. LVEF estimated at 40-45% Base to mid anterolateral wall hypokinesia. Atypical septal motion because of prior surgery Mild LA dilatation Mild MR No pleural effusion Previewed by: Dr Willem Sousa (Electronically Signed) Final Date: 19 September 2023 19:35
[2023-09-19] MEDS: FAMOTIDINE 20 MG TAB PO SCH (20:59)
[2023-09-19] MEDS: METOPROLOL TARTRATE 25 MG TAB PO SCH (21:00)
[2023-09-19] MEDS: ATORVASTATIN 80 MG TAB PO SCH (21:00)
[2023-09-19] MEDS: GABAPENTIN 100 MG CAP PO SCH (21:00)
[2023-09-19] MEDS: CHOLECALCIFEROL 25 MCG (1000 IU) TABLET PO SCH (21:00)
[2023-09-19] MEDS: BACLOFEN 10 MG TAB PO SCH (21:00)
[2023-09-19] MEDS: HYDROmorphone 0.5 MG/0.5 ML SYRINGE IVP PRN (21:01)
[2023-09-19] MEDS: TICAGRELOR 90 MG TAB PO SCH (21:01)
[2023-09-19] MEDS: TAMSULOSIN 0.4 MG CAP.ER.24H PO SCH (21:01)
[2023-09-20 04:38] LABS: HCT 38.7 % (39.0-53.0); MCH 30.7 pg (25.0-35.0); MCHC 33.3 g/dL (31.0-37.0); MCV 92.1 fL (80.0-100.0); Mean Platelet Volume 8.9; Platelet Count 133 k/uL (150-450); RBC 4.21 m/uL (4.30-5.90); RDW 13.2 % (11.5-15.5); WBC 11.4 k/uL (3.8-10.6)
[2023-09-20 04:53] LABS: African American GFR (CKD) >90 (>60 ml/min/1.73 sqM); Anion Gap 7 mmol/L; Blood Urea Nitrogen 15 mg/dL (9-20); Calcium 8.3 mg/dL (8.4-10.2); Carbon Dioxide 25 mmol/L (22-30); Chloride 104 mmol/L (98-107); Glucose 93 mg/dL (74-99); Non-African American GFR(CKD) >90 (>60 ml/min/1.73 sqM); Potassium 3.7 mmol/L (3.5-5.1); Sodium 136 mmol/L (137-145)
[2023-09-20 04:58] LABS: HGB 12.9 gm/dL (13.0-17.5)
[2023-09-20] MEDS ORDERED: ASPIRIN 325 MG TAB PO SCH (09:00)
[2023-09-20] MEDS: EZETIMIBE 10 MG TAB PO SCH (09:04)
[2023-09-20] MEDS: ASPIRIN 81 MG PO SCH (09:04)
[2023-09-20] MEDS: LORATADINE 10 MG TAB PO SCH (09:05)
[2023-09-20] MEDS: LOSARTAN 50 MG TAB PO SCH (09:05)
[2023-09-20 09:53] LABS: Chol/HDL Ratio 2.35 Ratio; LDL Cholesterol,Calculated 34.4 mg/dL (0.0-131.0)
--- NOTE | 2023-09-20 11:50 | P.PN ---
Subjective Progress Note Date: 09/20/23 * 63-year-old gentleman with past medical history significant for coronary artery disease history of CABG, history of complete heart block status post pacemaker in place, presents to the emergency department with complains of chest pain. While in ER patient was noted to have ST segment changes and was classified as a STEMI and taken to chemical processing laborer. Patient was seen post cardiac catheterization where he was noted to have * 100% occlusion of SVG to diagonal in-stent stenosis with thrombus. Faint left to left collaterals to diagonal filling retrogradely. ANTIQUE COLLECTOR 100% LADCTO 100% OM1 and OM2. Right to left collaterals to [id number]% disease in LCx 70-80% diffuse PDA disease * Patient had PCI and thrombectomy done of SVG graft to diagonal * 09/20/2023: Patient seen and evaluated bedside, patient is post cardiac catheterization day one, patient states overnight he had intermittent chest pain. Patient states he ambulated and does not feel short of breath in general he does feel better, waiting for cardiology rounds, REVIEW OF SYSTEMS: Chest pain intermittent resolved CONSTITUTIONAL: No fever, no malaise, no fatigue. HEENT: No recent visual problems or hearing problems. Denied any sore throat. CARDIOVASCULAR: No chest pain, orthopnea, PND, no palpitations, no syncope. PULMONARY: No shortness of breath, no cough, no hemoptysis. GASTROINTESTINAL: No diarrhea, no nausea, no vomiting, no abdominal pain. NEUROLOGICAL: No headaches, no weakness, no numbness. HEMATOLOGICAL: Denies any bleeding or petechiae. GENITOURINARY: Denies any burning micturition, frequency, or urgency. MUSCULOSKELETAL/RHEUMATOLOGICAL: Denies any joint pain, swelling, or any muscle pain. ENDOCRINE: Denies any polyuria or polydipsia. PHYSICAL EXAMINATION: GENERAL: The patient is alert and oriented x3, not in any acute distress. Well developed, well nourished. Right groin no hematoma noted HEENT: Pupils are round and equally reacting to light. EOMI. CARDIOVASCULAR: S1 and S2 present. No murmurs, rubs, or gallops. PULMONARY: Chest is clear to auscultation, no wheezing or crackles. ABDOMEN: Soft, nontender, nondistended, normoactive bowel sounds. MUSCULOSKELETAL: No joint swelling or deformity. EXTREMITIES: No cyanosis, clubbing, or pedal edema. NEUROLOGICAL: Gross neurological examination did not reveal any focal deficits. SKIN: No rashes. Objective - Vital Signs Vital signs: Vital Signs Temp 98.1 F 09/20/23 08:00 Pulse 83 09/20/23 09:00 Resp 7 L 09/20/23 09:00 BP 122/70 09/20/23 10:00 Pulse Ox 96 09/20/23 09:00 FiO2 Intake & Output 09/19/23 09/20/23 09/20/23 18:59 06:59 18:59 Intake Total 800 540 400 Output Total 1150 380 250 Balance -350 160 150 Weight 99.79 kg 113.9 kg Intake: IV 800 Sodium Chloride 0.9% 1, 450 000 ml In Empty Bag 1 bag @ 75 mls/hr IV .[id number] [facility] Rx#:[id number] Oral 540 400 Output: Urine 1150 380 250 Other: Voiding Method Urinal Urinal - Labs CBC & Chem 7: 09/20/23 03:47 09/20/23 03:47 Labs: Abnormal Lab Results - Last 24 Hours (Table) 09/19/23 09/19/23 09/20/23 Range/Units 12:06 14:55 03:47 WBC (3.8-10.6) k/uL RBC (4.30-5.90) m/uL Hgb (13.0-17.5) gm/dL Hct (39.0-53.0) % Plt Count (150-450) k/uL Sodium 136 L (137-145) mmol/L Calcium 8.3 L (8.4-10.2) mg/dL Troponin I 19.500 H* 33.700 H* (0.000-0.034) ng/mL 09/20/23 Range/Units 03:47 WBC 11.4 H (3.8-10.6) k/uL RBC 4.21 L (4.30-5.90) m/uL Hgb 12.9 L D (13.0-17.5) gm/dL Hct 38.7 L (39.0-53.0) % Plt Count 133 L (150-450) k/uL Sodium (137-145) mmol/L Calcium (8.4-10.2) mg/dL Troponin I (0.000-0.034) ng/mL Assessment and Plan Assessment: Assessment and plan * Non-ST elevated OR with history of coronary artery disease and CABG * Multivessel coronary artery disease * Status post PCI 100% occlusion of SVG to diagonal in-stent stenosis with thrombus. Faint left to left collaterals to diagonal filling retrogradely. ANTIQUE COLLECTOR 100% LADCTO 100% OM1 and OM2. Right to left collaterals to [id number]% disease in LCx 70-80% diffuse PDA disease Patient had PCI and thrombectomy done of SVG graft to diagonal * History of complete heart block status post pacemaker in place * Hypertension * Hyperlipidemia * Gastroesophageal reflux disease * In regards to non-ST elevated OR, , patient is status post PCI, continue aspirin, pale enter, losartan, Imdur, metoprolol * In regards to history of multivessel coronary artery disease continue medical management aspirin,Brilanta , Lipitor * In regards to history of hypertension continue losartan and metoprolol * Status is full code Time with Patient: Greater than 30
--- NOTE | 2023-09-20 20:20 | P.PN ---
Subjective Progress Note Date: 09/20/23 Progress note: Patient is doing well from cardiac vessel standpoint. He is maintaining normal sinus rhythm. He is chest pain-free. His right groin site appears to be intact with good pulses in bilateral lower extremity. No swelling in the bilateral lower extremity HISTORY OF PRESENTING ILLNESS 62-year-old known to Dr. Carrasco prior history of CAD status post CABG in 2007. In 2022 the patient was admitted with pneumonia. During hospitalization he had third-degree AV block for which she got a permanent pacemaker placed. During that hospitalization he also had anterolateral STEMI. He was taken to the cardiac cath Which showed thrombotic occlusion of vein graft to diagonal artery. He got PCI done by Dr. Carrasco at that time. He has been maintained on aspirin and Effient. His Effient was discontinued approximately a month ago as he completed his prescription. It was not renewed. Patient reported that yesterday he had couple of drinks. This morning he woke up with significant abdominal pain and substernal chest heaviness. He was rating his pain 8/10 on admission. This has increased to 10 over 10 without any resolution with sublingual nitroglycerin which she took at home and in the ER. He also received IV morphine which did not relieve his chest pain. I did a bedside echocardiogram which showed EF of around 50% with anterolateral wall hypokinesia. I do not have any prior echocardiographic images to compare it with His ECG showed RV paced rhythm with left bundle-branch block morphology. By ECG criteria is not fitting to STEMI if we follow the scarbossa criteria. Lab was activated because of significant ongoing chest pain and significant prior cardiac vessel history and wall motion abnormality on echocardiogram PHYSICAL EXAMINATION Vital signs reviewed. Head: Normocephalic. Eyes: Sclerae nonicteric. Neck: Brisk carotid upstroke, no jugular venous distention. Lungs: Clear to auscultation. Heart: Regular rate and rhythm, S1-S2, no S3, no murmur or rub. Abdomen: Soft nontender, positive bowel sounds no organomegaly. Extremities: No edema, intact distal pulses. Neuro: Alert, oritented, no focal deficits ASSESSMENT Unstable angina, status post heart cath showing 100% occluded vein graft to diagonal artery status post PCI PCI to vein graft to diagonal artery 2022 Complete heart block status post PPM 2022 Multivessel CAD status post CABG in 2007, OROZCO to LAD, vein graft to OM, PLAN Continue aspirin and Brilinta data for 1 year. After one year patient should be kept on 2 antiplatelet 1 antiplatelet and 1 anticoagulation regimen Continue metoprolol, statin, Zetia Imdur Patient is okay To be transferred out of ICU today If stable, okay to be discharged tomorrow Objective - Vital Signs Vital signs: Vital Signs Temp 98.3 F 09/20/23 16:00 Pulse 93 09/20/23 19:00 Resp 21 09/20/23 19:00 BP 135/86 09/20/23 19:00 Pulse Ox 95 09/20/23 19:00 FiO2 Intake & Output 09/20/23 09/20/23 09/21/23 06:59 18:59 06:59 Intake Total 540 400 400 Output Total 380 250 Balance 160 150 400 Weight 113.9 kg Intake: Oral 540 400 400 Output: Urine 380 250 Other: Voiding Method Urinal Urinal # Voids 1 # Bowel Movements 1 - Labs CBC & Chem 7: 09/20/23 03:47 09/20/23 03:47 Labs: Abnormal Lab Results - Last 24 Hours (Table) 09/20/23 09/20/23 Range/Units 03:47 03:47 WBC 11.4 H (3.8-10.6) k/uL RBC 4.21 L (4.30-5.90) m/uL Hgb 12.9 L D (13.0-17.5) gm/dL Hct 38.7 L (39.0-53.0) % Plt Count 133 L (150-450) k/uL Sodium 136 L (137-145) mmol/L Calcium 8.3 L (8.4-10.2) mg/dL
[2023-09-20] MEDS: ZOLPIDEM 5 MG TAB PO PRN (20:32)
[2023-09-21] MEDS: LOSARTAN 50 MG TAB PO STA (00:18)
--- NOTE | 2023-09-21 07:36 | P.PN ---
Subjective Progress Note Date: 09/21/23 PROGRESS NOTE The patient is a 63-year-old male with a known history of CAD status post CABG and PCI who presented with a myocardial infarction, underwent stenting of the SVG to diagonal branch with large amount of thrombus. He had mild discomfort yesterday but feels well this morning. He denies any dizziness or palpitations. He denies any nausea. He is in sinus mechanism and hemodynamically stable. He was hypertensive yesterday, better today He ambulated yesterday. His echocardiogram showed an ejection fraction of 40-45% with mild mitral regurgitation. Medications: Isosorbide 30 mg daily, losartan 50 mg daily, metoprolol 25 mg twice a day, aspirin once a day, Lipitor 80 mg daily, Brilinta 90 mg twice a day, Flomax, Zetia grams daily. PHYSICAL EXAMINATION: Blood pressure 146/90 heart rate 90 LUNGS: Clear to auscultation HEART: Regular rate and rhythm, S1, S2. No S3. No systolic murmur ABDOMEN: Soft, nontender, no organomegaly EXTREMETIES: No edema LAB: Hemoglobin 12.9, BUN 15, creatinine 0.69, troponin peak at 33.7, LDL 34 IMPRESSION: 1. Status post acute myocardial infarction with stenting of the SVG to the diagonal branch with large amount of thrombus 2. Status post CABG 3. Ischemic cardiomyopathy 4. Hypertension 5. Status post permanent pacemaker implantation 6. Hyperlipidemia PLAN: 1. Increase metoprolol to 50 mg twice a day 2. Increase isosorbide mononitrate to 60 mg daily 3. Increase physical activity 4. If stable probable discharge home tomorrow Objective - Vital Signs Vital signs: Vital Signs Temp 98 F 09/21/23 04:00 Pulse 90 09/21/23 04:00 Resp 17 09/21/23 04:00 BP 146/94 09/21/23 04:00 Pulse Ox 97 09/21/23 04:00 FiO2 Intake & Output 09/20/23 09/21/23 09/21/23 18:59 06:59 18:59 Intake Total 400 800 Output Total 250 2000 Balance 150 -1200 Weight 108.6 kg Intake: Oral 400 800 Output: Urine 250 2000 Other: Voiding Method Urinal Urinal # Voids 1 # Bowel Movements 1 - Labs CBC & Chem 7: 09/20/23 03:47 09/20/23 03:47
[2023-09-21] MEDS: ISOSORBIDE MONONITRATE ER 60 MG TAB.ER.24H PO SCH (08:46)
[2023-09-21] MEDS: METOPROLOL TARTRATE 50 MG TAB PO SCH (08:47)
--- NOTE | 2023-09-21 12:56 | P.PN ---
Subjective Progress Note Date: 09/21/23 * 63-year-old gentleman with past medical history significant for coronary artery disease history of CABG, history of complete heart block status post pacemaker in place, presents to the emergency department with complains of chest pain. While in ER patient was noted to have ST segment changes and was classified as a STEMI and taken to medical laboratory technical officer. Patient was seen post cardiac catheterization where he was noted to have * 100% occlusion of SVG to diagonal in-stent stenosis with thrombus. Faint left to left collaterals to diagonal filling retrogradely. PIT INSPECTOR 100% LADCTO 100% OM1 and OM2. Right to left collaterals to [id number]% disease in LCx 70-80% diffuse PDA disease * Patient had PCI and thrombectomy done of SVG graft to diagonal * 09/20/2023: Patient seen and evaluated bedside, patient is post cardiac catheterization day one, patient states overnight he had intermittent chest pain. Patient states he ambulated and does not feel short of breath in general he does feel better, waiting for cardiology rounds * 09/21/2023: Patient seen and evaluated bedside, patient is alert to person place and situation did have episode of chest pain last night, antianginal therapy adjusted by cardiology to be monitored overnight he requested to ambulate today and potential discharge tomorrow REVIEW OF SYSTEMS: Chest pain intermittent last night CONSTITUTIONAL: No fever, no malaise, no fatigue. HEENT: No recent visual problems or hearing problems. Denied any sore throat. CARDIOVASCULAR: No chest pain, orthopnea, PND, no palpitations, no syncope. PULMONARY: No shortness of breath, no cough, no hemoptysis. GASTROINTESTINAL: No diarrhea, no nausea, no vomiting, no abdominal pain. NEUROLOGICAL: No headaches, no weakness, no numbness. HEMATOLOGICAL: Denies any bleeding or petechiae. GENITOURINARY: Denies any burning micturition, frequency, or urgency. MUSCULOSKELETAL/RHEUMATOLOGICAL: Denies any joint pain, swelling, or any muscle pain. ENDOCRINE: Denies any polyuria or polydipsia. PHYSICAL EXAMINATION: GENERAL: The patient is alert and oriented x3, not in any acute distress. Well developed, well nourished. Right groin no hematoma noted HEENT: Pupils are round and equally reacting to light. EOMI. CARDIOVASCULAR: S1 and S2 present. No murmurs, rubs, or gallops. PULMONARY: Chest is clear to auscultation, no wheezing or crackles. ABDOMEN: Soft, nontender, nondistended, normoactive bowel sounds. MUSCULOSKELETAL: No joint swelling or deformity. EXTREMITIES: No cyanosis, clubbing, or pedal edema. NEUROLOGICAL: Gross neurological examination did not reveal any focal deficits. SKIN: No rashes. Objective - Vital Signs Vital signs: Vital Signs Temp 97.8 F 09/21/23 08:00 Pulse 98 09/21/23 08:00 Resp 15 09/21/23 08:00 BP 148/96 09/21/23 08:00 Pulse Ox 96 09/21/23 11:07 FiO2 Intake & Output 09/20/23 09/21/23 09/21/23 18:59 06:59 18:59 Intake Total 400 800 Output Total 250 2000 Balance 150 -1200 Weight 108.6 kg Intake: Oral 400 800 Output: Urine 250 2000 Other: Voiding Method Urinal Urinal Urinal # Voids 1 # Bowel Movements 1 - Labs CBC & Chem 7: 09/20/23 03:47 09/20/23 03:47 Assessment and Plan Assessment: Assessment and plan * Non-ST elevated [place] with history of coronary artery disease and CABG * Multivessel coronary artery disease * Status post PCI 100% occlusion of SVG to diagonal in-stent stenosis with thrombus. Faint left to left collaterals to diagonal filling retrogradely. PIT INSPECTOR 100% LADCTO 100% OM1 and OM2. Right to left collaterals to [id number]% disease in LCx 70-80% diffuse PDA disease Patient had PCI and thrombectomy done of SVG graft to diagonal * History of complete heart block status post pacemaker in place * Hypertension * Hyperlipidemia * Gastroesophageal reflux disease * In regards to non-ST elevated HI, , patient is status post PCI, continue aspirin, BRILANTA , losartan, Imdur, metoprolol, recurrent angina * In regards to history of multivessel coronary artery disease continue medical management aspirin,Brilanta , Lipitor * In regards to history of hypertension continue losartan and metoprolol * Status is full code
[2023-09-21 14:47] VITALS: BMI 34.3
[2023-09-21] MEDS: ACETAMINOPHEN TAB 500 MG TAB PO PRN (14:49)
[2023-09-22 01:24] VITALS: RESP 14
[2023-09-22 04:53] LABS: African American GFR (CKD) >90 (>60 ml/min/1.73 sqM); Anion Gap 8 mmol/L; Blood Urea Nitrogen 14 mg/dL (9-20); Carbon Dioxide 25 mmol/L (22-30); Chloride 105 mmol/L (98-107); Glucose 93 mg/dL (74-99); Non-African American GFR(CKD) >90 (>60 ml/min/1.73 sqM); Potassium 3.8 mmol/L (3.5-5.1); Sodium 138 mmol/L (137-145)
--- NOTE | 2023-09-22 07:29 | P.PN ---
Subjective Progress Note Date: 09/22/23 PROGRESS NOTE The patient is a 63-year-old male with a known history of CAD status post CABG and PCI who presented with a myocardial infarction, underwent stenting of the SVG to diagonal branch with large amount of thrombus. He had mild discomfort yesterday but feels well this morning. He denies any dizziness or palpitations. He denies any nausea. He is in sinus mechanism and hemodynamically stable. He was hypertensive yesterday, better today He ambulated yesterday. His echocardiogram showed an ejection fraction of 40-45% with mild mitral regurgitation. September 22: The patient feels well this morning, he denies any chest discomfort, dizziness or palpitations. He continues to be in sinus mechanism. Hemodynamically he is stable. He is ambulating without difficulties. He has no evidence of ventricular ectopic activity. His urinary output is stable. Medications: Isosorbide mononitrate 60 mg daily, losartan 50 mg daily, metoprolol 50 mg twice a day, aspirin once a day, Lipitor 80 mg daily, Brilinta 90 mg twice a day, Flomax, Zetia grams daily. PHYSICAL EXAMINATION: Blood pressure 126/80 heart rate 76 LUNGS: Clear to auscultation HEART: Regular rate and rhythm, S1, S2. No S3. No systolic murmur ABDOMEN: Soft, nontender, no organomegaly EXTREMETIES: No edema LAB: Potassium 3.8, BUN 14, creatinine 0.69 IMPRESSION: 1. Status post acute myocardial infarction with stenting of the SVG to the diagonal branch with large amount of thrombus 2. Status post CABG 3. Ischemic cardiomyopathy 4. Hypertension 5. Status post permanent pacemaker implantation 6. Hyperlipidemia PLAN: 1. Increase physical activity 2. DC home today on present therapy and follow-up next week Objective - Vital Signs Vital signs: Vital Signs Temp 97.4 F L 09/22/23 04:00 Pulse 76 09/22/23 04:00 Resp 14 09/22/23 04:00 BP 126/83 09/22/23 04:00 Pulse Ox 95 09/22/23 04:00 FiO2 Intake & Output 09/21/23 09/22/23 09/22/23 18:59 06:59 18:59 Intake Total 800 570 Output Total 600 600 Balance 200 -30 Weight 108.6 kg 108.5 kg Intake: Oral 800 570 Output: Urine 600 600 Other: Voiding Method Urinal Urinal - Labs CBC & Chem 7: 09/20/23 03:47 09/22/23 03:35
[2023-09-22 09:03] VITALS: BP 136/87; PULSE 80; TEMP 97.6
--- NOTE | 2023-09-22 12:23 | P.DS ---
Providers Date of admission: 09/19/23 09:39 Expected date of discharge: 09/22/23 Attending physician: Kaycee Da Silva Consults: 09/19/23 09:39 Consult Physician Urgent Consulting Provider: Luz Marina Ruiz Consult Reason/Comments: STEMI Do you want consulting provider notified?: Yes 09/19/23 10:47 Consult Physician Routine Consulting Provider: Luz Marina Ruiz Consult Reason/Comments: Post Interventional patient Do you want consulting provider notified?: Already Contacted Primary care physician: [facility] Course: * 63-year-old gentleman with past medical history significant for coronary artery disease history of CABG, history of complete heart block status post pacemaker in place, presents to the emergency department with complains of chest pain. 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 Patient was seen post cardiac catheterization where he was noted to have * 100% occlusion of SVG to diagonal in-stent stenosis with thrombus. Faint left to left collaterals to diagonal filling retrogradely. SECURITY SME 100% LADCTO 100% OM1 and OM2. Right to left collaterals to CF053-52% disease in LCx 70-80% diffuse PDA disease * Patient had PCI and thrombectomy done of SVG graft to diagonal * 09/20/2023: Patient seen and evaluated bedside, patient is post cardiac catheterization day one, patient states overnight he had intermittent chest pain. Patient states he ambulated and does not feel short of breath in general he does feel better, waiting for cardiology rounds * 09/21/2023: Patient seen and evaluated bedside, patient is alert to person place and situation did have episode of chest pain last night, antianginal therapy adjusted by cardiology to be monitored overnight he requested to ambulate today and potential discharge tomorrow * 09/22/2023: Patient was seen by cardiology and cleared for discharge. Patient on cardiac medications. Patient to follow-up with cardiology post discharge * REVIEW OF SYSTEMS: Chest pain resolved * PHYSICAL EXAMINATION: GENERAL: The patient is alert and oriented x3, not in any acute distress. Well developed, well nourished. Right groin no hematoma noted HEENT: Pupils are round and equally reacting to light. EOMI. CARDIOVASCULAR: S1 and S2 present. No murmurs, rubs, or gallops. PULMONARY: Chest is clear to auscultation, no wheezing or crackles. ABDOMEN: Soft, nontender, nondistended, normoactive bowel sounds. MUSCULOSKELETAL: No joint swelling or deformity. EXTREMITIES: No cyanosis, clubbing, or pedal edema. NEUROLOGICAL: Gross neurological examination did not reveal any focal deficits. SKIN: No rashes. Assessment: Assessment and plan * Non-ST elevated AL with history of coronary artery disease and CABG * Multivessel coronary artery disease * Status post PCI 100% occlusion of SVG to diagonal in-stent stenosis with thrombus. Faint left to left collaterals to diagonal filling retrogradely. SECURITY SME 100% LADCTO 100% OM1 and OM2. Right to left collaterals to RL024-46% disease in LCx 70-80% diffuse PDA disease Patient had PCI and thrombectomy done of SVG graft to diagonal * History of complete heart block status post pacemaker in place * Hypertension * Hyperlipidemia * Gastroesophageal reflux disease * In regards to non-ST elevated AL, , patient is status post PCI, continue aspirin, BRILANTA , losartan, Imdur, metoprolol, recurrent angina * In regards to history of multivessel coronary artery disease continue medical management aspirin, Brilanta , Lipitor * In regards to history of hypertension continue losartan and metoprolol * Patient to follow-up with cardiology outpatient Patient Condition at Discharge: Good Plan - Discharge Summary Discharge Rx Participant: Yes New Discharge Prescriptions: New Ticagrelor [Brilinta] 90 mg PO BID 30 Days #60 tab Isosorbide Mononitrate ER [Imdur] 60 mg PO DAILY 30 Days #30 tab Continue Mathis-3 Fatty Acids/Fish Oil [Fish Oil 1,000 mg Softgel] 1 cap PO HS Famotidine [Pepcid AC] 10 mg PO HS Ubidecarenone [Co Q-10] 200 mg PO HS Atorvastatin [Lipitor] 80 mg PO HS #30 tab Aspirin EC [Ecotrin Low Dose] 81 mg PO DAILY Cholecalciferol [Vitamin D3 (25 Mcg = 1000 Iu)] 50 mcg PO BID Metoprolol Tartrate [Lopressor] 50 mg PO BID L.acidoph,Paracasei, B.lactis [Probiotic] 1 cap PO DAILY traMADol HCL 50 mg PO Q8H PRN PRN Reason: Pain Amoxicillin 2,000 mg PO ONCE PRN PRN Reason: dental procedure Loratadine [Claritin] 10 mg PO DAILY Nitroglycerin Sl Tabs [Nitrostat] 0.4 mg SL Q5M PRN PRN Reason: Chest Pain Multivitamins, Thera [Multivitamin (formulary)] 1 tab PO DAILY Losartan Potassium 50 mg PO DAILY Ezetimibe [Zetia] 10 mg PO DAILY Tamsulosin [Flomax] 0.4 mg PO HS Gabapentin [Neurontin] 200 mg PO BID Baclofen [Lioresal] 10 mg PO BID Discharge Medication List Famotidine [Pepcid AC] 10 mg PO HS 06/18/18 [History] Mathis-3 Fatty Acids/Fish Oil [Fish Oil 1,000 mg Softgel] 1 cap PO HS 06/18/18 [History] Ubidecarenone [Co Q-10] 200 mg PO HS 10/11/18 [History] Atorvastatin [Lipitor] 80 mg PO HS #30 tab 10/12/18 [Rx] Aspirin EC [Ecotrin Low Dose] 81 mg PO DAILY 09/10/22 [History] Loratadine [Claritin] 10 mg PO DAILY 09/10/22 [History] Cholecalciferol [Vitamin D3 (25 Mcg = 1000 Iu)] 50 mcg PO BID 10/20/22 [History] Amoxicillin 2,000 mg PO ONCE PRN 09/19/23 [History] Baclofen [Lioresal] 10 mg PO BID 09/19/23 [History] Ezetimibe [Zetia] 10 mg PO DAILY 09/19/23 [History] Gabapentin [Neurontin] 200 mg PO BID 09/19/23 [History] L.acidoph,Paracasei, B.lactis [Probiotic] 1 cap PO DAILY 09/19/23 [History] Losartan Potassium 50 mg PO DAILY 09/19/23 [History] Metoprolol Tartrate [Lopressor] 50 mg PO BID 09/19/23 [History] Multivitamins, Thera [Multivitamin (formulary)] 1 tab PO DAILY 09/19/23 [History] Nitroglycerin Sl Tabs [Nitrostat] 0.4 mg SL Q5M PRN 09/19/23 [History] Tamsulosin [Flomax] 0.4 mg PO HS 09/19/23 [History] traMADol HCL 50 mg PO Q8H PRN 09/19/23 [History] Isosorbide Mononitrate ER [Imdur] 60 mg PO DAILY 30 Days #30 tab 09/22/23 [Rx] Ticagrelor [Brilinta] 90 mg PO BID 30 Days #60 tab 09/22/23 [Rx] Follow up Appointment(s)/Referral(s): Gill Carrasco MD [STAFF PHYSICIAN] - 09/29/23 10:30 am Rahat Delcid MD [Primary Care Provider] - 09/24/23 4:45 pm () Patient Instructions/Handouts: Heart Attack (DC), Heart Healthy Diet (DC) Activity/Diet/Wound Care/Special Instructions: no work until seen by cardiology Discharge Disposition: HOME SELF-CARE
== END 2023-09-22 11:45 | disposition home or self-care (01) | DRG 321 ==
LOC: EC 08:18 → 2SICU 09:39
PROVIDERS: ADMIT Hospitalist; ATTEND Hospitalist
PROC: 027034Z Dilation of Coronary Artery, One Artery with Drug-eluting Intraluminal Device, Percutaneous Approach (ICD-10-PCS; principal; 2023-09-19 09:28)
PROC: 02C03ZZ Extirpation of Matter from Coronary Artery, One Artery, Percutaneous Approach (ICD-10-PCS; 2023-09-19 09:28)
PROC: 4A023N7 Measurement of Cardiac Sampling and Pressure, Left Heart, Percutaneous Approach (ICD-10-PCS; 2023-09-19 09:28)
PROC: B2111ZZ Fluoroscopy of Multiple Coronary Arteries using Low Osmolar Contrast (ICD-10-PCS; 2023-09-19 09:28)
DX: T82.867A Thrombosis due to cardiac prosthetic devices, implants and grafts, initial encounter (principal); I21.4 Non-ST elevation (NSTEMI) myocardial infarction; I25.700 Atherosclerosis of coronary artery bypass graft(s), unspecified, with unstable angina pectoris; I44.2 Atrioventricular block, complete; E78.5 Hyperlipidemia, unspecified; K21.9 Gastro-esophageal reflux disease without esophagitis; I25.2 Old myocardial infarction; I25.5 Ischemic cardiomyopathy; I10 Essential (primary) hypertension; Z79.82 Long term (current) use of aspirin; Z79.02 Long term (current) use of antithrombotics/antiplatelets; Z79.899 Other long term (current) drug therapy; Z82.49 Family history of ischemic heart disease and other diseases of the circulatory system; I08.1 Rheumatic disorders of both mitral and tricuspid valves; Z86.16 Personal history of COVID-19; Z86.74 Personal history of sudden cardiac arrest; Z87.01 Personal history of pneumonia (recurrent); Z95.0 Presence of cardiac pacemaker; Z95.5 Presence of coronary angioplasty implant and graft; Z96.652 Presence of left artificial knee joint
CPT/HCPCS: 36415; 71046; 76937; 80048; 80053; 80061; 83735; 84484; 85025; 85027; 85610; 85730; 92973; 93005; 93306; 93455; 94760; 96365; 96375; 99291

== ENCOUNTER → 2024-01-08 | Outpatient (CLI) | payer BC ==
[2024-01-08 11:45] LABS: Basophils # (A) 0.06 X 10*3/uL (0.00-0.10); Basophils % (A) 0.9 %; Eosinophils # (A) 0.25 X 10*3/uL (0.04-0.35); Eosinophils % (A) 3.7 %; HCT 47.8 % (39.6-50.0); HGB 16.5 g/dL (13.0-17.0); Lymphocytes # (A) 1.81 X 10*3/uL (0.90-5.00); Lymphocytes % (A) 26.9 %; MCHC 34.5 g/dL (32.0-37.0); MCV 89.7 FL (80.0-97.0); Mean Platelet Volume 10.8 FL (9.5-12.2); Monocytes # (A) 0.58 X 10*3/uL (0.20-1.00); Monocytes % (A) 8.6 %; NRBC Per 100 WBC 0 X 10*3/uL (0.00-0.01); Neutrophils # (A) 4.01 X 10*3/uL (1.80-7.70); Neutrophils % (A) 59.6 %; Platelet Count 183 X 10*3/uL (140-440); RBC 5.33 X 10*6/uL (4.40-5.60); RDW 13.5 % (11.5-14.5); WBC 6.73 X 10*3/uL (4.50-10.00)
[2024-01-08 12:16] LABS: ALT 36 U/L (10-49); AST 29 U/L (14-35); Albumin 4.4 g/dL (3.8-4.9); Albumin/Globulin Ratio 1.91 Ratio (1.60-3.17); Alkaline Phosphatase 86 U/L (41-126); BUN/Creat Ratio 16.22 Ratio (12.00-20.00); Blood Urea Nitrogen 14.6 mg/dL (9.0-27.0); Calcium 9.7 mg/dL (8.7-10.3); Carbon Dioxide 24.9 mmol/L (21.6-31.8); Chloride 106 mmol/L (96-109); Chol/HDL Ratio 2.32 Ratio; Creatine Kinase 77 U/L (35-257); Globulin 2.3 g/dL (1.6-3.3); Glucose 105 mg/dL (70-110); LDL Cholesterol,Calculated 45.6 mg/dL (0.0-131.0); PSA Annual Screen 0.582 ng/mL (0.000-4.000); Potassium 4.5 mmol/L (3.5-5.5); Sodium 142 mmol/L (135-145); Total Bilirubin 1.1 mg/dL (0.3-1.2); Total Protein 6.7 g/dL (6.2-8.2)
== END | disposition home or self-care (01) ==
LOC: LABWHC1 06:57
PROVIDERS: ATTEND Internal Medicine Geriatric Medicine
DX: Z00.00 Encounter for general adult medical examination without abnormal findings (principal); Z12.5 Encounter for screening for malignant neoplasm of prostate; I25.10 Atherosclerotic heart disease of native coronary artery without angina pectoris; E78.2 Mixed hyperlipidemia; N40.0 Benign prostatic hyperplasia without lower urinary tract symptoms
CPT/HCPCS: 80061; 80053; 82550; 84443; 85025; 36415; G0103

== ENCOUNTER → 2024-05-27 | Outpatient (CLI) | payer BC | END | disposition home or self-care (01) | LOC: LABWHC1 07:00 | PROVIDERS: ATTEND Nurse Practitioner Adult Health | DX: I10 Essential (primary) hypertension (principal); E78.2 Mixed hyperlipidemia; I25.10 Atherosclerotic heart disease of native coronary artery without angina pectoris | CPT/HCPCS: 36415; 80053; 80061; 82550; 83036; 84443; 85025 ==

== ENCOUNTER 2024-08-06 12:40 | Observation (INO) | payer BC ==
[2024-08-06] MEDS: NITROGLYCERIN SL TABS 0.4 MG TAB SUBLINGUAL STA (13:03)
[2024-08-06] MEDS: ASPIRIN 81 MG PO STA (13:03)
[2024-08-06] MEDS: SODIUM CHLORIDE 0.9% 1,000 ML IV STA (13:10)
[2024-08-06 13:31] LABS: Basophils # (A) 0.1 k/uL (0-0.2); Basophils % (A) 0 %; Eosinophils # (A) 0.2 k/uL (0-0.7); Eosinophils % (A) 1 %; HCT 50.2 % (39.0-53.0); HGB 16.8 gm/dL (13.0-17.5); Lymphocytes # (A) 1.7 k/uL (1.0-4.8); Lymphocytes % (A) 12 %; MCH 31.7 pg (25.0-35.0); MCHC 33.5 g/dL (31.0-37.0); MCV 94.8 fL (80.0-100.0); Mean Platelet Volume 8.2; Monocytes % (A) 7 %; Neutrophils # (A) 11.2 k/uL (1.3-7.7); Neutrophils % (A) 78 %; Platelet Count 205 k/uL (150-450); RDW 12.7 % (11.5-15.5); WBC 14.3 k/uL (3.8-10.6)
--- NOTE | 2024-08-06 13:36 | ED ---
General Adult HPI - General Chief complaint: Chest Pain Stated complaint: Chest pain Time Seen by Provider: 08/06/24 12:52 Source: patient, RN notes reviewed, old records reviewed Mode of arrival: ambulatory Limitations: no limitations - History of Present Illness Initial comments: Is a 63-year-old male who presents emergency department complaining of chest pain. Has a significant cardiac history including CABG, CAD, multiple stents, hypertension, hyperlipidemia, prior tobacco use. States he awoke this morning at 0 600 and is been having some substernal chest discomfort since that time. Describes it as a pressure sort of pain. No radiation. No diaphoresis. Mild nausea but no emesis. States he does have some mild shortness of breath. Has been ongoing since then. States this reminds him of the first time he had an HI. Presents for further evaluation at this time. Last had PCI in October 2022. He was, chills, cough. No abdominal pain. No other acute complaints. - Related Data Home Medications Medication Instructions Recorded Confirmed Aspirin EC [Ecotrin Low Dose] 81 mg PO DAILY 09/10/22 08/06/24 Loratadine [Claritin] 10 mg PO DAILY 09/10/22 08/06/24 Baclofen [Lioresal] 10 mg PO BID 09/19/23 08/06/24 Ezetimibe [Zetia] 10 mg PO DAILY 09/19/23 08/06/24 Metoprolol Tartrate [Lopressor] 50 mg PO BID 09/19/23 08/06/24 Multivitamins, Thera [Multivitamin 1 tab PO DAILY 09/19/23 08/06/24 (formulary)] Nitroglycerin Sl Tabs [Nitrostat] 0.4 mg SL Q5M PRN 09/19/23 08/06/24 Tamsulosin [Flomax] 0.4 mg PO HS 09/19/23 08/06/24 Gabapentin 300 mg PO BID 08/06/24 08/06/24 Losartan Potassium 100 mg PO DAILY 08/06/24 08/06/24 Previous Rx's Medication Instructions Recorded Atorvastatin [Lipitor] 80 mg PO HS #30 tab 10/12/18 Isosorbide Mononitrate ER [Imdur] 60 mg PO DAILY 30 Days #30 tab 09/22/23 Ticagrelor [Brilinta] 90 mg PO BID 30 Days #60 tab 09/22/23 Allergies Allergy/AdvReac Type Severity Reaction Status Date / Time adhesive Allergy Rash/Hives Verified 08/06/24 14:54 Review of Systems ROS Statement: Those systems with pertinent positive or pertinent negative responses have been documented in the HPI. Review of Systems: CONST: Denies fever EYES: Denies blurry vision ENT: Denies nasal congestion C/V: Endorses chest pain RESP: Denies shortness of breath GI: Denies abdominal pain : Denies dysuria SKIN: Denies rash. MSK: Denies joint pain. NEURO: Denies headache ROS Other: All systems not noted in ROS Statement are negative. Past Medical History Past Medical History: Coronary Artery Disease (CAD), Chest Pain / Angina, GERD/Reflux, Hyperlipidemia, Hypertension, Myocardial Infarction (HI), Pneumonia Additional Past Medical History / Comment(s): See Cardiology H&P. Recent +ve Covid beginning of September. Recent Pneumonia 10/21/22. Recent cardiac arrest/HI 10/26/22, with CPR/Cardioversion, heart cath with 2 stents placed. Recent palpitations. Hx HI in 2007. Hx bronchitis. Last Myocardial Infarction Date:: 10/26/22 History of Any Multi-Drug Resistant Organisms: None Reported Past Surgical History: Appendectomy, Coronary Bypass/CABG, Heart Catheterization, Heart Catheterization With Stent, Joint Replacement, Orthopedic Surgery Additional Past Surgical History / Comment(s): 10/26/22 cardioversion/cardiac cath with 2 stents, 2007 PCI with stent, 2013 cardiac cath, 2013 CABG 3 vessel, multiple surgeries on both legs from trauma age 6yrs, left knee ACL repair, left knee replacement. Past Anesthesia/Blood Transfusion Reactions: No Reported Reaction Additional Past Anesthesia/Blood Transfusion Reaction / Comment(s): Pt is unsure if he has ever received blood. Date of Last Stent Placement:: 10/26/22 Past Psychological History: No Psychological Hx Reported Smoking Status: Former smoker Past Alcohol Use History: Occasional Past Drug Use History: None Reported - Past Family History Mother Family Medical History: Cancer Additional Family Medical History / Comment(s): Mother is 76yrs old. She had breast cancer and palpitations. There was a lot of CAD on her side of the family. Father Family Medical History: Myocardial Infarction (HI) Additional Family Medical History / Comment(s): Father of a HI in his 60's. CAD runs strongly in father's side of family. General Exam - General Exam Comments Initial Comments: General: Uncomfortable. HEAD: Normal with no signs of head trauma. EYES: PERRLA, EOMI, conjunctiva normal, no discharge. ENT: Hearing grossly intact, normal oropharynx. RESPIRATORY: Clear breath sounds bilaterally. No wheezes, rales, or rhonchi. C/V: Regular rate and rhythm. S1 and S2 auscultated, no edema, peripheral pulses 2+ and intact throughout ABD: Abd is soft, nontender, nondistended EXT: Normal range of motion, no obvious deformity SKIN: No rashes or lesions observed on exposed skin. NEURO: Alert and oriented x 4. Limitations: no limitations Course Vital Signs 08/06/24 08/06/24 08/06/24 12:42 12:46 13:42 Temperature 98.4 F Pulse Rate 107 H 86 87 Respiratory 22 17 18 Rate Blood Pressure 161/98 149/89 149/89 O2 Sat by Pulse 99 99 99 Oximetry 08/06/24 18:00 Temperature Pulse Rate 75 Respiratory 18 Rate Blood Pressure 156/92 O2 Sat by Pulse 98 Oximetry Medical Decision Making - Medical Decision Making Was pt. sent in by a medical professional or institution (, PA, STUDENT WORKER, urgent c are, hospital, or alf...) When possible be specific @ -No Did you speak to anyone other than the patient for history (EMS, parent, family, police, friend...)? What history was obtained from this source @ -No Did you review nursing and triage notes (agree or disagree)? Why? @ -I reviewed and agree with nursing and triage notes Were old charts reviewed (outside hosp., previous admission, EMS record, old EKG, old radiological studies, urgent care reports/EKG's, alf records)? Report findings @ -Reviewed chart and EKG from September 2023 which showed similar findings on today's EKG. At that time patient had PCI. Differential Diagnosis (chest pain, altered mental status, abdominal pain women, abdominal pain men, vaginal bleeding, weakness, fever, dyspnea, syncope, heada shanell, dizziness, GI bleed, back pain, seizure, CVA, palpatations, mental health, musculoskeletal)? @ -Differential Chest Pain: Stable Angina, Unstable Angina, STEMI, NSTEMI Aortic Dissection, Pneumothorax, Musculoskeletal, Esophageal Spasm GERD, Cholecystitis, Pancreatitis, Zoster, this is not meant to be an all-inclusive list. EKG interpreted by me (3pts min.). @ -As above X-rays interpreted by me (1pt min.). @ -Chest x-ray reveals no obvious acute cardiopulmonary process. CT interpreted by me (1pt min.). @ -None done U/S interpreted by me (1pt. min.). @ -None done What testing was considered but not performed or refused? (CT, X-rays, U/S, labs)? Why? @ -None What meds were considered but not given or refused? Why? @ -None Did you discuss the management of the patient with other professionals (professionals i.e. Dr., PA, STUDENT WORKER, lab, RT, psych nurse, social insurance adviser, exit booth agent, teacher, army officer, caser in)? Give summary @ -Discussed with cardiology on-call, Dr. Sousa who is rounding in the ER and reviewed EKG with him upon patient's arrival to the ER. Was in agreement that it does not meet Sgarbossa's criteria for STEMI criteria. Was in agreement with plan for chest pain workup and will evaluate the patient. Discussed with [facility] Dr. García who is covering for Dr. Delcid who accepted the admission. Was smoking cessation discussed for >3mins.? @ -No Was critical care preformed (if so, how long)? @ -No Were there social determinants of health that impacted care today? How? (Homelessness, low income, unemployed, alcoholism, drug addiction, transportation, low edu. Level, literacy, decrease access to med. care, residential, rehab)? @ -No Was there de-escalation of care discussed even if they declined (Discuss DNR or withdrawal of care, Hospice)? DNR status @ -No What co-morbidities impacted this encounter? (DM, HTN, Smoking, COPD, CAD, Cancer, CVA, ARF, Chemo, Hep., AIDS, mental health diagnosis, sleep apnea, morbid obesity)? @ -CABG, CAD, hypertension, hyperlipidemia Was patient admitted / discharged? Hospital course, mention meds given and route, prescriptions, significant lab abnormalities, going to OR and other pertinent info. @ -Patient presents with chest pain. No significant cardiac history. EKG shows some mild ST segment changes however it is similar to EKG from September 2023 when he last had PCI and does not meet criteria for STEMI activation based on Sgarbossa criteria. I did review this EKG with Dr. Sousa who is rounding in the ER at the time. He was in agreement with this assessment and plan as well as the plan for chest pain workup. Patient will be given 324 mg of aspirin, nitroglycerin tablets, 1 L fluid bolus. Cardiac workup will be obtained. Patient was in agreement this plan. Nitroglycerin tablets did nothing for the patient's chest pain. Patient will be administered morphine at this time.Morphine did improve the patient's chest pain. X-ray unremarkable. Labs remarkable for leukocytosis of 14 which is likely reactive. Troponin is not elevated. BNP is within acceptable limits. On reevaluation, morphine did improve the patient's chest pain. Patient will be admitted to observation we will trend the troponin. He was in agreement this plan. Dr. Sousa did evaluate the patient at bedside. Will appreciate his mikel mmendations. I spoke with the admitting provider, Dr. Ricky dodge for Dr. Delcid. Undiagnosed new problem with uncertain prognosis? @ -No Drug Therapy requiring intensive monitoring for toxicity (Heparin, Nitro, Insulin, Cardizem)? @ -No Were any procedures done? @ -No Diagnosis/symptom? @ -Chest pain Acute, or Chronic, or Acute on Chronic? @ -Acute Uncomplicated (without systemic symptoms) or Complicated (systemic symptoms)? @ -Complicated Side effects of treatment? @ -None Exacerbation, Progression, or Severe Exacerbation] @ -No Poses a threat to life or bodily function? @ -Potentially, yes - Lab Data Result diagrams: 08/06/24 12:59 08/06/24 12:59 Lab Results 08/06/24 08/06/24 08/06/24 Range/Units 12:59 12:59 12:59 WBC 14.3 H (3.8-10.6) k/uL RBC 5.30 (4.30-5.90) m/uL Hgb 16.8 (13.0-17.5) gm/dL Hct 50.2 (39.0-53.0) % MCV 94.8 (80.0-100.0) fL MCH 31.7 (25.0-35.0) pg MCHC 33.5 (31.0-37.0) g/dL RDW 12.7 (11.5-15.5) % Plt Count 205 (150-450) k/uL MPV 8.2 Neutrophils % 78 % Lymphocytes % 12 % Monocytes % 7 % Eosinophils % 1 % Basophils % 0 % Neutrophils # 11.2 H (1.3-7.7) k/uL Lymphocytes # 1.7 (1.0-4.8) k/uL Monocytes # 1.0 (0-1.0) k/uL Eosinophils # 0.2 (0-0.7) k/uL Basophils # 0.1 (0-0.2) k/uL PT 10.2 (10.0-12.5) sec INR 0.9 (<1.2) APTT 22.3 (22.0-30.0) sec D-Dimer (<0.60) mg/L FEU Sodium 145 (137-145) mmol/L Potassium 4.5 (3.5-5.1) mmol/L Chloride 109 H (98-107) mmol/L Carbon Dioxide 26 (22-30) mmol/L Anion Gap 10 mmol/L BUN 18 (9-20) mg/dL Creatinine 0.85 (0.66-1.25) mg/dL Est GFR (CKD-EPI)AfAm >90 (>60 ml/min/1.73 sqM) Est GFR (CKD-EPI)NonAf >90 (>60 ml/min/1.73 sqM) Glucose 102 H (74-99) mg/dL Calcium 9.8 (8.4-10.2) mg/dL Magnesium 1.8 (1.6-2.3) mg/dL Total Bilirubin 1.1 (0.2-1.3) mg/dL AST 33 (17-59) U/L ALT 29 (4-49) U/L Alkaline Phosphatase 99 (38-126) U/L Troponin I (0.000-0.034) ng/mL NT-Pro-B Natriuret Pep 334 pg/mL Total Protein 7.7 (6.3-8.2) g/dL Albumin 4.9 (3.5-5.0) g/dL 08/06/24 08/06/24 Range/Units 12:59 12:59 WBC (3.8-10.6) k/uL RBC (4.30-5.90) m/uL Hgb (13.0-17.5) gm/dL Hct (39.0-53.0) % MCV (80.0-100.0) fL MCH (25.0-35.0) pg MCHC (31.0-37.0) g/dL RDW (11.5-15.5) % Plt Count (150-450) k/uL MPV Neutrophils % % Lymphocytes % % Monocytes % % Eosinophils % % Basophils % % Neutrophils # (1.3-7.7) k/uL Lymphocytes # (1.0-4.8) k/uL Monocytes # (0-1.0) k/uL Eosinophils # (0-0.7) k/uL Basophils # (0-0.2) k/uL PT (10.0-12.5) sec INR (<1.2) APTT (22.0-30.0) sec D-Dimer 0.53 (<0.60) mg/L FEU Sodium (137-145) mmol/L Potassium (3.5-5.1) mmol/L Chloride (98-107) mmol/L Carbon Dioxide (22-30) mmol/L Anion Gap mmol/L BUN (9-20) mg/dL Creatinine (0.66-1.25) mg/dL Est GFR (CKD-EPI)AfAm (>60 ml/min/1.73 sqM) Est GFR (CKD-EPI)NonAf (>60 ml/min/1.73 sqM) Glucose (74-99) mg/dL Calcium (8.4-10.2) mg/dL Magnesium (1.6-2.3) mg/dL Total Bilirubin (0.2-1.3) mg/dL AST (17-59) U/L ALT (4-49) U/L Alkaline Phosphatase (38-126) U/L Troponin I 0.014 (0.000-0.034) ng/mL NT-Pro-B Natriuret Pep pg/mL Total Protein (6.3-8.2) g/dL Albumin (3.5-5.0) g/dL - EKG Data -: EKG Interpreted by Me EKG Comments: 12-lead Electrocardiogram Interpretation Note EKG was reviewed and interpreted by myself. 12-lead ECG performed at 1255 is interpreted by me as revealing ventricular paced rhythm at a rate of 98 beats per minute. [facility] is normal. MA interval is 194 ms, QRS durations 165 ms, QTc is 465 ms.. Patient does have mild ST segment elevations in leads V2 and V1 as well as some mild depression in lead II. This was seen on prior EKGs from September 2023 when he last required PCI. No EKG since that time. Does not meet STEMI criteria based on Sgarbossa criteria.. R wave progression across the precordium was satisfactory.. Disposition Clinical Impression: Chest pain Disposition: ADMITTED IP TO THIS HOSP Condition: Stable Time of Disposition: 14:28
[2024-08-06] MEDS: MORPHINE SULFATE 4 MG/ML SYRINGE IVP STA (13:37)
[2024-08-06 13:42] LABS: INR 0.9 (<1.2); Partial Thromboplastin Time 22.3 sec (22.0-30.0); Prothrombin Time 10.2 sec (10.0-12.5)
[2024-08-06 13:47] LABS: ALT 29 U/L (4-49); AST 33 U/L (17-59); African American GFR (CKD) >90 (>60 ml/min/1.73 sqM); Albumin 4.9 g/dL (3.5-5.0); Alkaline Phosphatase 99 U/L (38-126); Anion Gap 10 mmol/L; Blood Urea Nitrogen 18 mg/dL (9-20); Calcium 9.8 mg/dL (8.4-10.2); Carbon Dioxide 26 mmol/L (22-30); Chloride 109 mmol/L (98-107); Glucose 102 mg/dL (74-99); Magnesium 1.8 mg/dL (1.6-2.3); Non-African American GFR(CKD) >90 (>60 ml/min/1.73 sqM); Potassium 4.5 mmol/L (3.5-5.1); Sodium 145 mmol/L (137-145); Total Bilirubin 1.1 mg/dL (0.2-1.3); Total Protein 7.7 g/dL (6.3-8.2)
[2024-08-06 13:54] LABS: NT-Pro-B-Type Natriuretic Pept 334 pg/mL
--- NOTE | 2024-08-06 13:59 | XR ---
EXAMINATION TYPE: XR chest 2V DATE OF EXAM: 08/06/2024 COMPARISON: 09/19/2023 HISTORY: Chest pain TECHNIQUE: Frontal and lateral views of the chest are obtained. FINDINGS: There is a 2-lead cardiac pacemaker. There are median sternotomy wires. There is mild cardiomegaly. The pulmonary vasculature does not appear congested. There is no abnormal airspace consolidation. There is no pleural effusion or pneumothorax. The osseous structures are intact IMPRESSION: 1. Mild cardiomegaly. 2. No acute cardiopulmonary disease. 3. No interval change. [facility], , 08/06/2024 1:57 PM
[2024-08-06] MEDS ORDERED: ONDANSETRON 4 MG/2 ML VIAL IVP PRN (14:24)
[2024-08-06] MEDS ORDERED: NALOXONE 0.4 MG/ML 1 ML VIAL IV PRN (14:24)
--- NOTE | 2024-08-06 14:26 | P.CRDCN ---
History of Present Illness Consult date: 08/06/24 History of present illness: HISTORY OF PRESENTING ILLNESS Patient is a 63-year-old male with past medical history of CAD status post multiple stenting, CABG, hypertension dyslipidemia and prior tobacco use. He does not use any smoking at this time as per the patient. He is known to Dr. Carrasco. This time he presented to the hospital because of substernal chest pressure and shortness of breath. On admission his ECG showed ventricularly paced rhythms but no significant concerns of any acute ischemia. His initial troponin is negative NT-proBNP is not elevated. Telemetry does not show any major arrhythmias. Does not appear in volume overload or congestion clinically. REVIEW OF SYSTEMS 14 point review of system is negative except what is mentioned above in HPI. PHYSICAL EXAMINATION Vital signs reviewed. Head: Normocephalic. Eyes: Sclerae nonicteric. Neck: Brisk carotid upstroke, no jugular venous distention. Lungs: Clear to auscultation. Heart: Regular rate and rhythm, S1-S2, no S3, no murmur or rub. Abdomen: Soft nontender, positive bowel sounds. Extremities: No edema, intact distal pulses. Neuro: Alert, oritented, no focal deficits. Detailed neuro exam was not performed. ASSESSMENT Atypical chest pain, Prior history of CAD CAD status post CABG and multiple PCI Ischemic cardiomyopathy with a EF of 40 to 45% from September 2023, currently euvolemic Essential hypertension Dyslipidemia Ex smoker PLAN Continue to trend troponins Continue home medications, aspirin, Brilinta, statin, Zetia Continue Imdur 60 mg daily, losartan 50 mg daily, metoprolol tartrate 50 mg twice daily Willem Sousa MD, FAC, RPVI Thank you for allowing [facility] to participate in this patient's care. Feel free to reach out in case of any followup questions. Past Medical History Past Medical History: Coronary Artery Disease (CAD), Chest Pain / Angina, GERD/Reflux, Hyperlipidemia, Hypertension, Myocardial Infarction (MD), Pneumonia Additional Past Medical History / Comment(s): See Cardiology H&P. Recent +ve Covid beginning of September. Recent Pneumonia 10/21/22. Recent cardiac arrest/MD 10/26/22, with CPR/Cardioversion, heart cath with 2 stents placed. Recent palpitations. Hx MD in 2007. Hx bronchitis. Last Myocardial Infarction Date:: 10/26/22 History of Any Multi-Drug Resistant Organisms: None Reported Past Surgical History: Appendectomy, Coronary Bypass/CABG, Heart Catheterization, Heart Catheterization With Stent, Joint Replacement, Orthopedic Surgery Additional Past Surgical History / Comment(s): 10/26/22 cardioversion/cardiac cath with 2 stents, 2007 PCI with stent, 2013 cardiac cath, 2013 CABG 3 vessel, multiple surgeries on both legs from trauma age 6yrs, left knee ACL repair, left knee replacement. Past Anesthesia/Blood Transfusion Reactions: No Reported Reaction Additional Past Anesthesia/Blood Transfusion Reaction / Comment(s): Pt is unsure if he has ever received blood. Date of Last Stent Placement:: 10/26/22 Past Psychological History: No Psychological Hx Reported Smoking Status: Former smoker Past Alcohol Use History: Occasional Past Drug Use History: None Reported - Past Family History Mother Family Medical History: Cancer Additional Family Medical History / Comment(s): Mother is 76yrs old. She had breast cancer and palpitations. There was a lot of CAD on her side of the family. Father Family Medical History: Myocardial Infarction (MD) Additional Family Medical History / Comment(s): Father of a MD in his 60's. CAD runs strongly in father's side of family. Medications and Allergies Home Medications Medication Instructions Recorded Confirmed Type Famotidine [Pepcid AC] 10 mg PO HS 06/18/18 09/19/23 History [place]-3 Fatty Acids/Fish Oil [Fish 1 cap PO HS 06/18/18 09/19/23 History Oil 1,000 mg Softgel] Ubidecarenone [Co Q-10] 200 mg PO HS 10/11/18 09/19/23 History Atorvastatin [Lipitor] 80 mg PO HS #30 tab 10/12/18 09/19/23 Rx Aspirin EC [Ecotrin Low Dose] 81 mg PO DAILY 09/10/22 09/19/23 History Loratadine [Claritin] 10 mg PO DAILY 09/10/22 09/19/23 History Cholecalciferol [Vitamin D3 (25 50 mcg PO BID 10/20/22 09/19/23 History Mcg = 1000 Iu)] Amoxicillin 2,000 mg PO ONCE PRN 09/19/23 09/19/23 History Baclofen [Lioresal] 10 mg PO BID 09/19/23 09/19/23 History Ezetimibe [Zetia] 10 mg PO DAILY 09/19/23 09/19/23 History Gabapentin [Neurontin] 200 mg PO BID 09/19/23 09/19/23 History L.acidoph,Paracasei, B.lactis 1 cap PO DAILY 09/19/23 09/19/23 History [Probiotic] Losartan Potassium 50 mg PO DAILY 09/19/23 09/19/23 History Metoprolol Tartrate [Lopressor] 50 mg PO BID 09/19/23 09/19/23 History Multivitamins, Thera [Multivitamin 1 tab PO DAILY 09/19/23 09/19/23 History (formulary)] Nitroglycerin Sl Tabs [Nitrostat] 0.4 mg SL Q5M PRN 09/19/23 09/19/23 History Tamsulosin [Flomax] 0.4 mg PO HS 09/19/23 09/19/23 History traMADol HCL 50 mg PO Q8H PRN 09/19/23 09/19/23 History Isosorbide Mononitrate ER [Imdur] 60 mg PO DAILY 30 Days #30 tab 09/22/23 Rx Ticagrelor [Brilinta] 90 mg PO BID 30 Days #60 tab 09/22/23 Rx Allergies Allergy/AdvReac Type Severity Reaction Status Date / Time adhesive Allergy Rash/Hives Verified 08/06/24 12:42 Physical Exam Vitals: Vital Signs Temp Pulse Resp BP Pulse Ox 08/06/24 13:42 87 18 149/89 99 08/06/24 12:46 86 17 149/89 99 08/06/24 12:42 98.4 F 107 H 22 161/98 99 Intake and Output 08/05/24 08/06/24 08/06/24 22:59 06:59 14:59 Other: Weight 108.862 kg Results 08/06/24 12:59 08/06/24 12:59 Cardiac Enzymes 08/06/24 08/06/24 Range/Units 12:59 12:59 AST 33 (17-59) U/L Troponin I 0.014 (0.000-0.034) ng/mL Coagulation 08/06/24 Range/Units 12:59 PT 10.2 (10.0-12.5) sec APTT 22.3 (22.0-30.0) sec CBC 08/06/24 Range/Units 12:59 WBC 14.3 H (3.8-10.6) k/uL RBC 5.30 (4.30-5.90) m/uL Hgb 16.8 (13.0-17.5) gm/dL Hct 50.2 (39.0-53.0) % Plt Count 205 (150-450) k/uL Comprehensive Metabolic Panel 08/06/24 Range/Units 12:59 Sodium 145 (137-145) mmol/L Potassium 4.5 (3.5-5.1) mmol/L Chloride 109 H (98-107) mmol/L Carbon Dioxide 26 (22-30) mmol/L BUN 18 (9-20) mg/dL Creatinine 0.85 (0.66-1.25) mg/dL Glucose 102 H (74-99) mg/dL Calcium 9.8 (8.4-10.2) mg/dL AST 33 (17-59) U/L ALT 29 (4-49) U/L Alkaline Phosphatase 99 (38-126) U/L Total Protein 7.7 (6.3-8.2) g/dL Albumin 4.9 (3.5-5.0) g/dL Intake and Output 08/05/24 08/06/24 08/06/24 22:59 06:59 14:59 Other: Weight 108.862 kg Patient Weight 08/07/24 06:59 Weight 108.862 kg 08/06/24 12:59 08/06/24 12:59
[2024-08-06] MEDS: SODIUM CHLORIDE 0.9% 1,000 ML IV SCH (14:31)
[2024-08-06] MEDS: LOSARTAN 25 MG TAB PO SCH (14:32)
[2024-08-06] MEDS: ISOSORBIDE MONONITRATE ER 60 MG TAB.ER.24H PO STA (14:32)
--- NOTE | 2024-08-06 15:11 | P.HPIM ---
History of Present Illness H&P Date: 08/06/24 History of present illness; patient is a 63-year-old gentleman with past medical history significant for coronary artery disease, hypertension, hyperlipidemia who came the ER because of chest pain. Patient stated that he was all right this morning around 6 AM he woke up with chest pain that was central in location, pressure like, not radiating, not aggravated by movement but worsens by taking short breaths. There was no complaint of shortness of breath. Denies any palpitation. There was no complaint orthopnea or PND. Patient initially decided to wait a few hours for the chest pain resolved but pain persisted so he decided to come to the ER. Initial lab work done in the ER showed WBC 14.3, hemoglobin 16.8, platelet count 205, sodium 145, potassium 4.5, BUN 18, creatinine 0.85, glucose 102, calcium 9.8, magnesium 1.8, bilirubin 1.1, AST 33, ALT 29, troponin 0.014, proBNP 334 EKG done in the ER showed heart rate of 98, paced rhythm Chest x-ray done in the ER showed mild cardiomegaly, no acute cardiopulmonary process Patient admitted to internal medicine service REVIEW OF SYSTEMS: CONSTITUTIONAL: No fever, no malaise, no fatigue. HEENT: No recent visual problems or hearing problems. Denied any sore throat. CARDIOVASCULAR: As mentioned above PULMONARY: As mentioned above GASTROINTESTINAL: No diarrhea, no nausea, no vomiting, no abdominal pain. NEUROLOGICAL: No headaches, no weakness, no numbness. HEMATOLOGICAL: Denies any bleeding or petechiae. GENITOURINARY: Denies any burning micturition, frequency, or urgency. MUSCULOSKELETAL/RHEUMATOLOGICAL: Denies any joint pain, swelling, or any muscle pain. ENDOCRINE: Denies any polyuria or polydipsia. The rest of the 14-point review of systems is negative. PHYSICAL EXAMINATION: GENERAL: The patient is alert and oriented x3, not in any acute distress. Well developed, well nourished. HEENT: Pupils are round and equally reacting to light. EOMI. No scleral icterus. No conjunctival pallor. Normocephalic, atraumatic. No pharyngeal erythema. No thyromegaly. CARDIOVASCULAR: S1 and S2 present. No murmurs, rubs, or gallops. PULMONARY: Chest is clear to auscultation, no wheezing or crackles. ABDOMEN: Soft, nontender, nondistended, normoactive bowel sounds. No palpable organomegaly. MUSCULOSKELETAL: No joint swelling or deformity. EXTREMITIES: No cyanosis, clubbing, or pedal edema. NEUROLOGICAL: Gross neurological examination did not reveal any focal deficits. SKIN: No rashes. Assessment and plan Chest pain, rule out acute coronary syndrome Hypertension Hyperlipidemia History of coronary disease status post stents CABG Monitor vital signs Monitor CBC Monitor CMP Continue telemetry monitoring Ordered troponin Ordered D-dimer Resume aspirin and Brilinta Resume Imdur Resume home meds Consult cardiology Labs and medication were reviewed.. Continue same treatment. Continue with symptomatic treatment. Resume home medication. Monitor labs and vitals. DVT and GI prophylaxis. Further recommendations as per clinical course of the patient Dictation was produced using [employer] dictation software. please excuse any grammatical, word or spelling errors. Past Medical History Past Medical History: Coronary Artery Disease (CAD), Chest Pain / Angina, GERD/Reflux, Hyperlipidemia, Hypertension, Myocardial Infarction (LA), Pneumonia Additional Past Medical History / Comment(s): See Cardiology H&P. Recent +ve Covid beginning of September. Recent Pneumonia 10/21/22. Recent cardiac arrest/LA 10/26/22, with CPR/Cardioversion, heart cath with 2 stents placed. Recent palpitations. Hx LA in 2007. Hx bronchitis. Last Myocardial Infarction Date:: 10/26/22 History of Any Multi-Drug Resistant Organisms: None Reported Past Surgical History: Appendectomy, Coronary Bypass/CABG, Heart Catheterization, Heart Catheterization With Stent, Joint Replacement, Orthopedic Surgery Additional Past Surgical History / Comment(s): 10/26/22 cardioversion/cardiac cath with 2 stents, 2007 PCI with stent, 2013 cardiac cath, 2013 CABG 3 vessel, multiple surgeries on both legs from trauma age 6yrs, left knee ACL repair, left knee replacement. Past Anesthesia/Blood Transfusion Reactions: No Reported Reaction Additional Past Anesthesia/Blood Transfusion Reaction / Comment(s): Pt is unsure if he has ever received blood. Date of Last Stent Placement:: 10/26/22 Past Psychological History: No Psychological Hx Reported Smoking Status: Former smoker Past Alcohol Use History: Occasional Past Drug Use History: None Reported - Past Family History Mother Family Medical History: Cancer Additional Family Medical History / Comment(s): Mother is 76yrs old. She had breast cancer and palpitations. There was a lot of CAD on her side of the family. Father Family Medical History: Myocardial Infarction (LA) Additional Family Medical History / Comment(s): Father of a LA in his 60's. CAD runs strongly in father's side of family. Medications and Allergies Home Medications Medication Instructions Recorded Confirmed Type Atorvastatin [Lipitor] 80 mg PO HS #30 tab 10/12/18 08/06/24 Rx Aspirin EC [Ecotrin Low Dose] 81 mg PO DAILY 09/10/22 08/06/24 History Loratadine [Claritin] 10 mg PO DAILY 09/10/22 08/06/24 History Baclofen [Lioresal] 10 mg PO BID 09/19/23 08/06/24 History Ezetimibe [Zetia] 10 mg PO DAILY 09/19/23 08/06/24 History Metoprolol Tartrate [Lopressor] 50 mg PO BID 09/19/23 08/06/24 History Multivitamins, Thera [Multivitamin 1 tab PO DAILY 09/19/23 08/06/24 History (formulary)] Nitroglycerin Sl Tabs [Nitrostat] 0.4 mg SL Q5M PRN 09/19/23 08/06/24 History Tamsulosin [Flomax] 0.4 mg PO HS 09/19/23 08/06/24 History Isosorbide Mononitrate ER [Imdur] 60 mg PO DAILY 30 Days #30 tab 09/22/23 08/06/24 Rx Ticagrelor [Brilinta] 90 mg PO BID 30 Days #60 tab 09/22/23 08/06/24 Rx Gabapentin 300 mg PO BID 08/06/24 08/06/24 History Losartan Potassium 100 mg PO DAILY 08/06/24 08/06/24 History Allergies Allergy/AdvReac Type Severity Reaction Status Date / Time adhesive Allergy Rash/Hives Verified 08/06/24 14:54 Physical Exam Vitals: Vital Signs Temp Pulse Resp BP Pulse Ox 08/06/24 13:42 87 18 149/89 99 08/06/24 12:46 86 17 149/89 99 08/06/24 12:42 98.4 F 107 H 22 161/98 99 Intake and Output 08/06/24 08/06/24 08/06/24 06:59 14:59 22:59 Other: Weight 108.862 kg Results CBC & Chem 7: 08/06/24 12:59 08/06/24 12:59 Labs: Abnormal Lab Results - Last 24 Hours (Table) 08/06/24 08/06/24 Range/Units 12:59 12:59 WBC 14.3 H (3.8-10.6) k/uL Neutrophils # 11.2 H (1.3-7.7) k/uL Chloride 109 H (98-107) mmol/L Glucose 102 H (74-99) mg/dL
[2024-08-06] MEDS: HEPARIN SODIUM,PORCINE 5,000 UNIT/ML 1 ML VIAL SQ SCH (15:37)
[2024-08-06] MEDS: MORPHINE SULFATE 4 MG/ML SYRINGE IV PRN (18:19)
[2024-08-06 18:38] LABS: Appearance,Urine Clear (Clear); Bilirubin,Urine Negative (Negative); Blood,Urine Negative (Negative); Color,Urine Colorless; Glucose,Urine (UA) Negative (Negative); Ketones,Urine Negative (Negative); Leukocyte Esterase,Urine Negative (Negative); Nitrite,Urine Negative (Negative); Protein,Urine Negative (Negative); Specific Gravity,Urine 1.021 (1.001-1.035); Urobilinogen,Urine <2.0 mg/dL (<2.0)
[2024-08-06] MEDS ORDERED: ATORVASTATIN 40 MG TAB PO SCH (21:00)
[2024-08-06] MEDS ORDERED: METOPROLOL TARTRATE 50 MG TAB PO SCH (21:00)
[2024-08-06] MEDS: METOPROLOL TARTRATE 50 MG TAB PO SCH (21:07)
[2024-08-06] MEDS: GABAPENTIN 300 MG CAP PO SCH (21:07)
[2024-08-06] MEDS: TICAGRELOR 90 MG TAB PO SCH (21:07)
[2024-08-06] MEDS: TAMSULOSIN 0.4 MG CAP.ER.24H PO SCH (21:07)
[2024-08-06] MEDS: ATORVASTATIN 80 MG TAB PO SCH (21:07)
[2024-08-06] MEDS: BACLOFEN 10 MG TAB PO SCH (21:07)
[2024-08-07 08:11] VITALS: BP 156/92; PULSE 84; RESP 16; TEMP 97.8
[2024-08-07] MEDS ORDERED: NON FORMULARY DRUG (Aspirin Ec 81 MG Tablet) PO SCH (09:00)
[2024-08-07] MEDS: ISOSORBIDE MONONITRATE ER 60 MG TAB.ER.24H PO SCH (09:01)
[2024-08-07] MEDS: ASPIRIN 81 MG PO SCH (09:01)
[2024-08-07] MEDS: EZETIMIBE 10 MG TAB PO SCH (09:02)
[2024-08-07] MEDS: LORATADINE 10 MG TAB PO SCH (09:02)
[2024-08-07] MEDS: LOSARTAN 50 MG TAB PO SCH (09:02)
[2024-08-07 09:50] LABS: Basophils # (A) 0.05 X 10*3/uL (0.00-0.10); Basophils % (A) 0.6 %; Eosinophils # (A) 0.18 X 10*3/uL (0.04-0.35); Eosinophils % (A) 2.2 %; HCT 41.4 % (39.6-50.0); HGB 14.3 g/dL (13.0-17.0); Lymphocytes # (A) 1.49 X 10*3/uL (0.90-5.00); Lymphocytes % (A) 17.9 %; MCH 31.2 pg (27.0-32.0); MCHC 34.5 g/dL (32.0-37.0); MCV 90.2 FL (80.0-97.0); Mean Platelet Volume 11.4 FL (9.5-12.2); Monocytes # (A) 1.03 X 10*3/uL (0.20-1.00); Monocytes % (A) 12.4 %; NRBC Per 100 WBC 0 X 10*3/uL (0.00-0.01); Neutrophils # (A) 5.53 X 10*3/uL (1.80-7.70); Neutrophils % (A) 66.5 %; Platelet Count 162 X 10*3/uL (140-440); RBC 4.59 X 10*6/uL (4.40-5.60); WBC 8.31 X 10*3/uL (4.50-10.00)
[2024-08-07 10:02] LABS: ALT 19 U/L (10-49); AST 20 U/L (14-35); Albumin 3.9 g/dL (3.8-4.9); Albumin/Globulin Ratio 1.95 Ratio (1.60-3.17); Alkaline Phosphatase 79 U/L (41-126); BUN/Creat Ratio 12.62 Ratio (12.00-20.00); Blood Urea Nitrogen 10.1 mg/dL (9.0-27.0); Calcium 8.6 mg/dL (8.7-10.3); Carbon Dioxide 22.3 mmol/L (21.6-31.8); Chloride 105 mmol/L (96-109); Glucose 110 mg/dL (70-110); Potassium 3.6 mmol/L (3.5-5.5); Sodium 139 mmol/L (135-145); Total Bilirubin 1.5 mg/dL (0.3-1.2); Total Protein 5.9 g/dL (6.2-8.2)
--- NOTE | 2024-08-07 12:08 | P.PN ---
Subjective Progress Note Date: 08/07/24 HISTORY OF PRESENTING ILLNESS Patient is a 63-year-old male with past medical history of CAD status post multiple stenting, CABG, hypertension dyslipidemia and prior tobacco use. He does not use any smoking at this time as per the patient. He is known to Dr. Carrasco. This time he presented to the hospital because of substernal chest pressure and shortness of breath. On admission his ECG showed ventricularly paced rhythms but no significant concerns of any acute ischemia. His initial troponin is negative NT-proBNP is not elevated. Telemetry does not show any major arrhythmias. Does not appear in volume overload or congestion clinically. Progress note Patient denies having any active chest pain chest pressure. He is noticed to be hypertensive with baseline. Troponins were negative x 3 PHYSICAL EXAMINATION Vital signs reviewed. Head: Normocephalic. Eyes: Sclerae nonicteric. Neck: Brisk carotid upstroke, no jugular venous distention. Lungs: Clear to auscultation. Heart: Regular rate and rhythm, S1-S2, no S3, no murmur or rub. Abdomen: Soft nontender, positive bowel sounds. Extremities: No edema, intact distal pulses. Neuro: Alert, oritented, no focal deficits. Detailed neuro exam was not performed. ASSESSMENT Atypical chest pain, Prior history of CAD CAD status post CABG and multiple PCI Ischemic cardiomyopathy with a EF of 40 to 45% from September 2023, currently euvolemic Essential hypertension Dyslipidemia Ex smoker PLAN Patient has been ruled out of acute coronary syndrome. Continue home medications, aspirin, Brilinta, statin, Zetia Add amlodipine 5 mg daily because of uncontrolled blood pressure. Continue Imdur 60 mg daily, losartan 100 mg daily, metoprolol tartrate 50 mg twice daily Monitor blood pressure log at home. Follow-up once primary surgical specialist in next 1 to 2 weeks. Okay to be discharged from cardiac standpoint Objective - Vital Signs Vital signs: Vital Signs Temp 97.8 F 08/07/24 08:00 Pulse 84 08/07/24 08:00 Resp 16 08/07/24 08:00 BP 156/92 08/07/24 08:00 Pulse Ox 98 08/07/24 08:00 FiO2 Intake & Output 08/06/24 08/07/24 08/07/24 18:59 06:59 18:59 Intake Total 236 Balance 236 Weight 108.862 kg 108.862 kg Intake: Oral 236 Other: Voiding Method Toilet - Labs CBC & Chem 7: 08/07/24 06:13 08/07/24 06:13 Labs: Abnormal Lab Results - Last 24 Hours (Table) 08/06/24 08/06/24 08/07/24 Range/Units 12:59 12:59 06:13 WBC 14.3 H (3.8-10.6) k/uL Neutrophils # 11.2 H (1.3-7.7) k/uL Monocytes # 1.03 H (0.20-1.00) X 10*3/uL Chloride 109 H (98-107) mmol/L Glucose 102 H (74-99) mg/dL Calcium (8.7-10.3) mg/dL Total Bilirubin (0.3-1.2) mg/dL Total Protein (6.2-8.2) g/dL 08/07/24 Range/Units 06:13 WBC (3.8-10.6) k/uL Neutrophils # (1.3-7.7) k/uL Monocytes # (0.20-1.00) X 10*3/uL Chloride (98-107) mmol/L Glucose (74-99) mg/dL Calcium 8.6 L (8.7-10.3) mg/dL Total Bilirubin 1.5 H (0.3-1.2) mg/dL Total Protein 5.9 L (6.2-8.2) g/dL
--- NOTE | 2024-08-07 12:53 | P.DS ---
Providers Date of admission: 08/06/24 14:24 Expected date of discharge: 08/07/24 Attending physician: Jon García MD Consults: 08/06/24 13:03 Consult Physician Routine Consulting Provider: [facility] Reason/Comments: chest pain. spoke with Dr. Sousa in ER. Do you want consulting provider notified?: Already Contacted [facility] Course: Discharge diagnoses; Chest pain, acute coronary syndrome ruled out Hypertension Hyperlipidemia History of coronary disease status post stents CABG Hospital course; patient is a 63-year-old gentleman with past medical history significant for coronary artery disease, hypertension, hyperlipidemia who came the ER because of chest pain. Patient stated that he was all right this morning around 6 AM he woke up with chest pain that was central in location, pressure like, not radiating, not aggravated by movement but worsens by taking short breaths. There was no complaint of shortness of breath. Denies any palpitation. There was no complaint orthopnea or PND. Patient initially decided to wait a few hours for the chest pain resolved but pain persisted so he decided to come to the ER. Initial lab work done in the ER showed WBC 14.3, hemoglobin 16.8, platelet count 205, sodium 145, potassium 4.5, BUN 18, creatinine 0.85, glucose 102, calcium 9.8, magnesium 1.8, bilirubin 1.1, AST 33, ALT 29, troponin 0.014, proBNP 334 EKG done in the ER showed heart rate of 98, paced rhythm Chest x-ray done in the ER showed mild cardiomegaly, no acute cardiopulmonary process Patient admitted to internal medicine service 08/07. Patient seen and examined. No further episodes of chest pain. Troponin remained flat. Cardiology added Norvasc for blood pressure being poorly controlled. Continue home meds. Being discharged stable condition PHYSICAL EXAMINATION: GENERAL: The patient is alert and oriented x3, not in any acute distress. Well developed, well nourished. HEENT: Pupils are round and equally reacting to light. EOMI. No scleral icterus. No conjunctival pallor. Normocephalic, atraumatic. No pharyngeal erythema. No thyromegaly. CARDIOVASCULAR: S1 and S2 present. No murmurs, rubs, or gallops. PULMONARY: Chest is clear to auscultation, no wheezing or crackles. ABDOMEN: Soft, nontender, nondistended, normoactive bowel sounds. No palpable organomegaly. MUSCULOSKELETAL: No joint swelling or deformity. EXTREMITIES: No cyanosis, clubbing, or pedal edema. NEUROLOGICAL: Gross neurological examination did not reveal any focal deficits. SKIN: No rashes. Dictation was produced using [email or web address] dictation software. please excuse any grammatical, word or spelling errors. Patient Condition at Discharge: Stable Plan - Discharge Summary New Discharge Prescriptions: New amLODIPine [Norvasc] 5 mg PO DAILY #30 tab Continue Atorvastatin [Lipitor] 80 mg PO HS #30 tab Aspirin EC [Ecotrin Low Dose] 81 mg PO DAILY Metoprolol Tartrate [Lopressor] 50 mg PO BID Ticagrelor [Brilinta] 90 mg PO BID 30 Days #60 tab Losartan Potassium 100 mg PO DAILY Loratadine [Claritin] 10 mg PO DAILY Nitroglycerin Sl Tabs [Nitrostat] 0.4 mg SL Q5M PRN PRN Reason: Chest Pain Multivitamins, Thera [Multivitamin (formulary)] 1 tab PO DAILY Ezetimibe [Zetia] 10 mg PO DAILY Tamsulosin [Flomax] 0.4 mg PO HS Baclofen [Lioresal] 10 mg PO BID Isosorbide Mononitrate ER [Imdur] 60 mg PO DAILY 30 Days #30 tab Gabapentin 300 mg PO BID Discharge Medication List Atorvastatin [Lipitor] 80 mg PO HS #30 tab 10/12/18 [Rx] Aspirin EC [Ecotrin Low Dose] 81 mg PO DAILY 09/10/22 [History] Loratadine [Claritin] 10 mg PO DAILY 09/10/22 [History] Baclofen [Lioresal] 10 mg PO BID 09/19/23 [History] Ezetimibe [Zetia] 10 mg PO DAILY 09/19/23 [History] Metoprolol Tartrate [Lopressor] 50 mg PO BID 09/19/23 [History] Multivitamins, Thera [Multivitamin (formulary)] 1 tab PO DAILY 09/19/23 [History] Nitroglycerin Sl Tabs [Nitrostat] 0.4 mg SL Q5M PRN 09/19/23 [History] Tamsulosin [Flomax] 0.4 mg PO HS 09/19/23 [History] Isosorbide Mononitrate ER [Imdur] 60 mg PO DAILY 30 Days #30 tab 09/22/23 [Rx] Ticagrelor [Brilinta] 90 mg PO BID 30 Days #60 tab 09/22/23 [Rx] Gabapentin 300 mg PO BID 08/06/24 [History] Losartan Potassium 100 mg PO DAILY 08/06/24 [History] amLODIPine [Norvasc] 5 mg PO DAILY #30 tab 08/07/24 [Rx] Follow up Appointment(s)/Referral(s): Rahat Delcid MD [Primary Care Provider] - 1-2 days Discharge Disposition: HOME SELF-CARE
[2024-08-07] MEDS: amLODIPine 5 MG TAB PO SCH (13:28)
== END 2024-08-07 13:52 | disposition home or self-care (01) ==
LOC: EC 12:40 → 6NMEDSUR 14:24
PROVIDERS: ADMIT Internal Medicine; ATTEND Internal Medicine
DX: R07.89 Other chest pain (principal); I11.9 Hypertensive heart disease without heart failure; E78.5 Hyperlipidemia, unspecified; I25.10 Atherosclerotic heart disease of native coronary artery without angina pectoris; I25.2 Old myocardial infarction; I25.5 Ischemic cardiomyopathy; K21.9 Gastro-esophageal reflux disease without esophagitis; R11.0 Nausea; R06.02 Shortness of breath; Z79.02 Long term (current) use of antithrombotics/antiplatelets; Z79.82 Long term (current) use of aspirin; Z79.899 Other long term (current) drug therapy; Z87.891 Personal history of nicotine dependence; Z87.01 Personal history of pneumonia (recurrent); Z86.16 Personal history of COVID-19; Z86.74 Personal history of sudden cardiac arrest; Z91.048 Other nonmedicinal substance allergy status; Z90.49 Acquired absence of other specified parts of digestive tract; Z95.1 Presence of aortocoronary bypass graft; Z95.5 Presence of coronary angioplasty implant and graft; Z96.652 Presence of left artificial knee joint; Z82.49 Family history of ischemic heart disease and other diseases of the circulatory system
CPT/HCPCS: 96361 ×3; 96372 ×2; 96376; 96374; 99285; 36415; 93005; 85379; 83880; 80053 ×2; 83735; 84484; 85025 ×2; 85610; 85730; 81003; 71046; G0378 ×2; J2270; J1644 ×2

== ENCOUNTER → 2024-08-22 | Outpatient (CLI) | payer BC ==
[2024-08-22 20:06] LABS: HGB 15.2 g/dL (13.0-17.0); MCH 31.1 pg (27.0-32.0); MCHC 33.8 g/dL (32.0-37.0); MCV 92.2 FL (80.0-97.0); Mean Platelet Volume 11.2 FL (9.5-12.2); NRBC Per 100 WBC 0 X 10*3/uL (0.00-0.01); Platelet Count 231 X 10*3/uL (140-440); RBC 4.88 X 10*6/uL (4.40-5.60); WBC 7.54 X 10*3/uL (4.50-10.00)
[2024-08-22 20:32] LABS: BUN/Creat Ratio 14.44 Ratio (12.00-20.00); Calcium 9.4 mg/dL (8.7-10.3); Carbon Dioxide 23.7 mmol/L (21.6-31.8); Chloride 106 mmol/L (96-109); Glucose 85 mg/dL (70-110); Potassium 4.1 mmol/L (3.5-5.5); Sodium 142 mmol/L (135-145)
== END | disposition home or self-care (01) ==
LOC: LABWHC1 14:41
PROVIDERS: ATTEND Internal Medicine Interventional Cardiology
DX: I48.0 Paroxysmal atrial fibrillation (principal)
CPT/HCPCS: 36415; 80048; 84443; 85027

== ENCOUNTER → 2024-12-09 | Outpatient (CLI) | payer BC ==
[2024-12-09 11:00] LABS: ALT 29 U/L (10-49); AST 28 U/L (14-35); Albumin 4.3 g/dL (3.8-4.9); Albumin/Globulin Ratio 1.87 Ratio (1.60-3.17); Alkaline Phosphatase 81 U/L (41-126); Blood Urea Nitrogen 15.5 mg/dL (9.0-27.0); Calcium 9.3 mg/dL (8.7-10.3); Carbon Dioxide 27.9 mmol/L (21.6-31.8); Chloride 104 mmol/L (96-109); Chol/HDL Ratio 2.54 Ratio; Globulin 2.3 g/dL (1.6-3.3); Glucose 103 mg/dL (70-110); LDL Cholesterol,Calculated 52.5 mg/dL (0.0-131.0); Potassium 4.7 mmol/L (3.5-5.5); Sodium 141 mmol/L (135-145); Total Bilirubin 0.9 mg/dL (0.3-1.2); Total Protein 6.6 g/dL (6.2-8.2)
== END | disposition home or self-care (01) ==
LOC: LABWHC1 06:50
PROVIDERS: ATTEND Internal Medicine Interventional Cardiology
DX: E78.2 Mixed hyperlipidemia (principal)
CPT/HCPCS: 36415; 80053; 80061

== ENCOUNTER 2024-12-20 21:38 | Observation (INO) | payer BC ==
[2024-12-20 22:04] LABS: Basophils # (A) 0.1 k/uL (0-0.2); Basophils % (A) 1 %; Eosinophils # (A) 0.2 k/uL (0-0.7); Eosinophils % (A) 2 %; HCT 52.4 % (39.0-53.0); Lymphocytes # (A) 2.3 k/uL (1.0-4.8); Lymphocytes % (A) 21 %; MCH 30.1 pg (25.0-35.0); MCHC 32.5 g/dL (31.0-37.0); MCV 92.6 fL (80.0-100.0); Mean Platelet Volume 7.8; Monocytes # (A) 0.8 k/uL (0-1.0); Monocytes % (A) 7 %; Neutrophils # (A) 7.4 k/uL (1.3-7.7); Neutrophils % (A) 67 %; Platelet Count 187 k/uL (150-450); RBC 5.66 m/uL (4.30-5.90); RDW 13.5 % (11.5-15.5)
[2024-12-20 22:16] LABS: INR 0.9 (<1.2); Partial Thromboplastin Time 31.1 sec (22.0-30.0); Prothrombin Time 10.3 sec (10.0-12.5)
--- NOTE | 2024-12-20 22:17 | XR ---
EXAMINATION TYPE: XR chest 2V DATE OF EXAM: 12/20/2024 10:12 PM COMPARISON: Chest radiographs from 08/06/2024 CLINICAL INDICATION: Male, 64 years old with history of Chest Pain; [facility] TECHNIQUE: XR chest 2V Frontal and lateral views of the chest. FINDINGS: Lungs/Pleura: There is no evidence of pleural effusion, focal consolidation, or pneumothorax. Pulmonary vascularity: Unremarkable. Heart/mediastinum: Cardiomediastinal silhouette is enlarged and stable. Three lead cardiac conduction device overlying the left hemithorax with lead tips projecting over the right ventricle, right atriu m and coronary sinus. Musculoskeletal: No acute osseous pathology. Other findings: None IMPRESSION: 1. No acute cardiopulmonary disease/process. 2. Cardiomegaly without evidence of acute heart failure. [facility], , 12/20/2024 10:15 PM
[2024-12-20 22:21] LABS: ALT 27 U/L (4-49); AST 32 U/L (17-59); African American GFR (CKD) >90 (>60 ml/min/1.73 sqM); Albumin 4.8 g/dL (3.5-5.0); Alkaline Phosphatase 87 U/L (38-126); Anion Gap 12 mmol/L; Blood Urea Nitrogen 18 mg/dL (9-20); Calcium 9.3 mg/dL (8.4-10.2); Carbon Dioxide 27 mmol/L (22-30); Chloride 98 mmol/L (98-107); Glucose 114 mg/dL (74-99); Non-African American GFR(CKD) >90 (>60 ml/min/1.73 sqM); Potassium 3.9 mmol/L (3.5-5.1); Sodium 137 mmol/L (137-145); Total Bilirubin 1.3 mg/dL (0.2-1.3); Total Protein 7.7 g/dL (6.3-8.2)
--- NOTE | 2024-12-20 22:41 | ED ---
Chest Pain HPI - General Chief Complaint: Chest Pain Stated Complaint: Chest Pain,Sob Time Seen by Provider: 12/20/24 21:48 Source: patient, RN notes reviewed, old records reviewed Mode of arrival: ambulatory Limitations: no limitations - History of Present Illness Initial Comments: This is a 64 male to the ED co chest pain, patient has long history of CP,CAD,MS. Patient presents today for chest pain left-sided chest pain heaviness that feels just like prior MS. Patient states he had similar symptoms this in the past and he does note a prior heart attack does feel like, he is very anxious, he did take his nitro tried to relax and the chest pain did not go away. Patient symptoms are persistent here in the emergency department, patient does take Eliquis recently taken off Kate GODWIN Complaint: chest pain -: hour(s) Onset: during rest Pain Location: substernal, left chest Pain Radiation: back Severity: moderate Severity scale (1-10): 7 Quality: tightness, heaviness Consistency: constant Improves With: nitroglycerin Worsens With: nothing Anginal Symptoms: sense of impending doom Other Symptoms: palpitations Treatments Prior to Arrival: aspirin, nitroglycerin - Related Data Home Medications Medication Instructions Recorded Confirmed Baclofen [Lioresal] 10 mg PO BID 09/19/23 12/21/24 Ezetimibe [Zetia] 10 mg PO DAILY 09/19/23 12/21/24 Metoprolol Tartrate [Lopressor] 50 mg PO BID 09/19/23 12/21/24 Multivitamins, Thera [Multivitamin 1 tab PO DAILY 09/19/23 12/21/24 (formulary)] Nitroglycerin Sl Tabs [Nitrostat] 0.4 mg SL Q5M PRN 09/19/23 12/21/24 Tamsulosin [Flomax] 0.4 mg PO HS 09/19/23 12/21/24 Gabapentin 300 mg PO BID 08/06/24 12/21/24 Losartan Potassium 100 mg PO DAILY 08/06/24 12/21/24 Apixaban [Eliquis] 5 mg PO BID 12/21/24 12/21/24 Cholecalciferol [Vitamin D3 (25 50 mcg PO BID 12/21/24 12/21/24 Mcg = 1000 Iu)] RudyacidNereyda kramer B.lactis 1 cap PO HS 12/21/24 12/21/24 [Probiotic] Ubidecarenone [Co Q-10] 300 mg PO DAILY 12/21/24 12/21/24 traMADol HCl [Ultram] 50 mg PO TID PRN 12/21/24 12/21/24 Previous Rx's Medication Instructions Recorded Atorvastatin [Lipitor] 80 mg PO HS #30 tab 10/12/18 Isosorbide Mononitrate ER [Imdur] 60 mg PO DAILY 30 Days #30 tab 09/22/23 Allergies Allergy/AdvReac Type Severity Reaction Status Date / Time adhesive Allergy Rash/Hives Verified 12/21/24 07:32 Review of Systems ROS Statement: Those systems with pertinent positive or pertinent negative responses have been documented in the HPI. ROS Other: All systems not noted in ROS Statement are negative. EKG Findings - EKG Comments: EKG Findings:: EKG is paced 101 QRS 165 QTc 475 - EKG Results: EKG: interpreted by EMRE Past Medical History Past Medical History: Coronary Artery Disease (CAD), Chest Pain / Angina, GERD/Reflux, Hyperlipidemia, Hypertension, Myocardial Infarction (MS), Pneumonia Additional Past Medical History / Comment(s): See Cardiology H&P. Recent +ve Covid beginning of September. Recent Pneumonia 10/21/22. Recent cardiac arrest/MS 10/26/22, with CPR/Cardioversion, heart cath with 2 stents placed. Recent palpitations. Hx MS in 2007. Hx bronchitis. Last Myocardial Infarction Date:: 10/26/22 History of Any Multi-Drug Resistant Organisms: None Reported Past Surgical History: Appendectomy, Coronary Bypass/CABG, Heart Catheterization, Heart Catheterization With Stent, Joint Replacement, Orthopedic Surgery Additional Past Surgical History / Comment(s): 10/26/22 cardioversion/cardiac cath with 2 stents, 2007 PCI with stent, 2013 cardiac cath, 2013 CABG 3 vessel, multiple surgeries on both legs from trauma age 6yrs, left knee ACL repair, left knee replacement. Past Anesthesia/Blood Transfusion Reactions: No Reported Reaction Additional Past Anesthesia/Blood Transfusion Reaction / Comment(s): Pt is unsure if he has ever received blood. Date of Last Stent Placement:: 10/26/22 Past Psychological History: No Psychological Hx Reported Smoking Status: Former smoker Past Alcohol Use History: Occasional Past Drug Use History: None Reported - Past Family History Mother Family Medical History: Cancer Additional Family Medical History / Comment(s): Mother is 76yrs old. She had breast cancer and palpitations. There was a lot of CAD on her side of the family. Father Family Medical History: Myocardial Infarction (MS) Additional Family Medical History / Comment(s): Father of a MS in his 60's. CAD runs strongly in father's side of family. General Exam Limitations: no limitations General appearance: alert, in no apparent distress Head exam: Present: atraumatic, normocephalic, normal inspection Eye exam: Present: normal appearance, PERRL, EOMI. Absent: scleral icterus, conjunctival injection, periorbital swelling ENT exam: Present: normal exam, mucous membranes moist Neck exam: Present: normal inspection. Absent: tenderness, meningismus, lymphadenopathy Respiratory exam: Present: normal lung sounds bilaterally. Absent: respiratory distress, wheezes, rales, rhonchi, stridor Cardiovascular Exam: Present: regular rate, normal rhythm, normal heart sounds. Absent: systolic murmur, diastolic murmur, rubs, gallop, clicks GI/Abdominal exam: Present: soft, normal bowel sounds. Absent: distended, tenderness, guarding, rebound, rigid Extremities exam: Present: normal inspection, full ROM, normal capillary refill. Absent: tenderness, pedal edema, joint swelling, calf tenderness Back exam: Present: normal inspection Neurological exam: Present: alert, oriented X3, CN II-XII intact Psychiatric exam: Present: normal affect, normal mood Skin exam: Present: warm, dry, intact, normal color. Absent: rash Course Vital Signs 12/20/24 12/20/24 12/21/24 21:40 22:40 00:00 Temperature 98.0 F 98.2 F Pulse Rate 106 H 89 84 Respiratory 18 16 15 Rate Blood Pressure 162/105 119/89 125/82 O2 Sat by Pulse 99 95 96 Oximetry 12/21/24 12/21/24 12/21/24 03:49 05:06 09:00 Temperature 98.0 F Pulse Rate 77 76 77 Respiratory 14 15 20 Rate Blood Pressure 119/75 140/90 O2 Sat by Pulse 95 96 96 Oximetry 12/21/24 12/21/24 09:33 10:20 Temperature Pulse Rate 75 75 Respiratory 16 16 Rate Blood Pressure 140/89 140/70 O2 Sat by Pulse 98 Oximetry - Reevaluation(s) Reevaluation #1: 12/20/24 23:31 Medical records reviewed Prior hospitalization July with chest pain no acute event Prior hospitalization for pneumonia, also occurred having MS with cardiac catheterization reviewed and stent placed Reevaluation #2: 12/20/24 23:32 Patient still with chest pain here in the emergency department Reevaluation #3: 12/20/24 23:32 Patient reported results questions answered Reevaluation #4: Was pt. sent in by a medical professional or institution (IRENE Watts, PHARMACEUTICAL OFFICER, urgent care, hospital, or [place] health care facility...) When possible be specific @ -no Did you speak to anyone other than the patient for history (EMS, parent, family, police, friend...)? What history was obtained from this source @ -no Did you review nursing and triage notes (agree or disagree)? Why? @ -agree Are old charts reviewed (outside hosp., previous admission, EMS record, old EKG, old radiological studies, urgent care reports/EKG's, [place] health care facility records)? Report findings @ -yes Differential Diagnosis (chest pain, altered mental status, abdominal pain women, abdominal pain men, vaginal bleeding, weakness, fever, dyspnea, syncope, headache, dizziness, GI bleed, back pain, seizure, CVA, palpatations, mental health, musculoskeletal)? @ -prior EKG interpreted by me (3pts min.). @ -yes X-rays interpreted by me (1pt min.). @ -yes negative for acute disease CT interpreted by me (1pt min.). @ -no U/S interpreted by me (1pt. min.). @ -no What testing was considered but not performed or refused? (CT, X-rays, U/S, labs)? Why? @ -none What meds were considered but not given or refused? Why? @ -none Did you discuss the management of the patient with other professionals (professionals i.e. IRENE Watts, PHARMACEUTICAL OFFICER, lab, RT, psych nurse, social services, video rental clerk, teacher, tactical intelligence officer, heel caser)? Give summary @ -no Was smoking cessation discussed for >3mins.? @ -no Was critical care preformed (if so, how long)? @ -yes31 Were there social determinants of health that impacted care today? How? (Homelessness, low income, unemployed, alcoholism, drug addiction, transportation, low edu. Level, literacy, decrease access to med. care, longterm, rehab)? @ -none Was there de-escalation of care discussed even if they declined (Discuss DNR or withdrawal of care, Hospice)? DNR status @ -no What co-morbidities impacted this encounter? (DM, HTN, Smoking, COPD, CAD, Cancer, CVA, ARF, Chemo, Hep., AIDS, mental health diagnosis, sleep apnea, morbid obesity)? @ -none Was patient admitted / discharged? Hospital course, mention meds given and route, prescriptions, significant lab abnormalities, going to OR and other pertinent info. @ - 64 male with strong history of CAD and multiple stents and prior cardiac arrest coming in with chest pain today just like prior cardiac event heart attack. Patient presents today for chest pain will admit for unstable angina, patient does take Eliquis Admitted Undiagnosed new problem with uncertain prognosis? @ -no Drug Therapy requiring intensive monitoring for toxicity (Heparin, Nitro, Insulin, Cardizem)? @ -no Were any procedures done? @ -no Diagnosis/symptom? @ -ACS,UA Acute, or Chronic, or Acute on Chronic? @ -Acute Uncomplicated (without systemic symptoms) or Complicated (systemic symptoms)? @ -Complicated Side effects of treatment? @ -no Exacerbation, Progression, or Severe Exacerbation? @ -exacerbation Poses a threat to life or bodily function? How? (Chest pain, [place], MS, pneumonia, PE, COPD, DKA, ARF, appy, cholecystitis, CVA, Diverticulitis, Homicidal, Suicidal, threat to staff... and all critical care pts) @ -yes with chest pain Reevaluation #5: Differential Chest Pain: Stable Angina, Unstable Angina, STEMI, NSTEMI Aortic Dissection, Pneumothorax, Musculoskeletal, Esophageal Spasm GERD, Cholecystitis, Pancreatitis, Zoster, this is not meant to be an all-inclusive list. - Consultations Consultation #1: Spoke with [facility] who agrees to admit this patient Chest Pain MDM - MDM 64 male with strong history of CAD and multiple stents and prior cardiac arrest coming in with chest pain today just like prior cardiac event heart attack. Patient presents today for chest pain will admit for unstable angina, patient does take Eliquis Critical Care Time Critical Care Time: Yes Total Critical Care Time: 31 Disposition Clinical Impression: CAD (coronary artery disease), [place] coronary artery, Acute coronary syndrome, Atypical chest pain, Chest wall syndrome, Unstable angina pectoris, S/P CABG x 1 Disposition: ADMITTED IP TO THIS HOSP Condition: Fair Is patient prescribed a controlled substance at d/c from ED?: No Time of Disposition: 23:30
[2024-12-20] MEDS ORDERED: NALOXONE 0.4 MG/ML 1 ML VIAL IV PRN (23:29)
[2024-12-20] MEDS ORDERED: MORPHINE SULFATE 4 MG/ML SYRINGE IV PRN (23:29)
[2024-12-20] MEDS ORDERED: ONDANSETRON 4 MG/2 ML VIAL IVP PRN (23:29)
[2024-12-21] MEDS: SODIUM CHLORIDE 0.9% 1,000 ML IV SCH ×2 (00:01→14:33)
[2024-12-21] MEDS ORDERED: NITROGLYCERIN SL TABS 0.4 MG TAB SUBLINGUAL PRN (08:44)
[2024-12-21] MEDS ORDERED: ALPRAZolam 0.25 MG TAB PO PRN (08:44)
[2024-12-21] MEDS ORDERED: ALPRAZolam 0.5 MG TAB PO PRN (08:44)
[2024-12-21] MEDS: ATORVASTATIN 80 MG TAB PO STA (09:28)
[2024-12-21] MEDS: EZETIMIBE 10 MG TAB PO SCH (09:28)
[2024-12-21] MEDS: ISOSORBIDE MONONITRATE ER 60 MG TAB.ER.24H PO SCH (09:28)
[2024-12-21] MEDS: hydroCHLOROthiazide 25 MG TAB PO SCH (09:29)
[2024-12-21] MEDS: ASPIRIN 325 MG TAB PO STA (09:29)
[2024-12-21] MEDS: METOPROLOL TARTRATE 50 MG TAB PO SCH (09:29)
[2024-12-21] MEDS: LOSARTAN 50 MG TAB PO SCH (09:29)
[2024-12-21 09:34] VITALS: RESP 16
[2024-12-21] MEDS: IV FLUID CONTINUATION 1,000 ML IV ONE (10:40)
[2024-12-21] MEDS: fentaNYL (PF) 50 MCG/ML 2 ML AMP IVP ONE (10:45)
[2024-12-21] MEDS: LIDOCAINE 1% INJ 10MG/ML (20 ML MDV) SQ ONE (10:46)
[2024-12-21] MEDS: HEPARIN SODIUM,PORCINE (1 ML) 2,500 UNIT in SODIUM CHLORIDE 0.9% 250 ML IRRIGATION PRN (10:48)
[2024-12-21] MEDS: HEPARIN SODIUM,PORCINE 10,000 UNIT in SODIUM CHLORIDE 0.9% 1,000 ML IRRIGATION PRN (10:48)
[2024-12-21] MEDS: IOPAMIDOL-370 100ML BTL INJ ONE (11:10)
[2024-12-21] MEDS ORDERED: RX INFO: IV CONTRAST WAS GIVEN 1 EACH MISC MISCELLANE PRN (11:19)
--- NOTE | 2024-12-21 11:28 | P.CARDCATH ---
Date of Procedure: 12/21/24 Description of Procedure: Cardiac Catheterization: The patient is a 64-year-old male with a known history of CAD, status post CABG and stenting who presented with symptoms of chest discomfort, reminding him of the way he felt prior to his PCI. He had no evidence of enzymatic changes. Recommendations were made regarding cardiac catheterization, the risks and the complications were discussed with the patient who is in full understanding and agreement. Procedure Description: Patient was brought to [facility] [employer] in fasting semi-sedated state after receiving Fentanyl and Benadryl achieiving moderate conscious sedated state. Using Xylocaine Anesthesia and modified Seldinger technique, a 6-Thai sheath was introduced in the right femoral artery using micropuncture technique . Subsequently, selective coronary angiography was performed using a 6-Thai 4 bend Denae catheter. Multiple views of the coronary artery including hemiaxial views were obtained. The right Denae was used to cannulate the SVG to the OM and the OROZCO to the LAD. The 6 Thai LCB catheter was used to cannulate the SVG to the diagonal branch. Images of the grafts were obtained. The 6 Thai pigtail catheter was used to cross the aortic valve and LVEDP was calculated. Following that, catheter and sheath were removed. Hemostasis was obtained with deployment of an Angio-Seal. There was no immediate complication. Patient was returned to room in stable condition. Findings: Fluoroscopy: Calcifications of the LAD was noted Left main: This is a large size vessel, bifurcating into LAD and left circumflex, the distal left main has 20% plaque LAD: This vessel is totally occluded proximally with no significant antegrade flow Left circumflex: This is a nondominant vessel, the first obtuse marginal branch at the site of the stenting is chronically occluded with minimal antegrade flow, the vessel distally has no evidence of high-grade stenosis RCA: This is a large dominant vessel, bifurcating distally to PDA and PLV the right coronary artery and the distal segment and in the PDA has intimal disease of 30% there is a plaque into the PLV of a 50% the rest of the vessel has no high-grade stenosis, collaterals to the obtuse marginal branch was noted from the right coronary artery OROZCO to the LAD: The distal anastomotic site is patent the flow into the LAD is brisk there is retrograde flow into the distal PDA., Unchanged compared with the images performed in 2022 SVG to the OM: This vessel is totally occluded proximally with no antegrade flow SVG to the diagonal branch: The proximal and distal anastomotic site are patent, the stented segment in the body of the graft is patent with the distal stented segment has a 40 to 50% in-stent restenosis. The diagonal branch has no evidence of high-grade stenosis Left Ventriculogram: Not performed Hemodynamics: There was no gradient across aortic valve, LVEDP was 10-12 mmHg Conclusion: 1. Chronically occluded distal PDA, proximal LAD and first OM 2. Patent OROZCO to the LAD 3. Patent SVG to diagonal branch with 40% in-stent restenosis and LORENA-3 flow 4. Chronically occluded SVG to the OM Recommendations: The patient will continue on present therapy, I see no evidence of significant progression of disease he will continue aggressive coronary risk modifications. The findings and the recommendations were discussed with the patient and he was in full understanding and agreement. Duration of sedation is 22 minutes.
--- NOTE | 2024-12-21 13:27 | P.CRDCN ---
History of Present Illness Consult date: 12/21/24 Consult reason: chest pain History of present illness: This is a 64-year-old male patient of Dr. Carrasco with past medical history of coronary artery disease status post stent and CABG, paroxysmal atrial fibrillation, complete heart block status post biventricular pacemaker, hypertension, hyperlipidemia. We have been asked to evaluate the patient for chest pain. Patient had a recent office visit with Dr. Carrasco on 12/16 and at that time was doing well with no complaints of chest pain or any other symptoms. Patient states that at dinnertime yesterday he developed chest pain and then about 1/2-hour later it seemed to worsen but he also had some shivering ended up going to bed to rest and warm up but the pain did not go away. He took a nitroglycerin that did not seem to help. Pain seemed to worsen and he has some shortness of breath. He denies having any cough, no fever no wheezing. He felt like it was very similar to when he had his previous stent done. He denies having any abdominal pain. Pain is in the midsternal area. Blood pressure 140/89, heart rate 75, pulse ox 98% on room air. Patient is seen today in the emergency center waiting for a bed on the observation unit. Discussed with patient the recommended plan for cardiac catheterization and he is agreeable to move forward with this today. Patient has been started on heparin drip. -EKG: Electronically paced rhythm -Chest x-ray: No acute process. -Laboratory studies: WBC 11, hemoglobin 17 electrolytes and renal function are normal with creatinine of 0.8. Troponin i negative x 3 -Home cardiac medications: Eliquis 5 mg twice daily, atorvastatin 80 mg at be dtime, Zetia 10 mg daily, hydrochlorothiazide 25 mg daily, Imdur 60 mg daily, losartan 100 mg daily, Lopressor 50 mg twice daily, Nitrostat as needed. -Cardiovascular surgery 2013 three-vessel with OROZCO to LAD, VG to OM1, VG to D1. -Echocardiogram performed 08/22/2024 revealed EF 42%, moderate MR, mild TR. -Patient underwent cardiac catheterization on this hospitalization which revealed chronically occluded distal PDA, proximal LAD and first OM. Patent OROZCO to LAD. Patent SVG to diagonal branch with 40% in-stent restenosis with LORENA III flow. Chronically occluded SVG to the OM. Due to no evidence of significant progression of the disease, continue aggressive coronary risk factor modification. Review Of Systems: At the time of my exam: CONSTITUTIONAL: Denies fever or chills. HEENT: Denies blurred vision, vision changes, or eye pain. Denies hemoptysis CARDIOVASCULAR: Denies chest pain. Denies orthopnea. Denies PND. Denies palpitations RESPIRATORY: Denies shortness of breath. GASTROINTESTINAL: Denies abdominal pain. Denies nausea or vomiting. HEMATOLOGIC: Denies bleeding disorders. GENITOURINARY: Denies any blood in urine. SKIN: Denies puritis. Denies rash. Physical examination: Gen: This is 64-year-old male in no acute distress VS: reviewed HEENT: Head is atraumatic, normocephalic. Pupils equal, round. Sclerae is anicteric. NECK: Supple. No JVD. LUNGS: Clear to auscultation. No wheezes or rhonchi. No intercostal retractions. HEART: Regular rate and rhythm. Systolic murmur. ABDOMEN: Soft No tenderness. EXTREMITIES: No pedal edema. No calf tenderness. NEUROLOGICAL: Patient is awake, alert and oriented x3. Assessment: Chest pain, acute coronary syndrome ruled out History of coronary artery disease with previous stenting and CABG Paroxysmal atrial fibrillation Complete heart block status post biventricular pacemaker Hypertension Hyperlipidemia Plan: Resume patient's home cardiac medications Start patient on aspirin 81 mg daily No need to repeat echocardiogram Further recommendations to follow based upon clinical course Thank you kindly for this consultation. Nurse practitioner note has been reviewed, I agree with documented findings and plan of care. Patient was seen and examined. Past Medical History Past Medical History: Coronary Artery Disease (CAD), Chest Pain / Angina, GERD/Reflux, Hyperlipidemia, Hypertension, Myocardial Infarction (MD), Pneumonia Additional Past Medical History / Comment(s): See Cardiology H&P. Recent +ve Covid beginning of September. Recent Pneumonia 10/21/22. Recent cardiac arrest/MD 10/26/22, with CPR/Cardioversion, heart cath with 2 stents placed. Recent palpitations. Hx MD in 2007. Hx bronchitis. Last Myocardial Infarction Date:: 10/26/22 History of Any Multi-Drug Resistant Organisms: None Reported Past Surgical History: Appendectomy, Coronary Bypass/CABG, Heart Catheteriz ation, Heart Catheterization With Stent, Joint Replacement, Orthopedic Surgery Additional Past Surgical History / Comment(s): 10/26/22 cardioversion/cardiac cath with 2 stents, 2007 PCI with stent, 2013 cardiac cath, 2013 CABG 3 vessel, multiple surgeries on both legs from trauma age 6yrs, left knee ACL repair, left knee replacement. Past Anesthesia/Blood Transfusion Reactions: No Reported Reaction Additional Past Anesthesia/Blood Transfusion Reaction / Comment(s): Pt is unsure if he has ever received blood. Date of Last Stent Placement:: 10/26/22 Past Psychological History: No Psychological Hx Reported Smoking Status: Former smoker Past Alcohol Use History: Occasional Past Drug Use History: None Reported - Past Family History Mother Family Medical History: Cancer Additional Family Medical History / Comment(s): Mother is 76yrs old. She had breast cancer and palpitations. There was a lot of CAD on her side of the family. Father Family Medical History: Myocardial Infarction (MD) Additional Family Medical History / Comment(s): Father of a MD in his 60's. CAD runs strongly in father's side of family. Medications and Allergies Home Medications Medication Instructions Recorded Confirmed Type Atorvastatin [Lipitor] 80 mg PO HS #30 tab 10/12/18 12/21/24 Rx Baclofen [Lioresal] 10 mg PO BID 09/19/23 12/21/24 History Ezetimibe [Zetia] 10 mg PO DAILY 09/19/23 12/21/24 History Metoprolol Tartrate [Lopressor] 50 mg PO BID 09/19/23 12/21/24 History Multivitamins, Thera [Multivitamin 1 tab PO DAILY 09/19/23 12/21/24 History (formulary)] Nitroglycerin Sl Tabs [Nitrostat] 0.4 mg SL Q5M PRN 09/19/23 12/21/24 History Tamsulosin [Flomax] 0.4 mg PO HS 09/19/23 12/21/24 History Isosorbide Mononitrate ER [Imdur] 60 mg PO DAILY 30 Days #30 tab 09/22/23 12/21/24 Rx Gabapentin 300 mg PO BID 08/06/24 12/21/24 History Losartan Potassium 100 mg PO DAILY 08/06/24 12/21/24 History Apixaban [Eliquis] 5 mg PO BID 12/21/24 12/21/24 History Cholecalciferol [Vitamin D3 (25 50 mcg PO BID 12/21/24 12/21/24 History Mcg = 1000 Iu)] L.acidoph,Paracasei, B.lactis 1 cap PO HS 12/21/24 12/21/24 History [Probiotic] Ubidecarenone [Co Q-10] 300 mg PO DAILY 12/21/24 12/21/24 History hydroCHLOROthiazide [Hydrodiuril] 25 mg PO DAILY 12/21/24 12/21/24 History traMADol HCl [Ultram] 50 mg PO TID PRN 12/21/24 12/21/24 History Allergies Allergy/AdvReac Type Severity Reaction Status Date / Time adhesive Allergy Rash/Hives Verified 12/21/24 07:32 Physical Exam Vitals: Vital Signs Temp Pulse Resp BP Pulse Ox 12/21/24 05:06 98.0 F 76 15 119/75 96 12/21/24 03:49 77 14 95 12/21/24 00:00 98.2 F 84 15 125/82 96 12/20/24 22:40 89 16 119/89 95 12/20/24 21:40 98.0 F 106 H 18 162/105 99 Intake and Output 12/20/24 12/21/24 12/21/24 22:59 06:59 14:59 Other: Weight 108.862 kg Results 12/20/24 21:48 12/20/24 21:48 Cardiac Enzymes 12/20/24 12/20/24 12/21/24 Range/Units 21:48 21:48 00:05 AST 32 (17-59) U/L Troponin I 0.019 0.015 (0.000-0.034) ng/mL 12/21/24 Range/Units 03:30 AST (17-59) U/L Troponin I 0.017 (0.000-0.034) ng/mL Coagulation 12/20/24 Range/Units 21:48 PT 10.3 (10.0-12.5) sec APTT 31.1 H (22.0-30.0) sec CBC 12/20/24 Range/Units 21:48 WBC 11.0 H (3.8-10.6) k/uL RBC 5.66 (4.30-5.90) m/uL Hgb 17.0 (13.0-17.5) gm/dL Hct 52.4 (39.0-53.0) % Plt Count 187 (150-450) k/uL Comprehensive Metabolic Panel 12/20/24 Range/Units 21:48 Sodium 137 (137-145) mmol/L Potassium 3.9 (3.5-5.1) mmol/L Chloride 98 (98-107) mmol/L Carbon Dioxide 27 (22-30) mmol/L BUN 18 (9-20) mg/dL Creatinine 0.84 (0.66-1.25) mg/dL Glucose 114 H (74-99) mg/dL Calcium 9.3 (8.4-10.2) mg/dL AST 32 (17-59) U/L ALT 27 (4-49) U/L Alkaline Phosphatase 87 (38-126) U/L Total Protein 7.7 (6.3-8.2) g/dL Albumin 4.8 (3.5-5.0) g/dL Current Medications Generic Name Dose Route Start Last Admin Trade Name Freq PRN Reason Stop Dose Admin Sodium Chloride 1,000 mls @ 75 mls/hr 12/20/24 23:30 12/21/24 00:01 Saline 0.9% IV 75 mls/hr .[id number] SILVANO Administration Morphine Sulfate 4 mg 12/20/24 23:29 Morphine Sulfate 4 Mg/Ml Syringe IV Q4HR PRN Severe Pain (Scale 7 to 10) Naloxone HCl 0.2 mg 12/20/24 23:29 Naloxone 0.4 Mg/Ml 1 Ml Vial IV Q2M PRN Opioid Reversal Ondansetron HCl 4 mg 12/20/24 23:29 Ondansetron 4 Mg/2 Ml Vial IVP Q8HR PRN Nausea And Vomiting Intake and Output 12/20/24 12/21/24 12/21/24 22:59 06:59 14:59 Other: Weight 108.862 kg 12/20/24 21:48 12/20/24 21:48
--- NOTE | 2024-12-21 14:04 | P.HPIM ---
History of Present Illness 64-year-old male with history of coronary disease status post CABG and stents in the past paroxysmal atrial fibrillation came in with complaints of chest pain which developed while he was eating which has worsened half an hour later di scussed with some chills. Patient did take nitroglycerin which did not help him chest pain is nonradiating nonpleuritic not associate with food in the midsternal area. EKG is a paced rhythm chest x-ray did not show any significant abnormality echocardiogram in 1 month of #2024 showed EF of 40% patient had a cardiac catheterization in August . Patient was eval by cardiology the recommended cardiac catheterization patient underwent cardiac catheterization during this hospitalization and found to have chronically occluded distal PDA proximal LAD and first obtuse marginal and a patent OROZCO to LAD saphenous venous graft to diagonal branch is patent and chronically occluded saphenous venous graft to obtuse marginal. The cardiac catheterization during this hospitalization did not show any significant progression compared to his previous cardiac catheterizations REVIEW OF SYSTEMS: All other systems are negative except those mentioned in the HPI PHYSICAL EXAMINATION: GENERAL: The patient is alert and oriented x3, not in any acute distress. Well developed, well nourished. HEENT: Pupils are round and equally reacting to light. EOMI. No scleral icterus. No conjunctival pallor. Normocephalic, atraumatic. No pharyngeal erythema. No thyromegaly. CARDIOVASCULAR: S1 and S2 present. No murmurs, rubs, or gallops. PULMONARY: Chest is clear to auscultation, no wheezing or crackles. ABDOMEN: Soft, nontender, nondistended, normoactive bowel sounds. No palpable organomegaly. MUSCULOSKELETAL: No joint swelling or deformity. EXTREMITIES: No cyanosis, clubbing, or pedal edema. NEUROLOGICAL: Gross neurological examination did not reveal any focal deficits. SKIN: No rashes. Assessment and plan -Chest pain probably unstable angina, patient underwent cardiac catheterization with results as mentioned above cardiology is recommending medical management as patient has chronic occlusions -Coronary artery disease with CABG and stents in the past paroxysmal atrial fibrillation patient is presently sinus rhythm continue with anticoagulation -Hypertension -Hyperlipidemia Gastroesophageal reflux disease For above-mentioned chronic medical problems patient will be resumed on approp riate home medications DVT prophylaxis: Early ambulation Past Medical History Past Medical History: Coronary Artery Disease (CAD), Chest Pain / Angina, GERD/Reflux, Hyperlipidemia, Hypertension, Myocardial Infarction ([place]), Pneumonia Additional Past Medical History / Comment(s): See Cardiology H&P. Recent +ve Covid beginning of September. Recent Pneumonia 10/21/22. Recent cardiac arrest/[place] 10/26/22, with CPR/Cardioversion, heart cath with 2 stents placed. Recent palpitations. Hx [place] in 2007. Hx bronchitis. Last Myocardial Infarction Date:: 10/26/22 History of Any Multi-Drug Resistant Organisms: None Reported Past Surgical History: Appendectomy, Coronary Bypass/CABG, Heart Catheterization, Heart Catheterization With Stent, Joint Replacement, Orthopedic Surgery Additional Past Surgical History / Comment(s): 10/26/22 cardioversion/cardiac cath with 2 stents, 2007 PCI with stent, 2013 cardiac cath, 2013 CABG 3 vessel, multi ple surgeries on both legs from trauma age 6yrs, left knee ACL repair, left knee replacement. Past Anesthesia/Blood Transfusion Reactions: No Reported Reaction Additional Past Anesthesia/Blood Transfusion Reaction / Comment(s): Pt is unsure if he has ever received blood. Date of Last Stent Placement:: 10/26/22 Past Psychological History: No Psychological Hx Reported Smoking Status: Former smoker Past Alcohol Use History: Occasional Past Drug Use History: None Reported - Past Family History Mother Family Medical History: Cancer Additional Family Medical History / Comment(s): Mother is 76yrs old. She had breast cancer and palpitations. There was a lot of CAD on her side of the family. Father Family Medical History: Myocardial Infarction ([place]) Additional Family Medical History / Comment(s): Father of a [place] in his 60's. CAD runs strongly in father's side of family. Medications and Allergies Home Medications Medication Instructions Recorded Confirmed Type Atorvastatin [Lipitor] 80 mg PO HS #30 tab 10/12/18 12/21/24 Rx Baclofen [Lioresal] 10 mg PO BID 09/19/23 12/21/24 History Ezetimibe [Zetia] 10 mg PO DAILY 09/19/23 12/21/24 History Metoprolol Tartrate [Lopressor] 50 mg PO BID 09/19/23 12/21/24 History Multivitamins, Thera [Multivitamin 1 tab PO DAILY 09/19/23 12/21/24 History (formulary)] Nitroglycerin Sl Tabs [Nitrostat] 0.4 mg SL Q5M PRN 09/19/23 12/21/24 History Tamsulosin [Flomax] 0.4 mg PO HS 09/19/23 12/21/24 History Isosorbide Mononitrate ER [Imdur] 60 mg PO DAILY 30 Days #30 tab 09/22/23 12/21/24 Rx Gabapentin 300 mg PO BID 08/06/24 12/21/24 History Losartan Potassium 100 mg PO DAILY 08/06/24 12/21/24 History Apixaban [Eliquis] 5 mg PO BID 12/21/24 12/21/24 History Cholecalciferol [Vitamin D3 (25 50 mcg PO BID 12/21/24 12/21/24 History Mcg = 1000 Iu)] L.acidoph,Paracasei, B.lactis 1 cap PO HS 12/21/24 12/21/24 History [Probiotic] Ubidecarenone [Co Q-10] 300 mg PO DAILY 12/21/24 12/21/24 History hydroCHLOROthiazide [Hydrodiuril] 25 mg PO DAILY 12/21/24 12/21/24 History traMADol HCl [Ultram] 50 mg PO TID PRN 12/21/24 12/21/24 History Allergies Allergy/AdvReac Type Severity Reaction Status Date / Time adhesive Allergy Rash/Hives Verified 12/21/24 07:32 Physical Exam Vitals: Vital Signs Temp Pulse Pulse Resp BP BP Pulse Ox 12/21/24 11:49 68 16 98/55 95 12/21/24 11:34 70 16 101/55 94 L 12/21/24 11:19 62 16 115/72 95 12/21/24 10:20 75 16 140/70 12/21/24 09:33 75 16 140/89 98 12/21/24 09:00 77 20 140/90 96 12/21/24 05:06 98.0 F 76 15 119/75 96 12/21/24 03:49 77 14 95 12/21/24 00:00 98.2 F 84 15 125/82 96 12/20/24 22:40 89 16 119/89 95 12/20/24 21:40 98.0 F 106 H 18 162/105 99 Intake and Output 12/20/24 12/21/24 12/21/24 22:59 06:59 14:59 Intake Total 240 Balance 240 Intake: IV 150 Oral 90 Other: Weight 108.862 kg Results CBC & Chem 7: 12/20/24 21:48 12/20/24 21:48 Labs: Abnormal Lab Results - Last 24 Hours (Table) 12/20/24 12/20/24 12/20/24 Range/Units 21:48 21:48 21:48 WBC 11.0 H (3.8-10.6) k/uL APTT 31.1 H (22.0-30.0) sec Glucose 114 H (74-99) mg/dL
[2024-12-21 16:38] LABS: African American GFR (CKD) >90 (>60 ml/min/1.73 sqM); Anion Gap 9 mmol/L; Blood Urea Nitrogen 16 mg/dL (9-20); Calcium 9.4 mg/dL (8.4-10.2); Carbon Dioxide 30 mmol/L (22-30); Chloride 98 mmol/L (98-107); Glucose 106 mg/dL (74-99); Non-African American GFR(CKD) >90 (>60 ml/min/1.73 sqM); Potassium 3.9 mmol/L (3.5-5.1); Sodium 137 mmol/L (137-145)
[2024-12-21] MEDS ORDERED: CALCIUM CARBONATE 500 MG CHEWABLE PO PRN (21:17)
[2024-12-21] MEDS: PANTOPRAZOLE 40 MG TABLET PO SCH (21:43)
[2024-12-21] MEDS: ATORVASTATIN 80 MG TAB PO SCH (21:43)
[2024-12-22] MEDS: LOSARTAN 50 MG TAB PO SCH (08:22)
[2024-12-22] MEDS: ASPIRIN 81 MG PO SCH (08:22)
[2024-12-22 09:01] VITALS: BP 124/80; PULSE 78; TEMP 98.2
[2024-12-22 09:09] LABS: BUN/Creat Ratio 14.89 Ratio (12.00-20.00); Blood Urea Nitrogen 13.4 mg/dL (9.0-27.0); Calcium 9.3 mg/dL (8.7-10.3); Carbon Dioxide 24.3 mmol/L (21.6-31.8); Chloride 101 mmol/L (96-109); Glucose 110 mg/dL (70-110); Sodium 139 mmol/L (135-145)
--- NOTE | 2024-12-22 10:04 | P.PN ---
Subjective Progress Note Date: 12/22/24 Consult reason: chest pain History of present illness: This is a 64-year-old male patient of Dr. Carrasco with past medical history of coronary artery disease status post stent and CABG, paroxysmal atrial fibrillation, complete heart block status post biventricular pacemaker, hypertension, hyperlipidemia. We have been asked to evaluate the patient for ch est pain. Patient had a recent office visit with Dr. Carrasco on 12/16 and at that time was doing well with no complaints of chest pain or any other symptoms. Patient states that at dinnertime yesterday he developed chest pain and then about 1/2-hour later it seemed to worsen but he also had some shivering ended up going to bed to rest and warm up but the pain did not go away. He took a nitroglycerin that did not seem to help. Pain seemed to worsen and he has some shortness of breath. He denies having any cough, no fever no wheezing. He felt like it was very similar to when he had his previous stent done. He denies having any abdominal pain. Pain is in the midsternal area. Blood pressure 140/89, heart rate 75, pulse ox 98% on room air. Patient is seen today in the emergency center waiting for a bed on the observation unit. Discussed with patient the recommended plan for cardiac catheterization and he is agreeable to move forward with this today. Patient has been started on heparin drip. -EKG: Electronically paced rhythm -Chest x-ray: No acute process. -Laboratory studies: WBC 11, hemoglobin 17 electrolytes and renal function are normal with creatinine of 0.8. Troponin i negative x 3 -Home cardiac medications: Eliquis 5 mg twice daily, atorvastatin 80 mg at bedtime, Zetia 10 mg daily, hydrochlorothiazide 25 mg daily, Imdur 60 mg daily, losartan 100 mg daily, Lopressor 50 mg twice daily, Nitrostat as needed. -Cardiovascular surgery 2013 three-vessel with OROZCO to LAD, VG to OM1, VG to D1. -Echocardiogram performed 08/22/2024 revealed EF 42%, moderate MR, mild TR. -Patient underwent cardiac catheterization on this hospitalization which revealed chronically occluded distal PDA, proximal LAD and first OM. Patent OROZCO to LAD. Patent SVG to diagonal branch with 40% in-stent restenosis with LORENA III flow. Chronically occluded SVG to the OM. Due to no evidence of significant progression of the disease, continue aggressive coronary risk factor modification. 12/22 Patient seen and examined. Yesterday, patient underwent cardiac catheterization with Dr. Carrasco as above. Patient denies chest pain, no shortness of breath, no palpitations. No lightheadedness or dizziness. Blood pressure 124/80, heart rate 78, pulse ox 97% on room air. Repeat blood work reveals potassium 4, BUN 13 creatinine 0.9. Physical examination: Gen: This is 64-year-old male in no acute distress VS: reviewed HEENT: Head is atraumatic, normocephalic. Pupils equal, round. Sclerae is a nicteric. NECK: Supple. No JVD. LUNGS: Clear to auscultation. No wheezes or rhonchi. No intercostal retractions. HEART: Regular rate and rhythm. Systolic murmur. ABDOMEN: Soft No tenderness. EXTREMITIES: No pedal edema. No calf tenderness. NEUROLOGICAL: Patient is awake, alert and oriented x3. Assessment: Chest pain, acute coronary syndrome ruled out History of coronary artery disease with previous stenting and CABG Paroxysmal atrial fibrillation Complete heart block status post biventricular pacemaker Hypertension Hyperlipidemia Plan: Continue patient's home cardiac medications Continue patient on aspirin 81 mg daily No need to repeat echocardiogram Patient is cleared for discharge from cardiology will follow-up with Dr. Carrasco in the office in 1 to 2 weeks. Nurse practitioner note has been reviewed, I agree with documented findings and plan of care. Patient was seen and examined. Objective - Vital Signs Vital signs: Vital Signs Temp 97.7 F 12/22/24 02:51 Pulse 84 12/22/24 02:51 Resp 16 12/22/24 02:51 BP 127/80 12/22/24 02:51 Pulse Ox 97 12/22/24 02:51 FiO2 Intake & Output 12/21/24 12/22/24 12/22/24 18:59 06:59 18:59 Intake Total 358 Balance 358 Intake: IV 150 Oral 208 Other: # Voids 1 2 - Labs CBC & Chem 7: 12/20/24 21:48 12/22/24 03:23 Labs: Abnormal Lab Results - Last 24 Hours (Table) 12/21/24 Range/Units 15:57 Glucose 106 H (74-99) mg/dL
--- NOTE | 2024-12-22 12:18 | P.DS ---
Providers Date of admission: 12/20/24 23:30 Attending physician: Kaycee Da Silva Consults: 12/20/24 23:29 Consult Physician Routine Consulting Provider: Gill Carrasco Consult Reason/Comments: cp Do you want consulting provider notified?: Yes Primary care physician: [facility] Hospital Course: 64-year-old male with history of coronary disease status post CABG and stents in the past paroxysmal atrial fibrillation came in with complaints of chest pain which developed while he was eating which has worsened half an hour later discussed with some chills. Patient did take nitroglycerin which did not help him chest pain is nonradiating nonpleuritic not associate with food in the midsternal area. EKG is a paced rhythm chest x-ray did not show any significant abnormality echocardiogram in 1 month of #2023 showed EF of 40% patient had a cardiac catheterization in August . Patient was eval by cardiology the recommended cardiac catheterization patient underwent cardiac catheterization during this hospitalization and found to have chronically occluded distal PDA proximal LAD and first obtuse marginal and a patent OROZCO to LAD saphenous venous graft to diagonal branch is patent and chronically occluded saphenous venous graft to obtuse marginal. The cardiac catheterization during this hospitalization did not show any significant progression compared to his previous cardiac catheterizations. No significant changes are being made with his cardiac medications but patient is on hydrochlorothiazide and a significantly hypotensive with systolics going to low 90s. Patient was recently started on hydrochlorothiazide which was discontinued but patient will continue rest of his medications REVIEW OF SYSTEMS: All other systems are negative except those mentioned in the HPI PHYSICAL EXAMINATION: GENERAL: The patient is alert and oriented x3, not in any acute distress. Well developed, well nourished. HEENT: Pupils are round and equally reacting to light. EOMI. No scleral icterus. No conjunctival pallor. Normocephalic, atraumatic. No pharyngeal erythema. No thyromegaly. CARDIOVASCULAR: S1 and S2 present. No murmurs, rubs, or gallops. PULMONARY: Chest is clear to auscultation, no wheezing or crackles. ABDOMEN: Soft, nontender, nondistended, normoactive bowel sounds. No palpable organomegaly. MUSCULOSKELETAL: No joint swelling or deformity. EXTREMITIES: No cyanosis, clubbing, or pedal edema. NEUROLOGICAL: Gross neurological examination did not reveal any focal deficits. SKIN: No rashes. Assessment and plan -Chest pain probably unstable angina, patient underwent cardiac catheterization with results as mentioned above cardiology is recommending medical management as patient has chronic coronary occlusive disease -Coronary artery disease with CABG and stents in the past paroxysmal atrial fibrillation patient is presently sinus rhythm continue with anticoagulation -Hypertension: Was significantly hypotensive discontinuing hydrochlorothiazide upon discharge patient received a lower dose of losartan but I believe he can tolerate 100 mg and patient was discharged on the same dose -Hyperlipidemia Gastroesophageal reflux disease Patient Condition at Discharge: Fair Plan - Discharge Summary Discharge Rx Participant: No New Discharge Prescriptions: Discontinued hydroCHLOROthiazide [Hydrodiuril] 25 mg PO DAILY No Action Atorvastatin [Lipitor] 80 mg PO HS #30 tab Metoprolol Tartrate [Lopressor] 50 mg PO BID Losartan Potassium 100 mg PO DAILY Ubidecarenone [Co Q-10] 300 mg PO DAILY Nitroglycerin Sl Tabs [Nitrostat] 0.4 mg SL Q5M PRN PRN Reason: Chest Pain Multivitamins, Thera [Multivitamin (formulary)] 1 tab PO DAILY Ezetimibe [Zetia] 10 mg PO DAILY Tamsulosin [Flomax] 0.4 mg PO HS Baclofen [Lioresal] 10 mg PO BID Isosorbide Mononitrate ER [Imdur] 60 mg PO DAILY 30 Days #30 tab Gabapentin 300 mg PO BID Cholecalciferol [Vitamin D3 (25 Mcg = 1000 Iu)] 50 mcg PO BID traMADol HCl [Ultram] 50 mg PO TID PRN PRN Reason: back pain Apixaban [Eliquis] 5 mg PO BID L.acidoph,Paracasei, B.lactis [Probiotic] 1 cap PO HS Discharge Medication List Atorvastatin [Lipitor] 80 mg PO HS #30 tab 10/12/18 [Rx] Baclofen [Lioresal] 10 mg PO BID 09/19/23 [History] Ezetimibe [Zetia] 10 mg PO DAILY 09/19/23 [History] Metoprolol Tartrate [Lopressor] 50 mg PO BID 09/19/23 [History] Multivitamins, Thera [Multivitamin (formulary)] 1 tab PO DAILY 09/19/23 [ History] Nitroglycerin Sl Tabs [Nitrostat] 0.4 mg SL Q5M PRN 09/19/23 [History] Tamsulosin [Flomax] 0.4 mg PO HS 09/19/23 [History] Isosorbide Mononitrate ER [Imdur] 60 mg PO DAILY 30 Days #30 tab 09/22/23 [Rx] Gabapentin 300 mg PO BID 08/06/24 [History] Losartan Potassium 100 mg PO DAILY 08/06/24 [History] Apixaban [Eliquis] 5 mg PO BID 12/21/24 [History] Cholecalciferol [Vitamin D3 (25 Mcg = 1000 Iu)] 50 mcg PO BID 12/21/24 [History] L.acidoph,Paracasei, B.lactis [Probiotic] 1 cap PO HS 12/21/24 [History] Ubidecarenone [Co Q-10] 300 mg PO DAILY 12/21/24 [History] traMADol HCl [Ultram] 50 mg PO TID PRN 12/21/24 [History] Follow up Appointment(s)/Referral(s): Gill Carrasco MD [STAFF PHYSICIAN] - 1 Week Rahat Delcid MD [Primary Care Provider] - 1-2 days Discharge Disposition: HOME SELF-CARE
== END 2024-12-22 13:02 | disposition home or self-care (01) ==
LOC: EC 21:38 → 6NMEDSUR 23:30
PROVIDERS: ADMIT Hospitalist; ATTEND Hospitalist
DX: R07.9 Chest pain, unspecified (principal); I25.82 Chronic total occlusion of coronary artery; I25.2 Old myocardial infarction; I44.2 Atrioventricular block, complete; I95.9 Hypotension, unspecified; I25.10 Atherosclerotic heart disease of native coronary artery without angina pectoris; I25.810 Atherosclerosis of coronary artery bypass graft(s) without angina pectoris; I48.0 Paroxysmal atrial fibrillation; I10 Essential (primary) hypertension; E78.5 Hyperlipidemia, unspecified; K21.9 Gastro-esophageal reflux disease without esophagitis; Z79.01 Long term (current) use of anticoagulants; Z79.02 Long term (current) use of antithrombotics/antiplatelets; Z79.82 Long term (current) use of aspirin; Z79.899 Other long term (current) drug therapy; Z82.49 Family history of ischemic heart disease and other diseases of the circulatory system; Z86.74 Personal history of sudden cardiac arrest; Z87.01 Personal history of pneumonia (recurrent); Z87.891 Personal history of nicotine dependence; Z95.0 Presence of cardiac pacemaker; Z95.5 Presence of coronary angioplasty implant and graft; Z95.1 Presence of aortocoronary bypass graft
CPT/HCPCS: 99291; 36415; 93005; 93459; 80053; 80048 ×2; 83735; 84484 ×2; 85025; 85610; 85730; 71046; G0378 ×3; J1644 ×2; J2003; J3010; Q9967

== ENCOUNTER → 2025-03-03 | Outpatient (CLI) | payer BC ==
[2025-03-03 10:38] LABS: Basophils # (A) 0.06 X 10*3/uL (0.00-0.10); Basophils % (A) 0.9 %; Eosinophils # (A) 0.32 X 10*3/uL (0.04-0.35); Eosinophils % (A) 4.8 %; HCT 49.5 % (39.6-50.0); HGB 16.3 g/dL (13.0-17.0); Lymphocytes # (A) 1.97 X 10*3/uL (0.90-5.00); Lymphocytes % (A) 29.8 %; MCH 30.3 pg (27.0-32.0); MCHC 32.9 g/dL (32.0-37.0); Mean Platelet Volume 11.1 FL (9.5-12.2); Monocytes % (A) 10.6 %; NRBC Per 100 WBC 0 X 10*3/uL (0.00-0.01); Neutrophils # (A) 3.54 X 10*3/uL (1.80-7.70); Neutrophils % (A) 53.6 %; Platelet Count 216 X 10*3/uL (140-440); RBC 5.38 X 10*6/uL (4.40-5.60); RDW 13.2 % (11.5-14.5); WBC 6.61 X 10*3/uL (4.50-10.00)
[2025-03-03 11:07] LABS: Chol/HDL Ratio 2.41 Ratio; LDL Cholesterol,Calculated 50.6 mg/dL (0.0-131.0); Prostate Specific Antigen 0.62 ng/mL (0.000-4.500); VLDL Calculation 17.78 mg/dL (5.00-40.00)
[2025-03-03 11:39] LABS: ALT 30 U/L (10-49); AST 29 U/L (14-35); Albumin 4.4 g/dL (3.8-4.9); Albumin/Globulin Ratio 1.69 Ratio (1.60-3.17); Alkaline Phosphatase 83 U/L (41-126); BUN/Creat Ratio 14.22 Ratio (12.00-20.00); Blood Urea Nitrogen 12.8 mg/dL (9.0-27.0); Calcium 9.6 mg/dL (8.7-10.3); Carbon Dioxide 23.3 mmol/L (21.6-31.8); Chloride 105 mmol/L (96-109); Globulin 2.6 g/dL (1.6-3.3); Glucose 107 mg/dL (70-110); Potassium 4.5 mmol/L (3.5-5.5); Sodium 142 mmol/L (135-145); Total Bilirubin 0.9 mg/dL (0.3-1.2)
== END | disposition home or self-care (01) ==
LOC: LABWHC1 06:58
PROVIDERS: ATTEND Internal Medicine Geriatric Medicine
DX: I25.10 Atherosclerotic heart disease of native coronary artery without angina pectoris (principal); N40.0 Benign prostatic hyperplasia without lower urinary tract symptoms; R73.9 Hyperglycemia, unspecified
CPT/HCPCS: 36415; 80053; 80061; 83036; 84153; 84443; 85025

== ENCOUNTER 2025-04-20 05:49 | Day surgery (SDC) | payer BC ==
[~2025-04-20 05:49] MED LIST changes: +LACTATED RINGERS 1,000 ML IV SCH; -VANCOMYCIN 1,750 MG in SODIUM CHLORIDE 0.9% 500 ML 500 ML IVPB ONE; -fentaNYL (PF) 50 MCG/ML 2 ML AMP IV PRN
[2025-04-20 06:21] VITALS: TEMP 97.4
[2025-04-20] MEDS: IV FLUID CONTINUATION 500 ML IV ONE (06:22)
[2025-04-20] MEDS: SODIUM CHLORIDE 0.9% 500 ML 500 ML IV SCH (06:49)
[2025-04-20 07:09] LABS: African American GFR (CKD) 82 (>60 ml/min/1.73 sqM); Anion Gap 12 mmol/L; Blood Urea Nitrogen 22 mg/dL (9-20); Calcium 9.7 mg/dL (8.4-10.2); Carbon Dioxide 27 mmol/L (22-30); Chloride 107 mmol/L (98-107); Glucose 115 mg/dL (74-99); Non-African American GFR(CKD) 71 (>60 ml/min/1.73 sqM); Potassium 4.4 mmol/L (3.5-5.1); Sodium 146 mmol/L (137-145)
[2025-04-20] MEDS: BENZOCAINE SPRAY 1 EACH TOPICAL STA (07:18)
[2025-04-20] MEDS ORDERED: PROPOFOL 10 MG/ML 20 ML VIAL IV ONE (07:19)
[2025-04-20] MEDS: IV FLUID CONTINUATION 350 ML IV ONE (07:38)
--- NOTE | 2025-04-20 07:40 | P.PCN ---
Date of Procedure: 04/20/25 Description of Procedure: Indication: Atrial fibrillation Procedure Description: After explaining the procedure to the patient, it's risk and complications, blood pressure, heart rate and O2 saturation were monitored. The throat was sprayed with Cetacaine. Patient received sedation per anesthesia department. The probe was introduced into the esophagus without difficulty. Images were obtained. Following that, the probe was removed. There was no immediate complication. Findings: Left atrial size is dilated, left atrial appendage is closed with no flow. Left ventricular systolic function is mildly impaired, estimated ejection fraction 45 to 50% with inferior wall hypokinesis. The aortic valve appears to be normal. Mild thickening of the mitral valve leaflets was noted. The tricuspid valve appears to be normal. A wire was noted in the right ventricle. No pericardial effusion was noted. Contrast bubble study revealed no shunting across the interatrial septum. Doppler: Pulse wave and color Doppler were obtained, and revealed moderate mitral with mild tricuspid regurgitation and trace to mild aortic regurgitation. There was no shunting across the interatrial septum. Conclusion: 1. Dilated left atrium with evidence of closure of the left atrial appendage 2. Mildly impaired limited for systolic function 3. Moderate eccentric mitral regurgitation with mild tricuspid regurgitation 4. Trace to mild aortic regurgitation 5. A wire was noted in the right ventricle Cardioversion: After obtaining BONY and sedated state a synchronized biphasic cardioversion using 150 J was performed with religion of sinus mechanism, there was no immediate complications.
[2025-04-20 08:02] VITALS: RESP 16
[2025-04-20 08:47] VITALS: BP 120/85; PULSE 78
[2025-04-20] MEDS ORDERED: APIXABAN 5 MG TAB PO SCH (09:00)
[2025-04-20] MEDS ORDERED: METOPROLOL TARTRATE 50 MG TAB PO SCH (09:00)
[2025-04-20] MEDS ORDERED: ISOSORBIDE MONONITRATE ER 60 MG TAB.ER.24H PO SCH (09:00)
[2025-04-20] MEDS ORDERED: EZETIMIBE 10 MG TAB PO SCH (09:00)
[2025-04-20] MEDS ORDERED: NON FORMULARY DRUG (Losartan Potassium [Losartan Potassium] 100 MG Tablet) PO SCH (21:00)
[2025-04-20] MEDS ORDERED: ASPIRIN 81 MG PO SCH (21:00)
[2025-04-20] MEDS ORDERED: ATORVASTATIN 80 MG TAB PO SCH (21:00)
== END 2025-04-20 09:10 | disposition home or self-care (01) ==
LOC: OR 05:49
PROVIDERS: ATTEND Internal Medicine Interventional Cardiology
DX: I25.10 Atherosclerotic heart disease of native coronary artery without angina pectoris (principal); I48.0 Paroxysmal atrial fibrillation; I08.3 Combined rheumatic disorders of mitral, aortic and tricuspid valves; I44.2 Atrioventricular block, complete; K21.9 Gastro-esophageal reflux disease without esophagitis; I10 Essential (primary) hypertension; E78.2 Mixed hyperlipidemia; L23.1 Allergic contact dermatitis due to adhesives; Z95.1 Presence of aortocoronary bypass graft; Z95.0 Presence of cardiac pacemaker; Z79.02 Long term (current) use of antithrombotics/antiplatelets; Z79.82 Long term (current) use of aspirin; Z79.899 Other long term (current) drug therapy
CPT/HCPCS: 93312; 93320; 93325; 92960; 80048; J2704